=== PATIENT | female | born 1940 | race Caucasian/White ===

== ENCOUNTER → 2017-09-16 16:03 | Outpatient (CLI) | payer MEDICARE, SELFPAY ==
--- NOTE | 2017-09-16 16:07 | MM_ITS ---
MM Dig screening mamm BI w/CAD CAD Screening ORDERING PHYSICIAN : Martín Roberts MD PATIENT AGE: 77 years GENDER: Female COMPARISON: Previous mammograms: September mammogram and ultrasound., HISTORY.: Previous stereotactic biopsy right breast. Benign. No new complaints.. No hormones currently. Patient Stopped taking estrogen 5 months ago: Family history. Maternal great aunt with breast cancer TECHNIQUE: Standard CC and MLO images were obtained. R2 CAD reviewed. Additional axillary cc view both breast and left breast nipple profile MLO view included FINDINGS: Dense breast bilaterally with this decreases sensitivity of mammography but we see no unique or significant new findings between the multiple projections. RIGHT BREAST:Metallic marker clip lateral right breast from previous stereotactic biopsy. Scattered benign calcifications and vascular calcifications bilaterally again noted. No significant change. LEFT BREAST:Again the dense glandular tissue but similar architecture to previous studies with no significant new findings no dominant mass nor architectural irregularity of concern IMPRESSION: Dense breast decreases sensitivity mammography but we see no new areas of concern. Bilateral follow-up in one year recommended BI-RADS Category: 2 Benign Finding(s) RECOMMENDED FOLLOW-UP: 1YR - 1 YEAR FOLLOW-UP (A letter has been sent to the patient regarding results of the study.)
== END ==
PROVIDERS: Family Provider Family Medicine; PCP Family Medicine; Visit Provider Surgery
DX: Z12.31 Encounter for screening mammogram for malignant neoplasm of breast (principal)
CPT/HCPCS: 77067

== ENCOUNTER → 2018-06-30 14:34 | Outpatient (CLI) | payer MEDICARE, SELFPAY ==
--- NOTE | 2018-06-30 14:43 | XR_ITS ---
XR chest 2V HISTORY: ITS.REASON: BRONCHITIS ORDERING PHYSICIAN: Misbah Son MD PATIENT AGE: 78 years COMPARISON: 05/07/2016 FINDINGS: Unremarkable cardiovascular structures. Patchy infiltrate is present within the lingula. There is evidence of old granulomatous disease. There is kyphosis of the midthoracic spine. IMPRESSION: Lingular infiltrate
[2018-06-30 14:52] LABS: Basophils % 0.4 % (0.1-2.0); Eosinophils # 0.1 K/mm3 (0.0-0.4); Eosinophils % 0.5 % (0.1-12.0); Hemoglobin 14.2 g/dL (12.2-16.2); Lymphocytes % 8.4 % (10-50); Mean Corpuscular HGB Conc 32.2 g/dL (31.8-35.4); Mean Corpuscular Volume 96.3 fl (81-99); Monocytes # 0.1 K/mm3 (0.1-1.0); Monocytes % 1.2 % (1.7-9.3); Neutrophils # 10.2 K/mm3 (1.8-7.8); Neutrophils % 89.4 % (37.0-80.0); Platelet Count 319 K/mm3 (142-424); Red Blood Count 4.57 M/mm3 (4.20-5.40); White Blood Count 11.4 K/mm3 (4.8-10.8)
[2018-06-30 14:56] LABS: MANUAL DIFFERENTIAL MANUAL DIFFERENTIAL (MANUAL DIFF)
[2018-06-30 15:43] LABS: Lymphocytes % 7 % (10-50); Neutrophils % 93 % (42-76); Platelet Estimate Normal; RBC Morphology Normal; Total Cells Counted 100
[2018-06-30 15:58] LABS: Alanine Aminotransferase 35 U/L (12-78); Albumin Level 3.4 gm/dL (3.4-5.0); Albumin/Globulin Ratio 0.9 (1.1-1.8); Alkaline Phosphatase 115 U/L (46-116); Anion Gap 13.3 mEq/L (5-15); Aspartate Amino Transferase 24 U/L (15-37); Bilirubin,Total 0.5 mg/dL (0.2-1.0); Blood Urea Nitrogen 39 mg/dL (7-18); Calcium 9.1 mg/dL (8.5-10.1); Carbon Dioxide 29 mmol/L (21.0-32.0); Chloride 102 mmol/L (98-107); Creatinine,Serum 1.52 mg/dL (0.55-1.02); Estimated Glomerular Filt Rate 33 ml/min (>60); GFR (African American) 40 ML/MIN (>60); Globulin 3.6 gm/dl (1.3-3.2); Glucose 142 mg/dL (74-106); Potassium 4.3 mmoL/L (3.5-5.1); Sodium 140 mmol/L (136-145)
== END ==
PROVIDERS: Visit Provider Family Medicine
DX: J40 Bronchitis, not specified as acute or chronic (principal)
CPT/HCPCS: 36415; 71046; 80053; 85007; 85025

== ENCOUNTER → 2018-09-22 10:55 | Outpatient (CLI) | payer MEDICARE, SELFPAY ==
--- NOTE | 2018-09-22 11:01 | MM_ITS ---
MM Dig screening mamm BI w/CAD CAD Screening COMPARISON: Digital mammograms with CAD 05/26/2017 and 09/16/2017 INDICATION: There is a history of breast cancer patient maternal great aunt. There has been a previous biopsy right breast for benign disease. TECHNIQUE: Standard CC and MLO images were obtained. R2 CAD reviewed. FINDINGS: Again noted is a markedly dense and heterogenic parenchymal pattern definitely lessening the sensitivity of mammography. There are multiple scattered benign-appearing microcalcifications in each breast. There is faint arterial calcification in each breast. A biopsy clip is seen right breast. There is no suspicious lesion and there are no suspicious microcalcifications. There are several small nodes in both axilla. IMPRESSION: Stable markedly dense parenchymal pattern with no suspicious lesion seen BI-RADS Category: 2 Benign Finding(s) RECOMMENDED FOLLOW-UP: 1YR - 1 YEAR FOLLOW-UP (A letter has been sent to the patient regarding results of the study.)
== END ==
PROVIDERS: PCP Family Medicine; Visit Provider Surgery
DX: Z12.31 Encounter for screening mammogram for malignant neoplasm of breast (principal)
CPT/HCPCS: 77067

== ENCOUNTER → 2018-10-13 13:46 | Outpatient (CLI) | payer MEDICARE, SELFPAY ==
[2018-10-13 17:02] LABS: Alanine Aminotransferase 35 U/L (12-78); Albumin Level 3.4 gm/dL (3.4-5.0); Alkaline Phosphatase 108 U/L (46-116); Aspartate Amino Transferase 24 U/L (15-37); Bilirubin,Direct 0.1 mg/dL (0.0-0.2); Bilirubin,Indirect 0.4 mg/dL (0.0-0.9); Bilirubin,Total 0.5 mg/dL (0.2-1.0); Total Protein,Serum 6.6 gm/dL (6.4-8.2)
== END ==
PROVIDERS: Visit Provider Surgery
DX: R17 Unspecified jaundice (principal)
CPT/HCPCS: 36415; 80076

== ENCOUNTER → 2020-01-04 10:51 | Outpatient (CLI) | payer MEDICARE, SELFPAY ==
--- NOTE | 2020-01-04 10:51 | MM_ITS ---
PROCEDURE: MM DIG SCREENING MAMM BI W/CAD Digital Breast Tomosynthesis Included CLINICAL INDICATION: screening xmg There is a history of breast cancer patient's maternal great aunt. There has been a previous biopsy right breast for benign disease. COMPARISON: DMDB DIG MAMM-DX LILA W/CAD from 05/26/2017 [facility] MM Dig screening mamm BI w/CAD from 09/16/2017 [facility] MM Dig screening mamm BI w/CAD from 09/22/2018 TECHNIQUE: Standard CC and MLO images and 3D Tomosynthesis was obtained. R2 CAD reviewed. FINDINGS: Again noted is a markedly dense and heterogenic parenchymal pattern and the findings are fairly symmetrical bilaterally. Aayush images are most helpful in this type of breast parenchyma. There are scattered benign-appearing microcalcifications in each breast. There is faint arterial calcification in each breast. Again noted is a biopsy clip right breast. There is a possible new asymmetric density deep within the right breast only definitely seen on the CC projection and appearing to represent a true lesion on aayush images. The fact that this lesion is not definitely seen on the MLO view suggests that it could possibly be due to an intramammary node. The aayush images confirm that the lesion is in the lower part of the breast somewhat close to the chest wall. However recommend the patient return for an attempted spot compression view and ultrasound for additional evaluation. IMPRESSION: Markedly dense parenchymal pattern with possible new lesion right breast BI-RAD Category: 0 Need Additional Imaging Evaluation FOLLOW-UP: IMM Immediate Follow-up Recommended (A letter has been sent to the patient regarding results of the study.) Dictated by: Dr. Mahesh Nunn MD 01/06/2020 07:[address] Mahesh Nunn MD in [place] 01/06/2020 07:58
== END ==
PROVIDERS: PCP Family Medicine; Visit Provider Nurse Practitioner Obstetrics & Gynecology
DX: Z12.31 Encounter for screening mammogram for malignant neoplasm of breast (principal)
CPT/HCPCS: 77063; 77067

== ENCOUNTER → 2020-01-25 14:46 | Outpatient (CLI) | payer MEDICARE, SELFPAY ==
--- NOTE | 2020-01-25 14:46 | MM_ITS ---
PROCEDURE: MM DIG MAMM DX UNILAT RT CAD Digital Breast Tomosynthesis Included CLINICAL INDICATION: abnormal xmg Possible right breast nodule COMPARISON: BR US BREAST-RT COMPLETE W/AXILLA from 05/26/2017 [facility] MM Dig screening mamm BI w/CAD from 09/16/2017 [facility] MM Dig screening mamm BI w/CAD from 09/22/2018 MM DIG SCREENING MAMM BI W/CAD from 01/04/2020 US BREAST RT COMPLETE from 01/25/2020 TECHNIQUE: Spot views performed along with right breast ultrasound FINDINGS: Very dense fibroglandular tissue which decreases the sensitivity of mammography. No malignant appearing mass or malignant-appearing microcalcification. The nodular density noted on the screening mammogram is deep within the medial aspect of the right breast as very difficult to image. There is some asymmetry noted in this area on the spot views but no discrete mass. Right breast ultrasound: No cystic or solid nodules evident. Recommend six-month mammographic and sonographic follow-up IMPRESSION: BI-RAD Category: 3 Probably Benign Finding Short Term Follow-up FOLLOW-UP: 6M 6Month Follow-up (A letter has been sent to the patient regarding results of the study.) Dictated by: Atul Joel MD 01/27/2020 10:44 Electronically signed by Atul Joel MD in [place] 01/27/2020 10:44
== END ==
PROVIDERS: PCP Family Medicine; Visit Provider Nurse Practitioner Obstetrics & Gynecology
DX: R92.8 Other abnormal and inconclusive findings on diagnostic imaging of breast (principal)
CPT/HCPCS: 76641; 77061; 77065; G0279

== ENCOUNTER → 2020-07-26 14:02 | Outpatient (CLI) | payer MEDICARE, SELFPAY ==
--- NOTE | 2020-07-26 | US_ITS ---
PROCEDURE: US BREAST RT COMPLETE CLINICAL INDICATION: 6 mo follow up on Rt. breast COMPARISON: MG [facility] MM Dig screening mamm BI w/CAD from 09/22/2018 MG MM DIG SCREENING MAMM BI W/CAD from 01/04/2020 US US BREAST RT COMPLETE from 01/25/2020 MG MM DIG MAMM DX UNILAT RT CAD from 01/25/2020 US US BREAST RT COMPLETE from 07/26/2020 TECHNIQUE: Standard images performed along with 3D tomography spot compression views and right breast ultrasound. FINDINGS: Dense fibroglandular tissue. This decreases sensitivity of mammography. No malignant appearing mass or malignant-appearing microcalcification. Scattered areas of benign-appearing calcification are noted. Biopsy clip is present in the lower outer right breast. Previously noted area of asymmetric density in the deep medial aspect of the right breast once again noted lobular in nature not significantly changed. This is only well seen on the CC view. Right breast ultrasound: At the 5 o'clock region there is a septated cystic lesion at 6 x 5 mm and may correspond to the mammographic abnormality. This area is not previously identified but could be due to technical factors. There is a hypoechoic nodule at 3 o'clock nonspecific and may represent an area of fibrocystic change which appears to elongate. IMPRESSION: Nodular lesion and the medial deep and deep aspect of the right breast may correspond to a septated cyst. No convincing evidence of malignancy. Probably benign findings of the right breast. Recommend bilateral mammogram in december of 2020 along with right breast ultrasound. BI-RAD Category: 3 Probably Benign Finding Short Term Follow-up FOLLOW-UP: Six-month follow-up (A letter has been sent to the patient regarding results of the study.) The Dictated by: Atul Joel MD 08/13/2020 11:21 Atul Joel MD in [place] 08/13/2020 11:21
--- NOTE | 2020-07-26 14:06 | MM_ITS ---
PROCEDURE: MM DIG MAMM DX UNILAT RT CAD Digital Breast Tomosynthesis Included CLINICAL INDICATION: 6 mo follow up on Rt. breast COMPARISON: MG [facility] MM Dig screening mamm BI w/CAD from 09/22/2018 MG MM DIG SCREENING MAMM BI W/CAD from 01/04/2020 US US BREAST RT COMPLETE from 01/25/2020 MG MM DIG MAMM DX UNILAT RT CAD from 01/25/2020 US US BREAST RT COMPLETE from 07/26/2020 TECHNIQUE: Standard images performed along with 3D tomography spot compression views and right breast ultrasound. FINDINGS: Dense fibroglandular tissue. This decreases sensitivity of mammography. No malignant appearing mass or malignant-appearing microcalcification. Scattered areas of benign-appearing calcification are noted. Biopsy clip is present in the lower outer right breast. Previously noted area of asymmetric density in the deep medial aspect of the right breast once again noted lobular in nature not significantly changed. This is only well seen on the CC view. Right breast ultrasound: At the 5 o'clock region there is a septated cystic lesion at 6 x 5 mm and may correspond to the mammographic abnormality. This area is not previously identified but could be due to technical factors. There is a hypoechoic nodule at 3 o'clock nonspecific and may represent an area of fibrocystic change which appears to elongate. IMPRESSION: Nodular lesion and the medial deep and deep aspect of the right breast may correspond to a septated cyst. No convincing evidence of malignancy. Probably benign findings of the right breast. Recommend bilateral mammogram in december of 2020 along with right breast ultrasound. BI-RAD Category: 3 Probably Benign Finding Short Term Follow-up FOLLOW-UP: Six-month follow-up (A letter has been sent to the patient regarding results of the study.) The Dictated by: Atul Joel MD 08/13/2020 11:20 Atul Joel MD in [place] 08/13/2020 11:20
== END ==
PROVIDERS: PCP Family Medicine; Visit Provider Nurse Practitioner Obstetrics & Gynecology
DX: R92.8 Other abnormal and inconclusive findings on diagnostic imaging of breast (principal)
CPT/HCPCS: 76641; 77061; 77065; G0279

== ENCOUNTER 2020-11-06 12:18 | Inpatient (IN) | payer MEDICARE, SELFPAY ==
[2020-11-06] VITALS (9 sets, daily range): BP systolic 121–148; BP diastolic 49–69; PULSE 74–105; RESP 16–20; TEMP 36.7–36.9; O2SAT 93–100; BMI 25.7; BMI 19.1; BMI 19.5
--- NOTE | 2020-11-06 12:22 | XR_ITS ---
PROCEDURE: XR HIP LT 2-3V W/PELVIS CLINICAL INDICATION: fall hip pain COMPARISON: CR HIP2R HIP-2 VIEWS-RT from 09/18/2014 FINDINGS: There is a displaced intertrochanteric fracture of the left femur with extension of the fracture into the proximal femoral diaphysis. The left acetabulofemoral joint space is maintained. Minor subchondral sclerosis. Mild osteopenia is noted. Soft tissue swelling adjacent to the left hip joint. IMPRESSION: Displaced intertrochanteric fracture with the proximal femoral diaphyseal extension. Dictated by: Ksenia Mary 11/06/2020 13:14 Ksenia Mary in [place] 11/06/2020 13:14
--- NOTE | 2020-11-06 12:23 | XR_ITS ---
PROCEDURE: XR CHEST PORTABLE CLINICAL HISTORY: fall hip pain COMPARISON: CR CXR CHEST(2 VIEWS-NOT PORTABLE) from 05/07/2016 CR CXR2V XR chest 2V from 06/30/2018 FINDINGS: Extensive emphysematous changes of the lungs bilaterally. No lobar consolidation, pleural effusions or pneumothorax. Hyperexpanded lungs. Cardiac size and central pulmonary vasculature within normal limits. Vascular calcification is noted. Degenerative changes of the visualized thoracic spine. Focal calcification noted in the right hilum, unchanged compared to prior study, likely represents calcified lymph nodes. IMPRESSION: Hyperexpanded lungs with the emphysematous changes bilaterally. No lobar consolidation. Dictated by: Ksenia Mary 11/06/2020 13:06 Ksenia Mary in [place] 11/06/2020 13:06
--- NOTE | 2020-11-06 12:26 | HMH.EDLOEX ---
ED Disposition Clinical Impression: Fracture of hip Qualifiers: Encounter type: initial encounter Fracture type: closed Laterality: left Qualified Code(s): S72.002A - Fracture of unspecified part of neck of left femur, initial encounter for closed fracture Disposition: Admitted As Inpatient Condition on Discharge: [facility] - Critical Care Critical Care Time: No Attestation: On , the high probability of a clinically significant, sudden or life threatening deterioration of the following system(s) required my full and direct attention, intervention and personal management. The time I documented below is in addition to time spent performing reported procedures but includes the following listed in this critical care notation. Medical Decision Making - Leo Inquiry Pt receiving controlled substance: No Leo was queried for this patient: No Vital Signs: 11/06/20 12:19 11/06/20 12:26 11/06/20 12:30 Temperature 98.2 F Temperature Source Oral Pulse Rate 90 74 Pulse Rate [Right Brachial] 88 Respiratory Rate 16 18 20 Blood Pressure 129/53 L 129/63 Blood Pressure [Right Arm] 129/53 L Blood Pressure Mean [Right Arm] 78 Blood Pressure Source Automatic Cuff Automatic Cuff Blood Pressure Source [Right Arm] Automatic Cuff Blood Pressure Position Sitting Sitting Blood Pressure Position [Right Arm] Supine 02 Sat by Pulse Oximetry 97 95 99 Oxygen Delivery Method Room Air Room Air 11/06/20 13:00 11/06/20 14:00 Temperature Temperature Source Pulse Rate 84 85 Pulse Rate [Right Brachial] Respiratory Rate 18 16 Blood Pressure 137/57 L 135/49 L Blood Pressure [Right Arm] Blood Pressure Mean [Right Arm] Blood Pressure Source Automatic Cuff Automatic Cuff Blood Pressure Source [Right Arm] Blood Pressure Position Sitting Sitting Blood Pressure Position [Right Arm] 02 Sat by Pulse Oximetry 98 95 Oxygen Delivery Method Room Air - Lab Data Lab Results 11/06/20 12:20: PT 10.3, INR 0.86 L, APTT 23.2 11/06/20 12:20: Chlamy pneumoniae PCR Not detected, Adenovirus (PCR) Not detected, B. pertussis DNA (PCR) Not detected, Coronavirus OC43 (PCR) Not detected, Coronavirus HKU1 (PCR) Not detected, Coronavirus 229E (PCR) Not detected, SARS-CoV-2 (PCR) Not detected, Coronavirus NL63 (PCR) Not detected, Human Metapneumovir PCR Not detected, Influenza A (H1) PCR Not detected, Influ A (H1N1/09) PCR Not detected, Influenza A (H3) PCR Not detected, Influenza Type A (PCR) Not detected, Influenza Type B (PCR) Not detected, M. pneumoniae (PCR) Not detected, Parainfluenza 1 (PCR) Not detected, Parainfluenza 2 (PCR) Not detected, Parainfluenza 3 (PCR) Not detected, Parainfluenza 4 (PCR) Not detected, RSV (PCR) Not detected, Entero/Rhino (PCR) Not detected 11/06/20 12:20: WBC 12.8 H, RBC 4.45, Hgb 13.9, Hct 43.4, MCV 97.6, MCH 31.1, MCHC 31.9, RDW 13.1, Plt Count 284, MPV 8.7, Neut % (Auto) 61.5, Lymph % (Auto) 30.9, [place] % (Auto) 4.7, Eos % (Auto) 2.0, Baso % (Auto) 0.9, Neut # (Auto) 7.9 H, Lymph # (Auto) 4.0, [place] # (Auto) 0.6, Eos # (Auto) 0.3, Baso # (Auto) 0.1 11/06/20 12:20: Sodium 136, Potassium 4.2, Chloride 103, Carbon Dioxide 27, Anion Gap 10.2, BUN 32 H, Creatinine 1.00, Estimated Creat Clear 38, Estimated GFR 53 L, Est GFR ( Amer) 65, Glucose 136 H, Calcium 9.5, Total Bilirubin 0.6, AST 41 H, ALT 32, Alkaline Phosphatase 98, Total Protein 7.0, Albumin 4.2, Globulin 2.8, Albumin/Globulin Ratio 1.5 Result diagrams: 11/06/20 12:20 11/06/20 12:20 - ECG Data Tracing #[id number] on 06 November 2020 shows a normal sinus rhythm at 97 bpm there is an occasional premature ventricular contraction. 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 There is no acute ischemia evident. Normal Sinus Rhythm: Yes Arrhythmias present: PVC's (occasional) ECG compared to prior tracings: there are no significant changes - Physician Consults Physician Consulted: Usman Time: 13:15 Reason -: Orthopedic Eval/Car
--- NOTE | 2020-11-06 12:41 | PC.NURSE ---
pt has had coffe around 10 am, no food since last night.
[2020-11-06 12:51] LABS: Adenovirus,PCR Not Detected (NotDetected); Bordetella Pertussis Not Detected (NotDetected); Chlamydophila Pneumoniae, PCR Not Detected (NotDetected); Coronavirus 19, PCR Not Detected (NotDetected); Coronavirus 229E Not Detected (NotDetected); Coronavirus NL63 Not Detected (NotDetected); Coronavirus OC43 Not Detected (NotDetected); Coronovirus HKU1,PCR Not Detected (NotDetected); Human Metapneumovirus Not Detected (NotDetected); Influenza A, PCR Not Detected (NotDetected); Influenza AH1, 2009 Not Detected (NotDetected); Influenza AH1, PCR Not Detected (NotDetected); Influenza AH3,PCR Not Detected (NotDetected); Influenza B, PCR Not Detected (NotDetected); Mycoplasma Pneumoniae, PCR Not Detected (NotDetected); Parainfluenza 1, PCR Not Detected (NotDetected); Parainfluenza 2, PCR Not Detected (NotDetected); Parainfluenza 3, PCR Not Detected (NotDetected); Parainfluenza 4, PCR Not Detected (NotDetected); Respiratory Syncytial Virus Not Detected (NotDetected); Rhinovirus/Enterovirus Not Detected (NotDetected)
--- NOTE | 2020-11-06 13:06 | ECG_ITS ---
APPROVED REPORT Exam: Resting ECG HR:97 bpm ECG Measurements Heart Rate 97 AXES NJ 148 P 86 QRSd 80 QRS 51 QT 348 T 59 QTc 441 Conclusion Sinus rhythm with occasional premature ventricular complexes and premature atrial complexes Septal infarct, age undetermined Abnormal ECG Electronically signed by : Vik Bruce, 11/07/2020 13:22:15
[2020-11-06 13:08] LABS: Activated Partial Thrombo Time 23.2 seconds (22.8-30.6); Basophils # 0.1 K/mm3 (0-0.2); Basophils % 0.9 % (0.1-2.0); Eosinophils # 0.3 K/mm3 (0.0-0.4); Hematocrit 43.4 % (37.0-47.0); Hemoglobin 13.9 g/dL (12.2-16.2); INR 0.86 (0.9-1.1); Lymphocytes % 30.9 % (10-50); Mean Corpuscular HGB Conc 31.9 g/dL (31.8-35.4); Mean Corpuscular Hemoglobin 31.1 pg (27.0-31.2); Mean Corpuscular Volume 97.6 fl (81-99); Mean Platelet Volume 8.7 fl (7.4-10.4); Monocytes # 0.6 K/mm3 (0.1-1.0); Monocytes % 4.7 % (1.7-9.3); Neutrophils # 7.9 K/mm3 (1.8-7.8); Neutrophils % 61.5 % (37.0-80.0); Platelet Count 284 K/mm3 (142-424); Prothrombin Time 10.3 seconds (10.1-12.5); Red Blood Count 4.45 M/mm3 (4.20-5.40); Red Cell Distribution Width 13.1 % (11.5-17.5); White Blood Count 12.8 K/mm3 (4.8-10.8)
[2020-11-06 13:10] LABS: Chloride 103 mmol/L (98-107); Potassium 4.2 mmoL/L (3.5-5.1); Sodium 136 mmol/L (136-145)
[2020-11-06 13:13] LABS: Alanine Aminotransferase 32 U/L (12-78); Albumin Level 4.2 g/dl (3.5-5.0); Albumin/Globulin Ratio 1.5 (1.1-1.8); Alkaline Phosphatase 98 U/L (38-126); Anion Gap 10.2 mEq/L (5-15); Aspartate Amino Transferase 41 U/L (14-36); Bilirubin,Total 0.6 mg/dl (0.2-1.3); Blood Urea Nitrogen 32 mg/dl (7-17); Carbon Dioxide 27 mmol/L (22.0-30.0); Creatinine Clearance Estimated 38 mL/min (50-200); Estimated Glomerular Filt Rate 53 ml/min (>60); GFR (African American) 65 ML/MIN (>60); Globulin 2.8 g/dL (1.3-3.2)
[2020-11-06 13:14] LABS: Calcium 9.5 mg/dl (8.4-10.2); Glucose 136 mg/dl (74-100)
--- NOTE | 2020-11-06 13:15 | PC.NURSE ---
spoke with Dr Mary
--- NOTE | 2020-11-06 13:33 | PC.NURSE ---
Called for Dr Son, he is out of office till 2 pm. Will try back at 2.
--- NOTE | 2020-11-06 14:07 | PC.NURSE ---
Dr Fletcher speaking with Dr Son.
--- NOTE | 2020-11-06 15:14 | PC.NURSE ---
report called to lillian dietrich rn
--- NOTE | 2020-11-06 15:18 | HMH.HP ---
*Admission Date: 11/06/20 *Chief complaint: Fall with fracture of left hip *History of present illness: Ms. Berg is a 10-year-old female with a history of hypertension, hyperlipidemia, DO porosis, and COPD presented to the emergency department complaining of left-sided hip pain which started after a fall. The patient denies any loss of consciousness or other injuries. Apparently she lost her balance and tripped while attempting to ambulate. The patient's work-up in the emergency department reveals an anterior trochanteric left hip fracture. She is neurovascularly intact distally. The orthopedist on-call, Dr. Mary, was consulted. He has agreed to take the patient to the operating room tomorrow. He has requested that the patient be admitted to the primary care service with consult of Dr. Mary. He also requested that the patient be n.p.o. past midnight as well as under a 5 pound traction once admitted. Above is from ER documentation With evaluation in the emergency room chest x-ray completed today shows hyperexpansion of the lungs With emphysema changes bilaterally and no lobar consolidation. X-ray of the left hip reveals displaced intertrochanteric fracture with a proximal femoral diaphyseal extension. CBC showed a white blood cell count of 12,800 and hemoglobin of 13.9 and hematocrit of 43.4. Chemistries show sodium 136 potassium 4.2 BUN 32 and creatinine of 1. At the time of this exam pt is in quite alot of pain Morphine given ; [place] has been placed; she will have felix inserted. [facility] History Medical History: Reports:: Chronic Obstructive Pulmonary Disease (COPD), Hyperlipidemia, Hypertension, Osteoporosis Denies:: Cancer, Diabetes Mellitus Type 1, Diabetes Mellitus Type 2, MRSA *Have you ever received a pneumonia vaccine?: Yes *Have you received a flu vaccine this season?: Yes Other Medical History: Reports: Osteoporosis Laterality Cases: Bilateral: Breast Biopsy, Tonsillectomy Other Surgeries: Yes: Hysterectomy-Total Amputation: No Fractures: No - *Social History Last grade of school completed: Advanced degree Smoking Status: Current every day smoker Tobacco Type: cigarettes # Packs/Day (cigarettes): 1 Alcohol Intake: never Substance Use Type: denies use *Occupational Status:: retired Housing: house Household Members: spouse *Travel in the last 8 weeks: None Family Hx:: No significant family history Review of Systems - Constitutional Denies fatigue, Denies fever(s) - Eyes Denies change in vision - ENT Denies ear discharge, Denies ear pain, Denies sore throat - *Cardiovascular Denies chest pain, Denies shortness of breath - *Respiratory Denies cough, Denies shortness of breath - *Gastrointestinal Reports nausea, Denies abdominal pain, Denies constipation, Denies heartburn, Denies loose stools, Denies vomiting - *Genitourinary Denies difficulty urinating - *Musculoskeletal Comments: left hip pain; spasms around the hip - *Neurologic Denies frequent falls, Denies headache(s), Denies seizure-like activity Meds Home Medications Medication Instructions Recorded Confirmed Type aspirin 81 mg tablet,delayed 81 mg PO DAILY 09/30/17 11/06/20 History release losartan 50 mg tablet 50 mg PO DAILY 09/30/17 11/06/20 History triamterene 37.5 0.5 tab PO DAILY 09/30/17 11/06/20 History mg-hydrochlorothiazide 25 mg tablet Biotin 300 mcg PO DAILY 11/06/20 11/06/20 History Calcium Carb/Mag Ox/Zinc Sulf [Cvs 1 each PO DAILY 11/06/20 11/06/20 History Vfoildn-Srdxngvpl-Bul Cplt] Cyclobenzaprine HCl 10 mg PO TIDP PRN 11/06/20 11/06/20 History [Cyclobenzaprine 10mg Tab*] Multivitamin 1 each PO DAILY 11/06/20 11/06/20 History Rosuvastatin Calcium 20 mg PO HS 11/06/20 11/06/20 History Ubidecarenone/Vit E Acet [Co Q-10 1 each PO DAILY 11/06/20 11/06/20 History 100 mg Softgel] Allergies Allergy/AdvReac Type Severity Reaction Status Date / Time azithromycin [From Zithromax] Allergy Verified
--- NOTE | 2020-11-06 15:22 | PC.NURSE ---
Pt arrived to the floor at this time.
--- NOTE | 2020-11-06 15:41 | PC.NURSE ---
pt weighed with extra blankets on bed. pt refused to roll at this time to remove blankets. will obtain accurate weigh later this shift.
--- NOTE | 2020-11-06 15:50 | HMH.PHAINT ---
MEDICATION RECONCILIATION COMPLETED USING PHYSICIAN OFFICE AND HOME PHARMACY
--- NOTE | 2020-11-06 17:24 | HMH.ORTHOCON ---
*Admission Date: 11/06/20 *Reason for consult:: Intertrochanteric fracture, left femur *History of present illness: Patient is a 80-year-old female admitted from the ER this afternoon for management of intertrochanteric fracture of the left femur. Her is at the bedside at the time of examination. She presented to the ER complaining of left hip pain following a mechanical fall at home. Patient states that she got up from a chair, got her legs tangled, tripped and fell over at home. She states that she developed immediate pain around her left hip and she could not get up or walk after the fall. Following evaluation in the ER including x-rays, patient was admitted to hospital for further management. On the floor now, she is complaining of pain around the left hip worsened with any attempted movements. She also reports intermittent muscle spasms which exacerbate the hip pain. No history of any distal tingling or numbness. She reports no other injuries. Patient denies any dizziness, headache, chest or neck pain. She denies loss of consciousness, chest pain and shortness of breath. She lives with her and usually walks independently without any walking aids. She says she has been mobile and independent and did not have any problems prior to the fall. She says her pain is well controlled at rest but trying to move the LEFT leg causes hip pain. Her past medical history includes hypertension, hyperlipidemia, osteoporosis and COPD. She is a chronic smoker. [facility] History I have reviewed the patient's past medical history: Yes Medical History: Reports:: Chronic Obstructive Pulmonary Disease (COPD), Hyperlipidemia, Hypertension, Osteoporosis Denies:: Cancer, Diabetes Mellitus Type 1, Diabetes Mellitus Type 2, MRSA *Have you ever received a pneumonia vaccine?: Yes *Have you received a flu vaccine this season?: Yes Other Medical History: Reports: Osteoporosis Laterality Cases: Bilateral: Breast Biopsy, Tonsillectomy Other Surgeries: Yes: Hysterectomy-Total Amputation: No Fractures: No - *Social History Last grade of school completed: Advanced degree Smoking Status: Current every day smoker Tobacco Type: cigarettes # Packs/Day (cigarettes): 1 Alcohol Intake: never Substance Use Type: denies use *Occupational Status:: retired Housing: house Household Members: spouse *Travel in the last 8 weeks: None Family Hx:: No significant family history Review of Systems - Review of Systems Review of systems:: pertinent systems reviewed and negative unless documented below - Constitutional Denies chills, Denies fatigue, Denies fever(s) - Eyes Denies change in vision - ENT Denies abnormal hearing, Denies difficulty swallowing - *Cardiovascular Denies chest pain, Denies shortness of breath - *Respiratory Denies chest congestion, Denies shortness of breath - *Gastrointestinal Denies abdominal pain, Denies change in bowel habits - *Musculoskeletal Reports abnormal walking, Reports joint pain, Reports limited joint movement - *Neurologic Denies frequent falls, Denies headache(s), Denies seizure-like activity - Endocrine Denies cold intolerance, Denies heat intolerance - Hematologic/Lymphatic Denies easy bleeding, Denies easy bruising Meds Home Medications Medication Instructions Recorded Confirmed Type aspirin 81 mg tablet,delayed 81 mg PO DAILY 09/30/17 11/06/20 History release losartan 50 mg tablet 50 mg PO DAILY 09/30/17 11/06/20 History triamterene 37.5 0.5 tab PO DAILY 09/30/17 11/06/20 History mg-hydrochlorothiazide 25 mg tablet Biotin 300 mcg PO DAILY 11/06/20 11/06/20 History Calcium Carb/Mag Ox/Zinc Sulf [Cvs 1 each PO DAILY 11/06/20 11/06/20 History Apudnjs-Ydmsvxsxp-Crl Cplt] Cyclobenzaprine HCl 10 mg PO TIDP PRN 11/06/20 11/06/20 History [Cyclobenzaprine 10mg Tab*] Multivitamin 1 each PO DAILY 11/06/20 11/06/20 History Rosuvastatin Calcium 20 mg PO HS 11/06/20 11/06/20 History Ubidecarenone/V
[2020-11-06 17:50] LABS: Microscopic, Urine URINE MICROSCOPIC (MICROSCOPIC)
[2020-11-06 17:54] LABS: Appearance,Urine CLEAR (Clear); Bilirubin,Urine Negative (Negative); Blood, Urine Negative (Negative); Color,Urine YELLOW (Yellow); Glucose,Urine (UA) Negative (Negative); Ketones,Urine Negative (Negative); Leukocyte Esterase,Urine TRACE (Negative); Nitrate,Urine POSITIVE (Negative); Protein,Urine TRACE (Negative); Specific Gravity, Urine 1.025 (1.005-1.030); Urobilinogen,Urine 0.2 EU/dl (0.2)
[2020-11-06 18:31] LABS: Bacteria,Urine 3+ /lpf; Squamous Epithelial Cell,Urine Occasional #/hpf (0-5)
--- NOTE | 2020-11-06 19:18 | PC.NURSE ---
Pt brought to floor, noted to be in severe pain. Pain meds increased to 2 mg Q2HP per Don Dimas. Pt states some relief, but is still having frequent spasms in left thigh, Dr. Son aware. Pt remains on room air. Linens from ED stretcher are still under pt currently, pt refuses to allow staff to roll her. She is aware that she will need a bath before surgery tomorrow and states that staff may take them out from under her then. 16 Fr felix cath inserted by staff using sterile technique, UA sent to lab per protocol. 5lb bucks traction applied to LLE per MD orders. Scud in place to RLE. Pt's family remains @ bedside. No needs voiced @ this time. Call trisha w/in reach.
--- NOTE | 2020-11-06 23:51 | PC.NURSE ---
pt is alert and oriented X4, and has refused a bed bath
[2020-11-07] VITALS (24 sets, daily range): BP systolic 111–144; BP diastolic 47–76; PULSE 116–127; RESP 16–20; TEMP 36.6–37.5; O2SAT 78–95
--- NOTE | 2020-11-07 05:41 | PC.NURSE ---
shift summary pts lung sounds are clear with sats maintained 90% or above on room air with a rate ranging from 16-18. pt called out due to pain frequently through out the night requesting pain meds about every 2 hours. pt refuses to be turned or moved in any way due to pain. pt is alert and oriented X4. pt has a felix in place with clear yellow in color urine. pt denies any nausea, vomiting, or diarrhea.
--- NOTE | 2020-11-07 05:53 | PC.NURSE ---
UNABLE TO OBTAIN PATIENTS WEIGHT . PATIENT IN AN OLDER BED WITH BUCKS TRACTION AND SCUD ON THE RIGHT LEG . BUCKS TRACTION IS PLACED WHERE THE WEIGHT IS OBTAINED. PATIENT UNABLE TO TOLERATE MOVING THE BUCKS TRACTION SO THAT WEIGHT CAN BE OBTAINED. RN AWARE.
[2020-11-07 06:51] LABS: Alanine Aminotransferase 34 U/L (12-78); Albumin Level 4.1 g/dl (3.5-5.0); Albumin/Globulin Ratio 1.4 (1.1-1.8); Alkaline Phosphatase 74 U/L (38-126); Anion Gap 9.9 mEq/L (5-15); Aspartate Amino Transferase 51 U/L (14-36); Bilirubin,Total 0.8 mg/dl (0.2-1.3); Blood Urea Nitrogen 28 mg/dl (7-17); Calcium 9.1 mg/dl (8.4-10.2); Carbon Dioxide 26 mmol/L (22.0-30.0); Chloride 104 mmol/L (98-107); Creatinine Clearance Estimated 38 mL/min (50-200); Estimated Glomerular Filt Rate 60 ml/min (>60); GFR (African American) 73 ML/MIN (>60); Glucose 127 mg/dl (74-100); Potassium 4.9 mmoL/L (3.5-5.1); Sodium 135 mmol/L (136-145); Total Protein,Serum 7.1 g/dl (6.3-8.2)
[2020-11-07 07:18] LABS: Basophils # 0.1 K/mm3 (0-0.2); Basophils % 0.4 % (0.1-2.0); Eosinophils % 0.2 % (0.1-12.0); Hematocrit 43.7 % (37.0-47.0); Hemoglobin 14.4 g/dL (12.2-16.2); Lymphocytes # 1.2 K/mm3 (0.7-4.5); Lymphocytes % 9.5 % (10-50); Mean Corpuscular Hemoglobin 31.8 pg (27.0-31.2); Mean Corpuscular Volume 96.6 fl (81-99); Mean Platelet Volume 10.5 fl (7.4-10.4); Monocytes % 7.7 % (1.7-9.3); Neutrophils # 10.7 K/mm3 (1.8-7.8); Neutrophils % 82.2 % (37.0-80.0); Platelet Count 201 K/mm3 (142-424); Red Blood Count 4.52 M/mm3 (4.20-5.40); Red Cell Distribution Width 13.1 % (11.5-17.5); White Blood Count 13.1 K/mm3 (4.8-10.8)
--- NOTE | 2020-11-07 08:11 | HMH.ACPN2 ---
Internal Medicine - PN: Giuseppe *Date: 11/07/20 *Time: 08:11 Interval history: Pain has been the main issue. She has received morphine every 2-3 hours since admission. She has refused to move due to related pain. She has had some nausea. She is n.p.o. for surgery today. has stayed with her throughout the night and states she did better the latter part of the a.m. She does have a Ridley catheter to bedside drainage. She has had an adequate urinary output. Exam Vital signs and Labs for Last 24 Hours: Temp Pulse Resp BP Pulse Ox 98.5 F 126 H 16 133/55 L 87 L 11/07/20 07:58 11/07/20 07:58 11/07/20 07:58 11/07/20 07:58 11/07/20 07:58 Laboratory Results - last 24 hr 11/06/20 12:20: PT 10.3, INR 0.86 L, APTT 23.2 11/06/20 12:20: Chlamy pneumoniae PCR Not detected, Adenovirus (PCR) Not detected, B. pertussis DNA (PCR) Not detected, Coronavirus OC43 (PCR) Not detected, Coronavirus HKU1 (PCR) Not detected, Coronavirus 229E (PCR) Not detected, SARS-CoV-2 (PCR) Not detected, Coronavirus NL63 (PCR) Not detected, Human Metapneumovir PCR Not detected, Influenza A (H1) PCR Not detected, Influ A (H1N1/09) PCR Not detected, Influenza A (H3) PCR Not detected, Influenza Type A (PCR) Not detected, Influenza Type B (PCR) Not detected, M. pneumoniae (PCR) Not detected, Parainfluenza 1 (PCR) Not detected, Parainfluenza 2 (PCR) Not detected, Parainfluenza 3 (PCR) Not detected, Parainfluenza 4 (PCR) Not detected, RSV (PCR) Not detected, Entero/Rhino (PCR) Not detected 11/06/20 12:20: WBC 12.8 H, RBC 4.45, Hgb 13.9, Hct 43.4, MCV 97.6, MCH 31.1, MCHC 31.9, RDW 13.1, Plt Count 284, MPV 8.7, Neut % (Auto) 61.5, Lymph % (Auto) 30.9, [place] % (Auto) 4.7, Eos % (Auto) 2.0, Baso % (Auto) 0.9, Neut # (Auto) 7.9 H, Lymph # (Auto) 4.0, [place] # (Auto) 0.6, Eos # (Auto) 0.3, Baso # (Auto) 0.1 11/06/20 12:20: Sodium 136, Potassium 4.2, Chloride 103, Carbon Dioxide 27, Anion Gap 10.2, BUN 32 H, Creatinine 1.00, Estimated Creat Clear 38, Estimated GFR 53 L, Est GFR ( Amer) 65, Glucose 136 H, Calcium 9.5, Total Bilirubin 0.6, AST 41 H, ALT 32, Alkaline Phosphatase 98, Total Protein 7.0, Albumin 4.2, Globulin 2.8, Albumin/Globulin Ratio 1.5 11/06/20 15:58: Urine Color Yellow, Urine Appearance Clear, Urine pH 6.0, Ur Specific [place] 1.025, Urine Protein Trace, Urine Glucose (UA) Negative, Urine Ketones Negative, Urine Blood Negative, Urine Nitrate Positive, Urine Bilirubin Negative, Urine Urobilinogen 0.2, Ur Leukocyte Esterase Trace, Urine RBC None, Urine WBC 5-10, Ur Squamous Epith Cells Occasional, Urine Bacteria 3+ 11/07/20 06:08: Blood Type B Positive, Antibody Screen Negative 11/07/20 06:08: WBC 13.1 H, RBC 4.52, Hgb 14.4, Hct 43.7, MCV 96.6, MCH 31.8 H, MCHC 33.0, RDW 13.1, Plt Count 201 D, MPV 10.5 H, Neut % (Auto) 82.2 H, Lymph % (Auto) 9.5 L, [place] % (Auto) 7.7, Eos % (Auto) 0.2, Baso % (Auto) 0.4, Neut # (Auto) 10.7 H, Lymph # (Auto) 1.2, [place] # (Auto) 1.0, Eos # (Auto) 0.0, Baso # (Auto) 0.1 11/07/20 06:08: Sodium 135 L, Potassium 4.9, Chloride 104, Carbon Dioxide 26, Anion Gap 9.9, BUN 28 H, Creatinine 0.90, Estimated Creat Clear 38, Estimated GFR 60, Est GFR ( Amer) 73, Glucose 127 H, Calcium 9.1, Total Bilirubin 0.8, AST 51 H, ALT 34, Alkaline Phosphatase 74, Total Protein 7.1, Albumin 4.1, Globulin 3.0, Albumin/Globulin Ratio 1.4 I & O for Last 24 hours: Intake & Output 11/04/20 11/05/20 11/06/20 11/07/20 11:59 11:59 11:59 11:59 Intake Total 120 / 120 Output Total 600 / 600 Balance -480 / -480 Weight 117 lb 6 oz - Constitutional no acute distress Comments: Sleeps intermittently during assessment. - *Routine Respiratory Exam Present: rhonchi (Scattered anteriorly) - *Routine Cardiovascular Exam Present: RRR - *Routine Abdominal Exam Present: soft, normoactive bowel sounds, bruit (Aortic). Absent: tenderness, distended Comments: Has Ridley catheter to bedside drainage - *Routine Extremities Exam Absent
[2020-11-07 08:51] LABS: ABG Base Excess -0.2 mmol/L (-2.4-2.3); ABG HCO3 25.9 mmhg (22.0-26.0); ABG Oxygen Saturation 92 % (90-100); ABG PH 7.32 mmol/L (7.35-7.45); ABG PO2 61.4 mmhg (80-100); ABG TCO2 27.4 mmhg (23-27)
[2020-11-07 08:53] LABS: Allen's Test ACCEPTABLE; Oxygen 50% VENTURI %; Source R RADIAL
[2020-11-07 08:55] LABS: ABG PCO2 50.9 mmhg (35.0-45.0)
--- NOTE | 2020-11-07 08:59 | P.CONPHA_ITS ---
[facility] Pharmacy VTE Monitoring - Patient Demographics Admission date: 11/06/20 Report Date: 11/07/20 Time: 08:59 Allergies/Adverse Reactions: Patient Allergies azithromycin [From Zithromax] Allergy (Verified 11/06/20 13:24) nitrofurantoin [From Macrobid] Allergy (Verified 11/06/20 13:24) Sulfa (Sulfonamide Antibiotics) Allergy (Verified 11/06/20 13:24) Height: 1.65 m Weight: 53.24 kg Patient Problems: Current Active Problems Fracture of hip (Acute) HTN (hypertension) (Chronic) Hypothyroid (Chronic) Closed intertrochanteric fracture of left femur (Acute) Tobacco use disorder (Chronic) Emphysema of lung (Chronic) - VTE Risk Labs: VTE Related Lab Results Hgb 14.4 g/dL (12.2-16.2) 11/07/20 06:08 Hct 43.7 % (37.0-47.0) 11/07/20 06:08 Plt Count 201 K/mm3 (142-424) D 11/07/20 06:08 PT 10.3 seconds (10.1-12.5) 11/06/20 12:20 INR 0.86 (0.9-1.1) L 11/06/20 12:20 APTT 23.2 seconds (22.8-30.6) 11/06/20 12:20 BUN 28 mg/dl (7-17) H 11/07/20 06:08 Creatinine 0.90 mg/dl (0.52-1.04) 11/07/20 06:08 Estimated Creat Clear 38 mL/min (50-200) 11/07/20 06:08 VTE Score: 3 VTE Risk Level: Low Risk - Prophylaxis VTE Prophylaxis Ordered?: Yes Types of VTE Prophylaxis: TEDS Knee High Location of Applied Device: Bilateral Lower Extremeties
--- NOTE | 2020-11-07 09:38 | CT_ITS ---
PROCEDURE: CT ANGIO CHEST CLINCIAL INDICATION: surgery COMPARISON: No exams were available for comparison TECHNIQUE: IV Contrast: 70ML Isovue 370 Axial images obtained with sagittal and coronal reformats. All CT scans at the facility use one or more dose reduction, viz: automated exposure control, ma/kV adjustment per patient size (including targeted exams where dose is matched to indication, i.e. head), or iterative reconstruction technique. FINDINGS: HEART AND MEDIASTINAL STRUCTURES: The pulmonary arteries opacify normally without evidence of filling defects. No evidence of pulmonary embolism is noted. The heart size is normal. Atheromatous changes are with calcification of the visualized thoracic aorta. No pericardial effusions. Calcified lymph node noted in the subcarinal region. No other significant mediastinal or hilar adenopathy. LUNGS AND PLEURAL SPACES: Centrilobular and paraseptal emphysematous changes are noted bilaterally. Minor subpleural atelectasis. Bibasilar atelectasis noted. There is evidence of mucous debris with the near complete a obstruction of the subsegmental bronchials, predominantly in the right lower lobe. No postobstructive consolidation noted. Minor bibasal atelectasis is noted. Peribronchial thickening and loss of tapering of the bilateral lower lobe bronchials, worse on the right. BONY STRUCTURES: Degenerative changes of the visualized thoracic spine. UPPER ABDOMEN: Multiple splenic calcifications are noted, likely secondary to prior granulomatous disease. Otherwise the visualized upper abdominal solid organs are unremarkable within the limitations of phase of IV contrast. ADDITIONAL FINDINGS: No other significant abnormalities.. IMPRESSION: No evidence of pulmonary embolism. Peribronchial thickening with the debris noted in the right lower lobe bronchials, may represent mucous plugging. No postobstructive changes are noted. Minor bibasal atelectasis. Dictated by: Ksenia Mary 11/07/2020 13:40 Ksenia Mary in OV 11/07/2020 13:40
--- NOTE | 2020-11-07 09:42 | HMH.PULMCON ---
*Admission Date: 11/06/20 *History of present illness: Ms. Scott is a 80-year-old pleasant female significant smoking story more than [id number] is currently smoking 1 pack a day not using any inhalers or oxygen at home, carries a diagnosis of COPD previously used inhalers presented to hospital with left hip intertrochanteric fracture and found to be hypoxic needing Ventimask to maintain her saturation pulmonary was called for further management. [facility] History Medical History: Reports:: Chronic Obstructive Pulmonary Disease (COPD), Hyperlipidemia, Hypertension, Osteoporosis Denies:: Cancer, Diabetes Mellitus Type 1, Diabetes Mellitus Type 2, MRSA *Have you ever received a pneumonia vaccine?: Yes *Have you received a flu vaccine this season?: Yes Other Medical History: Reports: Osteoporosis Laterality Cases: Bilateral: Breast Biopsy, Tonsillectomy Other Surgeries: Yes: Hysterectomy-Total Amputation: No Fractures: No - *Social History Last grade of school completed: Advanced degree Smoking Status: Current every day smoker Tobacco Type: cigarettes # Packs/Day (cigarettes): 1 Alcohol Intake: never Substance Use Type: denies use *Occupational Status:: retired Housing: house Household Members: spouse *Travel in the last 8 weeks: None Family Hx:: No significant family history ROS - Review of Systems Review of systems:: unable to obtain - Cons Denies chills - ENT Denies bleeding gums - Card Reports shortness of breath, Reports shortness of breath with activity - Resp Respiratory: Denies chest congestion, Denies cough, Denies excessive phlegm production, Denies coughing up blood, Denies cough with sputum production - [place] Musculoskeletal: Reports joint pain Meds Home Medications Medication Instructions Recorded Confirmed Type aspirin 81 mg tablet,delayed 81 mg PO DAILY 09/30/17 11/06/20 History release losartan 50 mg tablet 50 mg PO DAILY 09/30/17 11/06/20 History triamterene 37.5 0.5 tab PO DAILY 09/30/17 11/06/20 History mg-hydrochlorothiazide 25 mg tablet Biotin 300 mcg PO DAILY 11/06/20 11/06/20 History Calcium Carb/Mag Ox/Zinc Sulf [Cvs 1 each PO DAILY 11/06/20 11/06/20 History Jasiitl-Xhvxrsest-Uwn Cplt] Cyclobenzaprine HCl 10 mg PO TIDP PRN 11/06/20 11/06/20 History [Cyclobenzaprine 10mg Tab*] Multivitamin 1 each PO DAILY 11/06/20 11/06/20 History Rosuvastatin Calcium 20 mg PO HS 11/06/20 11/06/20 History Ubidecarenone/Vit E Acet [Co Q-10 1 each PO DAILY 11/06/20 11/06/20 History 100 mg Softgel] Allergies Allergy/AdvReac Type Severity Reaction Status Date / Time azithromycin [From Zithromax] Allergy Verified 11/06/20 13:24 nitrofurantoin Allergy Verified 11/06/20 13:24 [From Macrobid] Sulfa (Sulfonamide Allergy Verified 11/06/20 13:24 Antibiotics) Exam - Eye Exam Eyes:: Present: eyelids normal, normal conjunctiva - Respiratory Exam Respiratory:: Present: able to speak in complete sentences, lungs clear. Absent: wheezing - Cardiovascular Exam Cardiac:: Present: S1, S2 - GI Exam GI:: Present: soft - Skin Exam Skin: Present: warm, no rash - Neurological Exam Neurological: Present: alert, awake, normal cognition - Extremities Exam Extremities: Present: no cyanosis, no clubbing, no edema Comments: Left lower extremity cast Internal Medicine - CN: Reslt - Labs CBC & Chem 7: 11/07/20 06:08 11/07/20 06:08 Labs: Short CBC 11/06/20 11/07/20 Range/Units 12:20 06:08 WBC 12.8 H 13.1 H (4.8-10.8) K/mm3 Hgb 13.9 14.4 (12.2-16.2) g/dL Hct 43.4 43.7 (37.0-47.0) % Plt Count 284 201 D (142-424) K/mm3 BMP 11/06/20 11/07/20 12:20 06:08 Sodium 136 135 L Potassium 4.2 4.9 Chloride 103 104 Carbon Dioxide 27 26 BUN 32 H 28 H Creatinine 1.00 0.90 Glucose 136 H 127 H Calcium 9.5 9.1 Liver Function 11/06/20 11/07/20 Range/Units 12:20 06:08 Total Bilirubin 0.6 0.8 (0.2-1.3) mg/dl AST 41
--- NOTE | 2020-11-07 10:00 | CA_ITS ---
APPROVED REPORT Right Lower Extremity Venous Study for DVT. Plate Hanger: DONG De La CruzT Indications Shortness of breath Hypoxia,LT HIP FX IN TRACTION Risk Factors Trauma Bed Rest Vein Imaging CFV (R): compressive, spontaneous, phasic, augmentation FEM (R): compressive, spontaneous, phasic, augmentation POP (R): compressive, spontaneous, phasic, augmentation PTV (R): Compressible GSV (R): Compressible Peroneals (R):Compressible GAS (R): Compressible Findings Study suggests no evidence of DVT of the right lower extremity. Study suggests no evidence of SVT of the right lower extremity. Conclusion Study suggests no evidence of DVT of the right lower extremity. Study suggests no evidence of SVT of the right lower extremity. Electronically signed by : Ksenia Mary, 11/07/2020 15:46:47
[2020-11-07 10:41] LABS: C-Reactive Protein 41.6 mg/L (0-4)
[2020-11-07 10:45] LABS: NT Pro Brain Natriuretic Pep. 611 pg/mL (0-450)
[2020-11-07 10:53] LABS: Procalcitonin 0.091 ng/mL (0.0-2.0)
[2020-11-07 11:01] LABS: D-Dimer 4.76 ug/mL (0.0-0.5)
[2020-11-07 11:12] LABS: ABG Base Excess -1.2 mmol/L (-2.4-2.3); ABG HCO3 24.3 mmhg (22.0-26.0); ABG Oxygen Saturation 94 % (90-100); ABG PCO2 44.4 mmhg (35.0-45.0); ABG PH 7.36 mmol/L (7.35-7.45); ABG PO2 65.9 mmhg (80-100); ABG TCO2 25.7 mmhg (23-27)
[2020-11-07 11:14] LABS: Allen's Test ACCEPTABLE; Oxygen 50% VENTI %; Source R RADIAL
--- NOTE | 2020-11-07 14:32 | HMH.ANESCL ---
[facility] Anesthesia Checklist - Patient Identification Patient Identification: Arm Band - Structural Data Admitted From: Home Planned Operative Procedure/s: Gamma nailing Consent for Planned Operative Procedure(s) Verified: Yes - Airway Assessment C-Spine Mobility Assessed: Yes TMJ Mobility Assessed: Yes Dentition: Good Dentition - Neurological Assessment Level of Consciousness: Awake, Alert Hx Seizures: No Numbness or tingling in extremities: No - Anesthesia Plan Anesthesia Risk discussed: Yes Anesthesia Plan: Verified ASA Class: III Anesthesia Type: MAC w/Spinal (General with spinal) [facility] History I have reviewed the patient's past medical history: Yes Medical History: Reports:: Chronic Obstructive Pulmonary Disease (COPD), Hyperlipidemia, Hypertension, Osteoporosis Denies:: Cancer, Diabetes Mellitus Type 1, Diabetes Mellitus Type 2, MRSA *Have you ever received a pneumonia vaccine?: Yes *Have you received a flu vaccine this season?: Yes Other Medical History: Reports: Osteoporosis, Other Comment:: Bibasilar atelectasis Anesthesia experience/problems:: None Laterality Cases: Bilateral: Breast Biopsy, Tonsillectomy Other Surgeries: Yes: Hysterectomy-Total Amputation: No Fractures: No - *Social History Last grade of school completed: Advanced degree Smoking Status: Current every day smoker Tobacco Type: cigarettes # Packs/Day (cigarettes): 1 Alcohol Intake: never Substance Use Type: denies use *Occupational Status:: retired Housing: house Household Members: spouse *Travel in the last 8 weeks: None Family Hx:: No significant family history
--- NOTE | 2020-11-07 17:35 | XR_ITS ---
CLINICAL INDICATION: GAMMA NAILING IN OR COMPARISON: No exams were available for comparison TECHNIQUE: Multiple fluoroscopic images of the left femur FINDINGS: Multiple fluoroscopic images of the left femur demonstrate intramedullary she and screw fixation. IMPRESSION: Intramedullary she and screw fixation of the left femur. Dictated by: Ksenia Mary 11/08/2020 11:30 Ksenia Mary in OV 11/08/2020 11:30
--- NOTE | 2020-11-07 18:14 | PC.NURSE ---
PT HAS BEEN IN OR T/O MOST OF SHIFT. INTERVENTIONS CLEARED FROM CHART.
--- NOTE | 2020-11-07 18:28 | HMH.ANESI ---
[facility] Anesthesia Record Part I Intake, IV Amount: 1,000 Estimated blood loss (mL): 200 Urine output (mL): 350 Blood Pressure: 133/58 SaO2: 90 Pulse Rate: 120 Respiratory Rate: 16 Temperature: 97.9 F Patient is:: Drowsy Stable to PACU at:: 18:21
--- NOTE | 2020-11-07 18:57 | SUR.PHASEI ---
182- pt to pacu via bed with O2 @ 6 lpm per mask. Pt is drowsy but easily aroused. HOB raised to 45 degrees. Respirations are easy and shallow. pt instructed to cough and deep breath. O2 raised to 15 lpm. Warm blankets placed on pt. Ice pack to left hip. 184- @ bs. Ordered for pt to go to step down bed for monitoring. 1844-respiratory called for albuterol treatment. Ordered per [place] MEI. 1849-Pt more awake and arouses easily. Pt states she feels much better. VSS.
--- NOTE | 2020-11-07 19:05 | HMH.ANESII ---
[facility] Anesthesia Record Part II Discharge Time: 19:05 Destination: Second Floor PACU nurse assessment reviewed?: Yes Patient Condition:: Good Anesthesia Complications:: None Swallowing reflex intact?: Yes Cyanosis?: No Blood Pressure: 126/67 Pulse Rate: 122 Temperature: 99.5 F Mental Status: Alert & Oriented Pain level:: 0 Nausea and/or vomitting:: None Intake, IV Amount: 1,000
--- NOTE | 2020-11-07 19:18 | PC.NURSE ---
PT BACK TO FLOOR AT 1917 VIA BED WITH OR STAFF.
--- NOTE | 2020-11-07 19:18 | HMH.OPNOTE ---
Date of procedure: 11/07/20 Pre-op Diagnosis:: Closed, comminuted, displaced and unstable intertrochanteric fracture, left proximal femur Post-op Diagnosis:: Same Procedure performed:: Closed reduction and cephalomedullary nailing, left femur Surgeon:: Rom Mary MD Rehab Consultant(s):: Yue Lizarraga ASSEM[employer] BUILDINGS:: Other ([facility]) Anesthesia: spinal Estimated blood loss (mL): 200 Clinical Note:: Patient is a 80-year-old female who tripped and fell sustaining an injury to her left hip on 11/06/2020. Following evaluation in the emergency room where x-ray showed a displaced and comminuted intertrochanteric fracture of the left proximal femur, patient was admitted for further management. After evaluating the patient, I have discussed the diagnosis and management options in detail including nonsurgical and surgical, with the patient and her . Prior to the injury patient was active and mobile independently. She lives with her . After a detailed discussion with the patient and her a decision was made to fix the fracture internally with a cephalo-medullary nail. I have discussed the procedure, risks and benefits, postoperative recovery and rehabilitation and the expected outcomes. The complications discussed include but are not limited to DVT, PE, infection, bleeding, injury to nerves and blood vessels, screw cut-out/implant failure, loss of fixation, nonunion, malunion/malrotation, osteonecrosis of the femoral head, femoral shaft fracture, painful hardware, heterotopic ossification, stiffness, weakness, incomplete relief of pain, incomplete return of function or motion and the likely need for further surgery in future, and anesthetic/medical complications including heart attack, stroke, transfusion reaction or . The patient wished to proceed with the surgical remediation. Consent form was reviewed and signed by me. The limb was appropriately marked and initialed by me. Following appropriate preoperative workup, medical and pulmonology clearance, patient is brought to the operating room for surgery. The surgery is indicated to reduce and stabilize the fracture, relieve pain and improve function. Patient understood the risks, agreed to proceed with surgery, signed the consent form and no guarantees or assurances were given or implied. Please refer to my consult note for full details. Operative findings:: Comminuted, displaced and unstable intertrochanteric fracture left proximal femur as noted on the preoperative x-rays. The fracture is well reduced with closed manipulation prior to fixation. Bone quality is osteoporotic. Operative note:: Following appropriate preoperative workup and medical and pulmonology clearance, patient is brought to the operating room and a spinal anesthesia was administered by the biological lab technician. Patient was then positioned supine on the fracture table and all the bony prominences were appropriately padded. The left foot was secured in the footplate and the footplate was attached to the fracture table. The right leg was placed out of the way in a leg beebe. Under fluoroscopic guidance the fracture was reduced by traction and satisfactory reduction was obtained. The reduction was confirmed on both AP and lateral views. The left hip and thigh were then prepped and draped in the usual sterile fashion. Administration of prophylactic antibiotics was confirmed with the biological lab technician (IV Ancef and vancomycin were administered). A preprocedure timeout was performed as per the hospital protocol. After marking the level of the greater trochanter on the skin under fluoroscopy, a skin incision was made proximal to the greater trochanter in line with the femoral shaft. The dissection was then carried through the subcutaneous tissue. The tensor fascia muscle was split in line with the fibers. This provided access to the tip of the greater trochanter. Under fluoroscopic guidance a guidewire was placed at the tip of the greater trochanter, the po
--- NOTE | 2020-11-07 19:36 | SUR.PHASEI ---
190-respiratory @ bs. Pt awake and alert talking. VSS 1914-Detailed report called to Shay SHAFER. Pt transported via bed with portable o2 @ 10 lpm to step down per Luis SHAFER & Mar[place]. Pt left in care of Shay SHAFER @ bs. VSS.
--- NOTE | 2020-11-07 19:46 | HMH.ACPN2 ---
Internal Medicine - PN: Subj *Date: 11/07/20 *Time: 19:46 Interval history: Returns to Med/Surg post-op. No distress. Jq=620/74, HR remaining elevated at 122. Lungs actually sound clearer than pre-op. X-rays reviewed. Spoke with and [id number]. Exam Vital signs and Labs for Last 24 Hours: Temp Pulse Resp BP Pulse Ox 98.9 F 118 H 16 122/67 90 L 11/07/20 19:15 11/07/20 19:15 11/07/20 19:15 11/07/20 19:15 11/07/20 19:15 Laboratory Results - last 24 hr 11/06/20 15:58: Urine Color Yellow, Urine Appearance Clear, Urine pH 6.0, Ur Specific [place] 1.025, Urine Protein Trace, Urine Glucose (UA) Negative, Urine Ketones Negative, Urine Blood Negative, Urine Nitrate Positive, Urine Bilirubin Negative, Urine Urobilinogen 0.2, Ur Leukocyte Esterase Trace, Urine RBC None, Urine WBC 5-10, Ur Squamous Epith Cells Occasional, Urine Bacteria 3+ 11/07/20 06:08: Blood Type B Positive, Antibody Screen Negative 11/07/20 06:08: WBC 13.1 H, RBC 4.52, Hgb 14.4, Hct 43.7, MCV 96.6, MCH 31.8 H, MCHC 33.0, RDW 13.1, Plt Count 201 D, MPV 10.5 H, Neut % (Auto) 82.2 H, Lymph % (Auto) 9.5 L, Nobles % (Auto) 7.7, Eos % (Auto) 0.2, Baso % (Auto) 0.4, Neut # (Auto) 10.7 H, Lymph # (Auto) 1.2, [place]les # (Auto) 1.0, Eos # (Auto) 0.0, Baso # (Auto) 0.1 11/07/20 06:08: Sodium 135 L, Potassium 4.9, Chloride 104, Carbon Dioxide 26, Anion Gap 9.9, BUN 28 H, Creatinine 0.90, Estimated Creat Clear 38, Estimated GFR 60, Est GFR ( Amer) 73, Glucose 127 H, Calcium 9.1, Total Bilirubin 0.8, AST 51 H, ALT 34, Alkaline Phosphatase 74, Total Protein 7.1, Albumin 4.1, Globulin 3.0, Albumin/Globulin Ratio 1.4 11/07/20 06:08: C-Reactive Protein 41.6 H, Procalcitonin 0.091 11/07/20 06:08: NT-Pro-B Natriuret Pep 611 H 11/07/20 08:48: Specimen Source R radial, O2 % 50% venturi, ABG pH 7.32 L, ABG pCO2 50.9 H, ABG pO2 61.4 L, ABG HCO3 25.9, ABG Total CO2 27.4 H, ABG O2 Saturation 92, ABG Base Excess -0.2, Atul Test Acceptable 11/07/20 10:43: D-Dimer 4.76 H 11/07/20 11:10: Specimen Source R radial, O2 % 50% venti, ABG pH 7.36, ABG pCO2 44.4, ABG pO2 65.9 L, ABG HCO3 24.3, ABG Total CO2 25.7, ABG O2 Saturation 94, ABG Base Excess -1.2, Atul Test Acceptable I & O for Last 24 hours: Intake & Output 11/05/20 11/06/20 11/07/20 11/08/20 11:59 11:59 11:59 11:59 Intake Total 120 / 120 1999 Output Total 600 / 600 Balance -480 / -480 1999 Weight 117 lb 6 oz Microbiology Reports for the Last 24 Hours: Microbiology 11/06/20 15:58 Urine,Catheterized Urine Culture - Preliminary Gram Negative Rods - Constitutional no acute distress (venti-mask) - *Routine HEENT Exam Eye: Present: PERRL - *Routine Respiratory Exam Absent: respiratory distress, rhonchi - *Routine Cardiovascular Exam Present: tachycardia - *Routine Neurological Exam Absent: alert (sedated, opens eyes.) Assessment and Plan (1) Closed intertrochanteric fracture of left femur Status: Acute Category: Medical Code(s): S72.142A - Displaced intertrochanteric fracture of left femur, initial encounter for closed fracture (2) Fracture of hip Status: Acute Qualifiers: Encounter type: initial encounter Fracture type: closed Laterality: left Qualified Code(s): S72.002A - Fracture of unspecified part of neck of left femur, initial encounter for closed fracture Category: Medical Code(s): S72.009A - Fracture of unspecified part of neck of unspecified femur, initial encounter for closed fracture (3) Emphysema of lung Status: Chronic Category: Medical Code(s): J43.9 - Emphysema, unspecified (4) HTN (hypertension) Status: Chronic Category: Medical Code(s): I10 - Essential (primary) hypertension (5) Tobacco use disorder Status: Chronic Category: Medical Code(s): F17.200 - Nicotine dependence, unspecified, uncomplicated (6) Hypothyroid Status: Chronic Category: Medical Code(s): E03.9 - Hy
[2020-11-08] VITALS (23 sets, daily range): BP systolic 99–145; BP diastolic 41–78; PULSE 103–125; RESP 10–21; TEMP 36.5–37.3; O2SAT 90–97; BMI 18.3
--- NOTE | 2020-11-08 05:11 | PC.NURSE ---
pt arrived back to floor from surgery at 1930. arrived on 10L simple mask. tachycardia on arrival and remains with rates 119-130. telemetry reads tachycardia with PVC's. pt in no distress. switched to venti mask at 50% and 15L. O2 sat have ranged from 90 to 96%. bp WNL and afebrile. pt had one episode of vomiting and prn medication given per oct with relief. toradol given per oct for pain. pain has remained under control. pt had audible wheezes and o2 sat decreased. breathing treatment changed r/t tachycardia. after breathing treatment o2 sat improved and pt was CTA on last assessment. felix in place and draining clear dark yellow urine. approximately 200ml output. iv site changed and infusing per order with no s/s of infiltration. SCUDs in place. dressing is C/D/I to left hip. ice pack in place. pt rings are in a bag locked in [place] at this time. call light in reach. will continue to monitor pt condition.
--- NOTE | 2020-11-08 06:22 | PC.NURSE ---
IS teaching given and return demonstration. pt pulls 500. instructed to use every hour that she is awake.
[2020-11-08 06:30] LABS: Eosinophils % 0.1 % (0.1-12.0); Red Cell Distribution Width 13.1 % (11.5-17.5)
[2020-11-08 06:32] LABS: Chloride 107 mmol/L (98-107); Potassium 4.2 mmoL/L (3.5-5.1); Sodium 137 mmol/L (136-145)
[2020-11-08 06:35] LABS: Alanine Aminotransferase 22 U/L (12-78); Albumin Level 3.2 g/dl (3.5-5.0); Albumin/Globulin Ratio 1.3 (1.1-1.8); Alkaline Phosphatase 64 U/L (38-126); Anion Gap 6.2 mEq/L (5-15); Aspartate Amino Transferase 40 U/L (14-36); Bilirubin,Total 0.4 mg/dl (0.2-1.3); Blood Urea Nitrogen 29 mg/dl (7-17); Calcium 8.8 mg/dl (8.4-10.2); Carbon Dioxide 28 mmol/L (22.0-30.0); Creatinine Clearance Estimated 38 mL/min (50-200); Estimated Glomerular Filt Rate 53 ml/min (>60); GFR (African American) 65 ML/MIN (>60); Globulin 2.5 g/dL (1.3-3.2); Glucose 132 mg/dl (74-100); Total Protein,Serum 5.7 g/dl (6.3-8.2)
[2020-11-08 06:47] LABS: Basophils % 0.2 % (0.1-2.0); Hematocrit 34.3 % (37.0-47.0); Lymphocytes # 1.4 K/mm3 (0.7-4.5); Lymphocytes % 8.4 % (10-50); Mean Corpuscular HGB Conc 32.3 g/dL (31.8-35.4); Mean Corpuscular Hemoglobin 31.6 pg (27.0-31.2); Mean Corpuscular Volume 97.8 fl (81-99); Mean Platelet Volume 8.7 fl (7.4-10.4); Monocytes # 0.9 K/mm3 (0.1-1.0); Monocytes % 5.3 % (1.7-9.3); Neutrophils # 14.2 K/mm3 (1.8-7.8); Neutrophils % 86.1 % (37.0-80.0); Platelet Count 170 K/mm3 (142-424); White Blood Count 16.4 K/mm3 (4.8-10.8)
[2020-11-08 07:00] LABS: MANUAL DIFFERENTIAL MANUAL DIFFERENTIAL (MANUAL DIFF)
[2020-11-08 07:02] LABS: Hemoglobin 11.1 g/dL (12.2-16.2)
--- NOTE | 2020-11-08 08:04 | ECG_ITS ---
APPROVED REPORT Exam: Resting ECG HR:119 bpm ECG Measurements Heart Rate 119 AXES NM 150 P 67 QRSd 84 QRS 29 QT 298 T 40 QTc 419 Conclusion Sinus tachycardia Left atrial abnormality Anterior infarct, age undetermined Abnormal ECG Electronically signed by : Vik Bruce, 11/08/2020 14:56:52
--- NOTE | 2020-11-08 08:34 | HMH.CNCARD ---
History of Present Illness Consult date: 11/08/20 Requesting physician: Misbah Son Consult reason: post-op evaluation Chief complaint: Tachycardia Additional Medical History:: 1. Tobacco use, 1 pack/day for greater than 50 years A. COPD 2. Hypertension 3. Hyperlipidemia 4. Fall with left hip fracture, status post surgical repair, 10/2020 A. Doppler ultrasound of the left lower extremity shows no evidence of DVT B. CTA of the chest negative for pulmonary embolus but with evidence of centrilobular and paraseptal emphysema and mucous plugging in the right lower lobe. 5. History of mildly abnormal stress test with slight anterior ischemia in 2014. Patient relates being referred to cardiology (Dr. Yang) with recommendation for no further evaluation at that time. History of present illness: 80-year-old white female admitted for fall with left hip fracture. She is now status post surgical repair with improved pain control. Patient's heart rate is noted to be in the 120-130 bpm range consistently over the last 24 hours. EKG shows what appears to be sinus tachycardia. Cardiology was consulted for evaluation. Patient does smoke 1 pack/day History of slightly abnormal stress test in 2014 with slight reversible anterior ischemia for which she did see cardiology (Dr. Yang) without further evaluation. Treatment for hypertension hyperlipidemia for many years. [facility] History Medical History: Reports:: Chronic Obstructive Pulmonary Disease (COPD), Hyperlipidemia, Hypertension, Osteoporosis Denies:: Cancer, Diabetes Mellitus Type 1, Diabetes Mellitus Type 2, MRSA, Seizures *Have you ever received a pneumonia vaccine?: Yes *Have you received a flu vaccine this season?: Yes Other Medical History: Reports: Osteoporosis, Other Anesthesia experience/problems:: None Laterality Cases: Bilateral: Breast Biopsy, Tonsillectomy Other Surgeries: Yes: Hysterectomy-Total Amputation: No Fractures: No - *Social History Last grade of school completed: Advanced degree Smoking Status: Current every day smoker Tobacco Type: cigarettes # Packs/Day (cigarettes): 1 Alcohol Intake: never Substance Use Type: denies use *Occupational Status:: retired Housing: house Household Members: spouse *Travel in the last 8 weeks: None Family Hx:: No significant family history Meds Home Medications Medication Instructions Recorded Confirmed Type aspirin 81 mg tablet,delayed 81 mg PO DAILY 09/30/17 11/06/20 History release losartan 50 mg tablet 50 mg PO DAILY 09/30/17 11/06/20 History triamterene 37.5 0.5 tab PO DAILY 09/30/17 11/06/20 History mg-hydrochlorothiazide 25 mg tablet Biotin 300 mcg PO DAILY 11/06/20 11/06/20 History Calcium Carb/Mag Ox/Zinc Sulf [Cvs 1 each PO DAILY 11/06/20 11/06/20 History Zdnovjz-Xzjbrbaso-Qao Cplt] Cyclobenzaprine HCl 10 mg PO TIDP PRN 11/06/20 11/06/20 History [Cyclobenzaprine 10mg Tab*] Multivitamin 1 each PO DAILY 11/06/20 11/06/20 History Rosuvastatin Calcium 20 mg PO HS 11/06/20 11/06/20 History Ubidecarenone/Vit E Acet [Co Q-10 1 each PO DAILY 11/06/20 11/06/20 History 100 mg Softgel] Allergies Allergy/AdvReac Type Severity Reaction Status Date / Time azithromycin [From Zithromax] Allergy Verified 11/06/20 13:24 nitrofurantoin Allergy Verified 11/06/20 13:24 [From Macrobid] Sulfa (Sulfonamide Allergy Verified 11/06/20 13:24 Antibiotics) Exam Vital signs and Labs for Last 24 Hours: Temp Pulse Resp BP Pulse Ox 99.1 F 115 H 17 105/41 L 90 L 11/08/20 07:28 11/08/20 08:00 11/08/20 08:00 11/08/20 08:00 11/08/20 08:00 Laboratory Results - last 24 hr 11/06/20 15:58: Urine Color Yellow, Urine Appearance Clear, Urine pH 6.0, Ur Specific [place] 1.025, Urine Protein Trace, Urine Glucose (UA) Negative, Urine Ketones Negative, Urine Blood Negative, Urine Nitrate Positive, Urine Bilirubin Negative, Urine Urobilinogen 0.2, Ur Leukocyte Esterase Trace, Urine RBC None,
--- NOTE | 2020-11-08 08:41 | CA_ITS ---
APPROVED REPORT EXAM: Comprehensive 2D, Doppler, and color-flow Echocardiogram Fusing Machine Operator: TJ Flores, RVS Ht: 5 ft 4 in Wt: 110lbs BSA: 1.52 BP: 105/41 mmHg Indications: COPD, Shortness of Breath, Hypertension/HDD Echo Enhancing Agent Comments: Technically limited exam: patient scanned seated upright, low parasternal windows 2D Dimensions Aortic Root 2.44 cm LA Volume 34.90 mL Left Atrium 3.07 cm LA Volume Index 23.000927 mL/m2 (M/F) 16-34 LVOT 1.63 cm (M/F) 1.5-2.5 M-Mode Dimensions RVDd 2.97 cm (0.9-2.6) LA Diam 3.24 cm (1.9-4.0) LVDd 3.79 cm (3.5-5.7) Ao Diam 3.29 cm (2.0-3.7) LVDs 2.39 cm (3.5-5.7) IVSd 0.73 cm (0.6-1.1) PWd 0.73 cm (0.6-1.1) EF (Teich) 67.50% FS 36.90% EDV (Teich) 61.60 mL TAPSE 1.51 (<1.7) ESV (Teich) 20.00 mL LV Diastology E Decel Time 117.00 (160-240 msec) E/A Ratio 0.23 MED E' 5.40 (< 7 cm/sec) MED A' 9.90 cm/s E'/MED E' Ratio 5.63 (>14) LAT E' 3.40 (<10 cm/sec) LAT A' 14.80 cm/s E/LAT E' Ratio 8.94 (>14) Aortic Valve LVOT Max 88.00 (70-110 cm/s) LVOT VTI 16.47 cm AoV Peak Jordin. 120.00 (50-130 cm/s) AO Peak GR. 5.80 mmHg AO Mean GR. 3.50 (<5 mmHg) AO VTI 21.13 (18-25 cm) BRYANNA (VTI) 1.63 (2.5-4.5 cm2) Mitral Valve MV E Max Jordin. 30.00 (40-130 cm/s) MV A Velocity 132.00 (40-130 cm/s) E/A Ratio 0.23 MV Decel. Time 117.00 (160-240 ms) MV Mean Gr. 3.90 (<2mmHg) MV PHT 34.00 ms Pulmonary Valve PV Peak Velocity 72.00 (50-150 cm/s) Tricuspid Valve TR P. Velocity 306.00 cm/s RAP Estimate 10.00 mmHg RVSP 47.50 mmHg Left Ventricle Left atrium is mildly enlarged, left ventricle is normal size, mild concentric left ventricular hypertrophy, visually estimated ejection fraction 55% with no regional wall motion abnormality, diastolic parameters are inconclusive. Right Ventricle Right atrium and right ventricle mildly enlarged with normal contractility. Aortic Valve Aortic valve is minimally thickened and calcified, there is no aortic stenosis or aortic insufficiency. Mitral Valve Mitral valve is minimally thickened, there is mild mitral regurgitation. Tricuspid Valve Tricuspid grossly normal, there is trace tricuspid regurgitation, calculated right ventricular systolic pressure is 47 mmHg. Pulmonic Valve Pulmonic valve is poorly visualized. Great Vessels Aortic root is normal size. Pericardium No significant pericardial effusion noted. Conclusion 1. Biatrial enlargement, normal left ventricular size, mild concentric left ventricular hypertrophy, visually estimated ejection fraction 55% with no regional wall motion abnormality, diastolic parameters are inconclusive. 2. Mildly enlarged right ventricle with normal contractility. 3. Mild mitral and trace tricuspid regurgitation, calculated right ventricular systolic pressure is 47 mmHg. 4. No significant pericardial effusion noted. Electronically signed by : Alberto Harrison, 11/08/2020 15:41:53
--- NOTE | 2020-11-08 08:41 | HMH.ACPN2 ---
Internal Medicine - PN: Subj *Date: 11/08/20 *Time: 08:41 Interval history: Patient states she is feeling a bit better this morning. Her pain is controlled she sitting still. She was able to rest last night and tolerated a little bit of breakfast this morning. Her heart rate remains in the 120s and her blood pressure has been low. Exam Vital signs and Labs for Last 24 Hours: Temp Pulse Resp BP Pulse Ox 99.1 F 115 H 17 105/41 L 90 L 11/08/20 07:28 11/08/20 08:00 11/08/20 08:00 11/08/20 08:00 11/08/20 08:00 Laboratory Results - last 24 hr 11/06/20 15:58: Urine Color Yellow, Urine Appearance Clear, Urine pH 6.0, Ur Specific [place] 1.025, Urine Protein Trace, Urine Glucose (UA) Negative, Urine Ketones Negative, Urine Blood Negative, Urine Nitrate Positive, Urine Bilirubin Negative, Urine Urobilinogen 0.2, Ur Leukocyte Esterase Trace, Urine RBC None, Urine WBC 5-10, Ur Squamous Epith Cells Occasional, Urine Bacteria 3+ 11/07/20 06:08: C-Reactive Protein 41.6 H, Procalcitonin 0.091 11/07/20 06:08: NT-Pro-B Natriuret Pep 611 H 11/07/20 08:48: Specimen Source R radial, O2 % 50% venturi, ABG pH 7.32 L, ABG pCO2 50.9 H, ABG pO2 61.4 L, ABG HCO3 25.9, ABG Total CO2 27.4 H, ABG O2 Saturation 92, ABG Base Excess -0.2, Atul Test Acceptable 11/07/20 10:43: D-Dimer 4.76 H 11/07/20 11:10: Specimen Source R radial, O2 % 50% venti, ABG pH 7.36, ABG pCO2 44.4, ABG pO2 65.9 L, ABG HCO3 24.3, ABG Total CO2 25.7, ABG O2 Saturation 94, ABG Base Excess -1.2, Atul Test Acceptable 11/08/20 05:42: WBC 16.4 H D, RBC 3.50 L, Hgb 11.1 L D, Hct 34.3 L, MCV 97.8, MCH 31.6 H, MCHC 32.3, RDW 13.1, Plt Count 170, MPV 8.7, Neut % (Auto) 86.1 H, Lymph % (Auto) 8.4 L, [place] % (Auto) 5.3, Eos % (Auto) 0.1, Baso % (Auto) 0.2, Neut # (Auto) 14.2 H, Lymph # (Auto) 1.4, [place] # (Auto) 0.9, Eos # (Auto) 0.0, Baso # (Auto) 0.0 11/08/20 05:42: Sodium 137, Potassium 4.2, Chloride 107, Carbon Dioxide 28, Anion Gap 6.2, BUN 29 H, Creatinine 1.00, Estimated Creat Clear 38, Estimated GFR 53 L, Est GFR ( Amer) 65, Glucose 132 H, Calcium 8.8, Total Bilirubin 0.4, AST 40 H, ALT 22 D, Alkaline Phosphatase 64, Total Protein 5.7 L, Albumin 3.2 L D, Globulin 2.5, Albumin/Globulin Ratio 1.3 I & O for Last 24 hours: Intake & Output 11/05/20 11/06/20 11/07/20 11/08/20 11:59 11:59 11:59 11:59 Intake Total 120 / 120 2780 / 2780 Output Total 600 / 600 200 / 200 Balance -480 / -480 2580 / 2580 Weight 117 lb 6 oz 110 lb 2 oz Microbiology Reports for the Last 24 Hours: Microbiology 11/06/20 15:58 Urine,Catheterized Urine Culture - Preliminary Enterobacter aerogenes - Constitutional no acute distress - *Routine Respiratory Exam Present: rhonchi (bilaterally). Absent: rales - *Routine Cardiovascular Exam Present: tachycardia - *Routine Abdominal Exam Present: soft, normoactive bowel sounds. Absent: tenderness - *Routine Extremities Exam Absent: cyanosis, clubbing, edema - *Routine Skin Exam Present: warm. Absent: rash Comments: dressing clean and dry on left hip - *Routine Neurological Exam Present: alert, oriented X3 Assessment and Plan (1) Closed intertrochanteric fracture of left femur Status: Acute Category: Medical Code(s): S72.142A - Displaced intertrochanteric fracture of left femur, initial encounter for closed fracture (2) Fracture of hip Status: Acute Qualifiers: Qualified Code(s): S72.002A - Fracture of unspecified part of neck of left femur, initial encounter for closed fracture Category: Medical Code(s): S72.009A - Fracture of unspecified part of neck of unspecified femur, initial encounter for closed fracture (3) Emphysema of lung Status: Chronic Category: Medical Code(s): J43.9 - Emphysema, unspecified (4) HTN (hypertension) Status: Chronic Category: Medical Code(s): I10 - Essential (primary) hypertension (5) Tobacco use disorder Status: Retanner
[2020-11-08 09:14] LABS: Lymphocytes % 6 % (10-50); Monocytes % 5 % (2-9); Neutrophils % 89 % (42-76); Platelet Estimate Normal; RBC Morphology Normal; Total Cells Counted 100
--- NOTE | 2020-11-08 09:42 | HMH.OTEV ---
OT Inpatient Evaluation Rehab OT IP Evaluation Start: 11/07/20 19:13 Freq: ONCE Status: Complete Protocol: [facility]20 09[facility] (Rec: 11/08/20 09:42 [facility] [id number]) Rehab OT IP Assessment Subjective History Pt was oriented x 4 on arrival ; pt agreeable to engage in therapy evaluation. Pt was admitted via ED on 11/06/20 after a fall with left hip pain. Pt was diagnosed with left hip fx and had a closed reduction and cephalomedullary nailing on 11/07/20. Pt reports prior to her fall she lived at home with her . Pt explains she was completely independent with all ADLs and IADL's. Pt still drove and did not require any AE during ambulation. Subjective I could do anything. Objective Patient Orientation Person,Place,Birthday,Year Upper Extremity Gross ROM WFL Bed Mobility bed mobility-scooting,bed mobility - supine/sit,bed mobility - rolling Assist Level Maximum x 1 (75% assist) Transfer Training Sit/Stand Transfer Assist Level Maximum x 1 (75% assist) Chair Transfer Ability Moderate x 2 (50% assist) Chair Transfer Technique Stand Step Pivot Chair Transfer Assistive Devices None Rehab OT IP prob,goals,plan Problems Date of Evaluation: 11/08/20 OT IP Problems Bed Mobility,Transfers,Gait, Balance,Self care,Safety Rehab Potential Rehab Potential Good Equipment Needs Assistive Devices Rolling / Wheeled Walker Plan OT intervention Plan Bed Mobility,Transfers,Gait, Balance,Self care,Safety, Therapeutic Exercise OT Plan Frequency BID Duration LOS Discharge Goals Bed Mobility Ability Assistance x1 Sit to Stand Chair Transfer Ability Moderate x 1 (50% assist) Chair Transfer Ability Moderate x 1 (50% assist) Chair Transfer Technique Sit to/from Ambulatory Chair Transfer Assistive Devices Rolling Walker Feeding Ability Independent Lower Body Dressing Ability Assistance X1 Upper Body Dressing Ability Standby Assistance Bathing Ability Assistance x1 Performing Toilet Hygiene Ability Assistance X1 Over
--- NOTE | 2020-11-08 09:54 | HMH.PULMPN ---
Internal Medicine - PN: Subj *Date: 11/08/20 *Time: 10:00 Interval history: No acute respiratory vents. Patient underwent fixation of her femur fracture. oxygen requirements improved. Exam - Constitutional Constitutional:: Present: comfortable - HENMT Exam HENMT: Present: normocephalic - Eye Exam Eyes:: Present: eyelids normal - Neck Exam Neck:: Present: thyroid normal, no lymphadenopathy - Respiratory Exam Respiratory:: Present: decreased breath sounds. Absent: wheezing - Cardiovascular Exam Cardiac:: Present: S1, S2 - GI Exam GI:: Present: soft - Skin Exam Skin: Present: warm - Neurological Exam Neurological: Present: alert, awake, normal cognition - Extremities Exam Extremities: Present: no cyanosis, no clubbing - Psychiatric Exam Psychiatric: Present: normal affect Assessment and Plan (1) Closed intertrochanteric fracture of left femur Status: Acute Category: Medical Code(s): S72.142A - Displaced intertrochanteric fracture of left femur, initial encounter for closed fracture (2) Fracture of hip Status: Acute Qualifiers: Encounter type: initial encounter Fracture type: closed Laterality: left Qualified Code(s): S72.002A - Fracture of unspecified part of neck of left femur, initial encounter for closed fracture Category: Medical Code(s): S72.009A - Fracture of unspecified part of neck of unspecified femur, initial encounter for closed fracture (3) Emphysema of lung Status: Chronic Category: Medical Code(s): J43.9 - Emphysema, unspecified (4) HTN (hypertension) Status: Chronic Category: Medical Code(s): I10 - Essential (primary) hypertension (5) Tobacco use disorder Status: Chronic Category: Medical Code(s): F17.200 - Nicotine dependence, unspecified, uncomplicated (6) Hypothyroid Status: Chronic Category: Medical Code(s): E03.9 - Hypothyroidism, unspecified (7) Tachycardia Status: Acute Category: Medical Code(s): R00.0 - Tachycardia, unspecified - Assessment and plan all Dx Assessment and Plan for all problems:: #Acute hypoxic respiratory failure: #COPD exacerbation: 80-year-old significant smoker get a prior diagnosis of COPD not using inhalers or oxygen at home presents with left hip intertrochanteric fracture and found to be hypoxic needing Ventimask at 50% to maintain saturations of 90 and above. Chest x-ray did not show any airspace disease. Showed diffuse emphysematous changes with hyperexpanded lungs. CT performed did not show evidence of pulmonary lesion, showed diffuse emphysematous changes. Patient denies any fevers or chills or worsening productive cough prior to this presentation. Afebrile. Hemodynamically stable. Tachycardic. Auscultation today revealed clear but distant breath sounds with no evidence of wheezing. Etiologies this patient respiratory failure is likely a combination of pain medications, COPD exacerbation and possible fat emboli syndrome. Patient not segment significantly improved from Ventimask 50% yesterday to 4 L nasal cannula today. Patient saturating 90 to 92%. Urine cultures positive for Enterobacter resistant to cefazolin, antibiotics managed by the primary team Plan: -Levalbuterol and ipratropium nebulizations every 6 hours scheduled. Patient noted to be in sinus tachycardia however given her significant COPD the benefit of inhalers outweigh the risks of tachycardia at this point of time we will closely monitor and coordinate care with cardiology. - Continue budesonide every 12 scheduled - Pain management as per ortho / primary team -Follow with ortho recommendations #Thank you for involving pulmonary in this patient. We will continue to follow.
--- NOTE | 2020-11-08 10:04 | HMH.PTEV ---
Physical Therapy Evaluation Rehab PT IP Evaluation Start: 11/07/20 19:13 Freq: ONCE Status: Active Protocol: Document 11/08/20 09:00 JOSE (Rec: 11/08/20 10:03 PANTERAMIGUEL [id number]) Subjective/History History History Ms. Berg is a 10-year-old female with a history of hypertension, hyperlipidemia, DO porosis, and COPD presented to the emergency department complaining of left-sided hip pain which started after a fall. The patient denies any loss of consciousness or other injuries. Apparently she lost her balance and tripped while attempting to ambulate. The patient's work-up in the emergency department reveals an anterior trochanteric left hip fracture. She is neurovascularly intact distally. The orthopedist on- call, Dr. Mary, was consulted . He has agreed to take the patient to the operating room tomorrow. Subjective Subjective Pt c/o pain in L hip and fear/ anxiety w/ movement Rehab PT IP Eval Objective Appearance Patient Behavior Anxious,Fearful Patient Orientation Person,Place,Time Difficulty following instructions none Speech Pattern Clear,Appropriate Ambulation Patient Able to Ambulate Yes Ambulation Observation IP General Gait Pattern Observation Antalgic Gait,Shuffling Step, Decrease Weight Bear (L), Decrease Stride Lngth (L) Ambulation Distance (feet) 2 Ambulation Assistive Device None Ambulation Ability Moderate x 1 (50% assist) Balance Ability to Arise Unable Sitting Balance Steady, safe Standing Balance Unsteady Dynamic Sitting Balance Ability Good Dynamic Standing Balance Ability Poor Transfers Bed Transfer Ability Maximum x 1 (75% assist) Chair Transfer Ability Maximum x 1 (75% assist) Sit to Stand Bed Transfer Ability Maximum x 1 (75% assist) Sit to Stand Chair Transfer Ability Maximum x 1 (75% assist) ROM LLE PT ROM Status ABN Abnormal ROM Comment limit by pain MMT LLE PT MMT ABN Abnormal MMT Grade 3-/5 Rehab PT IP pr
--- NOTE | 2020-11-08 11:42 | HMH.ORTHPN ---
Subjective Date: 11/08/20 Time: 11:30 Principal diagnosis: Intertrochanteric fracture, left femur Interval history: Patient is a 80-year-old female, status post cephalo-medullary nailing LEFT femur, post op day #1. She is sitting out in a chair and appears comfortable; says she is doing well and is eating and drinking well. She says her pain is well controlled with as needed pain medication. No history of any fevers, chills or rigors. No history of any chest pain or SOB. Her oxygen saturation's are improved and she is on 3 L of oxygen via nasal cannula. Patient is noted to have urinary tract infection and is started on Levaquin by Dr. Son's team. PN: Obj Ex Vital signs: Temp Pulse Resp BP Pulse Ox 99.1 F 110 H 17 121/41 L 95 11/08/20 07:28 11/08/20 10:50 11/08/20 10:00 11/08/20 10:00 11/08/20 10:50 Narrative: Laboratory Results - last 24 hr 11/08/20 05:42: WBC 16.4 H D, RBC 3.50 L, Hgb 11.1 L D, Hct 34.3 L, MCV 97.8, MCH 31.6 H, MCHC 32.3, RDW 13.1, Plt Count 170, MPV 8.7, Neut % (Auto) 86.1 H, Lymph % (Auto) 8.4 L, [place] % (Auto) 5.3, Eos % (Auto) 0.1, Baso % (Auto) 0.2, Neut # (Auto) 14.2 H, Lymph # (Auto) 1.4, [place] # (Auto) 0.9, Eos # (Auto) 0.0, Baso # (Auto) 0.0, Total Counted 100, Neutrophils % (Manual) 89 H, Lymphocytes % (Manual) 6 L, Monocytes % (Manual) 5, Platelet Estimate Normal, RBC Morphology Normal 11/08/20 05:42: Sodium 137, Potassium 4.2, Chloride 107, Carbon Dioxide 28, Anion Gap 6.2, BUN 29 H, Creatinine 1.00, Estimated Creat Clear 38, Estimated GFR 53 L, Est GFR ( Amer) 65, Glucose 132 H, Calcium 8.8, Total Bilirubin 0.4, AST 40 H, ALT 22 D, Alkaline Phosphatase 64, Total Protein 5.7 L, Albumin 3.2 L D, Globulin 2.5, Albumin/Globulin Ratio 1.3 Intake & Output 11/05/20 11/06/20 11/07/20 11/08/20 11:59 11:59 11:59 11:59 Intake Total 120 / 120 2780 / 2780 Output Total 600 / 600 400 / 400 Balance -480 / -480 2380 / 2380 Weight 117 lb 6 oz 110 lb 2 oz Objective: Vitals, I&O and Labs: I have reviewed the vital signs, lab results, medication, nursing notes, medical progress notes and also discussed with the nursing staff regarding patient?s progress. Exam: General appearance: Alert, awake, no acute distress Cardiovascular: Tachycardia; palpable peripheral pulses Respiratory: no respiratory distress; speaks in full sentences ABD: soft and nontender. Neuro: alert, awake oriented x 3 Psych: Appropriate mood and affect for her situation Genitourinary: Catheter in situ. On examination of the LEFT lower extremity, the limb lengths are equal. The alignment is neutral. The dressings over the hip/thigh are clean, dry and intact. Attempted movements of the hip are painful. Distal neurovascular status is intact. Distal pulses are 2+. Distal sensation is intact to light touch throughout. No motor deficits noted distally. Calf is soft and nontender. No clinical signs of DVT noted. - Urinary Catheter Management Ridley Cath placed during this visit: no Progress Note: A&P (1) Closed intertrochanteric fracture of left femur Status: Acute (2) Fracture of hip Status: Acute (3) Emphysema of lung Status: Chronic (4) HTN (hypertension) Status: Chronic (5) Tobacco use disorder Status: Chronic (6) Hypothyroid Status: Chronic (7) Tachycardia Status: Acute Assessment and Plan for All Diagnoses:: I have reviewed the clinical findings and progress with the patient and family. Patient is doing well and advised her to continue mobilization weight bearing as tolerated on the left lower extremity. Discontinue Ridley catheter today. Continue PT/OT, pain management with as needed narcotic analgesics. Care management looking into discharge planning. From an orthopedic standpoint, patient can be discharged tomorrow if medically appropriate. Recommend DVT prophylaxis for 6 weeks postop- the appropriate agents include Lovenox, Aspirin 325 mg, Xarelto (Rivaroxaban), Eliquis (ap
--- NOTE | 2020-11-08 11:44 | PC.NURSE ---
Dr. Mary @ [facility] and will change left hip dressing tomorrow. Ridley catheter discontinued. Pt will now utilize BSC for elimination.
--- NOTE | 2020-11-08 12:55 | SW/DCPLANNER ---
Addendum entered by Desirae Gomez 11/09/20 14:11: Anyi with [facility] has stated they can accept this patient PENDING precert from insurance. Anyi has stated it is unknown when they will hear back from insurance: later today, over the weekend or Thursday. Patient will not need another COVID swab till Thursday. I have informed patients nurse (Rosa Reyes). I will keep in contact with Anyi until she hears back from precert. I have also updated patient and her regarding situation. Addendum entered by Desirae Gomez 11/09/20 11:00: Anyi with [facility] is currently at [facility] to evaluate this patient. Addendum entered by Desirae Gomez 11/09/20 09:16: Patient and are agreeable to placement and prefer [facility] at time of discharge. I have spoke with Anyi from [facility] and they are in network with patients insurance and do have beds open. Patient information has been faxed. Dr Son and Dr Mary have stated that patient can discharge once approved to skilled facility. I will continue to follow up with Anyi from [facility]. Original Note: I have spoke with this patient regarding discharge plans. I spoke with patient and her sister in law: was not present at time of my visit. I explained that PT/OT recommendation is placement at this time. I also explained discharge plans of placement vs home with family assistance and home health. Patient requested that she be able to speak with her prior to making any plans. I did leave my name and number for patient to contact me for any questions once she calls her . I will follow up with this patient this afternoon regarding placement vs home health. Discharge date is unknown at this time.
[2020-11-09] VITALS (14 sets, daily range): BP systolic 102–140; BP diastolic 46–68; PULSE 90–122; RESP 18–26; TEMP 36.8–37.3; O2SAT 90–97; BMI 19.7; BMI 19.8
--- NOTE | 2020-11-09 06:01 | PC.NURSE ---
Pt admitted for LLE, Hip Fx. Weight bearing as tolerated. HR elevated at times throughout the night, patient received Metoprolol 25 mg QHS. Pt compliant with I/S while awake. Assisted to bedside commode X 2 without incident. PT in NAD, resting comfortably with eyes closed. Will continue to monitor for any acute changes.
[2020-11-09 07:52] LABS: Basophils % 0.2 % (0.1-2.0); Eosinophils # 0.1 K/mm3 (0.0-0.4); Eosinophils % 0.7 % (0.1-12.0); Hematocrit 29.3 % (37.0-47.0); Hemoglobin 9.7 g/dL (12.2-16.2); Lymphocytes % 8.4 % (10-50); Mean Corpuscular HGB Conc 33.3 g/dL (31.8-35.4); Mean Platelet Volume 9.3 fl (7.4-10.4); Monocytes # 0.6 K/mm3 (0.1-1.0); Monocytes % 5.1 % (1.7-9.3); Neutrophils # 10.1 K/mm3 (1.8-7.8); Neutrophils % 85.6 % (37.0-80.0); Platelet Count 148 K/mm3 (142-424); Red Blood Count 3.05 M/mm3 (4.20-5.40); Red Cell Distribution Width 12.9 % (11.5-17.5); White Blood Count 11.8 K/mm3 (4.8-10.8)
[2020-11-09 07:56] LABS: Chloride 106 mmol/L (98-107); Sodium 134 mmol/L (136-145)
[2020-11-09 07:58] LABS: MANUAL DIFFERENTIAL MANUAL DIFFERENTIAL (MANUAL DIFF)
[2020-11-09 07:59] LABS: Blood Urea Nitrogen 25 mg/dl (7-17); Creatinine Clearance Estimated 39 mL/min (50-200); Estimated Glomerular Filt Rate 69 ml/min (>60); GFR (African American) 84 ML/MIN (>60)
[2020-11-09 08:00] LABS: Calcium 8.4 mg/dl (8.4-10.2); Carbon Dioxide 25 mmol/L (22.0-30.0); Glucose 115 mg/dl (74-100)
--- NOTE | 2020-11-09 08:34 | HMH.ACPN2 ---
Internal Medicine - PN: Subj *Date: 11/09/20 *Time: 08:34 Interval history: Patient states she is feeling well this morning. She is sleepy and has had some pain medication. She states she worked well with therapy yesterday. She denies any pain as long as she is standing still. She has been resting and eating well. Exam Vital signs and Labs for Last 24 Hours: Temp Pulse Resp BP Pulse Ox 98.4 F 122 H 18 123/46 L 90 L 11/09/20 07:25 11/09/20 07:25 11/09/20 07:25 11/09/20 07:25 11/09/20 07:25 Laboratory Results - last 24 hr 11/08/20 05:42: Total Counted 100, Neutrophils % (Manual) 89 H, Lymphocytes % (Manual) 6 L, Monocytes % (Manual) 5, Platelet Estimate Normal, RBC Morphology Normal 11/09/20 07:47: WBC 11.8 H D, RBC 3.05 L, Hgb 9.7 L, Hct 29.3 L, MCV 96.0, MCH 32.0 H, MCHC 33.3, RDW 12.9, Plt Count 148, MPV 9.3, Neut % (Auto) 85.6 H, Lymph % (Auto) 8.4 L, [place] % (Auto) 5.1, Eos % (Auto) 0.7, Baso % (Auto) 0.2, Neut # (Auto) 10.1 H, Lymph # (Auto) 1.0, [place] # (Auto) 0.6, Eos # (Auto) 0.1, Baso # (Auto) 0.0 11/09/20 07:47: Sodium 134 L, Potassium 4.0, Chloride 106, Carbon Dioxide 25, Anion Gap 7.0, BUN 25 H, Creatinine 0.80, Estimated Creat Clear 39, Estimated GFR 69, Est GFR ( Amer) 84 D, Glucose 115 H, Calcium 8.4 I & O for Last 24 hours: Intake & Output 11/06/20 11/07/20 11/08/20 11/09/20 11:59 11:59 11:59 11:59 Intake Total 120 / 120 2780 / 2780 2445 / 2445 Output Total 600 / 600 400 / 400 1000 / 1000 Balance -480 / -480 2380 / 2380 1445 / 1445 Weight 117 lb 6 oz 110 lb 2 oz 118 lb 6.212 oz Microbiology Reports for the Last 24 Hours: Microbiology 11/06/20 15:58 Urine,Catheterized Urine Culture - Preliminary Enterobacter aerogenes - Constitutional no acute distress - *Routine Respiratory Exam Present: decreased breath sounds, CTA bilaterally - *Routine Cardiovascular Exam Present: RRR, tachycardia - *Routine Abdominal Exam Present: soft, normoactive bowel sounds. Absent: tenderness - *Routine Extremities Exam Absent: cyanosis, clubbing, edema - *Routine Skin Exam Present: warm. Absent: rash Comments: dressing in place on left hip - *Routine Neurological Exam Present: alert, oriented X3 Assessment and Plan (1) Closed intertrochanteric fracture of left femur Status: Acute Category: Medical Code(s): S72.142A - Displaced intertrochanteric fracture of left femur, initial encounter for closed fracture (2) Fracture of hip Status: Acute Qualifiers: Encounter type: initial encounter Fracture type: closed Laterality: left Qualified Code(s): S72.002A - Fracture of unspecified part of neck of left femur, initial encounter for closed fracture Category: Medical Code(s): S72.009A - Fracture of unspecified part of neck of unspecified femur, initial encounter for closed fracture (3) Emphysema of lung Status: Chronic Category: Medical Code(s): J43.9 - Emphysema, unspecified (4) HTN (hypertension) Status: Chronic Category: Medical Code(s): I10 - Essential (primary) hypertension (5) Tobacco use disorder Status: Chronic Category: Medical Code(s): F17.200 - Nicotine dependence, unspecified, uncomplicated (6) Hypothyroid Status: Chronic Category: Medical Code(s): E03.9 - Hypothyroidism, unspecified (7) Tachycardia Status: Acute Category: Medical Code(s): R00.0 - Tachycardia, unspecified (8) Urinary tract infection Status: Acute Category: Medical Code(s): N39.0 - Urinary tract infection, site not specified - Assessment and plan all Dx Assessment and Plan for all problems:: Patient has been switched to Levaquin for her UTI and her white count has improved. She is working well with therapy. She would like to discuss discharge planning with Dr. Son. Her heart rate is still elevated and cardiology started her on a beta-nabor yesterday.
--- NOTE | 2020-11-09 08:54 | P.PN_ITS ---
Subjective Date: 11/09/20 Time: 08:54 Principal diagnosis: Intertrochanteric fracture, left femur Interval history: 80-year-old white female in bed in no acute distress. At rest heart rate is in the 120s still despite adding beta-nabor therapy yesterday. Patient continues on Xopenex nebulizer therapy for her lung disease. She did work well with physical therapy yesterday but is still anxious about going home and how the logistics of moving around her house will play out. Exam Vital signs and Labs for Last 24 Hours: Temp Pulse Resp BP Pulse Ox 98.4 F 122 H 18 123/46 L 90 L 11/09/20 07:25 11/09/20 07:25 11/09/20 07:25 11/09/20 07:25 11/09/20 07:25 Laboratory Results - last 24 hr 11/08/20 05:42: Total Counted 100, Neutrophils % (Manual) 89 H, Lymphocytes % (Manual) 6 L, Monocytes % (Manual) 5, Platelet Estimate Normal, RBC Morphology Normal 11/09/20 07:47: WBC 11.8 H D, RBC 3.05 L, Hgb 9.7 L, Hct 29.3 L, MCV 96.0, MCH 32.0 H, MCHC 33.3, RDW 12.9, Plt Count 148, MPV 9.3, Neut % (Auto) 85.6 H, Lymph % (Auto) 8.4 L, [place] % (Auto) 5.1, Eos % (Auto) 0.7, Baso % (Auto) 0.2, Neut # (Auto) 10.1 H, Lymph # (Auto) 1.0, [place] # (Auto) 0.6, Eos # (Auto) 0.1, Baso # (Auto) 0.0 11/09/20 07:47: Sodium 134 L, Potassium 4.0, Chloride 106, Carbon Dioxide 25, Anion Gap 7.0, BUN 25 H, Creatinine 0.80, Estimated Creat Clear 39, Estimated GFR 69, Est GFR ( Amer) 84 D, Glucose 115 H, Calcium 8.4 I & O for Last 24 hours: Intake & Output 11/06/20 11/07/20 11/08/20 11/09/20 11:59 11:59 11:59 11:59 Intake Total 120 / 120 2780 / 2780 2445 / 2445 Output Total 600 / 600 400 / 400 1000 / 1000 Balance -480 / -480 2380 / 2380 1445 / 1445 Weight 117 lb 6 oz 110 lb 2 oz 118 lb 6.212 oz Microbiology Reports for the Last 24 Hours: Microbiology 11/06/20 15:58 Urine,Catheterized Urine Culture - Preliminary Enterobacter aerogenes - *Routine Respiratory Exam Present: rhonchi - *Routine Cardiovascular Exam Present: tachycardia - *Routine Neurological Exam Present: alert, oriented X3 Progress Note: A&P (1) Closed intertrochanteric fracture of left femur Status: Acute (2) Fracture of hip Status: Acute (3) Emphysema of lung Status: Chronic (4) HTN (hypertension) Status: Chronic (5) Tobacco use disorder Status: Chronic (6) Hypothyroid Status: Chronic (7) Tachycardia Status: Acute (8) Urinary tract infection Status: Acute Assessment and Plan for All Diagnoses:: Sinus tachycardia persists. Echocardiogram shows preserved ejection fraction with mild hypertensive changes and increased RVSP related to underlying emphysema/lung disease. Will increase metoprolol to 25 mg 3 times daily and monitor her response. Patient could be discharged home from cardiology standpoint with early outpatient follow-up next week. She is anxious to get home but is concerned that she may not have the help she needs during the day when her is not at home.
[2020-11-09 09:07] LABS: Eosinophils % 2 % (0-3); Lymphocytes % 6 % (10-50); Monocytes % 8 % (2-9); Neutrophils % 84 % (42-76); Platelet Estimate Slight Decrease; RBC Morphology Normal; Total Cells Counted 100
--- NOTE | 2020-11-09 12:31 | HMH.DCSUM ---
General - General Admission date:: 11/06/20 <Misbah Son - 11/10/20 10:45> 11/06/20 <Luz Elena Gomez - 11/09/20 12:44> Discharge date: 11/10/20 <Misbah Son - 11/10/20 10:45> 11/09/20 <Luz Elena Gomez - 11/09/20 12:44> HPI HPI: Ms. Berg is a 80-year-old female with a history of hypertension, hyperlipidemia, osteoporosis, and COPD who presented to the emergency department complaining of left-sided hip pain which started after a fall. The patient denies any loss of consciousness or other injuries. Apparently she lost her balance and tripped while attempting to ambulate. The patient's work-up in the emergency department reveals an anterior trochanteric left hip fracture. She is neurovascularly intact distally. The orthopedist on-call, Dr. Mary, was consulted. He has agreed to take the patient to the operating room tomorrow. He has requested that the patient be admitted to the primary care service with consult of Dr. Mary. He also requested that the patient be n.p.o. past midnight as well as under a 5 pound traction once admitted. Above is from ER documentation With evaluation in the emergency room chest x-ray completed today shows hyperexpansion of the lungs With emphysema changes bilaterally and no lobar consolidation. X-ray of the left hip reveals displaced intertrochanteric fracture with a proximal femoral diaphyseal extension. CBC showed a white blood cell count of 12,800 and hemoglobin of 13.9 and hematocrit of 43.4. Chemistries show sodium 136 potassium 4.2 BUN 32 and creatinine of 1. At the time of this exam pt is in quite alot of pain Morphine given ; [place] has been placed; she will have felix inserted. <Luz Elena Gomez - 11/09/20 12:44> Hospital Course Hospital Course: The patient's morphine dose was increased due to pain. She was seen by Dr. Mary who planned to take her to the OR. Her oxygen did drop into the 70s and she was placed on a Ventimask. An ABG was ordered and showed hypoxia even on the mask. Pulmonology was consulted prior to proceeding with surgery. She was started on duo nebs and was seen by pulmonology. He felt her ABG showed hypoxic and hypercarbic respiratory failure due to a combination of COPD exacerbation along with a possible PE. A CTA was ordered as was a venous Doppler. Her chest CTA showed no evidence of PE and her venous Doppler showed no evidence of DVT. She was stable to be taken to surgery and had a closed reduction and cephalomedullary nailing of the left femur. She tolerated the procedure well. Her heart rate, however, remained elevated in the 120s. Cardiology was consulted. They felt her tachycardia was likely related to pain from her hip fracture and exacerbated by underlying COPD with mucous plugging as well as Xopenex nebulizer treatments. She remained on 3 L of nasal cannula with adequate oxygenation. Cardiology added a beta-nabor for rate control and recommended an echo. They recommended holding her losartan and Maxide and discontinuing her Xopenex to see if this was the etiology of her sinus tachycardia. Her echo showed an EF of 55%. There was biatrial enlargement and mild concentric left ventricular hypertrophy. She had a right ventricular systolic pressure 47 mmHg. Cardiology increased her metoprolol to 25 mg 3 times daily due to her persistent tachycardia. They felt she could be discharged home with outpatient follow-up in a week. She began feeling better and her pain was controlled. She was able to rest and eat. She had a urine culture which came back positive for Enterobacter. She was started on Levaquin. She was followed by orthopedics and he felt she could mobilize and weight-bear as tolerated on the left lower extremity. He ordered PT and OT and she worked well with both. He felt she could be discharged and would need DVT prophylaxis for 6 weeks postop. He will follow-up with her in [address] Son felt it
--- NOTE | 2020-11-09 13:15 | HMH.PULMPN ---
Internal Medicine - PN: Subj *Date: 11/09/20 *Time: 13:15 Interval history: No acute respiratory events overnight. Patient continued to improve Exam - Constitutional Constitutional:: Present: no acute distress, comfortable - HENMT Exam HENMT: Present: normocephalic - Eye Exam Eyes:: Present: eyelids normal - Neck Exam Neck:: Present: thyroid normal - Respiratory Exam Respiratory:: Present: able to speak in complete sentences, lungs clear, no respiratory distress. Absent: wheezing - Cardiovascular Exam Cardiac:: Present: S1, S2 - GI Exam GI:: Present: soft - Skin Exam Skin: Present: warm, no rash - Neurological Exam Neurological: Present: alert, awake, normal cognition - Extremities Exam Extremities: Present: no cyanosis, no clubbing Assessment and Plan (1) Closed intertrochanteric fracture of left femur Status: Acute Category: Medical Code(s): S72.142A - Displaced intertrochanteric fracture of left femur, initial encounter for closed fracture (2) Fracture of hip Status: Acute Qualifiers: Encounter type: initial encounter Fracture type: closed Laterality: left Qualified Code(s): S72.002A - Fracture of unspecified part of neck of left femur, initial encounter for closed fracture Category: Medical Code(s): S72.009A - Fracture of unspecified part of neck of unspecified femur, initial encounter for closed fracture (3) Emphysema of lung Status: Chronic Category: Medical Code(s): J43.9 - Emphysema, unspecified (4) HTN (hypertension) Status: Chronic Category: Medical Code(s): I10 - Essential (primary) hypertension (5) Tobacco use disorder Status: Chronic Category: Medical Code(s): F17.200 - Nicotine dependence, unspecified, uncomplicated (6) Hypothyroid Status: Chronic Category: Medical Code(s): E03.9 - Hypothyroidism, unspecified (7) Tachycardia Status: Acute Category: Medical Code(s): R00.0 - Tachycardia, unspecified (8) Urinary tract infection Status: Acute Category: Medical Code(s): N39.0 - Urinary tract infection, site not specified - Assessment and plan all Dx Assessment and Plan for all problems:: #Acute hypoxic respiratory failure: #COPD exacerbation: 80-year-old significant smoker get a prior diagnosis of COPD not using inhalers or oxygen at home presents with left hip intertrochanteric fracture and found to be hypoxic needing Ventimask at 50% to maintain saturations of 90 and above. Chest x-ray did not show any splinting and CT is negative for PE however showed diffuse emphysematous changes on the etiology of this patient's hypoxic respiratory likely a combination of COPD exacerbation and possible fat emboli syndrome. Patient respiratory status significantly improved status post fixation initially decreasing oxygen requirements to 2 L Saturations maintaining 94 and above. Breath sound significantly improved after nebulization treatments. Patient also found to have Enterobacter UTI on this admission and was receiving levofloxacin Plan: -Levalbuterol and ipratropium nebulizations every 6 hours and BUdesonide Q12 scheduled, patient can be discharged on triple inhaler therapy. -Albuterol inhaler every 6 hours as needed #Thank you for involving pulmonary in this patient. Follow patient in pulmonary clinic for 6 weeks with a full PFTs and a 6-minute walk testing
--- NOTE | 2020-11-09 15:54 | HMH.ORTHPN ---
Subjective Date: 11/09/20 Time: 15:30 Principal diagnosis: Intertrochanteric fracture, left femur Interval history: Patient is a 80-year-old female, status post cephalo-medullary nailing LEFT femur, post op day #2. She is lying down on the bed and appears comfortable; says she is doing well. She says her pain is well controlled with as needed pain medication. No history of any fevers, chills or rigors. No history of any chest pain or SOB. She reports that she mobilized well with physical therapy using a walker. She being discharged to a shelter facility for short-term rehab. PN: Obj Ex Vital signs: Temp Pulse Resp BP Pulse Ox 99.2 F 90 18 102/63 L 95 11/09/20 15:53 11/09/20 15:53 11/09/20 15:53 11/09/20 15:53 11/09/20 15:53 Narrative: Laboratory Results - last 24 hr 11/09/20 07:47: WBC 11.8 H D, RBC 3.05 L, Hgb 9.7 L, Hct 29.3 L, MCV 96.0, MCH 32.0 H, MCHC 33.3, RDW 12.9, Plt Count 148, MPV 9.3, Neut % (Auto) 85.6 H, Lymph % (Auto) 8.4 L, [place] % (Auto) 5.1, Eos % (Auto) 0.7, Baso % (Auto) 0.2, Neut # (Auto) 10.1 H, Lymph # (Auto) 1.0, [place] # (Auto) 0.6, Eos # (Auto) 0.1, Baso # (Auto) 0.0, Total Counted 100, Neutrophils % (Manual) 84 H, Lymphocytes % (Manual) 6 L, Monocytes % (Manual) 8, Eosinophils % (Manual) 2, Platelet Estimate Slight decrease, RBC Morphology Normal 11/09/20 07:47: Sodium 134 L, Potassium 4.0, Chloride 106, Carbon Dioxide 25, Anion Gap 7.0, BUN 25 H, Creatinine 0.80, Estimated Creat Clear 39, Estimated GFR 69, Est GFR ( Amer) 84 D, Glucose 115 H, Calcium 8.4 Objective: Vitals, I&O and Labs: I have reviewed the vital signs, lab results, medication, nursing notes, medical progress notes and also discussed with the nursing staff regarding patient?s progress. Exam: General appearance: Alert, awake, no acute distress Cardiovascular: Regular rate and rhythm; palpable peripheral pulses Respiratory: no respiratory distress; speaks in full sentences ABD: soft and nontender. Neuro: alert, awake oriented x 3 Psych: Appropriate mood and affect for her situation On examination of the LEFT lower extremity, the limb lengths are equal. The alignment is neutral. The dressings over the hip/thigh are clean, dry and intact. I have changed the surgical dressings and all the incisions are clean dry and healthy. No signs of infection or other complications noted. Attempted movements of the hip are painful. Distal neurovascular status is intact. Distal pulses are 2+. Distal sensation is intact to light touch throughout. No motor deficits noted distally. Calf is soft and nontender. No clinical signs of DVT noted. - Urinary Catheter Management Ridley Cath placed during this visit: no Progress Note: A&P (1) Closed intertrochanteric fracture of left femur Status: Acute (2) Fracture of hip Status: Acute (3) Emphysema of lung Status: Chronic (4) HTN (hypertension) Status: Chronic (5) Tobacco use disorder Status: Chronic (6) Hypothyroid Status: Chronic (7) Tachycardia Status: Acute (8) Urinary tract infection Status: Acute Assessment and Plan for All Diagnoses:: I have reviewed the clinical findings and progress with the patient and family. Patient is doing well and advised her to continue mobilization weight bearing as tolerated on the left lower extremity using a walker. Continue PT/OT, pain management with as needed narcotic analgesics. Patient is being discharged to a shelter facility for rehab. Recommend DVT prophylaxis for 6 weeks postop- the appropriate agents include Lovenox, Aspirin 325 mg, Xarelto (Rivaroxaban), Eliquis (apixaban) and Coumadin. Follow-up in my office in 2 weeks? time with check x-ray. Please feel free to call our office at [phone] for any orthopaedic questions. Continue medical management as per Dr. Son.
--- NOTE | 2020-11-09 18:01 | PC.NURSE ---
MANNY POTTER CALLED AND STATED PT WAS APPROVED FOR BED AT [facility] AND WILL BE DISCHARGED IN THE AM
--- NOTE | 2020-11-09 19:41 | PC.NURSE ---
PT HAS DONE WELL TODAY. AMBULATED WITH STAFF, WITH ONE ASSIST AND WALKER. PT HAS NOT EXPRESSED ANY PAIN TODAY. RA SAT OBTAINED 89%, 2LNC PLACED BACK ON PT. CALL LIGHT WITHIN REACH. VSS. WILL CONT. TO MONITOR.
[2020-11-10] VITALS (7 sets, daily range): BP systolic 104–120; BP diastolic 47–64; PULSE 90–113; RESP 16; TEMP 36.3–36.8; O2SAT 89–98; BMI 20.5
--- NOTE | 2020-11-10 04:27 | PC.NURSE ---
pt is AxOx4, has rested well t/o shift, has had no complaints of pain this shift, no complaints of chest pain or SOA, remains on 2L NC with sats 92-97%, lungs CTA, HR 92-100, cardiac specialist shows NSR and sinus tach
--- NOTE | 2020-11-10 10:41 | HMH.ACPN2 ---
Internal Medicine - PN: Subj *Date: 11/10/20 *Time: 10:41 Interval history: She is feeling well and is ready for discharge. [facility] accepted her. She will receive rehab there. Orders have been placed for nebulizer treatments. I was unable to electronically transmit her hydrocodone prescription I have given her a written prescription for that. Exam Vital signs and Labs for Last 24 Hours: Temp Pulse Resp BP Pulse Ox 97.4 F L 110 H 16 120/64 98 11/10/20 08:00 11/10/20 06:33 11/10/20 04:00 11/10/20 04:00 11/10/20 10:40 I & O for Last 24 hours: Intake & Output 11/07/20 11/08/20 11/09/20 11/10/20 11:59 11:59 11:59 11:59 Intake Total 120 / 120 2780 / 2780 2445 / 2445 1080 / 1080 Output Total 600 / 600 400 / 400 1000 / 1000 Balance -480 / -480 2380 / 2380 1445 / 1445 1080 / 1080 Weight 117 lb 6 oz 110 lb 2 oz 119 lb 0.794 oz 123 lb 5 oz - Constitutional no acute distress - *Routine HEENT Exam Head: Present: normocephalic Eye: Present: PERRL ENT: Present: mucous membranes moist - *Routine Respiratory Exam Present: decreased breath sounds - *Routine Cardiovascular Exam Present: RRR (100) - *Routine Abdominal Exam Present: soft. Absent: tenderness - *Routine Extremities Exam Present: pulses intact, normal capillary refill. Absent: cyanosis, edema - *Routine Neurological Exam Present: alert, oriented X3. Absent: motor deficit Assessment and Plan (1) Closed intertrochanteric fracture of left femur Status: Acute Category: Medical Code(s): S72.142A - Displaced intertrochanteric fracture of left femur, initial encounter for closed fracture (2) Fracture of hip Status: Acute Qualifiers: Encounter type: initial encounter Fracture type: closed Laterality: left Qualified Code(s): S72.002A - Fracture of unspecified part of neck of left femur, initial encounter for closed fracture Category: Medical Code(s): S72.009A - Fracture of unspecified part of neck of unspecified femur, initial encounter for closed fracture (3) Emphysema of lung Status: Chronic Category: Medical Code(s): J43.9 - Emphysema, unspecified (4) HTN (hypertension) Status: Chronic Category: Medical Code(s): I10 - Essential (primary) hypertension (5) Tobacco use disorder Status: Chronic Category: Medical Code(s): F17.200 - Nicotine dependence, unspecified, uncomplicated (6) Hypothyroid Status: Chronic Category: Medical Code(s): E03.9 - Hypothyroidism, unspecified (7) Tachycardia Status: Acute Category: Medical Code(s): R00.0 - Tachycardia, unspecified (8) Urinary tract infection Status: Acute Category: Medical Code(s): N39.0 - Urinary tract infection, site not specified - Assessment and plan all Dx Assessment and Plan for all problems:: Discharge has been completed. Prescription is given for hydrocodone and APAP. She will be seen in follow-up in the nursing facility.
[2020-11-10 10:44] LABS: Basophils % 0.3 % (0.1-2.0); Eosinophils # 0.3 K/mm3 (0.0-0.4); Eosinophils % 2.9 % (0.1-12.0); Hematocrit 27.5 % (37.0-47.0); Hemoglobin 8.7 g/dL (12.2-16.2); Lymphocytes # 1.1 K/mm3 (0.7-4.5); Lymphocytes % 11.3 % (10-50); Mean Corpuscular HGB Conc 31.6 g/dL (31.8-35.4); Mean Corpuscular Hemoglobin 30.7 pg (27.0-31.2); Mean Corpuscular Volume 97.1 fl (81-99); Mean Platelet Volume 8.3 fl (7.4-10.4); Monocytes # 0.6 K/mm3 (0.1-1.0); Monocytes % 5.9 % (1.7-9.3); Neutrophils # 7.6 K/mm3 (1.8-7.8); Neutrophils % 79.6 % (37.0-80.0); Platelet Count 182 K/mm3 (142-424); Red Blood Count 2.83 M/mm3 (4.20-5.40); White Blood Count 9.5 K/mm3 (4.8-10.8)
--- NOTE | 2020-11-10 13:13 | PC.NURSE ---
REPORT CALLED TO [facility]. PT AND FAMILY STATE THEY ARE VERY COMFORTABLE WITH TAKING PT BY PRIVATE VEHICLE. PT HAD A BATH BEFORE DISCHARGE. DRESSING TO THE LEFT HIP C/D/I. PT AMBULATED IN THE ROOM WITH ROLLING WALKER WITH 1 ASSIST. NO COMPLAINTS OF PAIN OR DISCOMFORT.
== END 2020-11-10 13:55 | DRG 480 ==
LOC: ER 12:48 → 2ND 15:07
PROVIDERS: Internal Medicine Pulmonary Disease; Nurse Practitioner Family; Orthopaedic Surgery; Admitting Provider Family Medicine; Emergency Provider Emergency Medicine; PCP Family Medicine; Visit Provider Family Medicine
PROC: 0QS706Z Reposition Left Upper Femur with Intramedullary Internal Fixation Device, Open Approach (ICD-10-PCS; principal; 2020-11-07 13:00)
DX: S72.142A Displaced intertrochanteric fracture of left femur, initial encounter for closed fracture (principal); J96.02 Acute respiratory failure with hypercapnia; J96.01 Acute respiratory failure with hypoxia; N39.0 Urinary tract infection, site not specified; W01.0XXA Fall on same level from slipping, tripping and stumbling without subsequent striking against object, initial encounter; J43.9 Emphysema, unspecified; I10 Essential (primary) hypertension; E03.9 Hypothyroidism, unspecified; E78.5 Hyperlipidemia, unspecified; M81.0 Age-related osteoporosis without current pathological fracture; F17.210 Nicotine dependence, cigarettes, uncomplicated; B95.2 Enterococcus as the cause of diseases classified elsewhere; R00.0 Tachycardia, unspecified; Z88.1 Allergy status to other antibiotic agents; Z88.2 Allergy status to sulfonamides
CPT/HCPCS: 27245; 36415; 71045; 71275; 73502; 73552; 76000; 80048; 80053; 81001; 82803; 83880; 84145; 85007; 85025; 85378; 85610; 85730; 86140; 86850; 87086; 87088; 87186; 87581; 87633; 87798; 93005; 93306; 93971; 94640; 94760; 94761; 96374; 97116; 97161; 97166; 97530; 99283; C1713; C1769; C1776; J1956; J2405; J3370; Q9967

== ENCOUNTER → 2020-11-20 09:12 | Outpatient (CLI) | payer MEDICARE, SELFPAY ==
--- NOTE | 2020-11-20 09:16 | XR_ITS ---
PROCEDURE: XR FEMUR LT 2V CLINICAL INDICATION: s/p gamma nail Follow-up gamma nail placement COMPARISON: XA XR FEMUR LT 2V from 11/07/2020 FINDINGS: Status post gamma nail placement with long intramedullary she stabilizing the intertrochanteric fracture of the left femur. There is good alignment with mild medial displacement of the proximal fracture fragment by 8 mm. No evidence of orthopedic complication. Other findings:None. IMPRESSION: Good alignment status post ORIF of the left femoral neck Dictated by: Atul Joel MD 11/20/2020 15:48 Atul Joel MD in [place] 11/20/2020 15:48
== END ==
PROVIDERS: PCP Family Medicine; Visit Provider Orthopaedic Surgery
DX: S72.142A Displaced intertrochanteric fracture of left femur, initial encounter for closed fracture (principal)
CPT/HCPCS: 73552

== ENCOUNTER → 2020-12-18 10:02 | Outpatient (CLI) | payer MEDICARE, SELFPAY ==
--- NOTE | 2020-12-18 10:09 | XR_ITS ---
PROCEDURE: XR HIP LT 2-3V W/PELVIS CLINICAL INDICATION: LT gamma nail sx 11/07/20 COMPARISON: CR XR HIP LT 2-3V W/PELVIS from 11/06/2020 FINDINGS: Intramedullary she and screw fixation of the left femur is noted. Healing intertrochanteric fracture of the left femur with adjacent callus formation. Bone density is normal. No other acute fractures or dislocations. No significant soft tissue abnormality. Degenerative changes of the visualized lumbar spine. Vascular calcification IMPRESSION: Intramedullary she and screw fixation of the left femur. Healing intertrochanteric fracture. Dictated by: Ksenia Mary 12/18/2020 12:11 Ksenia Mary in [place] 12/18/2020 12:11
--- NOTE | 2020-12-18 10:09 | XR_ITS ---
PROCEDURE: XR FEMUR LT 2V CLINICAL INDICATION: sp LT gamma nail COMPARISON: CR XR FEMUR LT 2V from 11/20/2020 FINDINGS: Intramedullary she and screw fixation of the distal femur is noted, partially visualized. The proximal extent of the intramedullary she is not visualized on the current study. No acute fractures. Bone density is normal. No significant soft tissue abnormality is noted. IMPRESSION: Partially visualized intramedullary she and screw fixation of the femur. Dictated by: Ksenia Mary 12/18/2020 12:09 Ksenia Mary in [place] 12/18/2020 12:09
== END ==
PROVIDERS: PCP Family Medicine; Visit Provider Orthopaedic Surgery
DX: Z09 Encounter for follow-up examination after completed treatment for conditions other than malignant neoplasm (principal); S72.142D Displaced intertrochanteric fracture of left femur, subsequent encounter for closed fracture with routine healing
CPT/HCPCS: 73502; 73552

== ENCOUNTER → 2020-12-24 09:31 | Outpatient (CLI) | payer MEDICARE, SELFPAY ==
--- NOTE | 2020-12-24 09:31 | XR_ITS ---
PROCEDURE: XR DEXA AXIAL SKELETON CLINICAL HISTORY: evaluate for osteoporosis COMPARISON: No exams were available for comparison FINDINGS: The right hip BMD is 0.606 with a T-score of -2.2. The left forearm BMD is 0.522 with a T-score of -2.9. The lumbar spine BMD is 0.902 with a T-score of -1.3. IMPRESSION: This patient is considered osteoporotic according to the World Health Organization criteria. Fracture risk is high. Treatment is advised. Based on these results a follow-up exam is recommended in 1 year. Dictated by: Atul Joel MD 12/25/2020 05:29 Atul Joel MD in [place] 12/25/2020 05:29
== END ==
PROVIDERS: PCP Family Medicine; Visit Provider Orthopaedic Surgery
DX: M81.0 Age-related osteoporosis without current pathological fracture (principal)
CPT/HCPCS: 77080

== ENCOUNTER → 2021-01-04 10:00 | Outpatient (CLI) | payer MEDICARE, SELFPAY | PROVIDERS: PCP Family Medicine; Visit Provider Internal Medicine Pulmonary Disease | DX: J43.9 Emphysema, unspecified (principal) | CPT/HCPCS: 94060; 94727; 94729 ==

== ENCOUNTER 2021-01-10 11:05 | Outpatient (CLI) | payer MEDICARE, SELFPAY ==
[2021-01-10 11:55] VITALS: BP 157/62; PULSE 77; RESP 18; O2SAT 99
== END 2021-01-10 11:55 | disposition home or self-care (01) ==
LOC: INF 11:08
PROVIDERS: Visit Provider Family Medicine
DX: M81.0 Age-related osteoporosis without current pathological fracture (principal)
CPT/HCPCS: 96372; J3111

== ENCOUNTER → 2021-01-30 10:06 | Outpatient (CLI) | payer MEDICARE, SELFPAY ==
--- NOTE | 2021-01-30 10:12 | XR_ITS ---
PROCEDURE: XR HIP LT 2-3V W/PELVIS CLINICAL INDICATION: LT gamma nail sx 11/07/20 COMPARISON: CR XR HIP LT 2-3V W/PELVIS from 12/18/2020 FINDINGS: The gamma nail and intramedullary she are again noted fixating the intertrochanteric fracture. There is slightly more callus formation at the fracture site than seen on the most recent study. The soft tissues about the left hip appear normal. There is mild levo scoliotic curvature of the visualized portion of the lower lumbar spine. IMPRESSION: Satisfactory ORIF intertrochanteric fracture left hip Dictated by: Dr. Mahesh Nunn MD 01/30/2021 11:34 Dr. Mahesh Nunn MD in [place] 01/30/2021 11:34
--- NOTE | 2021-01-30 10:12 | XR_ITS ---
PROCEDURE: XR FEMUR LT 2V CLINICAL INDICATION: LT gamma nail sx 11/07/20 COMPARISON: No exams were available for comparison FINDINGS: No acute fracture or dislocation. No lytic or blastic change. There is normal mineralization. The long intramedullary she extends the length of the femur to the diametaphyseal zone fixated by a horizontally threaded screw. The soft tissues appear normal. Other findings:None. IMPRESSION: No acute findings. Dictated by: Dr. Mahesh Nunn MD 01/30/2021 11:36 Dr. Mahesh Nunn MD in [place] 01/30/2021 11:36
== END ==
PROVIDERS: PCP Family Medicine; Visit Provider Orthopaedic Surgery
DX: Z09 Encounter for follow-up examination after completed treatment for conditions other than malignant neoplasm (principal)
CPT/HCPCS: 73502; 73552

== ENCOUNTER 2021-02-06 13:00 | Outpatient (CLI) | payer MEDICARE, SELFPAY ==
[2021-02-06 13:14] VITALS: BP 133/54; PULSE 74; RESP 17; TEMP 36.3; O2SAT 99
== END 2021-02-06 13:17 | disposition home or self-care (01) ==
LOC: INF 13:01
PROVIDERS: Visit Provider Family Medicine
DX: M81.0 Age-related osteoporosis without current pathological fracture (principal)
CPT/HCPCS: 96372; J3111

== ENCOUNTER → 2021-02-26 14:26 | Outpatient (CLI) | payer MEDICARE, SELFPAY ==
--- NOTE | 2021-02-26 14:26 | US_ITS ---
PROCEDURE: US BREAST RT COMPLETE CLINICAL INDICATION: 6 month follow up Rt. breast u/s COMPARISON: US US BREAST RT COMPLETE from 07/26/2020 FINDINGS: Focal anechoic lesion measuring 0.6 centimeters is noted in the right breast at 3 o'clock position, neuro to the nipple. Second lesion measuring 0.5 x 0.4 centimeters with internal septation noted at 5 o'clock position. No other suspicious lesions are noted. Right axillary lymph nodes measuring up to 1.4 centimeters, demonstrates central fatty hilum and normal morphology. IMPRESSION: No interval change. Benign findings. Please see corresponding diagnostic mammogram for further recommendations. Dictated by: Ksenia Mary 02/26/2021 15:47 Ksenia Mary in [facility] 02/26/2021 15:47
--- NOTE | 2021-02-26 14:26 | MM_ITS ---
PROCEDURE: MM DIG SCREENING MAMM BI W/CAD Digital Breast Tomosynthesis Included CLINICAL INDICATION: screening xmg COMPARISON: MG SCBI MM Dig screening mamm BI w/CAD from 09/16/2017 MG SCBI MM Dig screening mamm BI w/CAD from 09/22/2018 MG MM DIG SCREENING MAMM BI W/CAD from 01/04/2020 MG MM DIG MAMM DX UNILAT RT CAD from 01/25/2020 MG MM DIG MAMM DX UNILAT RT CAD from 07/26/2020 US US BREAST RT COMPLETE from 07/26/2020 TECHNIQUE: Standard CC and MLO images and 3D Tomosynthesis was obtained. R2 CAD reviewed. FINDINGS: The breast parenchyma is extremely dense, lower sensitivity of mammographic. No dominant mass lesions, suspicious calcification or architectural distortion. There is a focal asymmetric density noted in the upper outer quadrant, noted on the prior study. Multiple focal areas of calcification are noted in the breasts bilaterally. There is a biopsy marker noted in the right breast. Previously noted asymmetric density in the posterior 1/3 of the right breast is not visualized on the current study. Corresponding ultrasound demonstrates focal anechoic lesions in the right breast at 3 o'clock position near the nipple and 5 o'clock position demonstrate no significant interval change compared to the prior study. IMPRESSION: Previously noted focal lesion in the posterior 1/3 of the right breast is not visualized on the current study. Other benign findings as described above. BI-RAD Category: 2 Benign Finding FOLLOW-UP: 1 YR 1 Year Follow-up (A letter has been sent to the patient regarding results of the study.) Dictated by: Ksenia Mary 02/26/2021 15:46 Ksenia Mary in [place] 02/26/2021 15:46
== END ==
PROVIDERS: PCP Family Medicine; Visit Provider Nurse Practitioner Obstetrics & Gynecology
DX: Z12.31 Encounter for screening mammogram for malignant neoplasm of breast (principal); R92.8 Other abnormal and inconclusive findings on diagnostic imaging of breast
CPT/HCPCS: 76641; 77063; 77067

== ENCOUNTER 2021-03-06 13:07 | Outpatient (CLI) | payer MEDICARE, SELFPAY ==
[2021-03-06 13:09] VITALS: BP 104/46; PULSE 68; RESP 18; TEMP 36.7; O2SAT 97
== END 2021-03-06 13:30 | disposition home or self-care (01) ==
LOC: INF 13:07
PROVIDERS: Visit Provider Family Medicine
DX: M81.0 Age-related osteoporosis without current pathological fracture (principal)
CPT/HCPCS: 96372; J3111

== ENCOUNTER 2021-04-03 11:55 | Outpatient (CLI) | payer MEDICARE, SELFPAY ==
[2021-04-03 12:09] VITALS: BP 120/56; PULSE 92; RESP 17; TEMP 36.6; O2SAT 97
== END 2021-04-03 12:14 | disposition home or self-care (01) ==
LOC: INF 11:56
PROVIDERS: PCP Family Medicine; Visit Provider Family Medicine
DX: M81.0 Age-related osteoporosis without current pathological fracture (principal)
CPT/HCPCS: 96372; J3111

== ENCOUNTER → 2021-05-01 10:22 | Outpatient (CLI) | payer MEDICARE, SELFPAY ==
--- NOTE | 2021-05-01 10:26 | XR_ITS ---
PROCEDURE: XR FEMUR LT 2V CLINICAL INDICATION: sp LT gamma nail, sx 11/07/20 COMPARISON: CR XR FEMUR LT 2V from 11/20/2020 CR XR FEMUR LT 2V from 01/30/2021 FINDINGS: Status post gamma nail and long intramedullary she placement into the left femoral neck and femur. Callus formation is present along the medial aspect the intertrochanteric fracture consistent with healing. There is good alignment. IMPRESSION: Good alignment of the healing left femoral neck fracture with no hardware malfunction Dictated by: Atul Joel MD 05/01/2021 12:13 Atul Joel MD in [place] 05/01/2021 12:13
--- NOTE | 2021-05-01 10:26 | XR_ITS ---
PROCEDURE: XR HIP LT 2-3V W/PELVIS CLINICAL INDICATION: sp LT gamma nail, sx 11/07/20 COMPARISON: CR XR HIP LT 2-3V W/PELVIS from 01/30/2021 CR XR FEMUR LT 2V from 05/01/2021 FINDINGS: Status post ORIF left intertrochanteric fracture with gamma nail and long intramedullary she with callus formation along the medial aspect of the fracture. There is good alignment with no obvious orthopedic complication. There is some minimal heterotopic ossification superior to the intramedullary she. IMPRESSION: Good alignment status post ORIF left intertrochanteric fracture Dictated by: Atul Joel MD 05/01/2021 12:19 Atul Joel MD in [facility] 05/01/2021 12:19
== END ==
PROVIDERS: PCP Family Medicine; Visit Provider Orthopaedic Surgery
DX: Z09 Encounter for follow-up examination after completed treatment for conditions other than malignant neoplasm (principal)
CPT/HCPCS: 73502; 73552

== ENCOUNTER 2021-05-13 13:02 | Outpatient (CLI) | payer MEDICARE, SELFPAY ==
[2021-05-13 13:14] VITALS: BP 113/52; PULSE 70; RESP 18; TEMP 36.4; O2SAT 100
== END 2021-05-13 13:40 | disposition home or self-care (01) ==
LOC: INF 13:03
PROVIDERS: PCP Family Medicine; Visit Provider Family Medicine
DX: M81.0 Age-related osteoporosis without current pathological fracture (principal)
CPT/HCPCS: 96372; J3111

== ENCOUNTER 2021-06-10 12:56 | Outpatient (CLI) | payer MEDICARE, SELFPAY ==
[2021-06-10 13:14] VITALS: BP 95/47; PULSE 80; RESP 18; TEMP 36.5; O2SAT 100
== END 2021-06-10 13:36 | disposition home or self-care (01) ==
LOC: INF 12:58
PROVIDERS: PCP Family Medicine; Visit Provider Family Medicine
DX: M81.0 Age-related osteoporosis without current pathological fracture (principal)
CPT/HCPCS: 96372; J3111

== ENCOUNTER 2021-06-10 14:00 | Outpatient (RCR) | payer MEDICARE, SELFPAY ==
--- NOTE | 2021-04-22 11:25 | HMH.PTOPEV ---
PT Outpatient Evaluation Rehab PT Outpatient Evaluation Start: 04/22/21 10:27 Freq: Status: Active Protocol: Document 04/22/21 10:27 CLARIBEL (Rec: 04/22/21 11:23 CLARIBEL [id number]) Electronically Signed By Lowell Girard, PT 04/22/21 10:27 Outpatient Therapy Subjective History Subjective History Pt reports sustaining a fall in October 2020 w/fx to left prox.femur, ORIF sx. to follow . Pt reports LLE has exhibited progressions w/strength, pain , and overall function since injury/sx., with inpt, LTC, and HHPT. Pt reports some lingering left hip weakness, pain, and LBP this am. Chief Complaint Pain,Stiff,Weakness Symptom Type Ache,Sharp,Dull Symptoms Relieved By Rest/Positioning Symptoms Aggravated By Standing,Physical Activity, Walking Prior Functional Limitations Housework,Standing,Walking Current Functional Limitations Housework,Standing,Walking Symptom Description Constant but Variable Level of pain today (0-10) 3 Pain scale - at its best (0-10) 2 Pain scale - at its worst (0-10) 5 Hip/Knee Eval Gait Observation General Gait Pattern Observation Antalgic Gait,Wide Based Gait Assistive Device Assistive Devices Straight Cane Palpation Tenderness left Knee Palpation Overall Comment 3/4 glut med, lumbar para Hip Palpation Findings Tenderness MMT right Hip Flexion Strength Grade 4 Good Hip Abduction Strength Grade 4 Good Hip Adduction Strength Grade 4 Good Hip Extension Strength Grade 4 Good Hip External Rotation Strength Grade 4 Good Hip Internal Rotation Strength Grade 4 Good Knee Extension Strength Grade 5 Normal Knee Flexion Strength Grade 5 Normal left Hip Flexion Strength Grade 4 Good Hip Abduction Strength Grade 4- Good- Hip Adduction Strength Grade 4- Good- Hip Extension Strength Grade 4 Good Hip External Rotation Strength Grade 4- Good- Hip Internal Rotation Strength Grade 4- Good- Knee Extension Strength Grade 5 Normal Knee Flexion Strength Grade 5 Normal ROM Hip Flexion w/Knee Flexed Passive Range 0-90 of Motion (degrees) Hip Flexion w/Knee Extended Passive 0-50 Range of Motion (degrees) Hip External Rotation Passive Range of 0-15 Motion (degrees) Hip Internal Rotation Passive Range of 0-12 Motion (degrees) Outpatient Therapy Assessment Impairments Problems/Impairmments Palpation Tenderness,Impaired Ra
--- NOTE | 2021-05-27 14:16 | HMH.RHREAS ---
Rehab Reassessment Rehab OP Re-assessment Start: 05/27/21 13:46 Freq: Status: Active Protocol: Document 05/27/21 13:46 CLARIBEL (Rec: 05/27/21 14:15 [id number]) Electronically Signed By Lowell Girard, PT 05/27/21 13:46 Rehab Re-assessment Subjective Subjective Pt reports 0-2/10 left hip on VAS activity dependent, and feels 'at least 50%' better overall since I eval Objective Objective Notes PROM: LEFT HIP FLX W/KNEE FLXED 0-90, LEFT HIP FLX W/ KNEE EXTENDED 0-50, LEFT HIP IR 0-20, L HIP ER 0-30 MMT: LEFT HIP FLX 4-4+/5, L HIP ABD 3+-4/5, L HIP IR,ER 4/ 5 TTP: LEFT HIP GRT. TRO 2/4, L PIRI MM 2/4 Assessment Progress Assessment Progressing as Expected Assessment Notes SLIGHT IMPROVEMENT IN ROM, STRENGTH, AND TTP Patient goals met STG'S 12/16 LTG'S 08/19 Goals Not Met STG'S 11/16, LTG'S 04/19 Plan Plan Pt to cont. w/skilled P.T. to make further improvements in left hip ROM, strength, gait, and TTP to allow for optimal function Frequency of Therapy 2-3x/wk Duration of therapy 2-4 wks Time and Billing Re-Eval Time 15 Re-Eval Billing Units 0 PHYSICIAN CERTIFICATION: I certify the specified therapy services for Sonam Berg are required, authorized, and reviewed every 30 days.
== END 2021-06-10 14:05 | disposition home or self-care (01) ==
LOC: PT 14:00
PROVIDERS: PCP Family Medicine; Visit Provider Family Medicine
DX: S72.142D Displaced intertrochanteric fracture of left femur, subsequent encounter for closed fracture with routine healing (principal); M62.81 Muscle weakness (generalized); Z87.81 Personal history of (healed) traumatic fracture
CPT/HCPCS: 97014; 97110; 97163; 97164; G0283

== ENCOUNTER → 2021-06-25 10:30 | Outpatient (CLI) | payer MEDICARE, SELFPAY ==
--- NOTE | 2021-06-25 10:36 | XR_ITS ---
PROCEDURE: XR HIP LT 2-3V W/PELVIS CLINICAL INDICATION: sp LT gamma nail, sx 11/07/20 COMPARISON: CR XR HIP LT 2-3V W/PELVIS from 11/06/2020 CR XR HIP LT 2-3V W/PELVIS from 12/18/2020 CR XR HIP LT 2-3V W/PELVIS from 01/30/2021 CR XR HIP LT 2-3V W/PELVIS from 05/01/2021 CR XR FEMUR LT 2V from 06/25/2021 FINDINGS: Left hip: There has been prior gamma nail placement of the left intertrochanteric hip fracture with long intramedullary she into the left femur there is collapse the gamma nail now protruding 1.8 cm lateral to the femoral shaft previously approximately 1.2 cm. There is increasing foreshortening of the femoral neck. The proximal tip of the gamma nail is very near the cortical surface of the femoral head with some cortical irregularity of the femoral head. Left femur: Mid distal aspect of the intramedullary she are and satisfactory position with the distal cortical screw intact. IMPRESSION: Increasing collapse of the left femoral neck and protrusion of the gamma nail lateral to the cortical surface of the femur with impaction of the fracture fragments and cortical irregularity of the femoral head at the proximal tip of the gamma nail at the cortical surface of the femoral head. Possible AVN at this region. Dictated by: Atul Joel MD 06/25/2021 12:48 Atul Joel MD in [facility] 06/25/2021 12:48
== END ==
PROVIDERS: PCP Family Medicine; Visit Provider Orthopaedic Surgery
DX: Z09 Encounter for follow-up examination after completed treatment for conditions other than malignant neoplasm (principal)
CPT/HCPCS: 73502; 73552

== ENCOUNTER → 2021-06-27 13:41 | Outpatient (CLI) | payer MEDICARE, SELFPAY ==
--- NOTE | 2021-06-27 13:45 | CT_ITS ---
PROCEDURE INFORMATION: Exam: CT Left Lower Extremity Without Contrast, Hip Exam date and time: 06/27/2021 1:45 PM Age: 81 years old Clinical indication: Prior surgery; Patient HX: Left hip pain with HX of left femur FX with repair in the past TECHNIQUE: Imaging protocol: CT of the Left lower extremity without contrast was performed. Exam focused on the hip. 3D rendering (Not supervised by radiologist): MIP and/or 3D reconstructed images were created by the technologist. Radiation optimization: All CT scans at this facility use at least one of these dose optimization techniques: automated exposure control; mA and/or kV adjustment per patient size (includes targeted exams where dose is matched to clinical indication); or iterative reconstruction. COMPARISON: CR XR HIP LT 2-3V W/PELVIS 06/25/2021 10:40 AM FINDINGS: Bones/joints: There is a subacute/old comminuted fracture of the intertrochanteric region of the proximal left femur. There are persistent lucent lines which represent areas of non-ankylosis present. This does not exclude the presence of fibrous ankylosis across the persistent lucent lines. There is osteopenia of visualized bones. A nail and intramedullary she transfix the subacute/old healing fracture. Analysis of the nail demonstrates that the nail penetrates the cortex of the femoral head and may protrude slightly into the hip joint space. There is no evidence of acute fracture. Soft tissues: Postsurgical changes within subcutaneous fat along the lateral aspect of the proximal left thigh. No evidence of residual muscular or subcutaneous edema. Atheromatous calcification of the proximal left superficial femoral arteries identified. IMPRESSION: 1. Suspected proximal migration of the nail used to transfix a comminuted intertrochanteric fracture into the left hip joint space. 2. Additional changes within the left hip and surrounding soft tissues are as described in the body of the report.
== END ==
PROVIDERS: PCP Family Medicine; Visit Provider Orthopaedic Surgery
DX: S72.142A Displaced intertrochanteric fracture of left femur, initial encounter for closed fracture (principal); Z09 Encounter for follow-up examination after completed treatment for conditions other than malignant neoplasm
CPT/HCPCS: 73700

== ENCOUNTER 2021-07-08 13:05 | Outpatient (CLI) | payer MEDICARE, SELFPAY ==
[2021-07-08 13:31] VITALS: BP 108/48; PULSE 91; RESP 18; TEMP 36.2; O2SAT 100
[2021-07-08 13:45] VITALS: BP 112/52; PULSE 84; RESP 16; TEMP 36.3; O2SAT 100
== END 2021-07-08 13:45 | disposition home or self-care (01) ==
LOC: INF 13:06
PROVIDERS: PCP Family Medicine; Visit Provider Family Medicine
DX: M81.0 Age-related osteoporosis without current pathological fracture (principal)
CPT/HCPCS: 96372; J3111

== ENCOUNTER → 2021-07-10 14:47 | Outpatient (CLI) | payer MEDICARE, SELFPAY ==
[2021-07-10 14:50] LABS: Microscopic, Urine URINE MICROSCOPIC (MICROSCOPIC)
[2021-07-10 15:21] LABS: Appearance,Urine CLEAR (Clear); Basophils # 0.1 K/mm3 (0-0.2); Bilirubin,Urine Negative (Negative); Blood, Urine Negative (Negative); Color,Urine YELLOW (Yellow); Eosinophils # 0.3 K/mm3 (0.0-0.4); Eosinophils % 3.4 % (0.1-12.0); Glucose,Urine (UA) Negative (Negative); Hematocrit 41.5 % (37.0-47.0); Hemoglobin 13.8 g/dL (12.2-16.2); Ketones,Urine Negative (Negative); Leukocyte Esterase,Urine TRACE (Negative); Lymphocytes # 2.6 K/mm3 (0.7-4.5); Lymphocytes % 28.6 % (10-50); Mean Corpuscular HGB Conc 33.2 g/dL (31.8-35.4); Mean Corpuscular Volume 93.5 fl (81-99); Mean Platelet Volume 8.3 fl (7.4-10.4); Monocytes # 0.6 K/mm3 (0.1-1.0); Monocytes % 6.5 % (1.7-9.3); Neutrophils # 5.5 K/mm3 (1.8-7.8); Neutrophils % 60.5 % (37.0-80.0); Nitrate,Urine Negative (Negative); Platelet Count 278 K/mm3 (142-424); Protein,Urine TRACE (Negative); Red Blood Count 4.44 M/mm3 (4.20-5.40); Red Cell Distribution Width 13.6 % (11.5-17.5); Urobilinogen,Urine 0.2 EU/dl (0.2); White Blood Count 9.1 K/mm3 (4.8-10.8)
[2021-07-10 15:28] LABS: Bacteria,Urine 3+ /lpf; Squamous Epithelial Cell,Urine Occasional #/hpf (0-5)
[2021-07-10 16:02] LABS: Chloride 100 mmol/L (98-107)
[2021-07-10 16:03] LABS: Potassium 3.7 mmoL/L (3.5-5.1); Sodium 138 mmol/L (136-145)
[2021-07-10 16:05] LABS: Alanine Aminotransferase 25 U/L (12-78); Alkaline Phosphatase 118 U/L (38-126); Aspartate Amino Transferase 44 U/L (14-36); Bilirubin,Total 0.5 mg/dl (0.2-1.3); Blood Urea Nitrogen 32 mg/dl (7-17); Estimated Glomerular Filt Rate 53 ml/min (>60); GFR (African American) 65 ML/MIN (>60)
[2021-07-10 16:06] LABS: Albumin Level 4.2 g/dl (3.5-5.0); Albumin/Globulin Ratio 1.6 (1.1-1.8); Anion Gap 9.7 mEq/L (5-15); Calcium 9.6 mg/dl (8.4-10.2); Carbon Dioxide 32 mmol/L (22.0-30.0); Globulin 2.7 g/dL (1.3-3.2); Glucose 81 mg/dl (74-100); Total Protein,Serum 6.9 g/dl (6.3-8.2)
== END ==
PROVIDERS: Visit Provider Orthopaedic Surgery
DX: Z01.818 Encounter for other preprocedural examination (principal); B96.20 Unspecified Escherichia coli [E. coli] as the cause of diseases classified elsewhere; S72.002K Fracture of unspecified part of neck of left femur, subsequent encounter for closed fracture with nonunion; N39.0 Urinary tract infection, site not specified
CPT/HCPCS: 36415; 80053; 81001; 85025; 87086; 87088; 87186

== ENCOUNTER → 2021-07-13 10:55 | Outpatient (CLI) | payer MEDICARE, SELFPAY | PROVIDERS: Visit Provider Orthopaedic Surgery | DX: Z01.818 Encounter for other preprocedural examination (principal); Z20.822 Contact with and (suspected) exposure to COVID-19; U07.1 COVID-19 | CPT/HCPCS: 36415; 86850; C9803; U0003; U0005 ==

== ENCOUNTER 2021-08-07 13:09 | Outpatient (CLI) | payer MEDICARE, SELFPAY ==
[2021-08-07 13:32] VITALS: BP 94/53; PULSE 84; RESP 18; TEMP 36.6; O2SAT 98
== END 2021-08-07 13:45 | disposition home or self-care (01) ==
LOC: INF 13:10
PROVIDERS: PCP Family Medicine; Visit Provider Family Medicine
DX: M81.0 Age-related osteoporosis without current pathological fracture (principal)
CPT/HCPCS: 96372; J3111

== ENCOUNTER 2021-09-04 11:03 | Outpatient (CLI) | payer MEDICARE, SELFPAY ==
[2021-09-04 11:30] VITALS: BP 125/71; PULSE 92; RESP 18; TEMP 36.2; O2SAT 99
== END 2021-09-04 11:45 | disposition home or self-care (01) ==
LOC: INF 11:04
PROVIDERS: PCP Family Medicine; Visit Provider Family Medicine
DX: M81.0 Age-related osteoporosis without current pathological fracture (principal)
CPT/HCPCS: 96372; J3111

== ENCOUNTER → 2021-10-02 12:38 | Outpatient (CLI) | payer MEDICARE, SELFPAY ==
--- NOTE | 2021-10-02 12:43 | XR_ITS ---
FINAL REPORT CLINICAL HISTORY: sp LT gamma nail, preop LT MEDINA (included all nail for in hip xray) COMPARISON: June 25, 2021 FINDINGS: LEFT HIP Two views of the left hip including AP pelvis demonstrate no acute fracture or dislocation. There is increasing collapse of the left femoral neck and protrusion of the gamma nail lateral to the cortical surface of the femur. The proximal portion of the intramedullary she extends through the dorsal cortex of the greater trochanter. No soft tissue abnormality is seen. IMPRESSION: Findings are all similar to previous. Reviewed, Interpreted and Dictated by Gm Coronado MD Transcribed by Chyna Patrick Authenticated by Gm Coronado MD on 10/02/2021 02:41:32 PM [facility]
--- NOTE | 2021-10-02 12:43 | XR_ITS ---
FINAL REPORT CLINICAL HISTORY: RIGHT KNEE PAIN FINDINGS: RIGHT KNEE 4 views of the right knee were obtained. There is no acute fracture or dislocation. The joint spaces are intact. There is a small calcification or ossification anterior to the patellar tendon. IMPRESSION: No acute bony abnormality. Reviewed, Interpreted and Dictated by Gm Coronado MD Transcribed by Chyna Patrick Authenticated by Gm Coronado MD on 10/02/2021 02:41:[address] [facility]
== END ==
PROVIDERS: PCP Family Medicine; Visit Provider Orthopaedic Surgery
DX: Z01.818 Encounter for other preprocedural examination (principal); M25.561 Pain in right knee; M25.552 Pain in left hip
CPT/HCPCS: 73502; 73564

== ENCOUNTER 2021-10-03 12:41 | Outpatient (CLI) | payer MEDICARE, SELFPAY ==
[2021-10-03 12:56] VITALS: BP 128/57; PULSE 83; RESP 18; TEMP 36.6; O2SAT 97
== END 2021-10-03 13:15 | disposition home or self-care (01) ==
LOC: INF 12:42
PROVIDERS: PCP Family Medicine; Visit Provider Family Medicine
DX: M81.0 Age-related osteoporosis without current pathological fracture (principal)
CPT/HCPCS: 96372; J3111

== ENCOUNTER → 2021-10-04 14:00 | Outpatient (CLI) | payer MEDICARE, SELFPAY ==
[2021-10-04 14:06] LABS: Microscopic, Urine URINE MICROSCOPIC (MICROSCOPIC)
[2021-10-04 14:47] LABS: Basophils # 0.1 K/mm3 (0-0.2); Basophils % 0.7 % (0.1-2.0); Eosinophils # 0.2 K/mm3 (0.0-0.4); Eosinophils % 2.1 % (0.1-12.0); Hematocrit 41.7 % (37.0-47.0); Hemoglobin 13.5 g/dL (12.2-16.2); Lymphocytes # 2.2 K/mm3 (0.7-4.5); Lymphocytes % 23.9 % (10-50); Mean Corpuscular HGB Conc 32.5 g/dL (31.8-35.4); Mean Corpuscular Hemoglobin 30.5 pg (27.0-31.2); Mean Corpuscular Volume 93.8 fl (81-99); Mean Platelet Volume 8.1 fl (7.4-10.4); Monocytes # 0.5 K/mm3 (0.1-1.0); Monocytes % 5.7 % (1.7-9.3); Neutrophils # 6.1 K/mm3 (1.8-7.8); Neutrophils % 67.6 % (37.0-80.0); Platelet Count 260 K/mm3 (142-424); Red Blood Count 4.45 M/mm3 (4.20-5.40); Red Cell Distribution Width 13.3 % (11.5-17.5)
[2021-10-04 15:21] LABS: Erythrocyte Sedimentation Rate 24 mm/hr (0-30)
[2021-10-04 16:03] LABS: Alanine Aminotransferase 24 U/L (12-78); Albumin Level 4.4 g/dl (3.5-5.0); Albumin/Globulin Ratio 1.7 (1.1-1.8); Alkaline Phosphatase 100 U/L (38-126); Anion Gap 13.3 mEq/L (5-15); Aspartate Amino Transferase 38 U/L (14-36); Bilirubin,Total 0.8 mg/dl (0.2-1.3); Blood Urea Nitrogen 38 mg/dl (7-17); Calcium 9.6 mg/dl (8.4-10.2); Carbon Dioxide 29 mmol/L (22.0-30.0); Chloride 101 mmol/L (98-107); Estimated Glomerular Filt Rate 43 ml/min (>60); GFR (African American) 52 ML/MIN (>60); Globulin 2.6 g/dL (1.3-3.2); Glucose 72 mg/dl (74-100); Potassium 4.3 mmoL/L (3.5-5.1); Sodium 139 mmol/L (136-145)
[2021-10-04 16:05] LABS: Appearance,Urine CLEAR (Clear); Bilirubin,Urine Negative (Negative); Blood, Urine Negative (Negative); Color,Urine YELLOW (Yellow); Glucose,Urine (UA) Negative (Negative); Ketones,Urine Negative (Negative); Leukocyte Esterase,Urine 1+ (Negative); Nitrate,Urine Negative (Negative); Protein,Urine Negative (Negative); Specific Gravity, Urine 1.015 (1.005-1.030); Urobilinogen,Urine 0.2 EU/dl (0.2)
[2021-10-04 16:09] LABS: C-Reactive Protein 3.8 mg/L (0-4)
[2021-10-04 17:58] LABS: Bacteria,Urine 2+ /lpf; WBC,Urine 20-50 #/hpf (0-3)
== END ==
PROVIDERS: Visit Provider Orthopaedic Surgery
DX: Z01.818 Encounter for other preprocedural examination (principal); Z11.52 Encounter for screening for COVID-19
CPT/HCPCS: 36415; 80053; 81001; 85025; 85651; 86140; 86850; 87086; 87088; 87186; C9803; U0003; U0005

== ENCOUNTER 2021-10-07 07:00 | Inpatient (IN) | payer MEDICARE, SELFPAY ==
[2021-10-03 09:44] VITALS: BMI 21.4
[2021-10-07] VITALS (25 sets, daily range): BP systolic 113–158; BP diastolic 48–90; PULSE 70–102; RESP 16–21; TEMP 36.3–38; O2SAT 93–100
[2021-10-07 06:51] LABS: Coronavirus 19, PCR Not Detected (NotDetected); Influenza A, PCR Not Detected (NotDetected); Influenza B, PCR Not Detected (NotDetected)
--- NOTE | 2021-10-07 07:16 | P.PN_ITS ---
[facility] [place] Anesthesia Checklist - Structural Data Admitted From: Home Planned Operative Procedure/s: orif hip Consent for Planned Operative Procedure(s) Verified: Yes - Additional verifications Anesthesia Reactions: No Hx Blood Transfusions: No Blood Transfusion Reaction: No - Airway Assessment C-Spine Mobility Assessed: Yes TMJ Mobility Assessed: Yes Dentition: Dentures-good fit - Neurological Assessment Level of Consciousness: Awake, Alert, Appropriate - Anesthesia Plan Anesthesia Risk discussed: Yes Anesthesia Plan: Verified ASA Class: III Anesthesia Type: MAC w/Spinal [facility] [place] History I have reviewed the patient's past medical history: Yes Medical History: Reports:: Arrhythmia, Chronic Obstructive Pulmonary Disease (COPD), Hyperlipidemia, Hypertension, Osteoporosis Denies:: Cancer, Diabetes Mellitus Type 1, Diabetes Mellitus Type 2, Internal Pacemaker, MRSA, Seizures *Have you ever received a pneumonia vaccine?: Yes *Have you received a flu vaccine this season?: Yes Other Medical History: Reports: Arthritis, Hypothyroidism, Osteoporosis, Other. Denies: Blood Transfusion Reaction Anesthesia experience/problems:: none Laterality Cases: Bilateral: Breast Biopsy, Tonsillectomy Other Surgeries: Yes: Hysterectomy-Total, Other. No: Pacemaker Amputation: No Fractures: Yes (left femur) - *Social History Last grade of school completed: Advanced degree Smoking Status: Former smoker Tobacco Type: cigarettes # Packs/Day (cigarettes): 1 Alcohol Intake: current Alcohol Intake Frequency:: holidays/special occasions only Substance Use Type: denies use *Occupational Status:: retired Housing: house Household Members: spouse *Travel in the last 8 weeks: None Family Hx:: Non-contributory
--- NOTE | 2021-10-07 09:51 | HMH.PHAINT ---
MEDICATION RECONCILIATION COMPLETED ON PATIENT USING EXTERNAL FILL HISTORY FROM PHARMACY AND LIST FROM [facility] OFFICE. -TERESITA YANCEYD
--- NOTE | 2021-10-07 11:03 | SUR.OPER ---
1103 family provided an update
--- NOTE | 2021-10-07 12:34 | XR_ITS ---
FINAL REPORT CLINICAL HISTORY: post left hip total arthroplasty COMPARISON: October 02, 2021 FINDINGS: LEFT HIP Two views of the left hip with an AP pelvis were obtained. There are interval postoperative changes from left total hip arthroplasty. There is no acute fracture or dislocation. The visualized bony structures are well aligned. There is soft tissue air. Multiple radiodensities in the left hip region likely represent antibiotic beads. IMPRESSION: Interval left hip total hip arthroplasty. Reviewed, Interpreted and Dictated by Lauri Garay III, MD Transcribed by Chyna Patrick Authenticated by Lauri Garay III, MD on 10/07/2021 02:42:23 PM [facility]
--- NOTE | 2021-10-07 12:36 | SUR.OPER ---
1236 family provided with an update
--- NOTE | 2021-10-07 13:22 | HMH.ANESI ---
[facility] Anesthesia Record Part I Intake, IV Amount: 1,600 Estimated blood loss (mL): 300 Urine output (mL): 250 Blood Pressure: 146/80 SaO2: 100 Pulse Rate: 96 Respiratory Rate: 16 Temperature: 98.8 F Patient is:: Drowsy, Stable Stable to PACU at:: 13:15
--- NOTE | 2021-10-07 14:26 | HMH.PHAVTE ---
[facility] Pharmacy VTE Monitoring - Patient Demographics Admission date: 10/07/21 Report Date: 10/07/21 Time: 14:26 Allergies/Adverse Reactions: Patient Allergies azithromycin [From Zithromax] Allergy (Verified 10/07/21 06:39) nitrofurantoin [From Macrobid] Allergy (Verified 10/07/21 06:39) Sulfa (Sulfonamide Antibiotics) Allergy (Verified 10/07/21 06:39) Height: 1.63 m Weight: 56.699 kg - Prophylaxis VTE Prophylaxis Ordered?: Yes Types of VTE Prophylaxis: IPCS Thigh High, Pharmacological Location of Applied Device: Bilateral Lower Extremeties (XARELTO) Pharmacologic Type: Other
--- NOTE | 2021-10-07 14:36 | SUR.PHASEI ---
1424- detailed report called to claudine jolley on OB floor at this time. 1436- pt left in stable condition with claudine jolley on OB floor by claudine pringle.
--- NOTE | 2021-10-07 15:37 | HMH.ORTHHP ---
*Admission Date: 10/07/21 <Rosa Morales 10/07/21 15:37> *Reason for consult:: S/p cephalomedullary nail removal, total hip arthroplasty left hip <Rosa Morales 10/07/21 18:52> *History of present illness: Patient is an 81-year-old female admitted to the acute inpatient service today following an uneventful left hip cephalomedullary nail removal and conversion to left total hip arthroplasty. She previously underwent cephalomedullary nailing of her left femur on 11/07/2020 and did well until approximately 4 months ago when she began developing increasing pain in her left hip without any known injuries. Further evaluation with x-rays and CT scan demonstrated that her left hip fracture has incompletely healed with collapse at the fracture site and migration of the lag screw into the hip joint. She rates her pain a 4 out of 10 at rest and 6 out of 10 when she is weightbearing and ambulating. She localizes the pain to the anterior aspect of the hip joint with radiation into the thigh and complains of frequent sleep disturbances. At baseline she is currently mobilizing with the use of a cane and states that it is difficult to walk any distance without support. She lives at home with her . She denies any history of fevers, chills, rigors, chest pain, shortness of breath, palpitations, or distal tingling/numbness. She is a former smoker. Her past medical history is significant for hyperlipidemia, hypertension, osteoporosis, and COPD. Cephalomedullary nail removal and conversion total hip arthroplasty is indicated to reduce the risk of falls into improve her pain, mobility, and quality of life. The surgical and nonsurgical alternatives were discussed in detail with the patient as well as the risks and benefits of surgery. <MoralesRosa castro 10/07/21 18:53> [facility] History Medical History: Reports:: Arrhythmia, Chronic Obstructive Pulmonary Disease (COPD), Hyperlipidemia, Hypertension, Osteoporosis Denies:: Cancer, Diabetes Mellitus Type 1, Diabetes Mellitus Type 2, Internal Pacemaker, MRSA, Seizures <Rosa Morales 10/07/21 15:37> *Have you ever received a pneumonia vaccine?: Yes <Rosa Morales 10/07/21 15:37> *Have you received a flu vaccine this season?: Yes <Rosa Morales 10/07/21 15:37> Other Medical History: Reports: Arthritis, Hypothyroidism, Osteoporosis, Other. Denies: Blood Transfusion Reaction <Rosa Morales 10/07/21 15:37> Anesthesia experience/problems:: none <Rosa Morales 10/07/21 15:37> Laterality Cases: Left: Arthroscopy Hip, Bilateral: Breast Biopsy, Tonsillectomy <Rosa Morales 10/07/21 15:37> Other Surgeries: Yes: Hysterectomy-Total, Other. No: Pacemaker <Rosa Morales 10/07/21 15:37> Amputation: No <Rosa Morales 10/07/21 15:37> Fractures: Yes (left femur) <Rosa Morales 10/07/21 15:37> - *Social History Last grade of school completed: Advanced degree <Rosa Morales 10/07/21 15:37> Smoking Status: Former smoker <Rosa Morales 10/07/21 15:37> Tobacco Type: cigarettes <Rosa Morales 10/07/21 15:37> # Packs/Day (cigarettes): 1 <Rosa Morales 10/07/21 15:37> Alcohol Intake: never <Rosa Morales 10/07/21 15:37> Alcohol Intake Frequency:: holidays/special occasions only <Rosa Morales 10/07/21 15:37> Substance Use Type: denies use <Rosa Morales 10/07/21 15:37> *Occupational Status:: retired <Rosa Morales 10/07/21 15:37> Housing: house <Rosa Morales 10/07/21 15:37> Household Members: spouse <Rosa Morales 10/07/21 15:37> *Travel in the last 8 weeks: None <Rosa Morales 10/07/21 15:37> Family Hx:: Diabetes, Heart Attack, Other <Rosa Morales 10/07/21 15:37> Review of Systems - Review of Systems Review of systems:: pertinent systems reviewed and negative unless documented below <Rosa Morales 10/07/21 15:56> - Constitutional Denies anorexia, Denies body ache(s), Denies chills, Denies fatigue, Denies fev
[2021-10-07 16:27] LABS: Microscopic,Cath URINE MICROSCOPIC (MICROSCOPIC)
--- NOTE | 2021-10-07 16:32 | P.PN_ITS ---
[facility] Anesthesia Record Part II Discharge Time: 14:25 Destination: Medical Surgical Department PACU nurse assessment reviewed?: Yes Patient Condition:: Good Anesthesia Complications:: None Swallowing reflex intact?: Yes Cyanosis?: No Blood Pressure: 135/87 Pulse Rate: 92 Temperature: 97.4 F Mental Status: Alert & Oriented Pain level:: 4 Nausea and/or vomitting:: None Intake, IV Amount: 0
[2021-10-07 16:44] LABS: Appearance,Urine/Cath CLEAR (Clear); Bilirubin,Cath Negative (Negative); Blood, Urine/Cath Negative (Negative); Color,Urine/Cath YELLOW (Yellow); Glucose,Urine/Cath (UA) Negative (Negative); Ketones,Urine/Cath Negative (Negative); Leukocyte Esterase,Cath Negative (Negative); Nitrate,Cath POSITIVE (Negative); Protein,Urine/Cath Negative (Negative); Specific Gravity, Urine/Cath 1.015 (1.005-1.030); Urobilinogen,Cath 0.2 EU/dl (0.2)
--- NOTE | 2021-10-07 17:39 | PC.NURSE ---
1445 - Late Entry: Pt. arrived to unit in bed, accompanied by PACU staff x2, and S.O.
[2021-10-07 17:46] LABS: WBC,Urine/Cath Occasional #/hpf (0-3)
--- NOTE | 2021-10-07 20:00 | HMH.OPNOTE ---
Date of procedure: 10/07/21 Pre-op Diagnosis:: 1. Nonunion femoral neck fracture, left 2. Status post cephalomedullary nailing, left femur 3. Failed orthopedic implant, left hip Post-op Diagnosis:: Same Procedure performed:: 1. Removal of cephalomedullary nail, left femur 2. Uncemented total hip arthroplasty, left hip Surgeon:: Rom Mary MD Medical Supply Technician(s):: Rosa Morales PA-C COIL CUTTER:: Macario Mejia Anesthesia: spinal Estimated blood loss (mL): 300 Clinical Note:: Patient is an 81-year-old female admitted to the acute inpatient service today following an uneventful left hip cephalomedullary nail removal and conversion to left total hip arthroplasty. She previously underwent cephalomedullary nailing of her left femur on 11/07/2020 and did well until approximately 4 months ago when she began developing increasing pain in her left hip without any known injuries. Further evaluation with x-rays and CT scan demonstrated that her left hip fracture has incompletely healed with collapse at the fracture site and migration of the lag screw into the hip joint. She rates her pain a 4 out of 10 at rest and 6 out of 10 when she is weightbearing and ambulating. She localizes the pain to the anterior aspect of the hip joint with radiation into the thigh and complains of frequent sleep disturbances. At baseline she is currently mobilizing with the use of a cane and states that it is difficult to walk any distance without support. She lives at home with her . She denies any history of fevers, chills, rigors, chest pain, shortness of breath, palpitations, or distal tingling/numbness. She is a former smoker. Her past medical history is significant for hyperlipidemia, hypertension, osteoporosis, and COPD. 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 This resulted in migration of the lag screw proximally through the head and causing severe pain and difficulty walking. There is also significant shortening of the left lower extremity. Cephalomedullary nail removal and conversion total hip arthroplasty is indicated to reduce the risk of falls into improve her pain, mobility, and quality of life. The surgical and nonsurgical alternatives were discussed in detail with the patient as well as the risks and benefits of surgery. Please refer to my office note for full details. Operative findings:: Intraoperatively, the lag screw is noted to be protruding out of the lateral femoral cortex. A large bursa was noted over the tip of the lag screw. Inside the hip joint, the lag screw was protruding through the femoral head. The tip of the screw has caused damage to the cartilage of superolateral acetabulum. The distal locking screw, lag screw and Gamma nail were removed without any problems. Some degenerative changes also noted in the rest of the acetabulum. There is a nonunion of the subcapital component hip fracture with resorption of bone resulting in shortening of the lower extremity. The intertrochanteric complaint at the fracture has healed well; the calcar and lesser trochanter were intact. Effusion and some debris was noted in the hip joint. No obvious findings concerning for infection are noted. Bone and tissue samples were taken for microbiology and histopathology. The capsule and soft tissue around the hip joint was thickened and range of motion was markedly decreased. The bone quality is good. Operative note:: On the day of the procedure the patient and family were met in the preoperative area and the patient was positively identified. A physical examination was performed and documented. The operative site was appropriately marked and initialed by me. I again reviewed the diagnosis, natural history and management options in detail including both nonsurgical and surgical. We discussed the proposed surgery, risks and benefits and alternatives in detail. The complications discussed include but are not li
--- NOTE | 2021-10-07 22:05 | PC.NURSE ---
PT HAD TOLD TECH SHE WAS READY FOR HER PAIN PILL SO SHE COULD GO TO SLEEP,WE HAD DISCUSSED ABOUT NOT LETTING HER PAIN GET TO BAD,WITH GOING IN TO MEDICATE HER SHE SAID HER PAIN WAS A 3 ON SCALE OF 0-10.SHARP PAIN WITH MOVEMENT DULL PAIN WITH NO MOVEMENT.PT READJUSTED HER SELF IN BED AND HAD A LITTLE MORE PAIN IN LEFT HIP.PT HAS A WEDGE BETWEEN HER LEGS,REAPPLIED ICE TO HIP AND ADJUSTED THE FEET TO TAKE PRESSURE OFF HIP,SHE SAID THAT HELPED SOME,SHE THINKS IT IS BECAUSEE SHE IS LAYING ON HER BACK,SHE REPORTS SHE SLEEPS ON HER LEFT SIDE.WILL CONTINUE TO MONITOR
[2021-10-08 04:00] VITALS: BP 149/84; PULSE 90; RESP 20; TEMP 36.7; O2SAT 94
[2021-10-08 04:19] VITALS: BMI 24.4
--- NOTE | 2021-10-08 04:30 | PC.NURSE ---
PT HAS SLEPT WELL TONIGHT,LUNGS CLEAR ALL FRONT,POSITIVE BOWEL SOUNDS,NO DRAINAGE TO THE LEFT HIP DRESSING,ICE PACK IN PLACE,WEDGE REMAINS BETWEEN LEGS PT HAVING A LITTLE DULL PAIN THIS MORNING AND WAS MEDICATED WITH NORCO 5/325MG PO THIS IS HER SECOND DOSE TONIGHT.F/C PATENT AND DRAINING CLEAR YELLOW URINE 650ML HAS BEEN EMPTIED
[2021-10-08 07:19] LABS: Basophils % 0.1 % (0.1-2.0); Eosinophils % 0.2 % (0.1-12.0); Hematocrit 34.2 % (37.0-47.0); Hemoglobin 11.1 g/dL (12.2-16.2); Lymphocytes # 0.9 K/mm3 (0.7-4.5); Lymphocytes % 7.9 % (10-50); Mean Corpuscular HGB Conc 32.4 g/dL (31.8-35.4); Mean Corpuscular Hemoglobin 30.8 pg (27.0-31.2); Mean Corpuscular Volume 95.3 fl (81-99); Mean Platelet Volume 8.9 fl (7.4-10.4); Monocytes # 0.6 K/mm3 (0.1-1.0); Monocytes % 5.3 % (1.7-9.3); Neutrophils % 86.5 % (37.0-80.0); Platelet Count 218 K/mm3 (142-424); Red Blood Count 3.59 M/mm3 (4.20-5.40); Red Cell Distribution Width 13.4 % (11.5-17.5); White Blood Count 11.6 K/mm3 (4.8-10.8)
[2021-10-08 07:29] LABS: MANUAL DIFFERENTIAL MANUAL DIFFERENTIAL (MANUAL DIFF)
[2021-10-08 07:36] LABS: Anion Gap 10.2 mEq/L (5-15); Blood Urea Nitrogen 19 mg/dl (7-17); Calcium 8.7 mg/dl (8.4-10.2); Carbon Dioxide 24 mmol/L (22.0-30.0); Chloride 104 mmol/L (98-107); Creatinine Clearance Estimated 46 mL/min (50-200); Estimated Glomerular Filt Rate 96 ml/min (>60); GFR (African American) 116 ML/MIN (>60); Glucose 148 mg/dl (74-100); Potassium 4.2 mmoL/L (3.5-5.1); Sodium 134 mmol/L (136-145)
[2021-10-08 08:00] VITALS: BP 116/55; PULSE 86; RESP 17; TEMP 36.9; O2SAT 92
[2021-10-08 08:38] LABS: Lymphocytes % 9 % (10-50); Monocytes % 1 % (2-9); Neutrophils % 89 % (42-76); Total Cells Counted 100
[2021-10-08 08:39] LABS: Platelet Estimate Normal
--- NOTE | 2021-10-08 09:24 | HMH.CONS ---
*Admission Date: 10/07/21 *History of present illness: Patient is an 81-year-old female admitted to the acute inpatient service following an uneventful left hip cephalomedullary nail removal and conversion to left total hip arthroplasty. She is being seen in consultation by [facility] at the request of her surgeon Dr. Mary. The following is from orthopedic surgery note: She previously underwent cephalomedullary nailing of her left femur on 11/07/2020 and did well until approximately 4 months ago when she began developing increasing pain in her left hip without any known injuries. Further evaluation with x-rays and CT scan demonstrated that her left hip fracture has incompletely healed with collapse at the fracture site and migration of the lag screw into the hip joint. She rates her pain a 4 out of 10 at rest and 6 out of 10 when she is weightbearing and ambulating. She localizes the pain to the anterior aspect of the hip joint with radiation into the thigh and complains of frequent sleep disturbances. At baseline she is currently mobilizing with the use of a cane and states that it is difficult to walk any distance without support. She lives at home with her . She denies any history of fevers, chills, rigors, chest pain, shortness of breath, palpitations, or distal tingling/numbness. She is a former smoker. Her past medical history is significant for hyperlipidemia, hypertension, osteoporosis, and COPD. The patient is a former smoker. She has not smoked in several years now and her pulmonary status has improved significantly. She does take medications for hypertension and hyperlipidemia. [facility] History Medical History: Reports:: Arrhythmia, Chronic Obstructive Pulmonary Disease (COPD), Hyperlipidemia, Hypertension, Osteoporosis Denies:: Cancer, Diabetes Mellitus Type 1, Diabetes Mellitus Type 2, Internal Pacemaker, MRSA, Seizures *Have you ever received a pneumonia vaccine?: Yes *Have you received a flu vaccine this season?: Yes Other Medical History: Reports: Arthritis, Hypothyroidism, Osteoporosis, Other. Denies: Blood Transfusion Reaction Anesthesia experience/problems:: none Laterality Cases: Left: Arthroscopy Hip, Bilateral: Breast Biopsy, Tonsillectomy Other Surgeries: Yes: Hysterectomy-Total, Other. No: Pacemaker Amputation: No Fractures: Yes (left femur) - *Social History Last grade of school completed: Advanced degree Smoking Status: Former smoker Tobacco Type: cigarettes # Packs/Day (cigarettes): 1 Alcohol Intake: never Alcohol Intake Frequency:: holidays/special occasions only Substance Use Type: denies use *Occupational Status:: retired Housing: house Household Members: spouse *Travel in the last 8 weeks: None Family Hx:: Diabetes, Heart Attack, Other Review of Systems - *Neurologic Reports abnormal walking, Denies abnormal hearing, Denies abnormal movements, Denies abnormal speech, Denies confusion, Denies dizziness, Denies localized weakness, Denies frequent falls, Denies headache(s), Denies loss of vision, Denies numbness, Denies sensory deficit, Denies tingling, Denies weakness Meds Home Medications Medication Instructions Recorded Confirmed Type aspirin 81 mg tablet,delayed 81 mg PO DAILY 09/30/17 10/07/21 History release Calcium Carb/Mag Ox/Zinc Sulf [Cvs 1 each PO DAILY 11/06/20 10/07/21 History Eqtxjyu-Suygmkibc-Sae Cplt] Multivitamin 1 each PO DAILY 11/06/20 10/07/21 History Rosuvastatin Calcium 20 mg PO HS 11/06/20 10/07/21 History Ubidecarenone/Vit E Acet [Co Q-10 1 each PO DAILY 11/06/20 10/07/21 History 100 mg Softgel] Nicotine [Nicoderm 21mg/24hr 1 patch TP DAILY 01/10/21 10/07/21 History patch] Triamterene/Hydrochlorothiazid 0.5 each PO DAILY 01/10/21 10/07/21 History [Triamterene-Hctz 37.5-25 mg Tb] Metoprolol Succinate [Metoprolol 25 mg PO BID 10/07/21 10/07/21 History Succinate 25mg Tablet*] Allergies Allergy/AdvReac Type Severity Reaction Status Date
--- NOTE | 2021-10-08 09:48 | HMH.OTEV ---
OT Inpatient Evaluation Rehab OT IP Evaluation Start: 10/07/21 13:19 Freq: ONCE Status: Complete Protocol: [facility] (Rec: 10/08/21 09:48 [facility] [id number]) Rehab OT IP Assessment Subjective History Pt oriented x 3 on arrival. Pt agreeable to engage in therapy evaluation. Pt was admitted on 10/07/21 following a Total Hip arthroplasty; left hip. The following information was copied from history and physical report: Patient is an 81-year-old female admitted to the acute inpatient service today following an uneventful left hip cephalomedullary nail removal and conversion to left total hip arthroplasty. She previously underwent cephalomedullary nailing of her left femur on 11/07/2020 and did well until approximately 4 months ago when she began developing increasing pain in her left hip without any known injuries . Further evaluation with x- rays and CT scan demonstrated that her left hip fracture has incompletely healed with collapse at the fracture site and migration of the lag screw into the hip joint. She rates her pain a 4 out of 10 at rest and 6 out of 10 when she is weightbearing and ambulating. She localizes the pain to the anterior aspect of the hip joint with radiation into the thigh and complains of frequent sleep disturbances. At baseline she is currently mobilizing with the use of a cane and states that it is difficult to walk any distance without support. She lives at home with her . She denies any history of fevers, chills,
--- NOTE | 2021-10-08 09:53 | HMH.ORTHPN ---
Subjective Date: 10/08/21 <Rosa Morales - 10/08/21 09:55> Time: 08:55 <Rosa Morales - 10/08/21 09:55> Principal diagnosis: s/p cephalomedullary nail removal, left total hip arthroplasty <Rosa Morales - 10/08/21 11:13> Interval history: Patient is an 81 year old female status post removal of cephalomedullary nail and conversion to total hip arthroplasty, left hip, post op day #1. This morning the patient is lying comfortably in bed and her is at the bedside. She reports some pain in her left hip as to be expected at this stage but states that it is well controlled with pain medication. She states that she has been eating and drinking well and denies any episodes of nausea or vomiting. She states that she has not ambulated yet. She denies chest pain, shortness of breath, palpitations, fevers, chills, rigors, or distal tingling/numbness. Her past medical history is significant for hyperlipidemia, hypertension, osteoporosis, and COPD. <Rosa Morales - 10/08/21 11:13> PN: Obj Ex Vital signs: Temp Pulse Resp BP Pulse Ox 98.4 F 86 17 116/55 L 92 L 10/08/21 08:00 10/08/21 08:00 10/08/21 08:00 10/08/21 08:00 10/08/21 08:00 <Rom Mary - 10/08/21 13:36> Temp Pulse Resp BP Pulse Ox 98.4 F 86 17 116/55 L 92 L 10/08/21 08:00 10/08/21 08:00 10/08/21 08:00 10/08/21 08:00 10/08/21 08:00 <Rosa Morales - 10/08/21 09:55> - Constitutional no acute distress, average body habitus, cooperative <Rosa Morales 10/08/21 09:57> - Routine HEENT Exam Head: Present: normocephalic, atraumatic <Rosa Morales 10/08/21 09:57> Eye: Present: EOMI, PERRL <Rosa Morales 10/08/21 09:57> ENT: Present: mucous membranes moist <Rosa Morales 10/08/21 09:57> - Routine Neck Exam Present: supple, full ROM, trachea midline. Absent: JVD, lymphadenopathy <Rosa Morales 10/08/21 09:57> - Routine Respiratory Exam Absent: accessory muscle use, respiratory distress <Rosa Morales 10/08/21 09:57> Comments: Symmetric chest movement, able to speak in complete sentences <Rosa Morales 10/08/21 09:57> - Routine Cardiovascular Exam Present: RRR. Absent: JVD <Rosa Morales 10/08/21 09:57> Comments: Normal peripheral pulses <Rosa Morales 10/08/21 09:57> - Routine Abdominal Exam Present: soft. Absent: tenderness <Rosa Morales 10/08/21 09:57> - Routine Extremities Exam Present: pulses intact, normal capillary refill. Absent: calf tenderness <Rosa Morales 10/08/21 09:57> Comments: Upon examination of the lower extremities: The limb lengths are equal. Upon examination of the left hip and knee, dressings present are clean, dry, and intact. No evidence of drainage or bleeding noted. The left hip and proximal femur are mildly tender to palpation as to be expected at this stage. Attempted movements of the left hip are somewhat painful as to be expected at this stage. Thigh and calf are soft nontender; Homans' sign is negative. No clinical evidence of DVT noted. Posterior tibial pulse 2+; capillary refill is brisk. Sensation to light touch is grossly intact throughout. Patient is actively mobilizing the knee, ankle, foot, and toes. <Rosa Morales 10/08/21 09:57> - Routine Skin Exam Present: intact, warm, normal turgor. Absent: cyanosis, erythema, jaundice <Rosa Morales 10/08/21 09:57> - Routine Neurological Exam Present: alert, oriented X3, CN II-XII intact, moving all extremities, normal tone, normal speech. Absent: sensory deficit, motor deficit, altered mental status <Rosa Morales 10/08/21 09:57> - Routine Psychiatric Exam Present: normal affect, cooperative <Rosa Morales - 10/08/21 09:57> - Urinary Catheter Management Ridley Cath placed during this visit: no <Rom Mary - 10/08/21 13:36> no <Rosa Morales - 10/08/21 11:13> Urethral indwelling: Yes <Fa
--- NOTE | 2021-10-08 11:17 | SW/DCPLANNER ---
Addendum entered by Desirae [place] 10/09/21 07:35: This patient will not require a COVID swab prior to discharge. Addendum entered by [facility] 10/09/21 07:32: Per Anyi: this patient has been approved for [facility] for today. I will follow up with patients family/ MD. Addendum entered by Desirae [place] 10/08/21 12:50: Anyi marlow/ [facility] has stated that authorization will be started. Anyi will continue to follow up with me until she hears back from patients insurance. I will update patient and MD. Original Note: I spoke with this patient and her regarding discharge plans. Patient stated that she is doing well but during last procedure she went to [facility] level of care. Patient stated that she felt she would benefit from short term rehab and prefers [facility]. I did speak with Anyi at [facility] and they do have beds available. Patient information will be faxed to Anyi this AM.
--- NOTE | 2021-10-08 11:28 | HMH.PTEV ---
Physical Therapy Evaluation Rehab PT IP Evaluation Start: 10/07/21 13:19 Freq: ONCE Status: Active Protocol: Document 10/08/21 10:25 PHORNE (Rec: 10/08/21 11:28 PHORNE [id number]) Subjective/History History History 81 yowf adm to [facility] S/P removal of L femur IMN with new MEDINA. SHe reports she lives with spouse, no steps to enter the home and uses a cane for ambulation prior to adm. Subjective Subjective Currently she c/o pain in the L hip, worse with mobility. Rehab PT IP Eval Objective Appearance Patient Behavior Appropriate Patient Orientation Person,Place,Time Difficulty following instructions none Speech Pattern Clear Ambulation Patient Able to Ambulate Yes Ambulation Observation IP General Gait Pattern Observation Shuffling Step Ambulation Distance (feet) 5 Ambulation Assistive Device Rolling Walker Ambulation Ability Contact Guard/Hand Hold Balance Ability to Arise Able, uses arms to help Standing Balance Steady, wide stance Dynamic Sitting Balance Ability Good Dynamic Standing Balance Ability Fair Transfers Bed Transfer Ability Minimal x 1 (25% assist) Chair Transfer Ability Minimal x 1 (25% assist) Sit to Stand Bed Transfer Ability Minimal x 1 (25% assist) Sit to Stand Chair Transfer Ability Minimal x 1 (25% assist) Rehab PT IP prob,goals,plan Problems Date of Evaluation: 10/08/21 PT IP Problems Bed Mobility,Transfers,Gait Rehab Potential Rehab Potential Good Plan PT Intervention Plan Bed Mobility,Transfers,Gait, Therapeutic Exercise PT Plan Frequency BID Duration LOS Discharge Goals Bed Transfer Ability Contact Guard/Hand Hold Sit to Stand Chair Transfer Ability Contact Guard/Hand Hold Ambulation Assistive Device Rolling Walker Ambulation Distance (feet) 20 Discharge Plan PT Discharge Plan Pt is most appropriate for rehab placement at this time to aid in return to prior level of function. G -code Required No Eval Complexity Eval Charge Codes 63819 - Moderate Complexity PHYSICIAN CERTIFICATION: I certify the specified therapy services for Sonam Berg are required, authorized, and reviewed every 30 days.
[2021-10-08 16:00] VITALS: BP 141/57; PULSE 86; RESP 18; TEMP 36.9; O2SAT 95
--- NOTE | 2021-10-08 17:04 | PC.NURSE ---
A&OX4. TOLERATING RA WELL. PT HAS HAD INTERMITTENT L HIP PAIN. TX PER OCT, RELIEF NOTED. PT HAS BEEN SEEN BY PT/OT, HAS DONE VERY WELL. F/C REMOVED THIS SHIFT AT 1645. TOLERATED WELL. PT HAS HAD GREAT APPETITE. GOOD USE OF I/S. NO OTHER NEEDS THIS SHIFT. HAS BEEN AT BEDSIDE MOST OF SHIFT. VSS, WILL CONTINUE TO MONITOR.
[2021-10-08 19:44] VITALS: BP 149/62; PULSE 89; RESP 19; TEMP 36.4; O2SAT 96
[2021-10-08 20:10] VITALS: O2SAT 96
[2021-10-09 04:00] VITALS: BP 137/66; PULSE 103; RESP 16; TEMP 36.8; O2SAT 94
--- NOTE | 2021-10-09 04:11 | PC.NURSE ---
PT HAS SLEPT WELL TONIGHT,WITH GETTING UP TO [facility] THIS MORNING SHE VOIDED 350ML AND DID THIS STANDBY ASSISTED.WITH BEING OUT OF BED,SMALL AMT OF BLOOD WAS NOTED ON DRAW SHEET,EXAMINED PT WHEN SHE GOT UP FROM [facility] AND THE BACK OF HER RIGHT LEG WAS BLEEDING,LOOKED LIKE THE SKIN HAD COME OFF A BRIUSED AREA,BANDAID APPLIED.PT MEDICATED WITH NORCO 5/325MG PO FOR PAIN OF A 7 ON SCALE OF 0-10,MORE SO WITH GETTING UP.LUNGS CLEAR THROUGTOUT,RESP EVEN AND UNLABORED,POSITIVE BOWEL SOUNDS X 4 QUADS.NO DRAINAGE NOTED TO DRESSINGS.TRACE EDEMA NOTED TO BLE.PT AFIBRILE.WATER PITCHER WAS REFILLED.
--- NOTE | 2021-10-09 06:59 | PC.NURSE ---
BREAKFAST TRAY SET UP.
[2021-10-09 08:00] VITALS: BP 128/64; PULSE 94; RESP 16; TEMP 36.8; O2SAT 95
--- NOTE | 2021-10-09 09:15 | HMH.CONS ---
*Admission Date: 10/07/21 *History of present illness: Patient is an 81-year-old female admitted to the acute inpatient service following an uneventful left hip cephalomedullary nail removal and conversion to left total hip arthroplasty. She is being seen in consultation by [facility] at the request of her surgeon Dr. Mary. The following is from orthopedic surgery note: She previously underwent cephalomedullary nailing of her left femur on 11/07/2020 and did well until approximately 4 months ago when she began developing increasing pain in her left hip without any known injuries. Further evaluation with x-rays and CT scan demonstrated that her left hip fracture has incompletely healed with collapse at the fracture site and migration of the lag screw into the hip joint. She rates her pain a 4 out of 10 at rest and 6 out of 10 when she is weightbearing and ambulating. She localizes the pain to the anterior aspect of the hip joint with radiation into the thigh and complains of frequent sleep disturbances. At baseline she is currently mobilizing with the use of a cane and states that it is difficult to walk any distance without support. She lives at home with her . She denies any history of fevers, chills, rigors, chest pain, shortness of breath, palpitations, or distal tingling/numbness. She is a former smoker. Her past medical history is significant for hyperlipidemia, hypertension, osteoporosis, and COPD. The patient is a former smoker. She has not smoked in several years now and her pulmonary status has improved significantly. She does take medications for hypertension and hyperlipidemia. [facility] CONSULT: The patient continues to do well postoperatively. She has done well with therapy. The plan is to discharge her to [facility] for continued therapy. [facility] History Medical History: Reports:: Arrhythmia, Chronic Obstructive Pulmonary Disease (COPD), Hyperlipidemia, Hypertension, Osteoporosis Denies:: Cancer, Diabetes Mellitus Type 1, Diabetes Mellitus Type 2, Internal Pacemaker, MRSA, Seizures *Have you ever received a pneumonia vaccine?: Yes *Have you received a flu vaccine this season?: Yes Other Medical History: Reports: Arthritis, Hypothyroidism, Osteoporosis, Other. Denies: Blood Transfusion Reaction Anesthesia experience/problems:: none Laterality Cases: Left: Arthroscopy Hip, Bilateral: Breast Biopsy, Tonsillectomy Other Surgeries: Yes: Hysterectomy-Total, Other. No: Pacemaker Amputation: No Fractures: Yes (left femur) - *Social History Last grade of school completed: Advanced degree Smoking Status: Former smoker Tobacco Type: cigarettes # Packs/Day (cigarettes): 1 Alcohol Intake: never Alcohol Intake Frequency:: holidays/special occasions only Substance Use Type: denies use *Occupational Status:: retired Housing: house Household Members: spouse *Travel in the last 8 weeks: None Family Hx:: Diabetes, Heart Attack, Other Review of Systems - *Neurologic Reports abnormal walking, Denies abnormal hearing, Denies abnormal movements, Denies abnormal speech, Denies confusion, Denies dizziness, Denies localized weakness, Denies frequent falls, Denies headache(s), Denies loss of vision, Denies numbness, Denies sensory deficit, Denies tingling, Denies weakness Meds Home Medications Medication Instructions Recorded Confirmed Type aspirin 81 mg tablet,delayed 81 mg PO DAILY 09/30/17 10/07/21 History release Calcium Carb/Mag Ox/Zinc Sulf [Cvs 1 each PO DAILY 11/06/20 10/07/21 History Pnceoos-Nwuwkkpsv-Kwq Cplt] Multivitamin 1 each PO DAILY 11/06/20 10/07/21 History Rosuvastatin Calcium 20 mg PO HS 11/06/20 10/07/21 History Ubidecarenone/Vit E Acet [Co Q-10 1 each PO DAILY 11/06/20 10/07/21 History 100 mg Softgel] Nicotine [Nicoderm 21mg/24hr 1 patch TP DAILY 01/10/21 10/07/21 History patch] Triamterene/Hydrochlorothiazid 0.5 each PO DAILY 01/10/21 10/07/21 History [Triamterene-Hctz 37.5-25 m
[2021-10-09 09:29] LABS: Basophils # 0.1 K/mm3 (0-0.2); Basophils % 0.4 % (0.1-2.0); Eosinophils % 0.1 % (0.1-12.0); Hematocrit 34.5 % (37.0-47.0); Hemoglobin 11.1 g/dL (12.2-16.2); Lymphocytes # 1.3 K/mm3 (0.7-4.5); Lymphocytes % 9.7 % (10-50); Mean Corpuscular HGB Conc 32.2 g/dL (31.8-35.4); Mean Corpuscular Hemoglobin 31.1 pg (27.0-31.2); Mean Corpuscular Volume 96.6 fl (81-99); Mean Platelet Volume 9.5 fl (7.4-10.4); Monocytes # 0.9 K/mm3 (0.1-1.0); Monocytes % 6.8 % (1.7-9.3); Neutrophils # 11.3 K/mm3 (1.8-7.8); Neutrophils % 83.1 % (37.0-80.0); Platelet Count 228 K/mm3 (142-424); Red Blood Count 3.57 M/mm3 (4.20-5.40); Red Cell Distribution Width 13.8 % (11.5-17.5); White Blood Count 13.6 K/mm3 (4.8-10.8)
[2021-10-09 09:31] LABS: Chloride 99 mmol/L (98-107)
[2021-10-09 09:32] LABS: Potassium 3.9 mmoL/L (3.5-5.1); Sodium 132 mmol/L (136-145)
[2021-10-09 09:34] LABS: Blood Urea Nitrogen 28 mg/dl (7-17); Creatinine Clearance Estimated 46 mL/min (50-200); Estimated Glomerular Filt Rate 69 ml/min (>60); GFR (African American) 84 ML/MIN (>60)
[2021-10-09 09:35] LABS: Anion Gap 7.9 mEq/L (5-15); Calcium 8.8 mg/dl (8.4-10.2); Carbon Dioxide 29 mmol/L (22.0-30.0); Glucose 109 mg/dl (74-100)
--- NOTE | 2021-10-09 09:45 | HMH.ORTHPN ---
Subjective Date: 10/09/21 <Rosa Morales - 10/09/21 09:45> Time: 08:45 <Rosa Morales - 10/09/21 09:45> Principal diagnosis: s/p cephalomedullary nail removal, left total hip arthroplasty <Rosa Morales - 10/09/21 09:45> Interval history: Patient is an 81 year old female status post removal of cephalomedullary nail and conversion to total hip arthroplasty, left hip, post op day #2. This morning the patient is lying comfortably in bed. She reports some pain in her left hip as to be expected at this stage but states that it is well controlled with pain medication. She reports that she was able to rest well last night and states that she has been eating and drinking well. She denies any episodes of nausea or vomiting. She states that she ambulated yesterday with the assistance of physical therapy and that this went well. She denies chest pain, shortness of breath, palpitations, fevers, chills, rigors, or distal tingling/numbness. Her past medical history is significant for hyperlipidemia, hypertension, osteoporosis, and COPD. <Rosa Morales - 10/09/21 09:51> PN: Obj Ex Vital signs: Temp Pulse Resp BP Pulse Ox 98.2 F 94 H 16 128/64 95 10/09/21 08:00 10/09/21 08:00 10/09/21 08:00 10/09/21 08:00 10/09/21 08:00 <Rom Mary - 10/09/21 15:00> Temp Pulse Resp BP Pulse Ox 98.2 F 94 H 16 128/64 95 10/09/21 08:00 10/09/21 08:00 10/09/21 08:00 10/09/21 08:00 10/09/21 08:00 <Rosa Morales - 10/09/21 09:45> - Constitutional no acute distress, average body habitus, cooperative <Rosa Morales - 10/09/21 09:51> - Routine HEENT Exam Head: Present: normocephalic, atraumatic <Rosa Morales 10/09/21 09:51> Eye: Present: EOMI, PERRL <Rosa Morales 10/09/21 09:51> ENT: Present: mucous membranes moist <Rosa Morales 10/09/21 09:51> - Routine Neck Exam Present: supple, full ROM, trachea midline. Absent: JVD, lymphadenopathy <Rosa Morales 10/09/21 09:51> - Routine Respiratory Exam Absent: accessory muscle use, respiratory distress <Rosa Morales 10/09/21 09:51> Comments: Symmetric chest movement, able to speak in complete sentences <Rosa Morales 10/09/21 09:51> - Routine Cardiovascular Exam Present: RRR. Absent: JVD <Rosa Morales 10/09/21 09:51> Comments: Normal peripheral pulses <Rosa Morales 10/09/21 09:51> - Routine Abdominal Exam Present: soft. Absent: tenderness <Rosa Morales 10/09/21 09:51> - Routine Extremities Exam Present: pulses intact, normal capillary refill. Absent: calf tenderness <Rosa Morales 10/09/21 09:51> Comments: Upon examination of the lower extremities: The limb lengths are equal. Dressings present over the left hip and knee are clean, dry, intact. No evidence of drainage or bleeding noted. The surgical incisions are healing well. No erythema, induration, bleeding, drainage, or other signs of infection noted. The left hip and proximal femur are mildly tender to palpation. Attempted movements of the left hip are somewhat painful as to be expected at this stage. Thigh and calf are soft nontender; Homans' sign is negative. No clinical evidence of DVT noted. Posterior tibial pulse 2+; capillary refill is brisk. Sensation to light touch is grossly intact throughout. Patient is actively mobilizing the knee, ankle, foot, and toes. <Morales,Rosa 10/09/21 11:59> - Routine Skin Exam Present: intact, warm, normal turgor. Absent: cyanosis, erythema, lesions, jaundice <Rosa Morales 10/09/21 09:51> - Routine Neurological Exam Present: alert, oriented X3, CN II-XII intact, moving all extremities, normal tone, normal speech. Absent: sensory deficit, motor deficit, altered mental status <Rosa Morales - 10/09/21 09:51> - Routine Psychiatric Exam Present: normal affect, cooperative, good judgment <Rosa Morales - 10/09/21 09:51> - Urinary Catheter Management Ridley Cath
--- NOTE | 2021-10-09 13:48 | HMH.DCSUM ---
General - General Admission date:: 10/07/21 Discharge date: 10/09/21 HPI HPI: Patient is an 81-year-old female admitted to the acute inpatient service on 10/07/2021 following an uneventful left hip cephalomedullary nail removal and conversion to a left total hip arthroplasty. She previously underwent cephalomedullary nailing of her left femur on 11/07/2020 and did well until approximately 4 months ago when she began developing increasing pain in her left hip without any known injuries. Further evaluation with x-rays and CT scan demonstrated that her left hip fracture has incompletely healed with collapse at the fracture site and migration of the lag screw into the hip joint. She rates her pain a 4 out of 10 at rest and 6 out of 10 when she is weightbearing and ambulating. She localizes the pain to the anterior aspect of the hip joint with radiation into the thigh and complains of frequent sleep disturbances. At baseline she is mobilizing with the use of a cane and states that it is difficult to walk any distance without support. She lives at home with her . She denies any history of fevers, chills, rigors, chest pain, shortness of breath, palpitations, or distal tingling/numbness. She is a former smoker. Her past medical history is significant for hyperlipidemia, hypertension, osteoporosis, and COPD. Cephalomedullary nail removal and conversion total hip arthroplasty is indicated to reduce the risk of falls into improve her pain, mobility, and quality of life. The surgical and nonsurgical alternatives were discussed in detail with the patient as well as the risks and benefits of surgery. Please refer to my office note for full details. Hospital Course Hospital Course: Following an uncomplicated surgery including removal of cephalomedullary nailing and conversion to a left total hip arthroplasty patient was admitted to the hospital and has progressed well. The postoperative check x-ray was satisfactory with good alignment and fixation of the components. Patient was advised to ambulate weight-bearing as tolerated on the left side. Patient managed this very well using the walker. Her pain is well controlled with oral analgesics. The surgical incision is clean and dry without any active discharge or signs of infection. Distal neurovascular status is intact. No clinical signs of DVT. Patient is eating and drinking well without any problems. Patient is medically stable at the time of discharge and was cleared for discharge by Dr. Son and also by the physical therapist. The dressings were changed on the second postoperative day and the surgical incision is healthy and healing well. No signs of any erythema, induration or discharge noted. Patient was started on Xarelto 10 mg daily for DVT prophylaxis after surgery. The neurovascular status in both lower extremities is intact. Pedal pulses 2+ bilaterally and fully sensate distally. On the day of discharge, the incision is clean and dry. The patient's vital signs have been stable throughout and he is afebrile at the time of discharge. [facility] for [facility]. Condition at discharge: improved and stable. Treatments and Procedures: 1. Removal of cephalomedullary nail, left femur 2. Total hip arthroplasty, left hip; date of surgery 10/07/2021. Objective Vital signs: Temp Pulse Resp BP Pulse Ox 98.2 F 94 H 16 128/64 95 10/09/21 08:00 10/09/21 08:00 10/09/21 08:00 10/09/21 08:00 10/09/21 08:00 no acute distress - *Routine HEENT Exam Head: Present: normocephalic Eye: Present: EOMI, PERRL ENT: Present: mucous membranes moist - *Routine Neck Exam Present: supple, trachea midline - *Routine Respiratory Exam Present: CTA bilaterally - *Routine Cardiovascular Exam Present: RRR - *Routine Abdominal Exam Present: soft, normoactive bowel sounds. Absent: tenderness - *Routine Extremities Exam Comments:
--- NOTE | 2021-10-09 14:05 | PC.NURSE ---
Discharge education provided. Questions encouraged and answered. Pt. and S.O. V/U.
--- NOTE | 2021-10-09 16:29 | PC.NURSE ---
16:18 - Report called to Ange at [facility]. Ange melendrez/carlos.
--- NOTE | 2021-10-09 16:45 | PC.NURSE ---
Pt. left unit at this time, via wheelchair, accompanied by staff x1, and S.O.
--- NOTE | 2021-10-10 14:19 | CARE MANAGER ---
CM called to discuss post discharge needs with patient. Patient discharged to [facility], and reports having OT this morning that went well. She is planned for PT this afternoon. She reports that she is taking pain medication occasionally, and pain is well controlled. Patient states that she has no known needs and everything is going well.
== END 2021-10-09 16:45 | DRG 470 ==
LOC: OB 10-08 07:48 → 2ND 10-08 14:06
PROVIDERS: Physician Assistant Surgical; Admitting Provider Orthopaedic Surgery; PCP Family Medicine; Visit Provider Orthopaedic Surgery
PROC: 0SRB03A Replacement of Left Hip Joint with Ceramic Synthetic Substitute, Uncemented, Open Approach (ICD-10-PCS; CPT 27130; principal; 2021-10-07 07:30)
DX: T84.498A Other mechanical complication of other internal orthopedic devices, implants and grafts, initial encounter (principal); S72.002K Fracture of unspecified part of neck of left femur, subsequent encounter for closed fracture with nonunion; Y83.1 Surgical operation with implant of artificial internal device as the cause of abnormal reaction of the patient, or of later complication, without mention of misadventure at the time of the procedure; E78.5 Hyperlipidemia, unspecified; I10 Essential (primary) hypertension; M81.0 Age-related osteoporosis without current pathological fracture; Z87.891 Personal history of nicotine dependence; M17.11 Unilateral primary osteoarthritis, right knee; M25.561 Pain in right knee; G89.29 Other chronic pain; E03.9 Hypothyroidism, unspecified; J43.9 Emphysema, unspecified
CPT/HCPCS: 27130; 20680; 36415; 73502; 80048; 80053; 81001; 85007; 85025; 85651; 86140; 86850; 87070; 87075; 87086; 87088; 87186; 87205; 88305; 88311; 96374; 97116; 97162; 97166; 97530; A4649; C1713; C1776; C9803; J0131; J1335; J2704; J3370; U0003; U0005

== ENCOUNTER → 2021-10-15 09:41 | Outpatient (CLI) | payer MEDICARE, SELFPAY ==
--- NOTE | 2021-10-15 09:49 | XR_ITS ---
FINAL REPORT CLINICAL HISTORY: post op femur fx COMPARISON: 10/07/2021 FINDINGS: LEFT HIP Three views demonstrate no acute fracture or dislocation. There are postoperative changes from left hip arthroplasty. There has been interval removal of many presumed antibiotic beads. Soft tissue calcification and soft tissue air persists. There is no new bony abnormality. IMPRESSION: Postsurgical changes as above. Reviewed, Interpreted and Dictated by Lauri Garay III, MD Transcribed by Ashley Jensen Authenticated by Lauri Garay III, MD on 10/15/2021 11:09:[address] [facility]
== END ==
PROVIDERS: PCP Family Medicine; Visit Provider Orthopaedic Surgery
DX: S72.142A Displaced intertrochanteric fracture of left femur, initial encounter for closed fracture (principal)
CPT/HCPCS: 73502

== ENCOUNTER 2021-10-31 11:05 | Outpatient (CLI) | payer MEDICARE, SELFPAY ==
[2021-10-31 11:33] VITALS: BP 121/86; PULSE 86; RESP 18; O2SAT 97
== END 2021-10-31 11:37 | disposition home or self-care (01) ==
LOC: INF 11:07
PROVIDERS: PCP Family Medicine; Visit Provider Family Medicine
DX: M81.0 Age-related osteoporosis without current pathological fracture (principal)
CPT/HCPCS: 96372; J3111

== ENCOUNTER → 2021-11-19 10:06 | Outpatient (CLI) | payer MEDICARE, SELFPAY ==
--- NOTE | 2021-11-19 10:21 | XR_ITS ---
FINAL REPORT CLINICAL HISTORY: Sp Lt MEDINA sx date 10/07/2021 COMPARISON: October 15, 2021 FINDINGS: 2 views of the left hip including an AP pelvis were obtained. There is no acute fracture or dislocation. There has been total left hip arthroplasty in good anatomic alignment. There are no soft tissue abnormalities. IMPRESSION: Total left hip arthroplasty in good anatomic alignment. Reviewed, Interpreted and Dictated by Gm Coronado MD Transcribed by Dallas Momin Authenticated by Gm Coronado MD on 11/19/2021 11:38:[address] [facility]
== END ==
PROVIDERS: PCP Family Medicine; Visit Provider Orthopaedic Surgery
DX: S72.142A Displaced intertrochanteric fracture of left femur, initial encounter for closed fracture (principal)
CPT/HCPCS: 73502

== ENCOUNTER 2021-11-25 11:38 | Outpatient (CLI) | payer MEDICARE, SELFPAY ==
[2021-11-25 12:01] VITALS: BP 138/59; PULSE 74; RESP 18; TEMP 36.7; O2SAT 98
== END 2021-11-25 12:14 | disposition home or self-care (01) ==
LOC: INF 11:39
PROVIDERS: PCP Family Medicine; Visit Provider Orthopaedic Surgery
DX: M81.0 Age-related osteoporosis without current pathological fracture (principal)
CPT/HCPCS: 96372; J3111

== ENCOUNTER → 2021-12-31 09:49 | Outpatient (CLI) | payer MEDICARE, SELFPAY ==
--- NOTE | 2021-12-31 09:54 | XR_ITS ---
FINAL REPORT CLINICAL HISTORY: lt MEDINA COMPARISON: November 19, 2021 FINDINGS: Two views of the left hip including an AP pelvis were obtained. There are postoperative changes from hip arthroplasty. Hardware is intact. There is no acute fracture or dislocation. There is stable appearance to an old fracture of the proximal femur. Soft tissues are within normal limits. IMPRESSION: Postoperative changes from hip arthroplasty. Hardware is intact. Reviewed, Interpreted and Dictated by Catrina Lino MD Transcribed by Chyna Patrick Authenticated by Catrina Lino MD on 12/31/2021 11:51:34 AM [facility]
== END ==
PROVIDERS: PCP Family Medicine; Visit Provider Physician Assistant Surgical
DX: S72.142A Displaced intertrochanteric fracture of left femur, initial encounter for closed fracture (principal)
CPT/HCPCS: 73502

== ENCOUNTER → 2022-03-11 08:46 | Outpatient (CLI) | payer MEDICARE, SELFPAY ==
--- NOTE | 2022-03-11 08:49 | XR_ITS ---
FINAL REPORT CLINICAL HISTORY: S/P lt MEDINA FINDINGS: LEFT HIP Two views of the left including an AP pelvis hip demonstrate no acute fracture or dislocation. There are postoperative changes from left hip arthroplasty which appears stable. The visualized bony structures are well aligned. There are mild vascular calcifications. There are multiple soft tissue calcifications along the lateral aspect of the left hip. IMPRESSION: Left hip arthroplasty appears stable. No acute findings. Reviewed, Interpreted and Dictated by Lauri Garay III, MD Transcribed by Chyna Patrick Authenticated and [facility]
== END ==
PROVIDERS: PCP Family Medicine; Visit Provider Physician Assistant Surgical
DX: Z96.642 Presence of left artificial hip joint (principal); M25.552 Pain in left hip
CPT/HCPCS: 73502

== ENCOUNTER 2022-03-19 16:00 | Outpatient (RCR) | payer MEDICARE, SELFPAY ==
--- NOTE | 2022-01-07 14:52 | HMH.PTOPEV ---
PT Outpatient Evaluation Rehab PT Outpatient Evaluation Start: 01/07/22 14:43 Freq: Status: Active Protocol: Document 01/07/22 14:44 CLARIBEL (Rec: 01/07/22 14:52 CLARIBEL [id number]) Electronically Signed By Lowell Girard, PT 01/07/22 14:44 Outpatient Therapy Subjective History Subjective History Pt presents s/p left MEDINA, sx. on 10/07/21. Pt reports HHPT the last ~8 weeks, reports improved strength in that time . Pt reports Left femur fx caused fall in October, ORIF sx. on 10/25/20, 'everything was feeling good until May , then I was hurting really bad. It wasn't healing.' Pt report now reports marked improvement in left hip pain and function since MEDINA. Chief Complaint Stiff,Weakness Symptoms Relieved By Rest/Positioning Symptoms Aggravated By Standing,Physical Activity, Walking Prior Functional Limitations Housework,Standing,Walking, Stairs Current Functional Limitations Housework,Standing,Walking, Stairs Level of pain today (0-10) 0 Pain scale - at its best (0-10) 0 Pain scale - at its worst (0-10) 0 Hip/Knee Eval Gait Observation General Gait Pattern Observation Narrow Based Gait Assistive Device Assistive Devices Straight Cane Palpation Tenderness left Knee Palpation Overall Comment 1/4 left hip sx. incision Hip Palpation Findings Tenderness MMT Hip Flexion Strength Grade 4- Good- Hip Abduction Strength Grade 3+ Fair+ Hip Adduction Strength Grade 3+ Fair+ Hip Extension Strength Grade 3+ Fair+ Hip External Rotation Strength Grade 4- Good- Hip Internal Rotation Strength Grade 4- Good- Knee Extension Strength Grade 4 Good Knee Flexion Strength Grade 4 Good ROM Hip Flexion w/Knee Extended Passive 0-48 Range of Motion (degrees) Hip Abduction Passive Range of Motion ( 0-21 degrees) Outpatient Therapy Assessment Impairments Problems/Impairmments Palpation Tenderness,Impaired Range of Motion,Impaired Strength,Impaired Gait Pattern ,Impaired Walking,Impaired Standing,Impaired Household Care,Impaired Stair Climbing, Impaired Self Care/Self Management Prognosis Rehab Potential
--- NOTE | 2022-02-07 14:02 | HMH.RHREAS ---
Rehab Reassessment Rehab OP Re-assessment Start: 02/07/22 13:48 Freq: Status: Active Protocol: Document 02/07/22 13:53 CLARIBEL (Rec: 02/07/22 14:01 CLARIBEL [id number]) Electronically Signed By Lowell Girard, PT 02/07/22 13:53 Rehab Re-assessment Subjective Subjective Pt reports no left hip pain on VAS this pm, only 'soreness to the touch on that incision still', and feels 65% better overall since I eval Objective Objective Notes PROM:LEFT HIP FLX W/KNEE EXTENDED 0-60, LEFT HIP ABD 0- 35 MMT: LEFT HIP FLX 4/5, ABD 4-- 4/5, ADD 4/5, EXT 4/5, L HIP IR 4/5, L HIP ER 4/5 TTP: LEFT HIP SX. INCISION 0-1 /4 GAIT:MILD [place] LEFT HIP AT STANCE PHASE ON LEVEL TERRAIN W/SC Assessment Progress Assessment Progressing as Expected Assessment Notes SIGNIFICANT IMPROVEMENT IN LEFT HIP ROM AND STRENGTH SINCE I EVAL Patient goals met STG'S 01/18 Goals Not Met STG'S 12/18 Plan Plan Pt to continue w/skilled P.T. to make further improvements in left hip strength, ROM, TTP , and gait to allow for optimal function (EXTEND ORIGINAL POC FROM 3-4 WKS TO 8 -12 WKS FOR OPTIMAL STRENGTHENING BASED ON FIRST 30 DAY PROGRESS) Frequency of Therapy 2-3x/wk Duration of therapy 4-6wk Time and Billing Re-Eval Time 12 Re-Eval Billing Units 1 PHYSICIAN CERTIFICATION: I certify the specified therapy services for Sonam Berg are required, authorized, and reviewed every 30 days.
--- NOTE | 2022-03-07 14:05 | HMH.RHREAS ---
Rehab Reassessment Rehab OP Re-assessment Start: 02/07/22 13:48 Freq: Status: Active Protocol: Document 03/07/22 14:00 CLARIBEL (Rec: 03/07/22 14:04 CLARIBEL [id number]) Electronically Signed By Lowell Girard, PT 03/07/22 14:00 Rehab Re-assessment Subjective Subjective Pt reports improved left hip strength since I eval, and ' when I'm out and about, unless it's bad weather I don't use my cane.' Objective Objective Notes PROM:LEFT HIP FLX W/KNEE EXTENDED 0-65, LEFT HIP ABD 0- 40 MMT: LEFT HIP FLX 4+/5, ABD 4/ 5, ADD 4+-5/5, EXT 4+/5, L HIP IR 4/5, L HIP ER 4+/5 TTP: LEFT HIP SX. INCISION 0-1 /4 GAIT:MILD [place] LEFT HIP AT STANCE PHASE ON LEVEL TERRAIN no A.D. Assessment Progress Assessment Progressing as Expected Assessment Notes SIGNIFICANTLY IMPROVED STRENGTH AND GAIT SINCE LAST REASSESSMENT Patient goals met STG'S 03/20 Goals Not Met STG'S 10/18 Plan Plan Pt to continue w/skilled P.T. to make further improvements in left hip strength, ROM, TTP , and gait to allow for optimal function Frequency of Therapy 1X/WK Duration of therapy 2-4WKS Time and Billing Re-Eval Time 12 Re-Eval Billing Units 1 PHYSICIAN CERTIFICATION: I certify the specified therapy services for Sonam Berg are required, authorized, and reviewed every 30 days.
== END 2022-03-19 16:05 | disposition home or self-care (01) ==
LOC: PT 16:00
PROVIDERS: PCP Psychiatry & Neurology Sleep Medicine; Visit Provider Orthopaedic Surgery
DX: M25.552 Pain in left hip (principal); Z96.642 Presence of left artificial hip joint
CPT/HCPCS: 97110; 97163; 97164

== ENCOUNTER → 2022-03-25 10:44 | Outpatient (CLI) | payer MEDICARE, SELFPAY ==
--- NOTE | 2022-03-25 10:48 | MM_ITS ---
PROCEDURE INFORMATION: Exam: MG Bilateral Screening 3D Mammography Exam date and time: 03/25/2022 10:58 AM Age: 81 years old Clinical indication: Screening mammogram TECHNIQUE: Imaging protocol: Bilateral Screening tomosynthesis and 2D mammography including computer-aided detection (CAD) when performed. COMPARISON: 1. MG MM DIG SCREENING MAMM BI W/CAD 02/26/2021 2:30 PM 2. MG MM DIG MAMM DX UNILAT RT CAD 07/26/2020 2:12 PM 3. MG MM DIG MAMM DX UNILAT RT CAD 01/25/2020 2:50 PM 4. MG MM DIG SCREENING MAMM BI W/CAD 01/04/2020 11:08 AM FINDINGS: MAMMOGRAPHY: Breast composition: The breast tissue is extremely dense, which lowers the sensitivity of mammography. Mass: Stable benign-appearing subcentimeter nodules are present in the right breast. No new or morphologically suspicious nodule has developed to suggest malignancy. Architectural distortion: No new or suspicious architectural distortion. Calcifications: Stable benign-appearing calcifications are present. No new or suspicious cluster of microcalcifications have developed. Asymmetric density: No new or suspicious asymmetric density is present Skin thickening: None. Axillary adenopathy: None. IMPRESSION: No mammographic evidence of malignancy. Recommend annual screening mammography unless otherwise clinically indicated. ASSESSMENT: BI-RADS category 2: Benign
== END ==
PROVIDERS: PCP Family Medicine; Visit Provider Family Medicine
DX: Z12.31 Encounter for screening mammogram for malignant neoplasm of breast (principal)
CPT/HCPCS: 77063; 77067

== ENCOUNTER → 2022-06-13 09:05 | Outpatient (CLI) | payer MEDICARE, SELFPAY ==
--- NOTE | 2022-06-13 09:09 | XR_ITS ---
FINAL REPORT TECHNIQUE: Bone densitometry calculations of the lumbar spine and left hip were obtained. CLINICAL HISTORY: . osteoporosis, left hip replacement, patient just did a year of evenity infusions for bones FINDINGS: Using L1-4, the bone mineral density of the spine is 1.050 g/cm2, was 0.902 corresponding to T-score of 0.0 was -1.3 Using the right hip, the bone mineral density of the femoral neck is 0.630 g/cm2, was 0.606 corresponding to a T-score of -2.0 was -2.2 Using the 1/3 radius, the bone mineral density of the femoral neck is 0.534 g/cm2, was 0.552 corresponding to a T-score of -2.7, was -2.9 NOTE: T-score: Standard deviation compared with peak bone mass of young adult mean. *Following the recommendations of the International Society of Bone Densitometry, classification of hip BMD is based on the lower of two T-scores; total hip or femoral neck. IMPRESSION: Osteoporosis: Lowest T-score is at or below -2.5. This patient's T-score meets the World Health Organization criteria for osteoporosis. FRAX score was not reported because patient is being treated for osteoporosis. Reviewed, Interpreted and Dictated by Lauri Garay III, MD Transcribed by Ashley Jensen Authenticated and [facility]
== END ==
PROVIDERS: PCP Family Medicine; Visit Provider Family Medicine
DX: M81.0 Age-related osteoporosis without current pathological fracture (principal)
CPT/HCPCS: 77080

== ENCOUNTER → 2022-09-24 08:39 | Outpatient (CLI) | payer MEDICARE, SELFPAY ==
--- NOTE | 2022-09-24 08:49 | XR_ITS ---
FINAL REPORT CLINICAL HISTORY: hip pain..1 year s/p hip surgery COMPARISON: 03/11/2022 FINDINGS: AP and frog leg views of the left hip with an AP pelvis were obtained. There are postoperative changes from right hip arthroplasty. The hardware appears intact. There is no acute fracture or dislocation. There is mild degenerative disease of the right hip, stable. A heterotopic ossification superior to the left greater trochanter is stable. Soft tissues are within normal limits. IMPRESSION: Postoperative changes with no acute bony abnormality. Stable heterotopic calcification superior to the left greater trochanter. Reviewed, Interpreted and Dictated by Catrina Lino MD Transcribed by Chyna Patrick Authenticated and [facility]
== END ==
PROVIDERS: PCP Family Medicine; Visit Provider Physician Assistant Surgical
DX: S72.002A Fracture of unspecified part of neck of left femur, initial encounter for closed fracture (principal)
CPT/HCPCS: 73502

== ENCOUNTER → 2022-10-29 08:01 | Outpatient (CLI) | payer MEDICARE, SELFPAY ==
--- NOTE | 2022-10-29 08:24 | US_ITS ---
FINAL REPORT CLINICAL HISTORY: EPIGASTRIC PAIN,ELEVATED LIPASE COMPARISON: none FINDINGS: Sonographic images of the right upper quadrant were obtained. The pancreas is partially obscured.The liver has an unremarkable appearance. There is a presumed polyp in the neck of the gallbladder. There is no evidence of biliary ductal dilatation.The common duct measures 2 mm. There is trace right hydronephrosis. There is a 1.4 cm right renal cyst. IMPRESSION: Trace right hydronephrosis. Right renal cystic lesion. Presumed polyp neck of the gallbladder. Reviewed, Interpreted and Dictated by Gm Coronado MD Transcribed by Prema Gross Authenticated and [facility]
== END ==
PROVIDERS: PCP Psychiatry & Neurology Sleep Medicine; Visit Provider Physician Assistant
DX: R10.13 Epigastric pain (principal); R74.8 Abnormal levels of other serum enzymes
CPT/HCPCS: 76705

== ENCOUNTER → 2022-11-11 10:02 | Outpatient (CLI) | payer MEDICARE, SELFPAY ==
--- NOTE | 2022-11-11 10:07 | CT_ITS ---
FINAL REPORT TECHNIQUE: Axial images through the abdomen and pelvis were performed without contrast. Oral contrast was administered. This study was performed with techniques to keep radiation doses as low as reasonably achievable, (ALARA). Individualized dose reduction techniques using automated exposure control or adjustment of mA and/or kV according to the patient's size were employed. CLINICAL HISTORY: epigastric pain, elevated lipase, renal insufficiency, rt hydronephrosis FINDINGS: ABDOMEN: There is chronic scarring in the lung bases. The heart size is normal. The liver is unremarkable. The gallbladder is present. There are calcified granulomas in the spleen. No adrenal mass is identified. There is diffuse vascular calcification in the abdominal aorta and iliac vessels. The aorta is normal in caliber. There is no significant free fluid or adenopathy. There are multiple small nonobstructing left renal stones. There is a prominent extrarenal pelvis on the right. There is no hydronephrosis. There is mucosal thickening of multiple proximal small bowel loops. The distal small bowel is unremarkable. PELVIS: There is streak artifact from left hip arthroplasty. The appendix is not identified. The urinary bladder is unremarkable. There is no significant free fluid or adenopathy. IMPRESSION: Mucosal thickening of proximal small bowel loops may be due to an infectious or inflammatory enteritis. Reviewed, Interpreted and Dictated by Gm Coronado MD Transcribed by Dallas Momin Authenticated and [facility]
== END ==
PROVIDERS: PCP Psychiatry & Neurology Sleep Medicine; Visit Provider Physician Assistant
DX: R10.13 Epigastric pain (principal); R74.8 Abnormal levels of other serum enzymes; N28.9 Disorder of kidney and ureter, unspecified; N13.30 Unspecified hydronephrosis
CPT/HCPCS: 74176

== ENCOUNTER 2022-11-27 11:49 | Day surgery (SDC) | payer MEDICARE, SELFPAY ==
[2022-11-12 14:24] VITALS: BMI 23.2
[2022-11-27] VITALS (7 sets, daily range): BP systolic 91–134; BP diastolic 33–70; PULSE 66–83; RESP 14–18; TEMP 36.2; O2SAT 94–99
--- NOTE | 2022-11-27 12:34 | EXP.ANES.CKL ---
[facility] Disclaimer: The information contained in this section may have been updated after the patient was seen, as this information can be updated by other users. Medical History History of gastroesophageal reflux (GERD) Surgical History History of hysterectomy History of tonsillectomy History of total hip arthroplasty Family History Other Family history of diabetes mellitus type II Social History Smoking Status: Former smoker alcohol intake: never substance use type: denies use current occupational status: retired Travel in the last 8 weeks: None household members: spouse housing: house marital status: education level: master's degree current occupational exposures/hazards: No caffeine: Yes special jayden needs: No agree to transfusion: No do you feel safe at home: Yes victim of physical abuse: No victim of emotional abuse: No victim of sexual abuse: No would you like helpful sources: No [facility] Anesthesia Checklist Patient Identification Patient Identification: Arm Band Structural Data Admitted From: Home Planned Operative Procedure/s: EGD Consent for Planned Operative Procedure(s) Verified: Yes Verified Documents: Surgical Consent and History and Physical NPO Status Verified Time NPO: 00:00 Additional verifications Anesthesia Reactions: No Hx Blood Transfusions: No Blood Transfusion Reaction: No Airway Assessment C-Spine Mobility Assessed: Yes TMJ Mobility Assessed: Yes Dentition: Good Dentition Neurological Assessment Level of Consciousness: Awake and Alert Anesthesia Plan Anesthesia Risk discussed: Yes Anesthesia Plan: Verified ASA Class: II Anesthesia Type: MAC
--- NOTE | 2022-11-27 13:05 | EXP.ANES.CKL ---
[facility] Disclaimer: The information contained in this section may have been updated after the patient was seen, as this information can be updated by other users. Medical History History of gastroesophageal reflux (GERD) Surgical History History of hysterectomy History of tonsillectomy History of total hip arthroplasty Family History Other Family history of diabetes mellitus type II Social History Smoking Status: Former smoker alcohol intake: never substance use type: denies use current occupational status: retired Travel in the last 8 weeks: None household members: spouse housing: house marital status: education level: master's degree current occupational exposures/hazards: No caffeine: Yes special jayden needs: No agree to transfusion: No do you feel safe at home: Yes victim of physical abuse: No victim of emotional abuse: No victim of sexual abuse: No would you like helpful sources: No [facility] Anesthesia Checklist Patient Identification Patient Identification: Arm Band and Verbal (Name & ) Structural Data Admitted From: Home Planned Operative Procedure/s: EGD Consent for Planned Operative Procedure(s) Verified: Yes NPO Status Verified Time NPO: 00:00 Additional verifications Anesthesia Reactions: No Hx Blood Transfusions: No Blood Transfusion Reaction: No Airway Assessment C-Spine Mobility Assessed: Yes TMJ Mobility Assessed: Yes Dentition: Good Dentition Neurological Assessment Level of Consciousness: Awake Hx Seizures: No Numbness or tingling in extremities: No Anesthesia Plan Anesthesia Risk discussed: Yes Anesthesia Plan: Verified ASA Class: II Anesthesia Type: MAC
--- NOTE | 2022-11-27 13:34 | HMH.SCOPE ---
Procedure: Date: 11/27/22 Patient Date of :: 1940 Procedure Performed:: EGD & biopsies Indications:: Epigastric pain, nausea/vomiting Performing Provider:: Rosa Johnson MD Referring Provider:: Luz Elena Gomez APRN Sedation:: Propofol Procedure:: The gastroscope was gently passed through the incisoral orifice into the oral cavity and under direct visualization the esophagus was intubated. The endoscope was passed down the esophagus, through the stomach, and into the duodenum. Color, texture, mucosa, and anatomy of the esophagus, stomach, and duodenum were carefully examined with the scope. Findings:: Oropharynx: normal Esophagus: normal EG Junction: intact at 40 cm Cardia: normal Fundus: normal Body: normal, multiple biopsies obtained for evaluation of h.pylori Antrum: normal Duodenal bulb: Active 0.5 cm ulcer with clean bed in mid duodenal bulb Duodenum (second and third portion): normal Impression: Active duodenal ulcer disease Specimens:: Gastric Recommendations:: Avoid NSAID's and ASA products. Continue PPI therapy as indicated. Complications:: None Estimated blood obtained (mL): 0
== END 2022-11-27 14:20 | disposition home or self-care (01) ==
PROVIDERS: PCP Physician Assistant; Visit Provider Internal Medicine Gastroenterology
PROC: 0DJ08ZZ Inspection of Upper Intestinal Tract, Via Natural or Artificial Opening Endoscopic (ICD-10-PCS; CPT 43235; principal; 2022-11-27 13:00)
DX: R11.2 Nausea with vomiting, unspecified (principal); R10.13 Epigastric pain; K26.9 Duodenal ulcer, unspecified as acute or chronic, without hemorrhage or perforation; Z79.899 Other long term (current) drug therapy
CPT/HCPCS: 43239; 88305

== ENCOUNTER 2023-02-23 10:18 | Observation (INO) | payer MEDICARE, SELFPAY ==
[2023-02-23] VITALS (14 sets, daily range): BP systolic 87–115; BP diastolic 35–63; PULSE 62–90; RESP 18–24; TEMP 36.4–36.8; O2SAT 93–98; BMI 23.3; BMI 23.6
--- NOTE | 2023-02-23 10:17 | ECG_ITS ---
APPROVED REPORT Exam: Resting ECG HR:79 bpm ECG Measurements Heart Rate 79 AXES KS 169 P 82 QRSd 89 QRS 72 QT 338 T 72 QTc 372 Conclusion SINUS RHYTHM Left atrial abnormality Late r wave progression ABNORMAL ECG UNCONFIRMED REPORT Electronically signed by : Vik Bruce MD 02/25/2023 21:28:07
--- NOTE | 2023-02-23 10:25 | XR_ITS ---
FINAL REPORT CLINICAL HISTORY: soa FINDINGS: A portable view of the chest is obtained. Cardiac and mediastinal silhouettes are normal. There are bibasilar opacities which may represent atelectasis or pneumonia with likely underlying emphysema. There is no pleural effusion or pneumothorax. IMPRESSION: Atelectasis or pneumonia with likely underlying emphysema. Reviewed, Interpreted and Dictated by Catrina Lino MD Transcribed by Nicole Mahmood Authenticated and [facility]
--- NOTE | 2023-02-23 10:26 | HMH.EDGENADL ---
Discharge Plan Disposition Patient Disposition: Admitted Condition: Fair Chief Complaint: Chest Pain Prescriptions Prescriptions: No Action aspirin [Adult Low Dose Aspirin] 81 mg tablet,delayed release (DR/EC) 81 mg PO DAILY Hold Instructions: Resume on 12/11/22. Hold for 2 weeks rosuvastatin 20 MG tablet 20 mg PO HS multivitamin 1 EACH tablet 1 each PO DAILY calcium carb-mag ox-zinc sulf 1 EACH tablet 1 each PO DAILY coenzyme [id number] 1 EACH capsule 1 each PO DAILY nicotine 21 MG/PATCH patch 24 hour 1 patch TP DAILY triamterene-hydrochlorothiazid 1 EACH tablet 0.5 each PO DAILY metoprolol succinate 25 MG tablet extended release 24 hr 25 mg PO BID docusate sodium 100 MG capsule 100 mg PO BIDP PRN (Reason: Constipation) Qty: 20 0RF ferrous sulfate 325 MG tablet 325 mg PO DAILY omeprazole 40 mg Capsule,Delayed Release(Dr/Ec) 40 mg PO DAILY Clinical Impressions Clinical Impression: TONEY (acute kidney injury), Chest pain Discharge ED Provider: Garth Edward General Adult HPI General Chief complaint: Chest Pain Stated complaint: chest pain Time Seen by Provider: 02/23/23 10:18 History of Present Illness HPI narrative: Patient is an 82-year-old female past medical history of hypertension, previous smoking history who presents emergency department for evaluation of chest pressure. Onset was acute, occurring Thursday, waking her from sleep. It has waxed and waned in intensity without particular provocative factors. Approximately 1 hour prior to arrival patient experienced moderate to severe pressure in her mid chest that did not radiate that would not resolve causing her to present here for continued evaluation. Denies sick contacts, cough, abdominal pain, other acute complaints at this time. Related Data Home Medications Medication Instructions Recorded Confirmed aspirin 81 mg tablet,delayed 81 mg PO DAILY HEART HEALTH 09/30/17 11/27/22 release (Adult Low Dose Aspirin) calcium carbonate 333 mg-magnesium 1 each PO DAILY Supplement 11/06/20 11/27/22 oxide 133 mg-zinc sulf 5 mg tablet coenzyme [id number] E 100 mg-5 1 each PO DAILY Supplement 11/06/20 11/27/22 unit capsule multivitamin 1 each PO DAILY Supplement 11/06/20 11/27/22 rosuvastatin 20 mg tablet 20 mg PO HS Cholesterol 11/06/20 11/27/22 nicotine 21 mg/24 hr daily 1 patch topical DAILY SMOKING 01/10/21 11/27/22 transdermal patch CESSATION triamterene 37.5 0.5 each PO DAILY Fluid 01/10/21 11/27/22 mg-hydrochlorothiazide 25 mg tablet metoprolol succinate 25 mg 25 mg PO BID Hypertension 10/07/21 11/27/22 tablet,extended release 24 hr ferrous sulfate 325 mg (65 mg 325 mg PO DAILY iron supplement 11/25/21 11/27/22 iron) tablet omeprazole 40 mg capsule,delayed 40 mg PO DAILY Reflux/Acid reflux 11/24/22 11/27/22 release Previous Rx's Medication Instructions Recorded docusate sodium 100 mg capsule 100 mg PO BIDP PRN Constipation 10/09/21 #20 caps Allergies Allergy/AdvReac Type Severity Reaction Status Date / Time azithromycin [From Zithromax] Allergy Verified 09/24/22 09:43 nitrofurantoin Allergy Verified 09/24/22 09:43 [From Macrobid] Sulfa (Sulfonamide Allergy Verified 09/24/22 09:43 Antibiotics) [facility] Disclaimer: The information contained in this section may have been updated after the patient was seen, as this information can be updated by other users. Medical History History of gastroesophageal reflux (GERD) Surgical History History of hysterectomy History of tonsillectomy History of total hip arthroplasty Family History Other Family history of diabetes mellitus type II Social History Smok
[2023-02-23 10:41] LABS: Basophils % 0.3 % (0.1-2.0); Eosinophils # 0.2 K/mm3 (0.0-0.4); Eosinophils % 1.8 % (0.1-12.0); Hematocrit 42.5 % (37.0-47.0); Lymphocytes # 1.6 K/mm3 (0.7-4.5); Lymphocytes % 12.4 % (10-50); Mean Corpuscular HGB Conc 30.6 g/dL (31.8-35.4); Mean Corpuscular Hemoglobin 27.8 pg (27.0-31.2); Mean Corpuscular Volume 90.9 fl (81-99); Mean Platelet Volume 8.8 fl (7.4-10.4); Monocytes # 0.8 K/mm3 (0.1-1.0); Neutrophils # 10.5 K/mm3 (1.8-7.8); Neutrophils % 79.5 % (37.0-80.0); Platelet Count 276 K/mm3 (142-424); Red Blood Count 4.68 M/mm3 (4.20-5.40); Red Cell Distribution Width 13.7 % (11.5-17.5); White Blood Count 13.2 K/mm3 (4.8-10.8)
[2023-02-23 10:50] LABS: Alanine Aminotransferase 22 U/L (12-78); Albumin Level 4.2 g/dl (3.5-5.0); Albumin/Globulin Ratio 1.3 (1.1-1.8); Alkaline Phosphatase 100 U/L (38-126); Aspartate Amino Transferase 28 U/L (14-36); Bilirubin,Total 0.8 mg/dl (0.2-1.3); Blood Urea Nitrogen 56 mg/dl (7-17); Calcium 9.5 mg/dl (8.4-10.2); Carbon Dioxide 24 mmol/L (22.0-30.0); Chloride 107 mmol/L (98-107); Creatinine Clearance Estimated 25 mL/min (50-200); Estimated Glomerular Filt Rate 29 ml/min (>60); GFR (African American) 35 ML/MIN (>60); Globulin 3.3 g/dL (1.3-3.2); Glucose 128 mg/dl (74-100); Sodium 138 mmol/L (136-145); Total Protein,Serum 7.5 g/dl (6.3-8.2)
[2023-02-23 11:04] LABS: Troponin I < 0.01 ng/ml (0.00-0.034)
--- NOTE | 2023-02-23 11:25 | PC.NURSE ---
rounded on pt nothing needed pt received a blanket, call light at bs
--- NOTE | 2023-02-23 11:47 | PC.NURSE ---
called care management for admission
--- NOTE | 2023-02-23 11:51 | PC.NURSE ---
covid swab sent to lab
[2023-02-23 11:56] LABS: Coronavirus 19, PCR Not Detected (NotDetected); Influenza A, PCR Not Detected (NotDetected); Influenza B, PCR Not Detected (NotDetected)
--- NOTE | 2023-02-23 12:53 | PC.NURSE ---
report called to med/surg
--- NOTE | 2023-02-23 12:57 | EXP.HP ---
History of Present Illness *History of present illness: HPI narrative: Patient is an 82-year-old female past medical history of hypertension, previous smoking history who presents emergency department for evaluation of chest pressure. Onset was acute, occurring Thursday, waking her from sleep. It has waxed and waned in intensity without particular provocative factors. Approximately 1 hour prior to arrival patient experienced moderate to severe pressure in her mid chest that did not radiate that would not resolve causing her to present here for continued evaluation. Denies sick contacts, cough, abdominal pain, other acute complaints at this time. the above as per ER note At the time of this exam patient appears quite comfortable. She is pleasantly conversant and is actually hungry for lunch. She denies chest pain and shortness of breath. She continues to Experience chest discomfort with deep inspiration. With evaluation in the emergency room she did receive a liter of IV fluids. White blood cell count was elevated at 13,200. BUN was 56 with a creatinine of 1.7. She was given 2 mg of morphine along with 4 mg of IV Zofran. Initial troponin I was negative.. CXR: FINDINGS: A portable view of the chest is obtained. Cardiac and mediastinal silhouettes are normal. There are bibasilar opacities which may represent atelectasis or pneumonia with likely underlying emphysema. There is no pleural effusion or pneumothorax. IMPRESSION: Atelectasis or pneumonia with likely underlying emphysema. [facility] Disclaimer: The information contained in this section may have been updated after the patient was seen, as this information can be updated by other users. Medical History Duodenal ulcer Emphysema of lung History of gastroesophageal reflux (GERD) HTN (hypertension) Osteoporosis Renal insufficiency Tobacco use disorder Surgical History History of hysterectomy History of tonsillectomy History of total hip arthroplasty Family History Other Family history of diabetes mellitus type II Social History (Updated 02/23/23 @ 14:54 by Ashley Dimas APRN) Smoking Status: Former smoker smoking status stop date: quit 2 years ago alcohol intake: never substance use type: denies use current occupational status: retired Travel in the last 8 weeks: None household members: spouse housing: house marital status: education level: master's degree current occupational exposures/hazards: No caffeine: Yes special jayden needs: No agree to transfusion: No do you feel safe at home: Yes victim of physical abuse: No victim of emotional abuse: No victim of sexual abuse: No would you like helpful sources: No Review of Systems Constitutional Constitutional: Denies body ache(s) and Denies headache(s) Eyes Eyes: Denies blurry vision and Denies change in vision ENT Ears, Nose, Mouth, and Throat: Denies disequilibrium, Denies dizziness, Denies otalgia, Denies headache(s), Reports nasal discharge (allergies), Denies post nasal drip, Denies sinus pain, Denies sore throat and Denies vertigo *Cardiovascular Cardiovascular: Reports chest pain, Reports chest pain at rest, Denies dyspnea, Denies edema, Denies irregular heart rhythm and Denies leg edema *Respiratory Respiratory: Denies chest congestion, Denies dyspnea and Reports pain on inspiration *Gastrointestinal Gastrointestinal: Denies abdominal pain, Denies bloating, Denies dyspepsia, Denies loose stools, Denies melena, Denies nausea and Denies vomiting *Genitourinary Genitourinary: Denies difficulty voiding and Denies dysuria *Musculoskeletal Musculoskeletal: Denies abnormal gait and Denies arthralgias *Neurologic Neurologic: Denies abnormal gait, Denies abnormal speech, Denies confusion, Denies convulsions, Denies disequilibrium, Denies dizziness, Denies
--- NOTE | 2023-02-23 12:58 | ECG_ITS ---
APPROVED REPORT Exam: Resting ECG HR:74 bpm ECG Measurements Heart Rate 74 AXES ID 177 P 76 QRSd 93 QRS 47 QT 369 T 58 QTc 396 Conclusion SINUS RHYTHM Left atrial abnormality Poor r wave progression with low voltages ABNORMAL ECG UNCONFIRMED REPORT Electronically signed by : Vik Bruce MD 02/25/2023 21:26:57
--- NOTE | 2023-02-23 12:59 | PC.NURSE ---
sunita strauss at [facility]
--- NOTE | 2023-02-23 13:14 | EXP.CARD.CON ---
History of Present Illness History of Present Illness Consult date: 02/23/23 Requesting physician: Misbah Son Consult reason: chest pain Chief complaint: chest pain Additional Medical History:: 1. Hypertension 2. Hyperlipidemia 3. Tobacco use, discontinued 2 years ago A. Emphysema 4. Remote history of abnormal stress test with prior evaluation approximately 10 years ago but no cardiac catheterization. 5. History of hip surgery 6. Acute kidney injury, 02/2023 with creatinine 1.7 History of present illness: Patient is an 82-year-old female past medical history of hypertension, previous smoking history who presents emergency department for evaluation of chest pressure. Onset was acute, occurring Thursday, waking her from sleep. It has waxed and waned in intensity without particular provocative factors. Approximately 1 hour prior to arrival patient experienced moderate to severe pressure in her mid chest that did not radiate that would not resolve causing her to present here for continued evaluation. Denies sick contacts, cough, abdominal pain, other acute complaints at this time. The above per Dr. Garth Edward, MD. Patient confirms symptoms as noted above which seem to get worse with deep breathing. No recent fever, chills, nausea, vomiting, diarrhea or significant coughing episodes. Regarding her remote history of abnormal stress test she is did see Dr. Yang who did not recommend any further work-up. EKG today shows sinus rhythm with incomplete right bundle branch block and nonspecific ST-T abnormalities. No acute ST segment changes noted. Initial troponin is normal. Chest x-ray shows questionable atelectasis versus pneumonia with underlying emphysema. [facility] Disclaimer: The information contained in this section may have been updated after the patient was seen, as this information can be updated by other users. Medical History Duodenal ulcer Emphysema of lung History of gastroesophageal reflux (GERD) HTN (hypertension) Osteoporosis Renal insufficiency Tobacco use disorder Surgical History History of hysterectomy History of tonsillectomy History of total hip arthroplasty Family History Other Family history of diabetes mellitus type II Social History (Updated 02/23/23 @ 14:54 by Ashley Dimas APRN) Smoking Status: Former smoker smoking status stop date: quit 2 years ago alcohol intake: never substance use type: denies use current occupational status: retired Travel in the last 8 weeks: None household members: spouse housing: house marital status: education level: master's degree current occupational exposures/hazards: No caffeine: Yes special jayden needs: No agree to transfusion: No do you feel safe at home: Yes victim of physical abuse: No victim of emotional abuse: No victim of sexual abuse: No would you like helpful sources: No Review of Systems Review of Systems Review of systems:: pertinent systems reviewed and negative unless documented below *Cardiovascular Cardiovascular: Reports chest pain and Denies dyspnea on exertion *Respiratory Respiratory: Denies dyspnea on exertion Exam Data for Last 24 hours Vital signs and Labs for Last 24 Hours: Temp Pulse Resp BP Pulse Ox O2 Del Method 98.2 F 71 18 108/49 L 97 Room Air 02/23/23 10:41 02/23/23 12:30 02/23/23 12:30 02/23/23 12:30 02/23/23 12:30 02/23/23 12:00 Laboratory Results - last 24 hr 02/23/23 10:20: WBC 13.2 H, RBC 4.68, Hgb 13.0, Hct 42.5, MCV 90.9, MCH 27.8, MCHC 30.6 L, RDW 13.7, Plt Count 276, MPV 8.8, Neut % (Auto) 79.5, Lymph % (Auto) 12.4, [place] % (Auto) 6.0, Eos % (Auto) 1.8, Baso % (Auto) 0.3, Neut # (Auto) 10.5 H, Lymph # (Auto) 1.6, [place] # (Auto) 0.8, Eos # (Auto) 0.2, Baso # (Auto) 0.0, Sodium 138, Potassium 5.0, Chloride 107, Carbon Dioxide 24,
--- NOTE | 2023-02-23 13:50 | PC.NURSE ---
arrived to floor by w/c from ED at 13:25
--- NOTE | 2023-02-23 13:56 | HMH.PHAINT1 ---
Pharmacy Intervention Comments: Home medications reviewed and verified with patient and [facility]. -Emeka Ewing, PharmD [facility]
[2023-02-23 14:09] LABS: Troponin I < 0.01 ng/ml (0.00-0.034)
[2023-02-23 17:36] LABS: Troponin I < 0.01 ng/ml (0.00-0.034)
--- NOTE | 2023-02-23 18:50 | ECG_ITS ---
APPROVED REPORT Exam: Resting ECG HR:87 bpm ECG Measurements Heart Rate 87 AXES SC 193 P 77 QRSd 90 QRS 65 QT 329 T 64 QTc 374 Conclusion SINUS RHYTHM LEft atrial abnormality Late R wave progression ABNORMAL ECG UNCONFIRMED REPORT Electronically signed by : Vik Bruce MD 02/25/2023 21:24:37
[2023-02-23 19:52] LABS: Troponin I < 0.01 ng/ml (0.00-0.034)
[2023-02-23 20:38] LABS: Microscopic, Urine URINE MICROSCOPIC (MICROSCOPIC)
[2023-02-23 21:36] LABS: Appearance,Urine CLEAR (Clear); Bilirubin,Urine Negative (Negative); Blood, Urine 1+ (Negative); Color,Urine YELLOW (Yellow); Glucose,Urine (UA) Negative (Negative); Ketones,Urine Negative (Negative); Leukocyte Esterase,Urine Negative (Negative); Nitrate,Urine POSITIVE (Negative); PH,Urine 5.5 (5.0-8.5); Protein,Urine 1+ (Negative); Specific Gravity, Urine 1.025 (1.005-1.030); Urobilinogen,Urine 0.2 EU/dl (0.2)
[2023-02-23 22:01] LABS: Bacteria,Urine Trace /lpf; RBC,Urine Occasional #/hpf (0-3); WBC,Urine Occasional #/hpf (0-3)
[2023-02-24] VITALS (19 sets, daily range): BP systolic 94–155; BP diastolic 44–103; PULSE 64–120; RESP 16–20; TEMP 36.4–37.3; O2SAT 90–98; BMI 24.0
--- NOTE | 2023-02-24 04:10 | PC.NURSE ---
NO ACUTE CHANGES THIS SHIFT. PT HAS SLEPT VERY LITTLE THIS SHIFT. NO C/O CHEST PAIN OR SHORTNESS OF BREATH. VSS. REMAINS ON ROOM AIR.
[2023-02-24 08:30] LABS: MANUAL DIFFERENTIAL MANUAL DIFFERENTIAL (MANUAL DIFF)
[2023-02-24 08:34] LABS: Basophils % 0.3 % (0.1-2.0); Eosinophils # 0.2 K/mm3 (0.0-0.4); Eosinophils % 2.9 % (0.1-12.0); Hematocrit 37.7 % (37.0-47.0); Hemoglobin 11.7 g/dL (12.2-16.2); Lymphocytes # 1.2 K/mm3 (0.7-4.5); Lymphocytes % 14.5 % (10-50); Mean Corpuscular HGB Conc 30.9 g/dL (31.8-35.4); Mean Corpuscular Hemoglobin 28.1 pg (27.0-31.2); Mean Corpuscular Volume 90.8 fl (81-99); Mean Platelet Volume 8.6 fl (7.4-10.4); Monocytes # 0.4 K/mm3 (0.1-1.0); Monocytes % 5.2 % (1.7-9.3); Neutrophils # 6.2 K/mm3 (1.8-7.8); Platelet Count 197 K/mm3 (142-424); Red Blood Count 4.15 M/mm3 (4.20-5.40); Red Cell Distribution Width 13.8 % (11.5-17.5)
[2023-02-24 08:43] LABS: Anion Gap 9.6 mEq/L (5-15); Blood Urea Nitrogen 38 mg/dl (7-17); Calcium 8.7 mg/dl (8.4-10.2); Carbon Dioxide 24 mmol/L (22.0-30.0); Chloride 109 mmol/L (98-107); Creatinine Clearance Estimated 32 mL/min (50-200); Estimated Glomerular Filt Rate 36 ml/min (>60); GFR (African American) 44 ML/MIN (>60); Glucose 156 mg/dl (74-100); Potassium 4.6 mmoL/L (3.5-5.1); Sodium 138 mmol/L (136-145)
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
[2023-02-24 09:00] LABS: Eosinophils % 3 % (0-3); Lymphocytes % 11 % (10-50); Monocytes % 6 % (2-9); Neutrophils % 80 % (42-76); Platelet Estimate Normal; RBC Morphology Normal; Total Cells Counted 100
--- NOTE | 2023-02-24 09:44 | EXP.CARD.PN ---
Subjective Subjective Date: 02/24/23 Time: 09:44 Principal diagnosis: chest pain Interval history: 82-year-old white female in bed in no acute distress. Patient did not sleep well. She did have an episode of chest discomfort last evening but did not tell anyone. Renal function has improved with IV fluids overnight. Creatinine is now 1.4 with BUN 38 Troponins were normal overnight Exam Data for Last 24 hours Vital signs and Labs for Last 24 Hours: Temp Pulse Resp BP Pulse Ox O2 Del Method 97.9 F 101 H 18 94/44 L 93 L Room Air 02/24/23 08:00 02/24/23 08:00 02/24/23 08:00 02/24/23 08:00 02/24/23 08:00 02/24/23 09:00 Laboratory Results - last 24 hr 02/23/23 10:20: WBC 13.2 H, RBC 4.68, Hgb 13.0, Hct 42.5, MCV 90.9, MCH 27.8, MCHC 30.6 L, RDW 13.7, Plt Count 276, MPV 8.8, Neut % (Auto) 79.5, Lymph % (Auto) 12.4, [place] % (Auto) 6.0, Eos % (Auto) 1.8, Baso % (Auto) 0.3, Neut # (Auto) 10.5 H, Lymph # (Auto) 1.6, [place] # (Auto) 0.8, Eos # (Auto) 0.2, Baso # (Auto) 0.0, Sodium 138, Potassium 5.0, Chloride 107, Carbon Dioxide 24, Anion Gap 12.0, BUN 56 H, Creatinine 1.70 H, Estimated Creat Clear 25, Estimated GFR 29 L, Est GFR ( Amer) 35 L, Glucose 128 H, Calcium 9.5, Total Bilirubin 0.8, AST 28, ALT 22, Alkaline Phosphatase 100, Troponin I < 0.01, Total Protein 7.5, Albumin 4.2, Globulin 3.3 H, Albumin/Globulin Ratio 1.3 02/23/23 11:45: SARS-CoV-2 (PCR) Not detected, Influenza A Untype (PCR) Not detected, Influenza Type B (PCR) Not detected 02/23/23 13:24: Troponin I < 0.01 02/23/23 17:00: Troponin I < 0.01 02/23/23 18:30: Urine Color Yellow, Urine Appearance Clear, Urine pH 5.5, Ur Specific [place] 1.025, Urine Protein 1+, Urine Glucose (UA) Negative, Urine Ketones Negative, Urine Blood 1+, Urine Nitrate Positive, Urine Bilirubin Negative, Urine Urobilinogen 0.2, Ur Leukocyte Esterase Negative, Urine RBC Occasional, Urine WBC Occasional, Ur Squamous Epith Cells 3-5, Urine Bacteria Trace 02/23/23 19:18: Troponin I < 0.01 02/24/23 08:24: WBC 8.0 D, RBC 4.15 L, Hgb 11.7 L, Hct 37.7, MCV 90.8, MCH 28.1, MCHC 30.9 L, RDW 13.8, Plt Count 197 D, MPV 8.6, Neut % (Auto) 77.0, Lymph % (Auto) 14.5, [place] % (Auto) 5.2, Eos % (Auto) 2.9, Baso % (Auto) 0.3, Neut # (Auto) 6.2, Lymph # (Auto) 1.2, [place] # (Auto) 0.4, Eos # (Auto) 0.2, Baso # (Auto) 0.0, Total Counted 100, Neutrophils % (Manual) 80 H, Lymphocytes % (Manual) 11, Monocytes % (Manual) 6, Eosinophils % (Manual) 3, Platelet Estimate Normal, RBC Morphology Normal, Sodium 138, Potassium 4.6, Chloride 109 H, Carbon Dioxide 24, Anion Gap 9.6, BUN 38 H D, Creatinine 1.40 H, Estimated Creat Clear 32, Estimated GFR 36 L, Est GFR ( Amer) 44 L D, Glucose 156 H D, Calcium 8.7 I & O for Last 24 hours: Intake & Output 02/21/23 02/22/23 02/23/23 02/24/23 11:59 11:59 11:59 11:59 Intake Total 1979 / 1979 Output Total 250 / 250 Balance 1730 / 1730 Weight 136 lb 140 lb 9.6 oz Constitutional Constitutional: no acute distress *Routine Respiratory Exam Comments: Basilar crackles noted *Routine Cardiovascular Exam Cardiovascular: Present RRR Progress Note: A&P Assessment and plan (1) Chest pain: Status: Acute (2) TONEY (acute kidney injury): Status: Acute (3) HTN (hypertension): Status: Chronic (4) Emphysema of lung: Status: Chronic (5) Pneumonia: Status: Acute Assessment and Plan Assessment and Plan for All Diagnoses:: 1.? Chest pain with atypical features in a patient with prior history of abnormal stress test and no prior cardiac catheterization. Serial troponins normal Recurrent chest pain last evening with recommendation for left heart catheterization Echocardiogram results pending but preliminary results shows ejection fraction 55% 2.? History of hypertension Holding BP meds at this time due to low blood pressure 3.? History of ulcer within the last 6 months Continue PPI therapy 4.? Hyperlipidemia Continue statin therapy 5.? Pr
--- NOTE | 2023-02-24 10:09 | IR_ITS ---
APPROVED REPORT Patient Location: Inpatient PROCEDURES Selective coronary angiogram Drug-eluting stent deployment to the proximal dominant right coronary INDICATION Unstable angina, Coronary artery disease, Informed consent was obtained prior to the procedure. COMPLICATIONS None Estimated Blood Loss: Less than 10 ML TECHNIQUE One percent lidocaine used to anesthetize the right anterior aspect of the wrist. The right radial artery was accessed via the Seldinger technique. A 6 Welsh sheath was placed in the right radial artery. 150 mg magnesium sulfate, 800 mcg of nitroglycerin, 1mg Lidocaine and 5000 U Heparin were given through the arterial sheath. The papa catheter was also used to perform selective coronary angiography. At the end the diagnostic angiogram therapeutic heparin was administered giving a therapeutic ACT and the guide catheter was placed in the right coronary followed by Choice PT extra-support wire. A 3 mm x 22 mm [place] frontier stent was deployed at 22 ana reducing the severe stenosis to 0%. ALESHIA-3 flow was present before and after the procedure. At the end the procedure the apparatus was removed the sheath was removed and hemostasis was achieved using TR banding patient was transferred to the postop putting in stable condition ANGIOGRAPHIC RESULTS The left main artery Normal The left anterior descending artery Is proximally normal and then has a mid vessel 50% mildly calcified stenosis The circumflex artery Is nondominant and has proximal 30 to 40% stenosis with a mid vessel 40 to 50% stenosis and a 3.5 mm vessel The right coronary artery Is dominant and has proximal 60 and 70% long tubular stenosis The DAVIS ventriculogram reveals Not performed The left ventricular end-diastolic pressure Not measured IMPRESSION Severe proximal dominant right coronary disease as described above with successful stenting reducing lesion to 0% with 1 drug-eluting stent Persistent moderate stenosis in the mid LAD and proximal and mid nondominant yet still large circumflex artery PLAN 1. Dual antiplatelet therapy 2. Medical management for the LAD and circumflex artery stenosis 3. Cardiac rehabilitation 4. Avoidance of tobacco products 5. Risk factor modification 6. LDL less than 55 to be achieved with high intensity statin Electronically signed by : Chao Roman MD 02/24/2023 14:38:12
[2023-02-24 14:40] LABS: CATHL Activated Clotting Time 268 SEC (74-125)
--- NOTE | 2023-02-24 15:06 | PC.NURSE ---
Pt. backt to the floor right radial band c/d/i.
--- NOTE | 2023-02-24 18:23 | PC.NURSE ---
Right wrist non adhesive 2x2 placed with tegaderm.
[2023-02-25] VITALS: BP 136/62; PULSE 80; PULSE 84; RESP 20; TEMP 36.7; O2SAT 93
[2023-02-25 04:00] VITALS: BP 132/71; PULSE 79; PULSE 80; RESP 16; TEMP 36.7; O2SAT 95; BMI 24.3
--- NOTE | 2023-02-25 05:25 | PC.NURSE ---
Patient has rested better tonight. No issues were stated by patient
[2023-02-25 07:57] LABS: Anion Gap 10.5 mEq/L (5-15); Blood Urea Nitrogen 30 mg/dl (7-17); Calcium 8.8 mg/dl (8.4-10.2); Carbon Dioxide 22 mmol/L (22.0-30.0); Chloride 108 mmol/L (98-107); Creatinine Clearance Estimated 38 mL/min (50-200); Estimated Glomerular Filt Rate 43 ml/min (>60); GFR (African American) 52 ML/MIN (>60); Glucose 89 mg/dl (74-100); Potassium 4.5 mmoL/L (3.5-5.1); Sodium 136 mmol/L (136-145)
[2023-02-25 08:00] VITALS: PULSE 80
[2023-02-25 08:07] VITALS: BP 136/68; PULSE 78; RESP 17; TEMP 36.6; O2SAT 96
--- NOTE | 2023-02-25 08:50 | EXP.ACUTE.PN ---
Subjective *Date: 02/25/23 *Time: 10:29 Interval history: Patient states she is feeling well this morning. She had a heart cath with stents placed yesterday. She slept well last night and denies any pain today. Medical Exam Vital signs and Labs for Last 24 Hours: Vital Signs Temp Pulse Pulse Resp BP Pulse Ox O2 Del Method 02/25/23 08:07 97.9 F 78 17 136/68 96 Room Air 02/25/23 04:00 80 02/25/23 04:00 98.1 F 79 16 132/71 95 Room Air 02/25/23 01:00 Room Air 02/25/23 00:00 80 02/25/23 00:00 98.0 F 84 20 136/62 93 L Room Air 02/24/23 20:00 70 02/24/23 21:00 Room Air 02/25/23 06:52 Room Air 02/25/23 05:00 Room Air 02/25/23 03:00 Room Air 02/24/23 23:00 Room Air 02/24/23 20:00 Room Air 02/24/23 20:00 97.5 F L 75 16 134/72 94 L Room Air 02/24/23 18:45 98.9 F 81 17 138/60 96 Room Air 02/24/23 17:58 Room Air 02/24/23 17:45 99.0 F 86 16 136/103 H 97 Room Air 02/24/23 17:15 99.0 F 75 16 133/72 97 Room Air 02/24/23 16:45 99.1 F 76 16 121/56 L 96 Room Air 02/24/23 16:15 98.2 F 73 17 117/51 L 98 Room Air 02/24/23 15:45 98.2 F 78 17 116/56 L 98 Room Air 02/24/23 15:30 98.2 F 64 17 138/73 98 Room Air 02/24/23 15:15 98.2 F 73 17 106/57 L 98 Room Air 02/24/23 16:00 70 02/24/23 16:08 Room Air 02/24/23 15:00 Room Air 02/24/23 15:00 98.2 F 105 H 17 133/70 91 L Room Air 02/24/23 14:45 101 H 18 147/74 H 90 L 02/24/23 14:40 110 H 19 146/70 H 90 L 02/24/23 14:35 114 H 19 155/72 H 97 02/24/23 14:41 120 H 110 H 19 146/70 H 90 L 02/24/23 11:24 98 Room Air 02/24/23 11:00 Room Air 02/24/23 09:00 Room Air Intake and Output 02/24/23 02/25/23 02/25/23 19:59 03:59 11:59 Intake Total 1010 / 1010 Output Total 0 / 0 0 / 0 Balance 1010 / 1010 0 / 1010 Intake: Intake, Oral Amount 960 / 960 Intake, Total IV Amount 50 / 50 Ceftriaxone 1 gm 1 gm In 0.9 % 50 / 50 Sodium Chloride 50 ml @ 100 mls /hr IV Q24H [facility] Rx#:[id number] Output: Output, Urine Amount 0 / 0 0 / 0 Other: Number of Voids 1 Number of Unmeasured Voids 0 1 Weight 142 lb 8 oz Patient Weight 02/25/23 11:59 Weight 142 lb 8 oz Laboratory Results - last 24 hr 02/24/23 08:24: Total Counted 100, Neutrophils % (Manual) 80 H, Lymphocytes % (Manual) 11, Monocytes % (Manual) 6, Eosinophils % (Manual) 3, Platelet Estimate Normal, RBC Morphology Normal 02/24/23 14:00: Activated Clotting Time 268 H* 02/25/23 07:35: Sodium 136, Potassium 4.5, Chloride 108 H, Carbon Dioxide 22, Anion Gap 10.5, BUN 30 H, Creatinine 1.20 H, Estimated Creat Clear 38, Estimated GFR 43 L, Est GFR ( Amer) 52 L, Glucose 89 D, Calcium 8.8 I & O for Labs for Last 24 Hours: Intake & Output 02/22/23 02/23/23 02/24/23 02/25/23 11:59 11:59 11:59 11:59 Intake Total 1979 / 1979 1010 / 1010 Output Total 250 / 250 0 / 0 Balance 1730 / 1730 1010 / 1010 Weight 136 lb 140 lb 9.6 oz 142 lb 8 oz Constitutional: Present no acute distress Comment:: Sitting up in the bed and appears comfortable. Respiratory: Present CTA bilaterally Cardiac: Present Regular Rate GI: Present soft and normal bowel sounds; Absent distention or tenderness Extremities: Absent tenderness or calf tenderness Neuro: Present alert and oriented x 3 Assessment and Plan *Assessment and plan (1) Chest pain: Status: Acute Qualifiers: Chest pain type: unspecified Qualified Code(s): R07.9 - Chest pain, unspecified Category: Medical Code(s): R07.9 - Chest pain, unspecified (2) TONEY (acute kidney injury): Status: Acute Category: Medical Code(s): N17.9 - Acute kidney failure, unspecified (3) HTN (hypertension): Status: Chronic Qualifiers: Hypertension type: primary hypertension
--- NOTE | 2023-02-25 08:56 | EXP.CARD.PN ---
Subjective Subjective Date: 02/25/23 Time: 08:56 Principal diagnosis: chest pain Interval history: 82-year-old white female in bed in no acute distress. No complaints overnight. She is ready to go home. Exam Data for Last 24 hours Vital signs and Labs for Last 24 Hours: Temp Pulse Resp BP Pulse Ox O2 Del Method 97.9 F 78 17 136/68 96 Room Air 02/25/23 08:07 02/25/23 08:07 02/25/23 08:07 02/25/23 08:07 02/25/23 08:07 02/25/23 08:07 Laboratory Results - last 24 hr 02/24/23 08:24: Total Counted 100, Neutrophils % (Manual) 80 H, Lymphocytes % (Manual) 11, Monocytes % (Manual) 6, Eosinophils % (Manual) 3, Platelet Estimate Normal, RBC Morphology Normal 02/24/23 14:00: Activated Clotting Time 268 H* 02/25/23 07:35: Sodium 136, Potassium 4.5, Chloride 108 H, Carbon Dioxide 22, Anion Gap 10.5, BUN 30 H, Creatinine 1.20 H, Estimated Creat Clear 38, Estimated GFR 43 L, Est GFR ( Amer) 52 L, Glucose 89 D, Calcium 8.8 I & O for Last 24 hours: Intake & Output 02/22/23 02/23/23 02/24/23 02/25/23 11:59 11:59 11:59 11:59 Intake Total 1979 / 1979 1010 / 1010 Output Total 250 / 250 0 / 0 Balance 1730 / 1730 1010 / 1010 Weight 136 lb 140 lb 9.6 oz 142 lb 8 oz Constitutional Constitutional: no acute distress *Routine Respiratory Exam Respiratory: Present CTA bilaterally *Routine Cardiovascular Exam Cardiovascular: Present RRR Progress Note: A&P Assessment and plan (1) Chest pain: Status: Acute (2) TONEY (acute kidney injury): Status: Acute (3) HTN (hypertension): Status: Chronic (4) Emphysema of lung: Status: Chronic (5) Pneumonia: Status: Acute (6) Coronary artery disease: Status: Acute (7) Status post coronary artery stent placement: Status: Acute Assessment and Plan Assessment and Plan for All Diagnoses:: 1.? Chest pain with atypical features in a patient with prior history of abnormal stress test and no prior cardiac catheterization. Serial troponins normal 1 MIREYA to RCA with remaining moderate disease of LAD and circumflex relegated to medical therapy Echocardiogram results pending but preliminary results shows ejection fraction 55% 2.? History of hypertension Beta-nabor restarted, will resume home dose of metoprolol Holding lisinopril at this time but may need to restart at follow-up next week 3.? History of ulcer within the last 6 months Continue PPI therapy 4.? Hyperlipidemia Continue statin therapy 5.? Prior tobacco use, discontinued 2 years ago Noted emphysema on chest x-ray 6. Acute kidney injury Improving with IV fluids 7. Possible pneumonia with elevated white count Patient is on antibiotic treatment [facility] results: ANGIOGRAPHIC RESULTS The left main artery Normal The left anterior descending artery Is proximally normal and then has a mid vessel 50% mildly calcified stenosis The circumflex artery Is nondominant and has proximal 30 to 40% stenosis with a mid vessel 40 to 50% stenosis and a 3.5 mm vessel The right coronary artery Is dominant and has proximal 60 and 70% long tubular stenosis The DAVIS ventriculogram reveals Not performed The left ventricular end-diastolic pressure Not measured IMPRESSION Severe proximal dominant right coronary disease as described above with successful stenting reducing lesion to 0% with 1 drug-eluting stent Persistent moderate stenosis in the mid LAD and proximal and mid nondominant yet still large circumflex artery PLAN 1. Dual antiplatelet therapy 2. Medical management for the LAD and circumflex artery stenosis 3. Cardiac rehabilitation 4. Avoidance of tobacco products 5. Risk factor modification 6. LDL less than 55 to be achieved with high intensity statin Electronically signed by : Chao Roman MD 02/24/2023 14:38:12 Pt could be discharged home later today if she wishes. Home med recommendations: Aspirin 81 mg daily Brilinta 90 mg twice daily Rosuvastatin 20 mg daily Omepra
--- NOTE | 2023-02-25 11:13 | PC.NURSE ---
courtesy tech rosalva: pt has family at BS. no requested voiced at this time.
[2023-02-25 11:14] VITALS: BP 114/44; PULSE 73; RESP 18; TEMP 36.5; O2SAT 98
[2023-02-25 12:00] VITALS: PULSE 70
--- NOTE | 2023-02-25 12:06 | HMH.PHAINT1 ---
Pharmacy Intervention Comments: Patients home discharge medications reviewed and discussed with patient and patient's : - Start Aspirin 81mg (heart health/blood thinner, may notice new bruising and bleeding) - Start Brillinta (blood thinner, may notice new bruising and bleeding) - Start Cefdinir (antibiotic, may cause upset stomach, take until completion) - Stop HCTZ - Stop Lisinopril Patient had no further questions at this time: -Chivo Morales, Pharm Student
--- NOTE | 2023-02-25 12:12 | DIET.NUTRFU ---
Spoke with patient and her today. Pt reports that she is feeling well, no dietary concerns, and is awaiting discharge. Pt is educated on cardiac diet and has been following it well at home. Pt typically cooks their meals at home and will have family assisting her for a few days after discharge. Pt denies any abdominal pain, N/V, and reports last BM on 02/23.
--- NOTE | 2023-02-26 14:29 | CARE MANAGER ---
Called and spoke with patient regarding recent discharge. Patient stated that she is doing well, just tired. She had no complaints or concerns at time of call.
--- NOTE | 2023-03-03 22:59 | EXP.DC.SUM ---
General Admission date:: 02/23/23 Discharge date: 02/25/23 HPI HPI HPI: HPI narrative: Patient is an 82-year-old female past medical history of hypertension, previous smoking history who presents emergency department for evaluation of chest pressure. Onset was acute, occurring Thursday, waking her from sleep. It has waxed and waned in intensity without particular provocative factors. Approximately 1 hour prior to arrival patient experienced moderate to severe pressure in her mid chest that did not radiate that would not resolve causing her to present here for continued evaluation. Denies sick contacts, cough, abdominal pain, other acute complaints at this time. the above as per ER note At the time of this exam patient appears quite comfortable. She is pleasantly conversant and is actually hungry for lunch. She denies chest pain and shortness of breath. She continues to Experience chest discomfort with deep inspiration. With evaluation in the emergency room she did receive a liter of IV fluids. White blood cell count was elevated at 13,200. BUN was 56 with a creatinine of 1.7. She was given 2 mg of morphine along with 4 mg of IV Zofran. Initial troponin I was negative.. CXR: FINDINGS: A portable view of the chest is obtained. Cardiac and mediastinal silhouettes are normal. There are bibasilar opacities which may represent atelectasis or pneumonia with likely underlying emphysema. There is no pleural effusion or pneumothorax. IMPRESSION: Atelectasis or pneumonia with likely underlying emphysema. Hospital Course Hospital Course Hospital Course: The patient was admitted and cardiology was consulted. Due to her history of abnormal stress test, they wanted to get an echo and a left heart cath. They held her hypertensive medications as her blood pressure was low in the emergency room. Her white blood cell count was elevated and Rocephin was added. Her white blood cell count did improve with antibiotics. She was started back on low-dose metoprolol once her blood pressure improved and her blood pressure was monitored. Her renal function improved. Her serial troponins were normal but she had recurrent chest pain while in the hospital and cardiology felt she would need a left heart cath. Her preliminary ejection fraction was 55%. The patient's heart cath revealed severe proximal dominant right coronary disease and she received a stent. Cardiology recommended dual antiplatelet therapy and medical management for the LAD and circumflex artery stenosis that did not require stenting. By 02/25/2023, the patient was feeling well and wanted to be discharged home. She had no further chest pain and it was felt she was stable to discharge and will follow-up both with Dr. Son and with cardiology. Exam Data for Last 24 hours Vital signs and Labs for Last 24 Hours: Temp Pulse Resp BP Pulse Ox O2 Del Method 97.7 F 70 18 114/44 L 98 Room Air 02/25/23 11:14 02/25/23 12:00 02/25/23 11:14 02/25/23 11:14 02/25/23 11:14 02/25/23 11:14 Narrative: Constitutional Constitutional: no acute distress Comments: Appears quite comfortable lying in bed. She is hungry and awaiting lunch. Conversant. *Routine HEENT Exam Head: Present normocephalic and atraumatic Eye: Absent conjunctival icterus, scleral injection or conjunctivae pink ENT: Present mucous membranes moist and oropharynx clear *Routine Neck Exam Neck: Present supple; Absent carotid bruit, lymphadenopathy or thyromegaly Routine Chest/Breast/Axilla Exam Chest wall: Absent tenderness *Routine Respiratory Exam Respiratory: Present CTA bilaterally (Anteriorly and posteriorly), normal respiratory effort and symmetric chest movement *Routine Cardiovascular Exam Cardiovascular: Present RRR; Absent rubs *Routine Abdominal Exam Abdominal: Present soft and normoactive bowel sounds; Absent tenderness, distended or guarding *Routine Rectal Exam Rectal:: deferred *Routine Genitalia
== END 2023-02-25 12:42 | disposition home or self-care (01) ==
LOC: ER 10:47 → 2ND 11:54
PROVIDERS: Internal Medicine; Internal Medicine Adolescent Medicine; Nurse Practitioner Family; Physician Assistant; Admitting Provider Family Medicine; Emergency Provider Emergency Medicine; PCP Family Medicine; Visit Provider Family Medicine
DX: R07.9 Chest pain, unspecified (principal); J43.9 Emphysema, unspecified; I10 Essential (primary) hypertension; N17.9 Acute kidney failure, unspecified; J18.9 Pneumonia, unspecified organism; I25.110 Atherosclerotic heart disease of native coronary artery with unstable angina pectoris; Z95.5 Presence of coronary angioplasty implant and graft; Z79.899 Other long term (current) drug therapy
CPT/HCPCS: 36415; 71045; 80048; 80053; 81001; 84484; 85007; 85014; 85018; 85025; 85048; 85049; 85347; 87636; 92928; 93005; 93306; 93454; 99152; 99285; C1725; C1769; C1876; C9600; G0378; J0696; J1644; J2405; Q9967

== ENCOUNTER → 2023-03-04 09:13 | Outpatient (CLI) | payer MEDICARE, SELFPAY ==
[2023-03-04 10:54] LABS: Anion Gap 14.4 mEq/L (5-15); Blood Urea Nitrogen 36 mg/dl (7-17); Carbon Dioxide 21 mmol/L (22.0-30.0); Chloride 109 mmol/L (98-107); Estimated Glomerular Filt Rate 36 ml/min (>60); GFR (African American) 44 ML/MIN (>60); Potassium 4.4 mmoL/L (3.5-5.1); Sodium 140 mmol/L (136-145)
[2023-03-04 11:33] LABS: Calcium 10.2 mg/dl (8.4-10.2); Glucose 93 mg/dl (74-100)
== END ==
PROVIDERS: PCP Family Medicine; Visit Provider Internal Medicine
DX: I25.10 Atherosclerotic heart disease of native coronary artery without angina pectoris (principal)
CPT/HCPCS: 36415; 80048

== ENCOUNTER 2023-03-19 13:56 | Outpatient (RCR) | payer MEDICARE, SELFPAY | END 2023-06-04 11:45 | disposition home or self-care (01) | LOC: PT 13:56 | PROVIDERS: Visit Provider Internal Medicine | DX: I25.10 Atherosclerotic heart disease of native coronary artery without angina pectoris (principal); Z95.5 Presence of coronary angioplasty implant and graft | CPT/HCPCS: 93798 ==

== ENCOUNTER → 2023-04-22 12:59 | Outpatient (CLI) | payer MEDICARE, SELFPAY ==
--- NOTE | 2023-04-22 13:04 | MM_ITS ---
PROCEDURE INFORMATION: Exam: MG Bilateral Screening 3D Mammography Exam date and time: 04/22/2023 1:00 PM Age: 83 years old Clinical indication: Screening mammogram TECHNIQUE: Imaging protocol: Bilateral Screening tomosynthesis and 2D mammography including computer-aided detection (CAD) when performed. COMPARISON: 1. MG MM DIG SCREENING MAMM BI W/CAD 03/25/2022 10:58 AM 2. MG MM DIG SCREENING MAMM BI W/CAD 02/26/2021 2:30 PM 3. MG MM DIG MAMM DX UNILAT RT CAD 07/26/2020 2:12 PM 4. MG MM DIG MAMM DX UNILAT RT CAD 01/25/2020 2:50 PM FINDINGS: MAMMOGRAPHY: Breast composition: The breast tissue is extremely dense, which lowers the sensitivity of mammography. Mass: None. Architectural distortion: No new or suspicious architectural distortion. Calcifications: Stable benign-appearing calcifications are present. No new or suspicious cluster of microcalcifications have developed. Asymmetric density: No new or suspicious asymmetric density is present Skin thickening: None. Axillary adenopathy: None. IMPRESSION: No mammographic evidence of malignancy. Recommend annual screening mammography unless otherwise clinically indicated. ASSESSMENT: BI-RADS category 2: Benign
== END ==
PROVIDERS: PCP Family Medicine; Visit Provider Family Medicine
DX: Z12.31 Encounter for screening mammogram for malignant neoplasm of breast (principal)
CPT/HCPCS: 77063; 77067

== ENCOUNTER → 2023-06-03 10:44 | Outpatient (CLI) | payer MEDICARE, SELFPAY ==
[2023-06-03 11:14] LABS: Basophils # 0.1 K/mm3 (0-0.2); Basophils % 0.6 % (0.1-2.0); Eosinophils # 0.3 K/mm3 (0.0-0.4); Eosinophils % 3.6 % (0.1-12.0); Hematocrit 38.3 % (37.0-47.0); Hemoglobin 12.9 g/dL (12.2-16.2); Lymphocytes # 1.4 K/mm3 (0.7-4.5); Lymphocytes % 20.1 % (10-50); Mean Corpuscular HGB Conc 33.6 g/dL (31.8-35.4); Mean Corpuscular Hemoglobin 31.3 pg (27.0-31.2); Mean Corpuscular Volume 93.1 fl (81-99); Mean Platelet Volume 8.8 fl (7.4-10.4); Monocytes # 0.5 K/mm3 (0.1-1.0); Monocytes % 6.5 % (1.7-9.3); Neutrophils # 4.9 K/mm3 (1.8-7.8); Neutrophils % 69.2 % (37.0-80.0); Platelet Count 222 K/mm3 (142-424); Red Blood Count 4.12 M/mm3 (4.20-5.40); Red Cell Distribution Width 14.4 % (11.5-17.5); White Blood Count 7.1 K/mm3 (4.8-10.8)
[2023-06-03 12:21] LABS: Alanine Aminotransferase 22 U/L (12-78); Alkaline Phosphatase 113 U/L (38-126); Aspartate Amino Transferase 36 U/L (14-36); Bilirubin,Direct 0.2 mg/dl (0.0-0.4); Bilirubin,Indirect 0.5 mg/dL (0.0-0.9); Bilirubin,Total 0.7 mg/dl (0.2-1.3); Bilirubin,Unconjugated 0.5 mg/dL (0.0-1.1); Blood Urea Nitrogen 25 mg/dl (7-17); Calcium 9.1 mg/dl (8.4-10.2); Carbon Dioxide 23 mmol/L (22.0-30.0); Chloride 109 mmol/L (98-107); Chol/HDL Ratio 1.8 (1-3.5); Cholesterol 181 mg/dl (140-200); Estimated Glomerular Filt Rate 43 ml/min (>60); GFR (African American) 52 ML/MIN (>60); Glucose 94 mg/dl (74-100); HDL Cholesterol 99 mg/dl (40-60); Magnesium 2.1 mg/dl (1.6-2.3); Sodium 140 mmol/L (136-145); Total Protein,Serum 6.8 g/dl (6.3-8.2); Triglycerides 104 mg/dl (30-150); VLDL Cholesterol 21 mg/dL (0-40)
[2023-06-03 12:32] LABS: Direct LDL Cholesterol 63.18 mg/dL (100-129)
[2023-06-03 12:39] LABS: Free T4 (Free Thyroxine) 1.63 ng/dl (0.78-2.19)
[2023-06-03 12:52] LABS: Thyroid Stimulating Hormone 2.37 uIU/mL (0.465-4.68)
== END ==
PROVIDERS: PCP Family Medicine; Visit Provider Physician Assistant
DX: I10 Essential (primary) hypertension (principal); I25.10 Atherosclerotic heart disease of native coronary artery without angina pectoris; Z95.5 Presence of coronary angioplasty implant and graft; Z87.891 Personal history of nicotine dependence
CPT/HCPCS: 36415; 80048; 80061; 80076; 83735; 84439; 84443; 85025

== ENCOUNTER → 2023-07-23 16:04 | Outpatient (CLI) | payer MEDICARE, SELFPAY ==
--- NOTE | 2023-07-23 16:10 | XR_ITS ---
FINAL REPORT TECHNIQUE: Chest PA & Lateral CLINICAL HISTORY: COUGH AFTER COVID COMPARISON: 02/23/2023 FINDINGS: 2 views of the chest were performed. The heart size is normal. The mediastinum is within normal limits. There is no acute cardiopulmonary process. The lungs are hyperinflated. There are no pleural effusions. There is no pneumothorax. There is accentuated thoracic kyphosis. IMPRESSION: Hyperinflated lungs without acute cardiopulmonary process. Reviewed, Interpreted and Dictated by Gm Coronado MD Transcribed by Prema Gross Authenticated and [facility]
== END ==
PROVIDERS: PCP Family Medicine; Visit Provider Family Medicine
DX: R05.9 Cough, unspecified (principal); U09.9 Post COVID-19 condition, unspecified
CPT/HCPCS: 71046

== ENCOUNTER 2023-11-27 16:47 | Emergency (ER) | payer MEDICARE, SELFPAY ==
[2023-11-27 17:05] VITALS: BP 114/67; PULSE 87; RESP 20; TEMP 36.4; O2SAT 97; BMI 24.6
--- NOTE | 2023-11-27 17:14 | EXP.UTC ---
Discharge Plan Disposition Patient Disposition: Home, Self-Care Condition: Good Prescriptions Prescriptions: New cefdinir 300 mg capsule 300 mg PO BID Qty: 14 0RF phenazopyridine [Pyridium] 200 mg tablet 200 mg PO Q8H Qty: 6 0RF No Action clopidogrel [Plavix] 75 mg tablet 75 mg PO DAILY Qty: 30 6RF rosuvastatin 20 MG tablet 20 mg PO HS multivitamin 1 EACH tablet 1 each PO DAILY coenzyme [id number] E 1 EACH capsule 1 each PO DAILY metoprolol succinate 25 MG tablet extended release 24 hr 25 mg PO BID omeprazole 40 mg Capsule,Delayed Release(Dr/Ec) 40 mg PO DAILY alendronate 70 mg Tablet 70 mg PO WEEKLY sertraline 25 mg Tablet 25 mg PO DAILY diclofenac sodium 1 % Gel 2 g TOPICAL QID PRN (Reason: Pain) aspirin 81 mg Tablet,Chewable 81 mg PO DAILY Qty: 100 0RF Referrals Follow up/Referrals: Misbah Son MD [Primary Care Provider] - See instructions Clinical Impressions Clinical Impression: Acute UTI Instructions Patient Instructions: DI for Urinary Tract Infection (UTI) Discharge ED Provider: Kita Vann [facility] [place] HPI General Stated complaint: blood in urine Time Seen by Provider: 11/27/23 17:14 History of Present Illness Provider Complaint: Dysuria and frequency X 1 day. No fever. Onset (ago): day(s) Relieving factors: none Exacerbating factors: none Associated symptoms: denies other symptoms Treatments prior to arrival: none Related Data Home Medications Medication Instructions Recorded Confirmed coenzyme [id number] E 100 mg-5 1 each PO DAILY Supplement 11/06/20 06/03/23 unit capsule multivitamin 1 each PO DAILY Supplement 11/06/20 06/03/23 rosuvastatin 20 mg tablet 20 mg PO HS Cholesterol 11/06/20 06/03/23 metoprolol succinate 25 mg 25 mg PO BID Blood pressure 10/07/21 06/03/23 tablet,extended release 24 hr omeprazole 40 mg capsule,delayed 40 mg PO DAILY Reflux/Acid reflux 11/24/22 06/03/23 release alendronate 70 mg tablet 70 mg PO WEEKLY osteoporosis 02/23/23 06/03/23 diclofenac sodium 1 % topical gel 2 g topical QID PRN Pain 02/23/23 06/03/23 sertraline 25 mg tablet 25 mg PO DAILY antidepressant 02/23/23 06/03/23 Previous Rx's Medication Instructions Recorded aspirin 81 mg chewable tablet 81 mg PO DAILY #100 tabs 02/25/23 clopidogrel 75 mg tablet (Plavix) 75 mg PO DAILY #30 tabs 06/03/23 cefdinir 300 mg capsule 300 mg PO BID #14 caps 11/27/23 phenazopyridine 200 mg tablet 200 mg PO Q8H 6 doses #6 tabs 11/27/23 (Pyridium) Allergies Allergy/AdvReac Type Severity Reaction Status Date / Time azithromycin [From Zithromax] Allergy Verified 06/03/23 10:10 cefaclor [From Ceclor] Allergy Verified 06/03/23 10:10 ciprofloxacin [From Cipro] Allergy Verified 06/03/23 10:10 nitrofurantoin Allergy Verified 06/03/23 10:10 [From Macrobid] Sulfa (Sulfonamide Allergy Verified 06/03/23 10:10 Antibiotics) [facility] Disclaimer: The information contained in this section may have been updated after the patient was seen, as this information can be updated by other users. 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 Closed intertrochanteric fracture of left femur Duodenal ulcer Emphysema of lung Failed orthopedic implant Fracture of hip History of gastroesophageal reflux (GERD) HTN (hypertension) Hypothyroid Osteoporosis Postoperative follow-up Renal insufficiency Tachycardia Tobacco use disorder Urinary tract infection Surgical History History of hysterectomy History of tonsillectomy History of total hip arthroplasty Family History Other Family history of diabetes mellitus type II Social History Smoking Status: Former smoker tobacco type: cigarettes packs per day: 1 smoking status stop date: quit 2 years ago alcohol intake: never substance use type: denies use current occupational status: retired Travel in the last 8 weeks: None household members: spouse housing: house marital status: education level: master's degree current occupational exposures/hazards: No caffeine: Yes special jayden needs: No agree to transfusion: No do you feel safe at home: Yes victim of physical abuse: No victim of emotional abuse: No victim of sexual abuse: No would you like helpful sources: No ROS Obtained: Yes All systems reviewed & no additional complaints except as documented Genitourinary Female Genitourinary: Reports dysuria Physical Exam General General appearance: alert and in no apparent distress Chest Chest inspection: Present normal inspection and symmetric chest wall rise; Absent tenderness Respiratory Respiratory exam: Present normal lung sounds bilaterally; Absent respiratory distress Cardiovascular Cardiovascular exam: Present regular rate and normal rhythm; Absent JVD Abdominal Exam Abdominal exam: Present soft and normal bowel sounds; Absent distention, tenderness or guarding Extremities Exam Extremities exam: Present normal inspection, full ROM and normal capillary refill; Absent calf tenderness Back Exam Back exam: Present normal inspection; Absent tenderness Neurological Exam Neurological exam: Present alert and oriented X3 Psychiatric Psychiatric exam: Present normal affect and normal mood Skin Skin exam: Present warm, dry, intact and normal color Lymphatic Lymphatic Findings: no adenopathy Medical Decision Making Leo Inquiry Pt receiving controlled substance: No Lab Data Lab results reviewed: Yes I reviewed the patient's lab results.
[2023-11-27 17:15] LABS: Apearance,Urine Cloudy (Clear); Color,Urine Yellow (Yellow); PH,Urine 7.5 (5.0-8.5); Protein,Urine 3+ (Negative); Specific Gravity, Urine 1.025 (1.005-1.030)
[2023-11-27 17:16] VITALS: BP 114/67; PULSE 87; RESP 20; TEMP 36.4; O2SAT 97
[2023-11-27 17:16] LABS: Bilirubin,Urine Negative (Negative); Blood, Urine 3+ (Negative); Glucose,Urine (UA) Negative (Negative); Ketones,Urine Negative (Negative); UTC Leukocyte Esterase,Urine 3+ (Negative); UTC Nitrate,Urine Negative (Negative); Urobilinogen,Urine 0.2 EU/dl (0.2)
== END 2023-11-27 17:20 | disposition home or self-care (01) ==
PROVIDERS: Emergency Provider Physician Assistant; PCP Family Medicine
DX: N39.0 Urinary tract infection, site not specified (principal); B96.4 Proteus (mirabilis) (morganii) as the cause of diseases classified elsewhere; I10 Essential (primary) hypertension; E03.9 Hypothyroidism, unspecified; K21.9 Gastro-esophageal reflux disease without esophagitis; E78.5 Hyperlipidemia, unspecified; J43.9 Emphysema, unspecified; Z87.891 Personal history of nicotine dependence
CPT/HCPCS: 81003; 87086; 99204; 99212; G0463

== ENCOUNTER 2023-12-19 13:42 | Emergency (ER) | payer MEDICARE, SELFPAY ==
[2023-12-19 14:40] VITALS: BP 127/59; PULSE 73; RESP 20; TEMP 36.9; O2SAT 98; BMI 25.5
--- NOTE | 2023-12-19 15:14 | ED_ITS ---
Discharge Plan Disposition Patient Disposition: Home, Self-Care Condition: Good Prescriptions Prescriptions: New cefdinir 300 mg capsule 300 mg PO BID 10 Days Qty: 20 0RF phenazopyridine [Pyridium] 200 mg tablet 200 mg PO Q8H 2 Days Qty: 6 0RF No Action alendronate 70 mg tablet 70 mg PO DAILY clopidogrel 75 mg tablet 75 mg PO DAILY omeprazole 40 mg capsule,delayed release(DR/EC) 40 mg PO DAILY sertraline 25 mg tablet 25 mg PO DAILY metoprolol succinate 25 mg tablet extended release 24 hr 25 mg PO DAILY rosuvastatin 20 mg tablet 20 mg PO DAILY hydrochlorothiazide 12.5 mg tablet 12.5 mg PO DAILY Referrals Follow up/Referrals: Misbah Son MD [Primary Care Provider] - See instructions Activity Restrictions/Add. Instructions Additional Instructions/Restrictions: *Increase fluids. Water not Soda or Tea *Start antibiotic immediately and be sure to take as ordered for the FULL length of time although you should start to see improvement over the next 48 hours *Pyridium as needed Remember this medication will turn your urine . This is normal but it will stain what ever it gets on *You should not use Pyridium for more than 48 hours. If so , follow up with your primary physician to review urine culture and ensure that antibiotic is adequate for infection *Be SURE to follow up anytime for new or worsening symptoms with your family doctor. AND in 48 hours for urine culture results with your family doctor, if you do not have a doctor then you may call back to the [facility] for urine culture results and further treatment. We do recommend that you choose and establish care with a Primary Care Physician. ?AND follow up with them ?in 10-14 days to repeat UA to ensure infection is resolved and blood no longer present *Be sure to let your PCP know that we sent urine cultures from the [facility] so they can follow up to ensure that you area the on the correct antibiotic Call your doctor office and make appointment for 48 hours (2 days from today) ?to follow up and get the results of your urine culture and further treatment Clinical Impressions Clinical Impression: Acute UTI Instructions Patient Instructions: Urinary Tract Infection, DI for Urinary Tract Infection (UTI) Discharge ED Provider: Destiny Sam [facility] [place] General Stated complaint: Pain while urinating Mode of Arrival: Ambulatory Source of Information: Patient Limitations: No Limitations Time Seen by Provider: 12/19/23 15:14 Description of Symptoms (Recalled from Triage Doc. by RN): PATIENT C/O POSSIBLE UTI SINCE YESTERDAY HEENT Symptoms (Recalled from RN notes): No Resp Symptoms (Recalled from RN notes): No Skin Symptoms (Recalled from RN notes): No MS Symptoms (Recalled from RN notes): No Functional Status (Recalled from RN notes): WNL History of Present Illness Provider Complaint: Patient states that she had a UTI last month and yesterday she started again with burning with urination and feeling of urgency and frequency like she had then so she came in to get it checked Related Data Home Medications Medication Instructions Recorded Confirmed alendronate 70 mg tablet 70 mg PO DAILY 12/19/23 12/19/23 clopidogrel 75 mg tablet 75 mg PO DAILY 12/19/23 12/19/23 hydrochlorothiazide 12.5 mg tablet 12.5 mg PO DAILY 12/19/23 12/19/23 metoprolol succinate 25 mg 25 mg PO DAILY 12/19/23 12/19/23 tablet,extended release 24 hr omeprazole 40 mg capsule,delayed 40 mg PO DAILY 12/19/23 12/19/23 release rosuvastatin 20 mg tablet 20 mg PO DAILY 12/19/23 12/19/23 sertraline 25 mg tablet 25 mg PO DAILY 12/19/23 12/19/23 Previous Rx's Medication Instructions Recorded cefdinir 300 mg capsule 300 mg PO BID 10 days #20 caps 12/19/23 phenazopyridine 200 mg tablet 200 mg PO Q8H pain 2 days #6 tabs 12/19/23 (Pyridium) Allergies Allergy/AdvReac Type Severity Reaction Status Date / Time azithromycin [From Zithromax] Allergy Verified 12/17/23 10:37 cefaclor [From Ceclor] Allergy Verified 12/17/23 10:37 ciprofloxacin [From Cipro] Allergy Verified 12/17/23 10:37 nitrofurantoin Allergy Verified 12/17/23 10:37 [From Macrobid] Sulfa (Sulfonamide Allergy Verified 12/17/23 10:37 Antibiotics) Worker's Comp Is this a Worker's Comp case?: No [facility] Disclaimer: The information contained in this section may have been updated after the patient was seen, as this information can be updated by other users. 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 Urinary tract infection Tachycardia Emphysema of lung Tobacco use disorder Closed intertrochanteric fracture of left femur HTN (hypertension) Fracture of hip Surgical History History of tonsillectomy History of hysterectomy History of total hip arthroplasty Family History Other Family history of diabetes mellitus type II Social History Smoking Status: Former smoker tobacco type: cigarettes packs per day: 1 smoking status stop date: quit 2 years ago alcohol intake: never substance use type: denies use current occupational status: retired Travel in the last 8 weeks: None household members: spouse housing: house marital status: education level: master's degree current occupational exposures/hazards: No caffeine: Yes special jayden needs: No agree to transfusion: No do you feel safe at home: Yes victim of physical abuse: No victim of emotional abuse: No victim of sexual abuse: No would you like helpful sources: No ROS Obtained: Yes All systems reviewed & no additional complaints except as documented and Yes Systems reviewed as appropriate & no additional complaints except as documented Constitutional Constitutional: Reports system reviewed and no additional complaints, except as documented, Reports as per HPI, Denies body ache, Denies chills, Denies fever(s) and Denies headache(s) ENT Ears, Nose, Mouth, and Throat: Reports system reviewed and no additional complaints, except as documented, Reports as per HPI and Denies headache(s) Cardiovascular Cardiovascular: Reports system reviewed and no additional complaints, except as documented and Reports as per HPI Respiratory Respiratory: Reports system reviewed and no additional complaints, except as documented and Reports as per HPI Gastrointestinal Gastrointestingal: Reports system reviewed and no additional complaints, except as documented and as per HPI; Denies nausea or vomiting Genitourinary Female Genitourinary: Reports system reviewed and no additional complaints, except as documented, Reports as per HPI, Reports dysuria, Reports urinary frequency and Reports urinary urgency Musculoskeletal Musculoskeletal: Reports system reviewed and no additional complaints, except as documented and Reports as per HPI Neurologic Neurologic: Denies headache(s) Physical Exam General General appearance: alert and in no apparent distress ENT ENT exam: Present mucous membranes moist Respiratory Respiratory exam: Present normal lung sounds bilaterally; Absent respiratory distress or wheezes Cardiovascular Cardiovascular exam: Present regular rate, normal rhythm and normal heart sounds Neurological Exam Neurological exam: Present alert, oriented X3 and normal gait Medical Decision Making Leo Inquiry Pt receiving controlled substance: No Leo was queried for this patient: No Vital Signs: 12/19/23 14:40 Temperature 98.5 F Temperature Source Oral Pulse Rate [Left Brachial] 73 Respiratory Rate 20 Blood Pressure [Left Arm] 127/59 L Blood Pressure Mean [Left Arm] 81 Blood Pressure Source [Left Arm] Automatic Cuff Blood Pressure Position [Left Arm] Sitting 02 Sat by Pulse Oximetry 98 Oxygen Delivery Method Room Air Lab Data Lab results reviewed: Yes I reviewed the patient's lab results. Medical Decision Narrative: Patient was given Cefdinir for her last UTI and she tolerated well no reactions or problems
[2023-12-19 15:20] LABS: Apearance,Urine Cloudy (Clear); Color,Urine Yellow (Yellow)
[2023-12-19 15:21] LABS: Bilirubin,Urine Negative (Negative); Blood, Urine 2+ (Negative); Glucose,Urine (UA) Negative (Negative); Ketones,Urine Negative (Negative); Protein,Urine 2+ (Negative); Specific Gravity, Urine 1.025 (1.005-1.030); UTC Leukocyte Esterase,Urine 3+ (Negative); UTC Nitrate,Urine Negative (Negative); Urobilinogen,Urine 0.2 EU/dl (0.2)
[2023-12-19 15:31] VITALS: BP 127/59; PULSE 73; RESP 20; TEMP 36.9; O2SAT 98
== END 2023-12-19 15:36 | disposition home or self-care (01) ==
PROVIDERS: Emergency Provider Nurse Practitioner; PCP Family Medicine
DX: N39.0 Urinary tract infection, site not specified (principal); B96.4 Proteus (mirabilis) (morganii) as the cause of diseases classified elsewhere; R30.0 Dysuria
CPT/HCPCS: 81003; 87086; 87088; 87186; 99212; 99214; G0463

== ENCOUNTER 2024-04-04 16:00 | Outpatient (CLI) | payer MEDICARE, SELFPAY ==
[2024-04-04 15:37] LABS: Microscopic, Urine URINE MICROSCOPIC (MICROSCOPIC)
[2024-04-04 16:57] LABS: Appearance,Urine CLEAR (Clear); Bilirubin,Urine Negative (Negative); Blood, Urine 1+ (Negative); Color,Urine YELLOW (Yellow); Glucose,Urine (UA) Negative (Negative); Ketones,Urine Negative (Negative); Leukocyte Esterase,Urine 2+ (Negative); Nitrate,Urine POSITIVE (Negative); Protein,Urine 2+ (Negative); Urobilinogen,Urine 0.2 EU/dl (0.2)
[2024-04-04 20:23] LABS: Amorphous Sediment,Urine 4+ /lpf; WBC,Urine 20-50 #/hpf (0-3)
[2024-04-04 20:24] LABS: Bacteria,Urine 3+ /lpf
== END 2024-04-04 23:59 | disposition home or self-care (01) ==
LOC: LAB.DROPOF 04-05 09:52
PROVIDERS: PCP Urology; Visit Provider Urology
DX: N39.0 Urinary tract infection, site not specified (principal); R39.15 Urgency of urination
CPT/HCPCS: 81001; 87086; 87088; 87186

== ENCOUNTER 2024-04-06 09:29 | Outpatient (CLI) | payer MEDICARE, SELFPAY ==
--- NOTE | 2024-04-06 09:38 | US_ITS ---
FINAL REPORT TECHNIQUE: Ultrasound images of the kidneys and bladder were obtained. CLINICAL HISTORY: .utis COMPARISON: None FINDINGS: The right kidney measures 8.2 cm in length. There is a prominent right collecting system present, with enlargement of the proximal ureter as well. There is also a 1.6 cm hypoechoic focus in the lower pole of the right kidney, that has an appearance most consistent with a renal cyst. The left kidney measures 9.7 cm in length. It is normal in echogenicity. There is no hydronephrosis. IMPRESSION: Prominent right renal collecting system, with enlargement of the proximal ureter as well. This may be secondary to hydronephrosis or reflux. Reviewed, Interpreted and Dictated by Gm Coronado MD Transcribed by Tracy Ledesma Authenticated and [facility]
[2024-04-06 11:39] LABS: Blood Urea Nitrogen 38 mg/dl (7-17); Estimated Glomerular Filt Rate 29 ml/min (>60); GFR (African American) 35 ML/MIN (>60)
== END 2024-04-06 23:59 | disposition home or self-care (01) ==
LOC: RAD 09:31
PROVIDERS: PCP Family Medicine; Visit Provider Urology
DX: R39.15 Urgency of urination (principal); N39.0 Urinary tract infection, site not specified
CPT/HCPCS: 36415; 76770; 82565; 84520

== ENCOUNTER 2024-05-16 15:35 | Outpatient (CLI) | payer MEDICARE, SELFPAY ==
[2024-05-16 15:00] LABS: Microscopic, Urine URINE MICROSCOPIC (MICROSCOPIC)
[2024-05-16 15:19] LABS: Appearance,Urine CLOUDY (Clear); Bilirubin,Urine Negative (Negative); Blood, Urine 1+ (Negative); Color,Urine YELLOW (Yellow); Glucose,Urine (UA) Negative (Negative); Ketones,Urine Negative (Negative); Leukocyte Esterase,Urine 2+ (Negative); Nitrate,Urine POSITIVE (Negative); PH,Urine 7.5 (5.0-8.5); Protein,Urine 1+ (Negative); Urobilinogen,Urine 0.2 EU/dl (0.2)
[2024-05-16 15:50] LABS: Bacteria,Urine 3+ /lpf; WBC,Urine TNTC #/hpf (0-3)
== END 2024-05-16 23:59 | disposition home or self-care (01) ==
LOC: LAB.DROPOF 15:36
PROVIDERS: PCP Urology; Visit Provider Urology
DX: N39.0 Urinary tract infection, site not specified (principal); R39.15 Urgency of urination
CPT/HCPCS: 81001; 87086

== ENCOUNTER 2024-05-19 14:19 | Outpatient (CLI) | payer MEDICARE, SELFPAY ==
--- NOTE | 2024-05-19 14:20 | CT_ITS ---
FINAL REPORT CLINICAL HISTORY: UTI COMPARISON: 11/11/2022 FINDINGS: Axial CT images of the abdomen and pelvis were obtained without intravenous contrast. Coronal reformatted images were also obtained.This study was performed with techniques to keep radiation doses as low as reasonably achievable (ALARA). Individualized dose reduction techniques using automated exposure control or adjustment of mA and/or kV according to the patient's size were employed. Abdomen:The lung bases are clear. There are moderate vascular calcifications. The gallbladder is presumably completely collapsed. There is a small probable cyst in the lower pole of the right kidney which is stable. There is a less than 3 mm nonobstructing left renal stone. There is no hydronephrosis. The liver, spleen and pancreas have an unremarkable, unenhanced appearance. No adenopathy is seen. No inflammatory process is identified. A left hip arthroplasty causes streak artifact. Pelvis: Images of the pelvis reveal no definite ureteral stone. Sigmoid diverticulosis is noted. The patient is post hysterectomy. No mass or abnormal fluid collection is identified. IMPRESSION: Less than 3 mm nonobstructing left renal stone without hydronephrosis. No definite ureteral stone. Reviewed, Interpreted and Dictated by Lauri Garay III, MD Transcribed by Prema Gross Authenticated and [facility]
== END 2024-05-19 23:59 | disposition home or self-care (01) ==
LOC: RAD 14:20
PROVIDERS: PCP Family Medicine; Visit Provider Urology
DX: N20.0 Calculus of kidney (principal); N13.30 Unspecified hydronephrosis; R39.15 Urgency of urination; N39.0 Urinary tract infection, site not specified
CPT/HCPCS: 74176

== ENCOUNTER 2024-06-13 12:40 | Outpatient (CLI) | payer MEDICARE, SELFPAY ==
[2024-06-13 14:47] LABS: Microscopic, Urine URINE MICROSCOPIC (MICROSCOPIC)
[2024-06-13 15:22] LABS: Appearance,Urine CLEAR (Clear); Bilirubin,Urine Negative (Negative); Blood, Urine TRACE-I (Negative); Color,Urine YELLOW (Yellow); Glucose,Urine (UA) Negative (Negative); Ketones,Urine Negative (Negative); Leukocyte Esterase,Urine 3+ (Negative); Nitrate,Urine Negative (Negative); Protein,Urine TRACE (Negative); Urobilinogen,Urine 0.2 EU/dl (0.2)
[2024-06-13 15:56] LABS: Bacteria,Urine 1+ /lpf; WBC,Urine 50-100 #/hpf (0-3)
== END 2024-06-13 23:59 | disposition home or self-care (01) ==
LOC: LAB.DROPOF 06-14 12:41
PROVIDERS: PCP Urology; Visit Provider Urology
DX: N39.0 Urinary tract infection, site not specified (principal)
CPT/HCPCS: 81001; 87086; 87088; 87186

== ENCOUNTER 2024-06-23 14:10 | Outpatient (CLI) | payer MEDICARE, SELFPAY ==
--- OUTSIDE RECORDS SUMMARY | 2024-06-23 14:13 | XMS_ITS ---
Author Organization [facility] Address [address] [place] [id number] Care Team Providers Care Bus Or Truck Garage Mechanic Name Role Phone Silvia Son Primary Care Provider Luz Elena Gomez [phone] ALLERGIES Allergen (clinical drug ingredient) Drug/Non Drug Allergy documented on EMR Reaction Allergy Type Onset Date Status cefaclor Cefaclor rash Drug Allergy Active ciprofloxacin Cipro rash Drug Allergy Act ricarda nitrofurantoin, macrocrystals / nitrofurantoin, monohydrate Macrobid hives Drug Allergy Active azithromycin Zithromax migrain Drug Allergy Acti ve Substance with sulfonamide structure and antibacterial mechanism of action (substance) Sulfa Antibiotics throat closes Drug Allergy Active REASON FOR VISIT possible UTI MEDICATIONS Medication SIG (Take, Route, Frequency, Duration) Notes Start Date End Date Status Clopidogrel Bisulfate 75 MG 1 tablet Ora lly Once a day for 30 day(s) Active Aspirin 81 MG 1 tablet Orally Once a day for 30 day(s) Active Trimethoprim 100 MG 1 tablet Orally Once a day for 10 day(s) Active Co Q 10 100 MG as directed Orally Active Myrbetriq 50 MG 1 tablet Orally Once a day for 30 day(s) Active oxyBUTYnin Chloride ER 10 MG 1 tablet Or ally Once a day for 30 day(s) Active Cefdinir 300 MG 1 cap(s) Orally Two times a day for 7 days 06/22/2024 Active Estrace 0.1 MG/GM as directed Vaginal twice a week Active Metoprolol Succinate ER 25 MG 1 tablet O rally Two times a day for 90 days Active hydroCHLOROthiazide 12.5 MG 1 tablet in the morning Orally Once a day for 90 days Active Rosuvastatin Calcium 20 MG TAKE 1 TABLET BY MOUTH ONCE DAILY for 30 days Active Alendronate Sodium 70 MG 1 tab(s) orally once a week for 28 day(s) Active Diclofenac Sodium 1 % as directed applie d topically 4 times a day Active Sertraline HCl 25 MG 1 tab(s) orally onc e a day for 30 days Active VITAL SIGNS Weight 148.6 lbs 06/22/2024 Blood pressure systolic 122 mm Hg 06/22/20 24 Blood pressure diastolic 72 mm Hg 024 Heart Rate 58 /min 06/22/2024 Height 65 in 06/22/2024 BMI 24.73 kg/m2 06/22/2024 Encounters Encounter Location Date Provider Diagnosis [facility] [address] [facility] [address] [facility] [address] [place], [place] [id number] 06/22/2024 Luz Elena Patricia Proteus infection A4 9.8 and Acute UTI N39.0 ASSESSMENTS Encounter Date Diagnosis Assessment Notes Treatment Notes Treatment Clinical Notes 06/22/2024 Proteus infection (ICD-10 - A49.8) Reviewed culture and it is positive for proteus. He started her on trimethoprim and it is resistant. Will switch to cefdinir and have her keep appt with urology on Thursday. 06/22/2024 Acute UTI (ICD-10 - N39.0) PLAN OF TREATMENT Medication Medication Name Sig Start Date Stop Date Notes Cefdinir 300 MG 1 cap(s) Orally Two times a day for 7 days 06/22/2024 Treatment Notes Assessment Notes Proteus infection Reviewed culture and it is positive for proteus. He started her on trimethoprim and it is resistant. Will switch to cefdinir and have her keep appt with urology on Thursday. Next Appt Details Follow Up: with urology, Julia son: Provider Name:Silvia castro, 08/05/2024 10:00:00 AM, [address] [facility] [address] [facility], [address], [place], [place], [id number], Progress Notes * Examination Category Sub-Category Detail Notes General Examination Heart: RSR Lungs: clear to auscultatio n Abdomen: bowel sounds present , soft and nontender General Appearance: NAD Chest: normal shape and exp ansion History and Physical Notes * HPI (History of Present Illness) Category Sub-Category Detail Notes Urology frequent urination burning sensation hematuria fever
--- OUTSIDE RECORDS SUMMARY | 2024-06-23 14:14 | XMS_ITS ---
Author Organization [facility] Address [address] [facility] [address] [facility] [address] [place] [id number] Care Team Providers Care Certified Professional Controller Name Role Phone Silvia Son Primary Care Provider Anabel Barrientos [phone] REASON FOR VISIT flu shot IMMUNIZATIONS Vaccine Route Administration Date Status Comme nts Fluzone High Dose (65yr and older) IM Intramuscular 04/26/2024 Administered Encounters Encounter Location Date Provider Diagnosis [facility] [address] [facility] [address] [facility] [address] [place] [id number] 04/26/2024 Anabel Barrientos Encounter for immunization Z23 ASSESSMENTS Encounter Date Diagnosis Assessment Notes Treatment Notes Treatment Clinical Notes 04/26/2024 Encounter for immunization (ICD-10 - Z23) PLAN OF TREATMENT Next Appt Details Provider Name:Silvia Lassiter er, 08/05/2024 10:00:00 AM, [facility] [address] [facility], [address], [place], [phone],
--- OUTSIDE RECORDS SUMMARY | 2024-06-23 14:14 | XMS_ITS ---
Author Organization [facility] Address [address] [facility] [address] [facility] [address] [place] [id number] Care Team Providers Care Mailing Machine Operator Name Role Phone Silvia Son Primary Care Provider Luz Elena Gomez [phone] REASON FOR VISIT Message MEDICATIONS Medication SIG (Take, Route, Frequency, Duration) Notes Start Date End Date Status Paxlovid (150/100) 10 x 150 MG & 10 x 100MG 3 tab Orally Two times a day for 5 day(s) 05/04/2024 Active Encounters Encounter Location Date Provider Diagnosis [facility] [address] [facility] [address] [facility] [address] [place] [id number] 05/04/2024 Luz Elena Gomez PLAN OF TREATMENT Medication Medication Name Sig Start Date Stop Date Notes Paxlovid (150/100) 10 x 150 MG & 10 x 100MG 3 tab Orally Two times a day for 5 day(s) 05/04/2024 Next Appt Details Provider Name:Silvia Lassiter er, 08/05/2024 10:00:00 AM, [address], [address], [place], [phone],
--- OUTSIDE RECORDS SUMMARY | 2024-06-23 14:15 | XMS_ITS | Clinical Summary ---
Author Organization Healthcare Address [address] [place] [address] Care Team Providers Care Dance Historian Name Role Phone Unavailable Primary Care Provider Unavailabl e Encounters Date Type Department Care Team Description 05/25/2024 Orders Only [place] [address] [place] [address] Rachel Oreilly Stage 3 chronic kidney disease, unspecified whether stage 3a or 3b CKD (CMS/HCC) (Primary Dx); Vitamin D insufficiency from Last 3 Months Social History Tobacco Use Types Packs/Day Years Used Date Smoking Tobacco: Never Assessed Comments Unknown Sex and Gender Information Value Date Recorded Sex Assigned at Not on file Legal Sex Female 8:55 PM EDT Gender Identity Not on file Sexual Orientation Not on file Last Filed Vital Signs Vital Sign Reading Time Taken Comments Blood Pressure 108/49 02/24/2023 9:58 AM EDT Pulse 71 02/24/2023 9:58 AM EDT Temperature - - Respiratory Rate - - Oxygen Saturation - - Inhaled Oxygen Concentration - - Weight 62.1 kg (137 lb) 02/24/2023 9:58 AM EDT Height 162.6 cm (5' 4 ) 02/24/2023 9:58 AM EDT Body Mass Index 23.52 02/24/2023 9:58 AM EDT Plan of Treatment Upcoming Encounters Date Type Department Care Team ([facility] st Contact Info) Description 09/02/2024 10:00 AM EST Consult [facility] [address] [address] Ambar Posadas, ANIMAL HOSPITAL CLERK [address] [address] Health Maintenance Due Date Last Done Comments [facility]-Bone Density Scan 1941 [facility]-Depression Screening 1941 [facility]-Medicare Annual Wellness (AWV) 1941 [facility]-/Child/Adol SDOH Screenings 1941 [facility]- SDOH Screenings 1959 [facility]-Adult SDOH Screenings 1959 [facility]-Zoster Vaccines (1 of 2) 1991 [facility]-DTaP,Tdap,and Td Vaccines (1 - Tdap) 10/13/1996 10/12/1996 [facility]-RSV Vaccine: 60+ Years or (1 - 1-dose 60+ series) 2001 [facility]-Pneumococcal Vaccine: 65+ Years (1 of 1 - PCV) 2006 [id number] Vaccine ( season) 2024 06/09/2022, 05/22/2021, 09/17/2020, Additional history exists [facility]-Influenza Vaccine (#1) 04/10/202405/07, 05/03/2021, 04/11/2020, Additional history exists [facility]-HIB Vaccines Aged Out No longer e ligible based on patient's age to complete this topic [facility]-HPV Vaccines Aged Out No longer e ligible based on patient's age to complete this topic [facility]-Hepatitis A Vaccines Aged Out No longer eligible based on patient's age to complete this topic [facility]-IPV Vaccines Aged Out No longer e ligible based on patient's age to complete this topic [facility]-Rotavirus Vaccines Aged Out No lo nger eligible based on patient's age to complete this topic Insurance [facility]
--- OUTSIDE RECORDS SUMMARY | 2024-06-23 14:15 | XMS_ITS | Encounter Summary ---
Author Organization [facility] Address [address] [id number] Care Team Providers Care Top Collar Maker Name Role Phone Unavailable Primary Care Provider Unavailabl e Encounter Details Date Type Department Care Team (Late st Contact Info) Description 05/25/2024 Orders Only [facility] [address] [place] [address] Rachel Oreilly Stage 3 chronic kidney disease, unspecified whether stage 3a or 3b CKD (CMS/HCC) (Primary Dx); Vitamin D insufficiency Social History Tobacco Use Types Packs/Day Years Used Date Smoking Tobacco: Never Assessed Comments Unknown Sex and Gender Information Value Date Recorded Sex Assigned at Not on file Legal Sex Female 8:55 PM EDT Gender Identity Not on file Sexual Orientation Not on file documented as of this encounter Plan of Treatment Upcoming Encounters Date Type Department Care Team (Late Contact Info) Description 09/02/2024 10:00 AM EST Consult [facility] [address] [place] [address] Ambar Posadas, ANALYTICAL RESEARCH PROGRAM MANAGER [address] [address] Scheduled Orders Name Type Priority Associated Diagnoses Orde r Schedule Renal Function Panel, Plasma Lab Routine Stage 3 chronic kidney disease, unspecified whether stage 3a or 3b CKD (CMS/HCC) Expected: 05/25/2024 (Approximate), Expires: 11/23/2025 CBC W/O Differential Lab Routine Stage 3 chronic kidney disease, unspecified whether stage 3a or 3b CKD (CMS/HCC) Expected: 05/25/2024 (Approximate), Expires: 11/23/2025 Vitamin D 25 Hydroxy Lab Routine Stage 3 chronic kidney disease, unspecified whether stage 3a or 3b CKD ([facility]) Vitamin D insufficiency Expected: 05/25/2024 (Approximate), Expires: 11/23/2025 PTH Intact Total Lab Routine Stage 3 chronic kidney disease, unspecified whether stage 3a or 3b CKD ([facility]) Vitamin D insufficiency Expected: 05/25/2024 (Approximate), Expires: 11/23/2025 Urinalysis with reflex microscopic (Culture NOT Included) Lab Routine Stage 3 chronic kidney disease, unspecified whether stage 3a or 3b CKD ([facility]/HCC) Expected: 05/25/2024 (Approximate), Expires: 11/23/2025 Protein, Random, Urine with Creatinine Lab Routine Stage 3 chronic kidney disease, unspecified whether stage 3a or 3b CKD ([facility]/HCC) Expected: 05/25/2024 (Approximate), Expires: 11/23/2025 Creatinine, Random, Urine Lab Routine Stage 3 chronic kidney disease, unspecified whether stage 3a or 3b CKD ([facility]/HCC) Expected: 05/25/2024 (Approximate), Expires: 11/23/2025 documented as of this encounter Visit Diagnoses Diagnosis Stage 3 chronic kidney disease, unspecified whether stage 3a or 3b CKD ([facility])- Primary Vitamin D insufficiency documented in this encounter
--- OUTSIDE RECORDS SUMMARY | 2024-06-23 14:15 | XMS_ITS | Encounter Summary ---
Author Organization Healthcare Address [address] [place] [address] Care Team Providers Care Case Assembler Name Role Phone Unavailable Primary Care Provider Unavailabl e Encounter Details Date Type Department Care Team (Late st Contact Info) Description 02/24/2023 8:50 AM EDT Ancillary Procedure [place] [id number] [id number] Chest pain Social History Tobacco Use Types Packs/Day Years Used Date Smoking Tobacco: Never Assessed Comments Unknown Sex and Gender Information Value Date Recorded Sex Assigned at Not on file Legal Sex Female 8:55 PM EDT Gender Identity Not on file Sexual Orientation Not on file documented as of this encounter Last Filed Vital Signs Vital Sign Reading [...] Mass Index 23.52 02/24/2023 9:58 AM EDT documented in this encounter Plan of Treatment Upcoming Encounters Date Type Department Care Team (Late st Contact Info) Description 09/02/2024 10:00 AM EST Consult [facility] [place] [phone] Ambar Posadas, MANAGER TESTING [address] [address] documented as of this encounter Procedures Procedure Name Priority Date/Time Associated Diagnosis Comments ADULT ECHO OUTSIDE READ Routine 02/24/2023 9:58 AM EDT Chest pain documented in this encounter Results * ADULT ECHO OUTSIDE READ (02/24/2023 9:58 AM EDT) BSA 1.67 m2 OSCAR ISCV Height 162.6 OSCAR ISCV Weight 62.1 OSCAR ISCV LVOT diam 18 mm OSCAR ISCV LVOT AREA 2.5 cm2 OSCAR ISCV MV E Vmax 105.0 cm/s OSCAR ISCV MV A Vmax 147.0 cm/s OSCAR ISCV MV E/A 0.7 cm/s OSCAR ISCV TR Vmax 295.0 cm/s OSCAR ISCV TR Max PG 35 mmHG OSCAR ISCV RVSP 43 mmHg OSCAR ISCV RAP systole 8 mmHg OSCAR ISCV Anatomical Region Laterality Modality Echocardiography Narrative 02/24/2023 5:52 PM EDT ?The left ventricle is normal size. The proximal septum is thickened, but with no evidence of left ventricular outflow tract (LVOT) obstruction. The left ventricular systolic function is normal. The LVEF is visually estimated at 60 - 70%. ?Bi-atrial enlargement. ?There is no recent study available for direct rhpm-cb-bpcc comparison. ?? Left Ventricle The left ventricle is normal size. The proximal septum is thickened, but with no evidence of left ventricular outflow tract (LVOT) obstruction. The left ventricular systolic function is normal. The LVEF is visually estimated at 60 - 70%. Unable to assess diastolic function due to poor image quality. No regional wall motion abnormalities are seen. Right Ventricle The right ventricle is grossly normal in size. The right ventricular systolic function is grossly normal. The estimated global right ventricular systolic function based upon the tricuspid annular plane of systolic excursion (TAPSE) is normal (>=17 mm). The estimated global right ventricular systolic function based upon the TDI maximal systolic velocity is normal (>=9.5 cm/s). Right ventricular systolic pressure is mildly elevated (35-50mmHg). Left Atrium The left atrium is dilated by visual assessment. The interatrial septum is intact with no evidence for an atrial septal defect. Right Atrium The right atrium is dilated by visual assessment. IVC/SVC The IVC was not well visualized, and an assumed pressure of 8mmHg was used for calculations. Mitral Valve The mitral valve is grossly normal. There is mild posterior mitral annular calcification. There is mild mitral regurgitation. There is no mitral stenosis. Tricuspid Valve The tricuspid valve is grossly normal in appearance. There is mild tricuspid regurgitation. There is no tricuspid stenosis. Aortic Valve The non-coronary cusp is thickened. There is no valvular regurgitation. There is no hemodynamically significant valvular aortic stenosis. Pulmonic Valve The pulmonic valve was not well visualized. There is trace pulmonic regurgitation. There is no pulmonic stenosis. Pericardium No pericardial effusion. Great Vessels The aortic root is normal in size. The main pulmonary artery is not well visualized. Study Details A complete transthoracic echocardiogram using two-dimensional (2D), m-mode, color and spectral flow Doppler imaging was performed. Height: 162.6 cm. Weight: 62.1 kg. BSA: 1.67 m2. Study Recommendation There is no recent study available for direct txpe-vo-mloj comparison. Hosea MOREJON CV ECHO PROCEDURES Final Result documented in this encounter Visit Diagnoses Diagnosis Chest pain Unspecified chest pain documented in this encounter
--- OUTSIDE RECORDS SUMMARY | 2024-06-23 14:15 | XMS_ITS | Patient Health Record ---
Author Organization [facility] Address [address] [place] [id number] Care Team Providers Care Datapower Developer Name Role Phone Silvia Son Primary Care Provider Anabel Barrientos Unavailable [phone] Luz Elena Gomez Unavailable [phone] ALLERGIES Allergen (clinical drug ingredient) Drug/Non Drug [...] Sulfa Antibiotics throat closes Drug Allergy Active RESULTS Component Value Reference Range Notes P-Culture, Urine Reviewed date:01/22/2024 09:44:17 AM Interpretation:No growth Performing Lab: Notes/Report: Test performed by [facility] [address] [place] [address] , [address], [place] [address] Juan Carlos Bansal MD, Needle Punch Operator CLIA: [id number] Specimen Source Urine - Void Culture, Urine See Below Final Report : No growth Urinalysis - Inhouse Reviewed date:01/21/2024 04:46:00 PM Interpretation: Performing Lab: Notes/Report: Color/Clarity clear Leuk neg Nitrite neg Urobili 3.2 Protein 3+ pH 6.5 Blood 2+ Sp. Gr. 1.020 Ketone neg Bili neg Gluc neg bacteria WBC RBC P-Culture, Urine Reviewed date:01/18/2024 04:28:01 PM Interpretation:sensitivity not recommended Performing Lab: Notes/Report: Test performed by [facility] [address] [place] [address] , [address], [place] [address] Juan Carlos Bansal MD, Needle Punch Operator CLIA: [id number] Specimen Source Urine - Void Culture, Urine See Below Final Report : <10,000 CFU/ml Gram Negative Organisms One or two organism(s) present <10,000 CFU/ml. Organism identification and sensitivity assessment are not recommended unless clinically indicated. Urinalysis - Inhouse Reviewed date:01/06/2024 12:27:29 PM Interpretation: Performing Lab: Notes/Report: Color/Clarity dark Leuk neg Nitrite neg Urobili 16 Protein 1+ pH 7.0 Blood 2+ Sp. Gr. 1.025 Ketone tr Bili 1+ Gluc neg bacteria WBC RBC P-Lipid Panel Reviewed date:03/01/2024 09:09:50 AM Interpretation:Normal Performing Lab: Notes/Report: Test performed by [facility] [address] [place] [address] , [address], [place] [address] Juan Carlos Bansal MD, Needle Punch Operator CLIA: [id number] Cholesterol 185 <200 mg/dL Triglycerides 124 <150 mg/dL HDL Cholesterol 83 >39 mg/dL Cholesterol / HDL Ratio 2.23 0.00-4.44 Ratio Non-HDL Cholesterol 102 <130 mg/dL LDL Cholesterol (Calculation) 77 <130 mg/dL LDL Cholesterol Levels* Less than 100 mg/dL Optimal 100 to 129 mg/dL Near Optimal/ Above Optimal 130 to 159 mg/dL Borderline High 160 to 189 mg/dL High 190 mg/dL and above Very High * Categories as recommended by the 2004 ATPIII guidelines LDL/HDL Ratio 0.9 <3.3 Ratio ____ LDL Cholesterol Patient History ____ Test Date: 02/29/2024 LDL Results: 77 Units: mg/dL % Change: - ____ P-Comprehensive Metabolic Pa yamila (CMP) Reviewed date:03/01/2024 09:09:50 AM Interpretation:bun 34, Cr 1.6, gfr 32 Performing Lab: Notes/Report: Test performed by [facility] [address] [place] [address] [address], [place] [address] Juan Carlos Bansal MD, Needle Punch Operator CLIA: [id number] Sodium 138 135-145 mmol/L Potassium 3.7 3.5-5.3 mmol/L Chloride 100 97-108 mmol/L CO2 28 22-32 mmol/L Glucose 87 65-99 mg/dL BUN 34 8-23 mg/dL Creatinine 1.60 0.50-1.00 mg/dL Calcium 9.8 8.6-10.4 mg/dL eGFR by Creatinine 32 >59 mL/min/1.73m2 Protein 6.6 6.0-8.3 g/dL Albumin 4.4 3.5-5.3 g/dL Alkaline Phosphatase 79 35-121 IU/L ALT (SGPT) 16 <5-47 IU/L AST (SGOT) 22 <5-40 IU/L Bilirubin, Total 0.6 <0.2-1.2 mg/dL A/G Ratio 2.0 1.1-2.5 mg/dL P-Culture, Urine Reviewed date:03/31/2024 04:57:42 PM Interpretation: Performing Lab: Notes/Report: Test performed by [facility] [address] [place] [address] [address], [place] [address] Juan Carlos Bansal MD, Needle Punch Operator CLIA: [id number] Specimen Source Urine - Void Culture, Urine See Below See Microbiol ogy Report Escherichia coli 50,000-100,000 CFU/ml Escherichia coli Sensitivity Panel See Below ____ Organism E. coli Antibiotic INTERP ____ Amikacin S Ampicillin R Aztreonam I Cefepime S Cefoxitin R Ceftazidime R Ceftriaxone R Cefuroxime R Ciprofloxacin S Ertapenem S Gentamicin S Imipenem S Levofloxacin S Meropenem S Nitrofurantoin S Piperacillin/Tazo S Tetracycline S Tobramycin S Trimeth/Sulfa S ___ S=SUSCEPTIBLE I=INTERMEDIATE R=RESISTANT Urinalysis - Inhouse Reviewed date:03/25/2024 03:58:33 PM Interpretation: Performing Lab: Notes/Report: Color/Clarity yellow/cloudy Leuk 3+ Nitrite pos Urobili 16 Protein 3+ pH 7.0 Blood 2+ Sp. Gr. 1.025 Ketone neg Bili neg Gluc neg bacteria WBC RBC P-Microalbumin/Creatinine, R andom Urine Sample Reviewed date:10/26/2023 09:03:05 AM Interpretation:A/C 196 Performing Lab: Notes/Report: Test performed by [facility] , [address], [place] [address] Juan Carlos Bansal MD, Needle Punch Operator CLIA: [id number] Albumin/Creatinine Ratio, Urine 196 0-30 ug/mg Microalbumin, Urine, Random 7.7 Creatinine, Urine 39.2 P-Comprehensive Metabolic Pa yamila (CMP) Reviewed date:10/26/2023 09:03:05 AM Interpretation:Bun 28, Creat 1.31, Egfr 41 Performing Lab: Notes/Report: Test performed by [facility] [address] [place] [address] , [address], [place] [address] Juan Carlos Bansal MD, Needle Punch Operator CLIA: [id number] Sodium 141 135-145 mEq/L Potassium 4.6 3.5-5.3 mEq/L Chloride 102 97-108 mEq/L CO2 29 22-32 mEq/L Glucose 97 65-99 mg/dL BUN 28 8-23 mg/dL Creatinine 1.31 0.50-1.00 mg/dL Calcium 9.6 8.6-10.4 mg/dL eGFR by Creatinine 41 >59 mL/min/1.73m2 Protein 6.4 6.0-8.3 g/dL Albumin 4.2 3.5-5.3 g/dL Alkaline Phosphatase 88 35-121 IU/L ALT (SGPT) 18 <5-47 IU/L AST (SGOT) 24 <5-40 IU/L Bilirubin, Total 0.7 <0.2-1.2 mg/dL A/G Ratio 1.9 1.1-2.5 mg/dL Glycohemoglobin A1c (in hous e) Reviewed date:10/23/2023 12:40:09 PM Interpretation: Performing Lab: Notes/Report: glycohemoglobin 5.6% 5 - 6.5 % CXR Reviewed date:07/27/2023 08:51:43 AM Interpretation:Hyperinflated lungs w/o acute cardiopulmonary process Performing Lab: Notes/Report: Hyperinflated lungs w/o acute cardiopulmonary process CBC Fingerstick (in house) Reviewed date:07/24/2023 08:39:35 AM Interpretation: Performing Lab: Notes/Report: wbc 11.2 3.5 - 10 lym 17.7 15 - 50 mid 4.6 2 - 15 gran 77.7 35 - 80 rbc 4.15 3.5 - 5.5 hgb 12.1 11.5 - 16.5 hct 37.5 35 - 55 mcv 90.3 75 - 100 mch 29.2 25 - 35 mchc 32.3 31 - 38 plat 273 100 - 400 Covid test (in house) Reviewed date:07/16/2023 08:46:48 AM Interpretation:Positive Performing Lab: Notes/Report: Positive Result: CBC Fingerstick (in house) Reviewed date:07/15/2023 04:07:18 PM Interpretation: Performing Lab: Notes/Report: wbc 8.5 3.5 - 10 lym 19.2% 15 - 50 mid 5.5% 2 - 15 gran 75.3% 35 - 80 rbc 4.07 3.5 - 5.5 hgb 12.0 11.5 - 16.5 hct 37.2 35 - 55 mcv 91.2 75 - 100 mch 29.6 25 - 35 mchc 32.4 31 - 38 plat 207 100 - 400 Rapid Strep- Inhouse Reviewed date:07/15/2023 04:07:08 PM Interpretation: Performing Lab: Notes/Report: strep test Neg Influenza Screen (in house) Reviewed date:07/15/2023 04:07:27 PM Interpretation: Performing Lab: Notes/Report: results Neg MEDICATIONS Medication SIG (Take, Route, Frequency, Duration) Notes Start Date End Date Status oxyBUTYnin Chloride ER 10 MG 1 tablet Or ally Once a day for 30 day(s) Active Metoprolol Succinate ER 25 MG 1 tablet O rally Two times a day for 90 days Active hydroCHLOROthiazide 12.5 MG 1 tablet in the morning Orally Once a day for 90 days Active Diclofenac Sodium 1 % as directed applie d topically 4 times a day Active Sertraline HCl 25 MG 1 tab(s) orally onc e a day for 30 days Active Clopidogrel Bisulfate 75 MG 1 tablet Ora lly Once a day for 30 day(s) Active Cefdinir 300 MG 1 cap(s) Orally Two times a day for 7 days 06/22/2024 Active Aspirin 81 MG 1 tablet Orally Once a day for 30 day(s) Active Trimethoprim 100 MG 1 tablet Orally Once a day for 10 day(s) Active Co Q 10 100 MG as directed Orally Active Estrace 0.1 MG/GM as directed Vaginal twice a week Active Rosuvastatin Calcium 20 MG TAKE 1 TABLET BY MOUTH ONCE DAILY for 30 days Active Myrbetriq 50 MG 1 tablet Orally Once a day for 30 day(s) Active Alendronate Sodium 70 MG 1 tab(s) orally once a week for 28 day(s) Active IMMUNIZATIONS Vaccine Route Administration Date Status Comme nts xFluzone High Dose-private (65yr&older) IM Intramuscular 05/17/2014 Administered Prevnar (PCV13) IM Intramuscular 11/01/2016 Administered PNEUMOVAX 23 VACCINE IM Intramuscular 05/17/2014 Administe red Fluzone High Dose (65yr and older) IM Intramuscular 05/10/2013 Administered Fluzone High Dose (65yr and older) IM Intramuscular 05/21/2015 Administered Fluzone High Dose (65yr and older) IM Intramuscular 05/26/2016 Administered Fluzone High Dose (65yr and older) IM Intramuscular 05/12/2017 Administered Fluzone High Dose (65yr and older) IM Intramuscular 05/12/2018 Administered Fluzone High Dose (65yr and older) IM Intramuscular 05/11/2019 Administered Fluzone High Dose (65yr and older) IM Intramuscular 04/11/2020 Administered Fluzone High Dose (65yr and older) IM Intramuscular 05/03/2021 Administered Fluzone High Dose (65yr and older) IM Intramuscular 05/07/2022 Administered Fluzone High Dose (65yr and older) Unknown 05/07/2022 Administered Fluzone High Dose (65yr and older) IM Intramuscular 04/20/2023 Administered Fluzone High Dose (65yr and older) IM Intramuscular 04/26/2024 Administered DT, 7 YEARS OR OLDER Unknown 10/12/1996 Administered COVID 19 Moderna Unknown 08/17/2020 Administered COVID 19 Moderna Unknown 09/17/2020 Administered COVID 19 Moderna Unknown 05/22/2021 Administered SOCIAL HISTORY Sex Assigned At : Social History Observation Description Sex Assigned At Unknown PROBLEMS Problem Type ICD Code Onset Dates Problem Status W/U Status Risk SNOMED Code Notes Problem ASCVD (429.2) Active confirmed Disorder of cardiovascular system (39662061) Problem Essential (primary) hypertension (I10) Active confirmed 33867040 Problem Essential hypertension (I10) Active confirmed 44778440 Problem Elevated lipase (R74.8) Active confirmed 184907244 Problem Duodenal ulcer (K26.9) Active confirmed 00988029 Problem Depression with anxiety (F41.8) Active confirmed 335619320 Problem Bandemia (D72.825) Active confirmed 442 700016 Problem Pure hypercholesterolemia (E78.0) Active confirmed 547202764 Problem Primary insomnia (F51.01) Active confirmed 3730660 Problem Old myocardial infarction (I25.2) Active confirmed 5616679 Problem Chronic ischemic heart disease, unspecified (I25.9) Active confirmed 627810952 Problem Centrilobular emphysema (J43.2) Active confirmed 92738468 Problem Chronic obstructive pulmonary disease with (acute) exacerbation (J44.1) Active confirmed 5336948813997 Problem Pain in right knee (M25.561) Active confirmed 6952347868 Problem Pain in unspecified knee (M25.569) Active confirmed 6006206990 Problem Other intervertebral disc degeneration, lumbar region (M51.36) Active confirmed 84335396 Problem Epigastric pain (R10.13) Active confirmed 66559148 Problem Personal history of (healed) traumatic fracture (Z87.81) Active confirmed 140202613 Problem Arteriosclerotic cardiovascular disease (I25.10) Active confirmed 43762703 Problem Other chronic pain (G89.29) Active confirmed 93218636 Problem Acquired hypothyroidism (E03.9) Active confirmed 958238394 Problem Pulmonary emphysema, unspecified emphysema type (J43.9) Active confirmed 53451687 Problem Situational depression (F43.21) Active confirmed 62848226 Problem Periumbilical abdominal pain (R10.33) Active confirmed 634326839 Problem Osteoporosis (M81.0) Active confirmed O steoporosis (49829465) Problem Atrial fibrillation, unspecified type (I48.91) Active confirmed 82884728 Problem Reactive depression (F32.9) Active confirmed 56199727 Problem Urinary incontinence , unspecified type (R32) Active confirmed 183594945 Problem Atherosclerosis of ramona coronary artery without angina pectoris, unspecified whether ramona or transplanted heart (I25.10) Active confirmed 472221985 Problem Gastritis and duodenitis (K29.90) Active confirmed 654411831 Problem Pure hypercholesterolemia (E78.00) Active confirmed Pure hypercholesterolemia (466755273) Problem Acute arthritis (M19.90) Active confirmed 97746479 Problem Osteoporosis without current pathological fracture, unspecified osteoporosis type (M81.0) Active confirmed 40109313 Problem S/P coronary artery stent placement (Z95.5) Active confirmed 002144061 Problem History of left hip replacement (Z96.642) Active confirmed 015173276 Problem Type 2 diabetes mellitus with diabetic peripheral angiopathy without gangrene, unspecified whether intermodal owner operator truck driver insulin use (E11.51) Active confirmed 720157611 Problem Closed fracture of trochanter of femur with malunion, unspecified laterality, subsequent encounter (S72.109P) Active confirmed 897413915 VITAL SIGNS Heart Rate 58 /min 06/22/2024 Blood pressure diastolic 72 mm Hg 06/22/2024 Height 65 in 06/22/2024 Blood pressure systolic 122 mm Hg 06/22/2024 Weight 148.6 lbs 06/22/2024 BMI 24.73 kg/m2 06/22/2024 Encounters Encounter Location Date Provider Diagnosis [facility] [address] [place], [place] [id number] 06/25/2023 Silvia Son [facility] [address] [place], [place] [id number] 07/15/2023 Luz Elena Patricia Acute URI J06.9 and COVID-19 U07.1 [facility] [address] [place], [place] [id number] 07/20/2023 Silvia Son [facility] [address] [place], [place] [id number] 07/23/2023 Silvia Son COVID-19 U07.1 and Essential (primary) hypertension I10 [facility] [address] [place] [id number] 07/27/2023 Silvia Son [facility] [address] [place] [id number] 07/30/2023 Luz Elena Crowdy COVID-19 U07.1 [facility] [address] [place], [place] [id number] 10/07/2023 Luz Elena Patricia Acute pain of left k nee M25.562 [facility] [address] [place] [id number] 10/20/2023 Silvia Son [facility] [address] [place], [place] [id number] 10/23/2023 Silvia Son Essential hypertensi on I10 ; Centrilobular emphysema J43.2 ; Osteoporosis M81.0 ; 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 ; History of left hip replacement Z96.642 and Hyperglycemia R73.9 [facility] [address] [place], [place] [id number] 10/26/2023 Silvia Son [facility] [address] [place] [id number] 01/06/2024 Luz Elena Crowdy Dysuria R30.0 [facility] [address] [place] [id number] 01/18/2024 Silvia Son [facility] [address] [place] [id number] 01/18/2024 Luz Elena Crowdy Dysuria R30.0 [facility] [address] [place] [id number] 01/21/2024 Luz Elena Crowdy Dysuria R30.0 [facility] [address] [place] [id number] 02/29/2024 Silvia Son 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 ; Centrilobular emphysema J43.2 ; History of left hip replacement Z96.642 ; Pure hypercholesterolemia E78.0 ; Depression with anxiety F41.8 and Pure hypercholesterolemia E78.00 [facility] [address] [place], [place] [id number] 03/01/2024 Silvia Son [facility] [address] [place] [id number] 03/25/2024 Luz Elena Crowdy Dysuria R30.0 [facility] [address] [place] [id number] 03/25/2024 Luz Elena Crowdy [facility] [address] [place] [id number] 03/31/2024 Luz Elena Crowdy [facility] [address] [place] [id number] 04/26/2024 Anabel Franck Iliana Encounter for immuni zation Z23 [facility] [address] [place] [id number] 05/04/2024 LuzE lena Gomez [facility] [address] [place] [id number] 06/22/2024 Luz Elena Gomez Proteus infection A4 9.8 and Acute UTI N39.0 ASSESSMENTS Encounter Date Diagnosis Assessment Notes Treatment Notes Treatment Clinical Notes 07/15/2023 Acute URI (ICD-10 - J06.9) 07/15/2023 COVID-19 (ICD-10 - U07.1) 01/21/2024 Dysuria (ICD-10 - R30.0) 02/29/2024 Centrilobular emphys gray (ICD-10 - J43.2) 02/29/2024 Arteriosclerotic cardiovascular disease (ICD-10 - I25.10) 04/26/2024 Encounter for immunization (ICD-10 - Z23) 06/22/2024 Acute UTI (ICD-10 - N39.0) 06/22/2024 Proteus infection (I CD-10 - A49.8) Reviewed culture and it is positive for proteus. He started her on trimethoprim and it is resistant. Will switch to cefdinir and have her keep appt with urology on Thursday. 03/25/2024 Dysuria (ICD-10 - R30.0) Sara jacques has an allergy listed to cefaclor but she was given cefdinir in the [facility] in December for a UTI and tolerated it fine. Will try this again and get a urine culture. 01/06/2024 Dysuria (ICD-10 - R30.0) Pre vious culture showed proteus. This is her 3rd antibiotic in the past few months. Will repeat a culture and will also get a U/A and culture as soon as she is finished with abx. She may need urology referral. 10/23/2023 Essential hypertensi on (ICD-10 - I10) 10/23/2023 Centrilobular emphys gray (ICD-10 - J43.2) 10/07/2023 Acute pain of left k nee (ICD-10 - M25.562) Pain is much better today after using voltaren. Will continue the voltaren and call if it gets any worse, will call back and will get an x-ray. 07/30/2023 COVID-19 (ICD-10 - U07.1) Fe eling much better. Continue current care. 07/23/2023 Essential (primary) hypertension (ICD-10 - I10) 07/23/2023 COVID-19 (ICD-10 - U07.1) 10/23/2023 Osteoporosis (ICD-10 - M81.0) 02/29/2024 History of left hip replacement (ICD-10 - Z96.642) 01/18/2024 Dysuria (ICD-10 - R30.0) 02/29/2024 Pure hypercholestero lemia (ICD-10 - E78.0) 10/23/2023 Arteriosclerotic cardiovascular disease (ICD-10 - I25.10) 10/23/2023 History of left hip replacement (ICD-10 - Z96.642) 02/29/2024 Depression with anxi ety (ICD-10 - F41.8) 10/23/2023 Hyperglycemia (ICD-1 0 - R73.9) 02/29/2024 Pure hypercholestero lemia (ICD-10 - E78.00) PLAN OF TREATMENT Pending Test Test Name Order Date Mammogram 06/13/2024 Next Appt Details Provider Name:Silvia Cabrera Sravani er, 08/05/2024 10:00:00 AM, [address] [facility], [address], [place], [place], [id number], Insurance Providers Payer Name Payer Address Payer Phone Subscriber Number Group Number Insured Name Patient Relationship to Insured Coverage Start Date Coverage End Date [facility] [address] [address] [place] [address] [id number] JONY LEWIS Self - patient is the insured MEDICATIONS ADMINISTERED Medication Instructions Date of Administration Dosage Notes Dexamethasone 06/09/2014 1 mL Dexamethasone 06/21/2018 1 mL MEDICAL (GENERAL) HISTORY Medical History History ICD Code HTN Pulmonary emphysema Hyperliidemia Osteoporesis Covid 19 Vaccine, Moderna, 08/17/20, 1, -[facility] COVID 19 Booster 05/22/2021, Beth Angioplasty and stent, 02/24/23, Dr. Vasquez vines Surgical History Surgery Date(Month/Year) tonsils removed Hysterectomy 1982 Natural 1964 Natural 1968 Breast biopsy, Dr. Roberts 2016 closed Intertrochanteric fra cture of the left hip withclosed reduction & cephalomedullary nailing of left femur 11/07/2020 Hospitalization History Reason Date(Month/Year) tonsils above Hysterectomy 1982 [facility] for repair of eft hiop ; HTN; tachcardia; UTI with enterobacter; respiratory faiure with hypoxia; emphysema; tobacco use disorder 11/06-11/10/2020 [place] recovery Lft hip November 2020
[2024-06-23 14:56] LABS: Blood Urea Nitrogen 40 mg/dl (7-17); Estimated Glomerular Filt Rate 36 ml/min (>60); GFR (African American) 43 ML/MIN (>60)
== END 2024-06-23 23:59 | disposition home or self-care (01) ==
LOC: LAB 14:12
PROVIDERS: Urology; PCP Family Medicine; Visit Provider Neurological Surgery
DX: N39.0 Urinary tract infection, site not specified (principal)
CPT/HCPCS: 36415; 82565; 84520

== ENCOUNTER 2024-06-24 10:06 | Day surgery (SDC) | payer MEDICARE, SELFPAY ==
[2024-06-24 10:22] VITALS: BMI 25.7
[2024-06-24 10:32] VITALS: BP 135/55; PULSE 59; RESP 18; TEMP 36.6; O2SAT 95
--- NOTE | 2024-06-24 10:39 | P.PCN_ITS ---
[facility] Procedure Note Date: 06/24/24 Time: 10:39 Procedure Note:: Chart review: The patient is troubled with recurrent urinary tract infection. She had a Proteus UTI on 07/03. Her serum creatinine on 04/02 is elevated at 1.7. Her CT scan with and without infusion shows a left 3 mm renal stone and a stable cyst done 06/02. She is on Estrace, Ditropan, and Myrbetric. Preop diagnosis: Recurrent UTI Postop diagnosis: Recurrent UTI Operative note: The patient was brought to the cystoscopy suite she was prepped and draped in the standard fashion. She underwent flexible cystoscopy. Her urethra is unremarkable. The bladder itself is [place] pink in color throughout without evidence of bladder stone tumor hemorrhage or infection. She has some very mild cystitis cystica near the bladder neck. The ureteral orifices are normal bilaterally with clear E flux of urine. She tolerated the procedure well.
[2024-06-24] MEDS: 0.9 % SODIUM CHLORIDE 500 ML 25 ML IV (10:46)
[2024-06-24 10:53] VITALS: BP 143/61; PULSE 62; RESP 16; TEMP 36.4; O2SAT 99
[2024-06-24 15:05] LABS: Microscopic,Cath URINE MICROSCOPIC (MICROSCOPIC)
[2024-06-24 15:07] LABS: Appearance,Urine/Cath CLEAR (Clear); Bilirubin,Cath Negative (Negative); Blood, Urine/Cath TRACE-I (Negative); Color,Urine/Cath YELLOW (Yellow); Glucose,Urine/Cath (UA) Negative (Negative); Ketones,Urine/Cath Negative (Negative); Leukocyte Esterase,Cath 1+ (Negative); Nitrate,Cath Negative (Negative); Protein,Urine/Cath TRACE (Negative); Specific Gravity, Urine/Cath 1.025 (1.005-1.030); Urobilinogen,Cath 0.2 EU/dl (0.2)
[2024-06-24 15:41] LABS: Bacteria,Urine/Cath 1+ /lpf; Mucus,Urine/Cath 1+ /lpf; WBC,Urine/Cath TNTC #/hpf (0-3)
== END 2024-06-24 11:02 | disposition home or self-care (01) ==
PROVIDERS: PCP Family Medicine; Visit Provider Urology
PROC: 0TJB8ZZ Inspection of Bladder, Via Natural or Artificial Opening Endoscopic (ICD-10-PCS; CPT 52000; principal; 2024-06-24 09:45)
DX: N30.90 Cystitis, unspecified without hematuria (principal)
CPT/HCPCS: 52000; 81001; 87086

== ENCOUNTER 2024-06-29 14:30 | Outpatient (CLI) | payer MEDICARE, SELFPAY ==
--- NOTE | 2024-06-29 14:35 | MM_ITS ---
PROCEDURE INFORMATION: Exam: MG Bilateral Screening 3D Mammography Exam date and time: 06/29/2024 2:40 PM Age: 84 years old Clinical indication: Screening examination. Her maternal grandmother had breast cancer. TECHNIQUE: Imaging protocol: Bilateral Screening tomosynthesis and 2D mammography including computer-aided detection (CAD) when performed. COMPARISON: 1. MG MM DIG SCREENING MAMM BI W/CAD 04/22/2023 1:00 PM 2. MG MM DIG SCREENING MAMM BI W/CAD 03/25/2022 10:58 AM 3. MG MM DIG SCREENING MAMM BI W/CAD 02/26/2021 2:30 PM 4. MG MM DIG MAMM DX UNILAT RT CAD 07/26/2020 2:12 PM FINDINGS: MAMMOGRAPHY: Breast composition: The breasts are extremely dense, which lowers the sensitivity of mammography. Mass: No suspicious mass. Architectural distortion: None. Calcifications: No suspicious calcifications. Asymmetric density: None. Skin thickening: None. Axillary adenopathy: None. IMPRESSION: No mammographic evidence of malignancy. Annual screening is recommended unless otherwise clinically indicated. ASSESSMENT: BI-RADS Category 1: Negative.
== END 2024-06-29 23:59 | disposition home or self-care (01) ==
LOC: RAD 14:32
PROVIDERS: PCP Family Medicine; Visit Provider Family Medicine
DX: Z12.31 Encounter for screening mammogram for malignant neoplasm of breast (principal)
CPT/HCPCS: 77063; 77067

== ENCOUNTER 2024-08-30 14:01 | Outpatient (CLI) | payer MEDICARE, SELFPAY ==
[2024-08-30 14:10] LABS: Microscopic, Urine URINE MICROSCOPIC (MICROSCOPIC)
[2024-08-30 14:34] LABS: Red Cell Distribution Width 12.9 % (11.5-17.5); White Blood Count 8.7 K/mm3 (4.8-10.8)
[2024-08-30 14:36] LABS: Appearance,Urine CLEAR (Clear); Bilirubin,Urine Negative (Negative); Blood, Urine TRACE-I (Negative); Color,Urine YELLOW (Yellow); Glucose,Urine (UA) Negative (Negative); Ketones,Urine Negative (Negative); Leukocyte Esterase,Urine TRACE (Negative); Nitrate,Urine Negative (Negative); PH,Urine 7.5 (5.0-8.5); Protein,Urine 1+ (Negative); Urobilinogen,Urine 0.2 EU/dl (0.2)
[2024-08-30 14:46] LABS: Creatinine,Urine Random 67 mg/dL (Not Estab.)
[2024-08-30 14:52] LABS: Albumin Level 4.2 g/dl (3.5-5.0); Anion Gap 11.8 mEq/L (5-15); Blood Urea Nitrogen 36 mg/dl (7-17); Calcium 9.5 mg/dl (8.4-10.2); Carbon Dioxide 30 mmol/L (22.0-30.0); Chloride 101 mmol/L (98-107); Estimated Glomerular Filt Rate 43 ml/min (>60); GFR (African American) 52 ML/MIN (>60); Glucose 91 mg/dl (74-100); Phosphorous 3.5 mg/dl (2.5-4.5); Potassium 3.8 mmoL/L (3.5-5.1); Sodium 139 mmol/L (136-145)
[2024-08-30 15:04] LABS: Intact Parathyroid Hormone 178.9 pg/mL (7.5-53.5)
[2024-08-30 15:09] LABS: Bacteria,Urine 1+ /lpf; WBC,Urine TNTC #/hpf (0-3)
[2024-08-30 15:10] LABS: 25-OH Vitamin D, Total 28.1 ng/mL (30-100)
[2024-08-30 15:56] LABS: Hematocrit 41.3 % (37.0-47.0); Hemoglobin 13.2 g/dL (12.2-16.2); Mean Corpuscular Hemoglobin 30.1 pg (27.0-31.2); Mean Corpuscular Volume 94.1 fl (81-99); Platelet Count 265 K/mm3 (142-424); Red Blood Count 4.39 M/mm3 (4.20-5.40)
== END 2024-08-30 23:59 | disposition home or self-care (01) ==
LOC: LAB 14:03
PROVIDERS: PCP Family Medicine; Visit Provider Nurse Practitioner
DX: N18.30 Chronic kidney disease, stage 3 unspecified (principal); E55.9 Vitamin D deficiency, unspecified; N39.0 Urinary tract infection, site not specified
CPT/HCPCS: 36415; 80069; 81001; 82306; 82570; 83970; 84156; 85027; 87086; 87088; 87186

== ENCOUNTER 2025-02-03 14:04 | Outpatient (CLI) | payer MEDICARE, SELFPAY ==
--- OUTSIDE RECORDS SUMMARY | 2024-08-05 06:00 | XMS_ITS ---
Author Organization [facility] Address [address] [place] [phone] Care Team Providers Care Refrigeration System Installer Name Role Phone Silvia Son Primary Care [...] Normal Performing Lab: Notes/Report: Test performed by [facility], [address] , [place] [address] Juan Carlos Bansal MD, Crowning Hammer Operator CLIA: [id number] WBC 7.1 3.8-11.5 K/uL Red Blood Cell [...] 30 Performing Lab: Notes/Report: Test performed by [facility] [address] [place], [place] [address] [place] , [address], [place] [address] Juan Carlos Bansal MD, Crowning Hammer Operator CLIA: [id number] Sodium 140 135-145 mmol/L Potassium 3.9 3.5-5.3 [...] Normal Performing Lab: Notes/Report: Test performed by [facility] [address] [place] [address] , [address], [place] [address] Juan Carlos Bansal MD, Crowning Hammer Operator CLIA: [id number] TSH 3.36 0.43-5.25 mU/L REASON FOR VISIT [...] day; Duration: 30 day(s) Active Vital Signs Blood pressure systolic 120 mm Hg 08/05/20 24 Blood pressure diastolic 72 mm Hg 024 Heart Rate 61 /min 08/05/2024 Height 65 in 08/05/2024 Weight 144.6 lbs 08/05/2024 BMI 24.06 kg/m2 08/05/2024 Encounters Encounter Location Date [facility] [address] [place] [phone] 08/05/2024 Silvia Son ASCVD (arteriosclero tic cardiovascular [...] [address], [address], [place], [place], [id number], Progress Notes * JONY LEWIS KDOB:1940 ( 84 yo F)Acc No.[id number]:08/05/2024 Progress Notes Patient: JONY ALVAREZ Provider: Silvia Son M.D. :1940 A ge:84 Y S ex:Female Date:08/05/2024 Address:[address] [place] [address], [place], [id number] Subjective: * Chief Complaints: * 1 . [...] Procedure: t onsils above , Hysterectomy 1982, [facility] for repair of eft hiop ; HTN; tachcardia; UTI with enterobacter; respiratory faiure with hypoxia; emphysema; tobacco use disorder 11/06-11/10/2020, [place] recovery Lft hip November 2020. * Family [...] * Images: Billing Information: * Visit Code: 93313 Office Visit, Est Pt., Level 4. * Procedure Codes: G2211 Complex e/m visit add on. * Electronic signature of Silvia Son MD on 02/03/2025 at 02:08 PM EDT Sign off status: Pending * Provider: Silvia Son M.D. Date: 1 10/06/2023 Generated for Adani xin/Mabel/eTransmitting on: 0 02/03/2025 02:08 PM EDT History and Physical Notes * [...]
--- OUTSIDE RECORDS SUMMARY | 2025-01-06 06:45 | XMS_ITS ---
Author Organization [facility] Address [address] [place] [phone] Care Team Providers Care Clinical Research Administrator Name Role Phone Silvia Son Primary Care [...] 34 Performing Lab: Notes/Report: Test performed by [employer], [employer] [address] [place] [address] , [place] [address] Juan Carlos Bansal MD, Hand Cigar Maker CLIA: [id number] Sodium 138 135-145 mmol/L Potassium 4.1 3.5-5.3 [...] 0.7 <0.2-1.2 mg/dL A/G Ratio 1.8 1.1-2.5 REASON FOR VISIT 5 month check, Needs [...] Signs Blood pressure systolic 120 mm Hg 01/07/20 25 Blood pressure diastolic 70 mm Hg 025 Heart Rate 64 /min 01/06/2025 Height 65 in 01/06/2025 Weight 148.4 lbs 01/06/2025 BMI 24.69 kg/m2 01/06/2025 Encounters Encounter Location Date Provider Diagnosis [facility] [address], [place] [phone] 01/06/2025 Silvia Son Essential hypertensi on I10 [...] [address], [address], [place], [phone], Progress Notes * LEWISJONY JENSEN KDOB:1940 ( 84 yo F)Acc No.[id number]:01/06/2025 Progress Notes Patient: JONY ALVAREZ Provider: Silvia Son M.D. :1940 A ge:84 Y S ex:Female Date:01/06/2025 Address:[address] [place] [address], [place], [id number] Subjective: * Chief Complaints: * 1 . [...] t onsils removed , Hysterectomy 1982, Natural 1965, Natural 1968, Breast biopsy, Dr. Roberts 2016, closed Intertrochanteric fracture of the left hip withclosed reduction & cephalomedullary nailing of left femur 11/07/2020. * Hospitalization/Major Diagno stic Procedure: t onsils above , Hysterectomy 1982, [facility] for repair of eft hiop ; HTN; tachcardia; UTI with enterobacter; respiratory faiure with hypoxia; emphysema; tobacco use disorder 11/06-11/10/2020, [place] recovery Lft hip November 2020. * Family [...] popliteal space - M71.22 5 . B OR 24.0-24.9, adult - Z68.24 ? Plan: * [...] popliteal space?Imaging: MRI : Knee, left, without contrast* Neisha Lee 01/09/2025 10:13 :02 AM EDT > no auth required; CPT code 40347; faxed to [facility] Scheduling * Procedure Codes: G 2211 Complex e/m visit add on, G8950 PREHTN/HTN BP DOC INDCD F/U DOC, G8752 MOST RECENT SYSTOLIC BP < 140MM HG, G8754 MOST RECENT DIASTOLIC BP < 90MM HG, G8420 BMI<30 AND >=22 CALC & DOCU * Follow Up: 2 Months * Images: Billing Information: * Visit Code: 94231 Office Visit, Est Pt., Level 4. * [...] Silvia Son M.D. Date: 01/06/2025 Generated for Adani ng/Fanadyag/eTransmitting on: 0 02/03/2025 02:08 PM EDT History [...]
--- OUTSIDE RECORDS SUMMARY | 2025-01-18 12:45 | XMS_ITS ---
Author Organization [facility] Address [address] [place] [address] 36 [facility] [address] [place] [phone] Care Team Providers Care Product Management Consultant Name Role Phone Silvia Son Primary Care Provider REASON FOR VISIT due for screening Encounters Encounter Location Date Provider Diagnosis [facility] [address] [place] [address] 36 [facility] [address] [place] [id number] 01/18/2025 Silvia Son Screening for osteoporosis Z13.820 and Osteoporosis M81.0 Assessments Encounter Date Diagnosis (ICD Code) Assessment Notes Treatment Notes Treatment Clinical Notes Section Notes 01/18/2025 Screening for osteoporosis (ICD-10 - Z13.820) 01/18/2025 Osteoporosis (ICD-10 - M81.0) Plan Of Treatment Pending Test Test Name Order Date DEXA Hip and Spine 01/18/2025 Next Appt Details Provider Name:Silvia Lassiter er, 03/09/2025 01:30:00 PM, 12[address] [facility] 36 [facility], [address], [place], [id number], Progress Notes * JONY LEWIS KDOB:1940 ( 84 yo F)Acc No.[id number]:01/18/2025 Patient: JONY ALVAREZ :1940 A ge:84 Y S ex:Female Address:[address] [place], [address] Subjective: * Chief Complaints: * D ue for screening * Medical History: * Surgical History: * Hospitalization/Major Diagno stic Procedure: * Medications: Objective: * Vitals: * Physical Examination: Assessment: * Assessment: 1. S creening for osteoporosis - Z13.820 2 . O steoporosis - M81.0 ? Plan: * Treatment: 2.?Osteoporosis?Imaging: DEXA Hip and Spine* [facility] * Procedure Codes: * true * Date: Generated for Clair lauren/Mabel/Eugeneitting on: 0 02/03/2025 02:08 PM EDT
--- NOTE | 2025-02-03 14:07 | MR_ITS ---
FINAL REPORT TECHNIQUE: Multiplanar MR without contrast CLINICAL HISTORY: *LT HIP REPLACEMENT* SYNOVIAL CYST POPLITEAL SPACE. POSTERIOR KNEE PAIN. COMPARISON: None FINDINGS: Articular cartilage: There is moderate diffuse thinning of the articular cartilage. Marrow signal: Nonspecific bone marrow edema is present in the tibial spines without evidence of a fracture seen. Joint fluid: A moderate joint effusion is noted, as well as a moderate Shah's cyst. There are loose bodies in the Shah's cyst, 1 of which measures 6 mm in size. Menisci: There is truncation of the body of the lateral meniscus, consistent with a tear. The medial meniscus is intact. Ligaments: The anterior cruciate ligament contains increased signal suggestive of a partial tear. The posterior collateral ligament and collateral ligaments are intact. Tendons: Quadriceps and patellar tendon unremarkable IMPRESSION: 1. Truncation of the lateral meniscus body consistent with a tear. The medial meniscus is intact. 2. Increased signal in the anterior cruciate ligament suggestive of a partial tear. 3. A moderate-sized joint effusion and a moderate Shah's cyst containing loose bodies are present. Reviewed, Interpreted and Dictated by Misbah Gambino MD Transcribed by Tracy Ledesma Authenticated and [facility]
--- OUTSIDE RECORDS SUMMARY | 2025-02-03 14:08 | XMS_ITS | Patient Health Record ---
[facility] Organization [facility] Address [address] [place] [id number] Care Team Providers Care Fire Boss Name Role Phone Silvia Son Primary Care Provider Anabel Barrientos Unavailable [phone] Luz Elena Gomez Unavailable [phone] Allergies Allergen (clinical drug ingredient) Drug/Non Drug [...] 34 Performing Lab: Notes/Report: Test performed by [facility] , [address], [place] [address] Juan Carlos Bansal MD, Linotype Operator CLIA: [id number] Sodium 138 135-145 mmol/L Potassium 4.1 3.5-5.3 [...] 0.7 <0.2-1.2 mg/dL A/G Ratio 1.8 1.1-2.5 P-Culture, Urine Reviewed date:03/31/2024 04:57:42 PM Interpretation: Performing Lab: Notes/Report: Test performed by [facility], [address] , [address], [place] [address] Juan Carlos Bansal MD, Linotype Operator CLIA: [id number] Specimen Source Urine - Void Culture, Urine See Below See Microbiol ogy Report Escherichia coli 50,000-100,000 CFU/m l Escherichia coli Sensitivity Panel See Below Organism E. coli Antibiotic INTERP Amikacin S Ampicillin R Aztreonam I Cefepime S Cefoxitin R Ceftazidime R Ceftriaxone R Cefuroxime R Ciprofloxacin S Ertapenem S Gentamicin S Imipenem S Levofloxacin S Meropenem S Nitrofurantoin S Piperacillin/Tazo S Tetracycline S Tobramycin S Trimeth/Sulfa S S=SUSCEPTIBLE I=INTERMEDIATE R=RESISTANT Urinalysis - Inhouse Reviewed date:03/25/2024 03:58:33 PM Interpretation: Performing Lab: Notes/Report: Color/Clarity yellow/cloudy Leuk 3+ Nitrite pos Urobili 16 Protein 3+ pH 7.0 Blood 2+ Sp. Gr. 1.025 Ketone neg Bili neg Gluc neg P-Comprehensive Metabolic Pa yamila (CMP) Reviewed date:03/01/2024 09:09:50 AM Interpretation:bun 34, Cr 1.6, gfr 32 Performing Lab: Notes/Report: Test performed by [facility] [address] [place] [address] , [address], [place] [address] Juan Carlos Bansal MD, Linotype Operator CLIA: [id number] Sodium 138 135-145 mmol/L Potassium 3.7 3.5-5.3 [...] <0.2-1.2 mg/dL A/G Ratio 2.0 1.1-2.5 mg/dL P-Lipid Panel Reviewed date:03/01/2024 09:09:50 AM Interpretation:Normal Performing Lab: Notes/Report: Test performed by [facility] [address] [place] [address] , [address], [place] [id number] Juan Carlos Bansal MD, Linotype Operator CLIA: [id number] Cholesterol 185 <200 mg/dL Triglycerides 124 <150 [...] ATPIII guidelines LDL/HDL Ratio 0.9 <3.3 Ratio LDL Cholesterol Patient History Test Date: 02/29/2024 LDL Results: 77 Units: mg/dL % Change: - Mammogram Reviewed date:07/06/2024 09:36:21 AM Interpretation:Negative, annual f/u Performing Lab: Notes/Report: Negative, annual f/u result Negative, annual f/u P-CBC With Platelet And Diff erential Reviewed date:08/08/2024 10:08:07 AM Interpretation: Normal Performing Lab: Notes/Report: Test performed by [facility], [address] , [address], [place] [address] Juan Carlos Bansal MD, Linotype Operator CLIA: [id number] WBC 7.1 3.8-11.5 K/uL Red Blood Cell Count (RBC) 4.32 3.60-5.30 M/mm3 Hemoglobin (Hgb) 12.9 11.5-15.5 gm/dL Hematocrit (HCT) [...] 30 Performing Lab: Notes/Report: Test performed by [facility] [address] [place] [address] , [address], [place] [address] Juan Carlos Bansal MD, Linotype Operator CLIA: [id number] Sodium 140 135-145 mmol/L Potassium 3.9 3.5-5.3 [...] Normal Performing Lab: Notes/Report: Test performed by [facility] [address] [place] [address] , [place] [address] Juan Carlos Bansal MD, Linotype Operator CLIA: [id number] TSH 3.36 0.43-5.25 mU/L Medications Medication SIG (Take, Route, Frequency, Duration) Notes Start Date End Date Status Estrace 0.1 MG/GM as directed Vaginal twice a week Active Co Q 10 100 MG as directed Orally Active Sertraline HCl 25 MG TAKE 1 TABLET BY MO UTH ONCE DAILY; Duration: 30 Active oxyBUTYnin Chloride ER 10 MG 1 tablet Or ally Once a day; Duration: 30 day(s) Active Metoprolol Succinate ER 25 MG 1 tablet O rally Two times a day; Duration: 90 days Active Aspirin 81 MG 1 tablet Orally Once a day; Duration: 30 day(s) Active Rosuvastatin Calcium 20 MG TAKE 1 TABLET BY MOUTH ONCE DAILY; Duration: 30 Active Clopidogrel Bisulfate 75 MG 1 tablet Ora lly Once a day; Duration: 30 day(s) Active Alendronate Sodium 70 MG 1 tab(s) orally once a week; Duration: 28 day(s) Active hydroCHLOROthiazide 12.5 MG TAKE 1 TABLE T BY MOUTH EVERY MORNING; Duration: 90 Active Diclofenac Sodium 1 % as directed applie d topically 4 times a day Active Immunizations Vaccine Route Administration Date Status Comme nts COVID 19 Moderna Unknown 08/17/2020 Administered COVID 19 Moderna Unknown 09/17/2020 Administered COVID 19 Moderna Unknown 05/22/2021 Administered DT, 7 YEARS OR OLDER Unknown 10/12/1996 Administered Fluzone High Dose (65yr and older) [...] (65yr and older) IM Intramuscular 04/26/2024 Administered PNEUMOVAX 23 VACCINE IM Intramuscular 05/17/2014 Administe red Prevnar (PCV13) IM Intramuscular 11/01/2016 Administered xFluzone High Dose-private (65yr&older) IM Intramuscular 05/17/2014 Administered Problems Problem Type SNOMED Code ICD Code Onset Dates Problem Status W/U Status Risk Notes Problem Disorder of cardiovascular system (46839998) ASCVD (429.2) Active confirmed Problem Essential hypertension (14927221) Essential (primary) hypertension (I10) Active confirmed Problem Essential hypertension (04689995) Essential hypertension (I10) Active confirmed Problem Laboratory test result abnormal (759052227) Elevated lipase (R74.8) Active confirmed Problem Duodenal ulcer (75595910) Duodenal ulcer (K26.9) Active confirmed Problem Mixed anxiety and depressive disorder (825985444) Depression with anxiety (F41.8) Active confirmed Problem Bandemia (490275752) Bandemia (D72.825) Active confirmed Problem Pure hypercholesterolemia (907477977) Pure hypercholesterolemia (E78.0) Active confirmed Problem Primary insomnia (1546938) Primary insomnia (F51.01) Active confirmed Problem Old myocardial infarction (5261956) Old myocardial infarction (I25.2) Active confirmed Problem Chronic ischemic heart disease (573223518) Chronic ischemic heart disease, unspecified (I25.9) Active confirmed Problem Centrilobular emphysema (66492259) Centrilobular emphysema (J43.2) Active confirmed Problem Acute exacerbation o f chronic obstructive airways disease (497503744) Chronic obstructive pulmonary disease with (acute) exacerbation (J44.1) Active confirmed Problem Pain of right knee region (finding) (928185417153908) Pain in right knee (M25.561) Active confirmed Problem Pain of knee region (finding) (1155996469) Pain in unspecified knee (M25.569) Active confirmed Problem Degeneration of lumbar intervertebral disc (53087029) Other intervertebral disc degeneration, lumbar region (M51.36) Active confirmed Problem Epigastric pain (73116556) Epigastric pain (R10.13) Active confirmed Problem Old healed fracture of bone (743284042) Personal history of (healed) traumatic fracture (Z87.81) Active confirmed Problem Arteriosclerotic vascular disease (44688297) Arteriosclerotic cardiovascular disease (I25.10) Active confirmed Problem Chronic pain (86545253) Other chronic pain (G89.29) Active confirmed Problem Acquired hypothyroidism (172038572) Acquired hypothyroidism (E03.9) Active confirmed Problem Pulmonary emphysema (96467969) Pulmonary emphysema, unspecified emphysema type (J43.9) Active confirmed Problem Reactive depression (situational) (31851897) Situational depression (F43.21) Active confirmed Problem Periumbilical abdominal pain (270330158) Periumbilical abdominal pain (R10.33) Active confirmed Problem Osteoporosis (73318356) Osteoporosis (M81.0) Active confirmed Problem Atrial fibrillation (32959772) Atrial fibrillation, unspecified type (I48.91) Active confirmed Problem Reactive depression (18677481) Reactive depression (F32.9) Active confirmed Problem Urinary incontinence (592111431) Urinary incontinence, unspecified type (R32) Active confirmed Problem Atherosclerotic hear t disease of [place] coronary artery without angina pectoris (728224002497694) Atherosclerosis of [place] coronary artery without angina pectoris, unspecified whether [place] or transplanted heart (I25.10) Active confirmed Problem Gastritis and duodenitis (389702112) Gastritis and duodenitis (K29.90) Active confirmed Problem Pure hypercholesterolemia (038344016) Pure hypercholesterolemia (E78.00) Active confirmed Problem Acute arthritis (26050877) Acute arthritis (M19.90) Active confirmed Problem Age-related osteoporosis (918868815) Osteoporosis without current pathological fracture, unspecified osteoporosis type (M81.0) Active confirmed Problem History of placement of stent for coronary artery disease (situation) (115491067) S/P coronary artery stent placement (Z95.5) Active confirmed Problem History of left hip replacement (8068442376939573) History of left hip replacement (Z96.642) Active confirmed Problem Type 2 diabetes mellitus with peripheral angiopathy (237101313) Type 2 diabetes mellitus with diabetic peripheral angiopathy without gangrene, unspecified whether fdc insulin use (E11.51) Active confirmed Problem Fracture malunion (352561175) Closed fracture of trochanter of femur with malunion, unspecified laterality, subsequent encounter (S72.109P) Active confirmed Vital Signs Heart Rate 64 /min 01/06/2025 Blood pressure diastolic 70 mm Hg 01/06/2025 Height 65 in 01/06/2025 Blood pressure systolic 120 mm Hg 01/06/2025 Weight 148.4 lbs 01/06/2025 BMI 24.69 kg/m2 01/06/2025 Encounters Encounter Location Date Provider Diagnosis [facility] [address] [facility] [address] [place] [id number] 02/29/2024 Silvia Son 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 ; Centrilobular emphysema J43.2 ; History of left hip replacement Z96.642 ; Pure hypercholesterolemia E78.0 ; Depression with anxiety F41.8 and Pure hypercholesterolemia E78.00 [facility] [address] [place] [facility] [address] [place], [place] [id number] 03/25/2024 Luz Elena Gomez Dysuria R30.0 [facility] [address] [facility] [address] [place], [place] [id number] 04/26/2024 Anabel Barrientos Encounter for immuni zation Z23 [facility] [address] [place] [facility] [address] [place], [place] [id number] 06/22/2024 Luz Elena Camilody Proteus infection A4 9.8 and Acute UTI N39.0 [facility] [address] [place] [facility] [address] [place], [place] [id number] 08/05/2024 Silvia Son ASCVD (arteriosclero tic cardiovascular disease) I25.10 ; S/P coronary artery stent placement Z95.5 ; Pure hypercholesterolemia E78.00 ; Renal insufficiency N28.9 and Acquired hypothyroidism E03.9 [facility] [address] [place] [facility] [address] [place], [place] [id number] 01/06/2025 Silvia Son Essential hypertensi on I10 ; Osteoporosis M81.0 ; 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 ; Synovial cyst of left popliteal space M71.22 and BMI 24.0-24.9, adult Z68.24 [facility] [address] [place] [facility] [address] [place], [place] [id number] 03/01/2024 Silvia Son [facility] [address] [place], [place] [id number] 03/25/2024 Luz Elena Gomez [facility] [address] [place], [place] [id number] 03/31/2024 Luz Elena Gomez [facility] [address] [place], [place] [id number] 05/04/2024 Luz Elena Gomez [facility] [address] [place], [place] [id number] 07/25/2024 Silvia Son [facility] [address] [place], [place] [id number] 08/08/2024 Silvia Son [facility] [address] [place], [place] [id number] 01/18/2025 Silvia Son Screening for osteop orosis Z13.820 and Osteoporosis M81.0 Assessments Encounter Date Diagnosis (ICD Code) Assessment Notes Treatment Notes Treatment Clinical Notes Section Notes 03/25/2024 Dysuria (ICD-10 - R30.0) Patient has an allergy listed to cefaclor but she was given cefdinir in the [facility] in December for a UTI and tolerated it fine. Will try this again and get a urine culture. 04/26/2024 Encounter for immunization (ICD-10 - Z23) 06/22/2024 Acute UTI (ICD-10 - N39.0) 06/22/2024 Proteus infection (ICD-10 - A49.8) Reviewed culture and it is positive for proteus. He started her on trimethoprim and it is resistant. Will switch to cefdinir and have her keep appt with urology on Thursday. 08/05/2024 ASCVD (arteriosclero tic cardiovascular disease) (ICD-10 - I25.10) 02/29/2024 Centrilobular emphys gray (ICD-10 - J43.2) 02/29/2024 Arteriosclerotic cardiovascular disease (ICD-10 - I25.10) 08/05/2024 S/P coronary artery stent placement (ICD-10 - Z95.5) 01/06/2025 Essential hypertensi on (ICD-10 - I10) 01/18/2025 Screening for osteoporosis (ICD-10 - Z13.820) 01/18/2025 Osteoporosis (ICD-10 - M81.0) 08/05/2024 Pure hypercholesterolemia (ICD-10 - E78.00) 01/06/2025 Osteoporosis (ICD-10 - M81.0) 02/29/2024 History of left hip replacement (ICD-10 - Z96.642) 02/29/2024 Pure hypercholesterolemia (ICD-10 - E78.0) 08/05/2024 Renal insufficiency (ICD-10 - N28.9) 01/06/2025 Arteriosclerotic cardiovascular disease (ICD-10 - I25.10) 01/06/2025 Synovial cyst of lef t popliteal space (ICD-10 - M71.22) 02/29/2024 Depression with anxi ety (ICD-10 - F41.8) 08/05/2024 Acquired hypothyroid ism (ICD-10 - E03.9) 01/06/2025 BMI 24.0-24.9, adult (ICD-10 - Z68.24) 02/29/2024 Pure hypercholesterolemia (ICD-10 - E78.00) Plan Of Treatment Pending Test Test Name Order Date MRI : Knee, left, without contrast 01/06 [facility] Hip and Spine 01/18/2025 P-Comprehensive Metabolic Panel (CMP) Next Appt Details Provider Name:Silvia Cabrera Sravani , 03/09/2025 01:30:00 PM, [address] [facility], [address], [place], [place], [id number], Insurance Providers Payer Name Payer Address Payer Phone Subscriber Number Group Number Insured Name Patient Relationship to Insured Coverage Start Date Coverage End Date [facility] [address] [address] [place] [address] [id number] JONY LEWIS Self - patient is the insured Medications Administered Medication Instructions Date of Administration Dosage Notes Dexamethasone 06/09/2014 1 mL Dexamethasone 06/21/2018 1 mL Medical (General) History Medical History History ICD Code HTN Pulmonary emphysema Hyperliidemia Osteoporesis Covid 19 Vaccine, Moderna, 08/17/20, 1, -[facility] COVID 19 Booster 05/22/2021, [place] Angioplasty and stent, 02/24/23, Dr. Vasquez vines Surgical History Surgery Date(Month/Year) tonsils removed Hysterectomy 1982 Natural 1964 Natural 1968 Breast biopsy, Dr. Roberts 2016 closed Intertrochanteric fra cture of the left hip withclosed reduction & cephalomedullary nailing of left femur 11/07/2020 Hospitalization History Reason Date(Month/Year) [place] recovery Lft hip November 2020 [facility] for repair of eft hiop ; HTN; tachcardia; UTI with enterobacter; respiratory faiure with hypoxia; emphysema; tobacco use disorder 11/06-11/10/2020 Hysterectomy 1982 tonsils above
--- OUTSIDE RECORDS SUMMARY | 2025-02-03 14:09 | XMS_ITS | Clinical Summary ---
Author Organization [facility] Address [address] [place] [address] Care Team Providers Care Wrap Checker Name Role Phone Julio Son MD Primary Care Provider [phone] Allergies Active Allergy Reactions Criticality Noted Date Comments Azithromycin Unknown - Patient st ates they do not know rxn details Low 12/17/2023 Cefaclor Unknown - Patient st ates they do not know rxn details Low 12/17/2023 Ciprofloxacin Unknown - Patient st ates they do not know rxn details Low 12/17/2023 Nitrofurantoin Unknown - Patient st ates they do not know rxn details Low 12/17/2023 Sulfa Drugs Unknown - Patient st ates they do not know rxn details Low 12/17/2023 Medications alendronate (Fosamax) 70 MG tablet Take 1 tablet (70 mg) by mouth every 7 (seven) days. 12/19/2023 Active clopidogrel (Plavix) 75 MG tablet Take 1 tablet (75 mg) by mouth 1 (one) time each day. 12/19/2023 Active hydroCHLOROthia zide 12.5 MG PO tablet Take 1 tablet (12.5 mg) by mouth 1 (one) time each day. 12/19/2023 Active metoprolol succinate XL (Toprol-XL) 25 MG 24 hr tablet Take 1 tablet (25 mg) by mouth 1 (one) time each day. 12/19/2023 Active omeprazole (PriLOSEC) [address] capsule Take 1 capsule (40 mg) by mouth 1 (one) time each day. 12/19/2023 Active rosuvastatin (Crestor) 20 MG tablet Take 1 tablet (20 mg) by mouth every night. 12/19/2023 Active sertraline (Zoloft) 25 MG tablet Take 1 tablet (25 mg) by mouth 1 (one) time each day. 12/19/2023 Active estradiol (Estrace) 0.1 MG/GM vaginal cream Insert 2 g into the vagina 1 (one) time each day. Active mirabegron ER (Myrbetriq) 50 MG tablet Take 1 tablet (50 mg) by mouth 1 (one) time each day. Active trimethoprim (Trimpex) 100 MG tablet Take 1 tablet (100 mg) by mouth 1 (one) time each day. Active Active Problems Problem Noted Date Diagnosed Date TONEY (acute kidney injury) 08/30/2024 Closed fracture of neck of left femur with nonun ion 08/30/2024 Closed intertrochanteric fracture of left femur 08/30/2024 HTN (hypertension) 08/30/2024 Immunizations Immunization Administration Dates Next Due Influenza, High-dose, Split Virus, Trivalent, Injectable, preservative free 04/11/2020,05/11/2019,05/12/2018,2016 Influenza, high-dose, quadrivalent 05/07/2022, TD (adult), 2 Lf tetanus tox oid, preservative free, adsorbed 10/12/1996 Social History Tobacco Use Types Packs/Day Years Used Date Smoking Tobacco: Former Cigarettes Q uit: 2022 Tobacco Cessation:Counseling Given: Not Answered Alcohol Use Standard Drinks/Week Comments Never 0 (1 standard drink = 0.6 oz pur e alcohol) Comments Unknown Sex and Gender Information Value Date Recorded Sex Assigned at Not on file Legal Sex Female 8:55 PM EDT Gender Identity Not on file Sexual Orientation Not on file Last Filed Vital Signs Vital Sign Reading Time Taken Comments Blood Pressure 130/74 09/02/2024 10:03 AM EST Pulse 86 09/02/2024 10:03 AM EST Temperature - - Respiratory Rate 18 09/02/2024 10:03 AM EST Oxygen Saturation 94% 09/02/2024 10:03 AM EST Inhaled Oxygen Concentration - - Weight 67.9 kg (149 lb 9.6 oz) 09/02/2024 10:03 AM EST Height 162.6 cm (5' 4 ) 02/24/2023 9:58 AM EDT Body Mass Index 25.68 02/24/2023 9:58 AM EDT Plan of Treatment Upcoming Encounters Date Type Department Care Team (Late st Contact Info) Description 03/17/2025 9:40 AM EDT Office Visit [facility] [address] [place] [phone] Ambar Posadas, PRIVATE DETECTIVE [address] [facility] [address] [place] [address] Health Maintenance Due Date Last Done Comments [facility]-Bone Density Scan 1941 [facility]-Depression Screening 1941 [facility]-Medicare Annual Wellness (AWV) 1941 [facility]-Infant/Child/Adol SDOH Screenings 1941 [facility]- SDOH Screenings 1959 [facility]-Adult SDOH Screenings 1959 [facility]-Pneumococcal Vaccine: 50+ Years (1 of 1 - PCV) 1991 [facility]-Zoster Vaccines (1 of 2) 1991 [facility]-DTaP,Tdap,and Td Vaccines (1 - Tdap) 10/13/1996 10/12/1996 [facility]-RSV Vaccine: 60+ Years or (1 - 1-dose 75+ series) 2016 [id number] Vaccine ( season) 2024 06/09/2022, 05/22/2021, 09/17/2020, Additional history exists [facility]-Influenza Vaccine (Season Ended) 2025 05/07/2022, 05/03/2021, 04/11/2020, Additional history exists [facility]-Obesity Intervention Completed 09/02/2024 HPV Vaccines Aged Out No longer eligi ble based on patient's age to complete this topic [facility]-HIB Vaccines Aged Out No longer e [...] patient's age to complete this topic Insurance [facility] MEDICARE Care Teams Wrap Checker Relationship Specialty Start Date End Date Julio Son MD [address] [place] [address] PCP - General 08/30/24
== END 2025-02-03 23:59 | disposition home or self-care (01) ==
LOC: RAD 14:04
PROVIDERS: PCP Family Medicine; Visit Provider Family Medicine
DX: S83.282A Other tear of lateral meniscus, current injury, left knee, initial encounter (principal); M25.462 Effusion, left knee; M71.22 Synovial cyst of popliteal space [Baker], left knee; M79.5 Residual foreign body in soft tissue; R93.6 Abnormal findings on diagnostic imaging of limbs; Z96.642 Presence of left artificial hip joint
CPT/HCPCS: 73721

== ENCOUNTER 2025-02-20 13:33 | Outpatient (CLI) | payer MEDICARE, SELFPAY ==
--- OUTSIDE RECORDS SUMMARY | 2024-08-05 06:00 | XMS_ITS ---
Author Organization [facility] Address [address] [place] [phone] Care Team Providers Care Negative Turner Name Role Phone Silvia Son Primary Care Provider [phone] Allergies Allergen (clinical drug ingredient) Drug/Non Drug [...] Normal Performing Lab: Notes/Report: Test performed by [facility], [address] , [place] [address] Juan Carlos Bansal MD, Castings Trimmer CLIA: [id number] WBC 7.1 3.8-11.5 K/uL Red Blood Cell [...] 30 Performing Lab: Notes/Report: Test performed by [facility] [address] [place], [place] [address] [place] , [address], [place] [address] Juan Carlos Bansal MD, Castings Trimmer CLIA: [id number] Sodium 140 135-145 mmol/L Potassium 3.9 3.5-5.3 [...] Normal Performing Lab: Notes/Report: Test performed by [facility] [address] [place] [address] , [address], [place] [address] Juan Carlos Bansal MD, Castings Trimmer CLIA: [id number] TSH 3.36 0.43-5.25 mU/L REASON FOR VISIT [...] 08/05/2024 Encounters Encounter Location Date Provider Diagnosis [facility] [address] [phone] 08/05/2024 Silvia Son ASCVD (arteriosclero tic cardiovascular [...] 5 MONTHS, Reason: Provider Name:Silvia Lassiter er, 03/09/2025 01:30:00 PM, [address], [address], [place], [place], [phone], Progress Notes * JONY LEWIS KDOB:1940 ( 84 yo F)Acc No.[id number]:08/05/2024 Progress Notes Patient: JONY ALVAREZ Provider: Silvia Son M.D. :1940 A ge:84 Y S ex:Female Date:08/05/2024 Address:[address] [place] [address], [place], [id number] Subjective: * Chief Complaints: * 1 . [...] Procedure: t onsils above , Hysterectomy 1982, [facility] for repair of eft hiop ; HTN; tachcardia; UTI with enterobacter; respiratory faiure with hypoxia; emphysema; tobacco use disorder 11/06-11/10/2020, [place] recovery Lft hip November 2020. * Family [...] * Images: Billing Information: * Visit Code: 20383 Office Visit, Est Pt., Level 4. * Procedure Codes: G2211 Complex e/m visit add on. * Electronic signature of Silvia Son MD on 02/20/2025 at 01:44 PM EDT Sign off status: Pending * Provider: Silvia Son M.D. Date: 1 10/06/2023 Generated for Adani xin/Mabel/eTransmitting on: 0 02/20/2025 01:44 PM EDT History and Physical Notes * HPI (History [...]
--- OUTSIDE RECORDS SUMMARY | 2025-01-06 06:45 | XMS_ITS ---
Author Organization [facility] Address [address] [place] [phone] Care Team Providers Care Gold Plater Name Role Phone Silvia Son Primary Care Provider [phone] Allergies Allergen (clinical drug ingredient) Drug/Non Drug [...] Range Notes P-Comprehensive Metabolic Pa yamila (CMP) (Not yet reviewed by provider) Interpretation:bun 42, Cr 1.51, gfr 34 Performing Lab: Notes/Report: Test performed by [employer] [employer] [address] [place] [address] , [place] [address] Juan Carlos Bansal MD, Wire Frame Maker CLIA: [id number] Sodium 138 135-145 mmol/L Potassium 4.1 3.5-5.3 [...] MRI : Knee, left, without co ntrast (Not yet reviewed by provider) Interpretation:Abnormal Performing Lab: Notes/Report: Abnormal REASON FOR VISIT 5 month check, Needs [...] 01/06/2025 Encounters Encounter Location Date Provider Diagnosis [facility] [address], [place] [id number] 01/06/2025 Silvia Son Essential hypertensi on I10 [...] adult (ICD-10 - Z68.24) Plan Of Treatment Pending Test Test Name Order Date MRI : Knee, left, without contrast 01/06 P-Comprehensive Metabolic Panel (CMP) Next Appt Details Follow Up: 2 Months, Reason: Provider Name:Silvia Lassiter er, 03/09/2025 01:30:00 PM, [address] [facility] 36 [facility], [address], [place], [place], [phone], Progress Notes * JONY LEWIS KDOB:1940 ( 84 yo F)Acc No.[id number]:01/06/2025 Progress Notes Patient: JONY ALVRAEZ Provider: Silvia Son M.D. :1940 A ge:84 Y S ex:Female Date:01/06/2025 Address:[address] [place] [address], [place], [id number] Subjective: * Chief Complaints: * 1 . [...] t onsils above , Hysterectomy 1982, [facility] for repair of eft hiop ; HTN; tachcardia; UTI with enterobacter; respiratory faiure with hypoxia; emphysema; tobacco use disorder 11/06-11/10/2020, [place] recovery Lft hip November 2020. * Family [...] popliteal space - M71.22 5 . B SC 24.0-24.9, adult - Z68.24 ? Plan: * [...] by Creatinine 34 L >59 - mL/min/1.73m2 2.?Synovial cyst of left popliteal space?Imaging: MRI : Knee, left, without contrast (Performed Date - 01/31/2025)? Abnormal* Neisha Lee 01/09/2025 10:13 :02 AM EDT > no auth required; CPT code 98708; faxed to [facility] Scheduling * Procedure Codes: G 2211 Complex e/m visit add on, G8950 PREHTN/HTN BP DOC INDCD F/U DOC, G8752 MOST RECENT SYSTOLIC BP < 140MM HG, G8754 MOST RECENT DIASTOLIC BP < 90MM HG, G8420 BMI<30 AND >=22 CALC & DOCU * Follow Up: 2 Months * Images: Billing Information: * Visit Code: 50075 Office Visit, Est Pt., Level 4. * Procedure Codes: G2211 Complex e/m visit add on. G8950 PREHTN/HTN BP DOC INDCD F/U DOC. G8752 MOST RECENT SYSTOLIC BP < 140MM HG. G8754 MOST RECENT DIASTOLIC BP < 90MM HG. G8420 BMI<30 AND >=22 CALC & DOCU. * Electronic signature of Silvia Son MD on 02/20/2025 at 01:43 PM EDT Sign off status: Pending * Provider: Silvia Son M.D. Date: 01/06/2025 Generated for Clair lauren/Mabel/eTransmitting on: 02/20/2025 01:43 PM EDT History and Physical Notes * [...]
--- OUTSIDE RECORDS SUMMARY | 2025-01-18 12:45 | XMS_ITS ---
Author Organization [facility] Address [address] [place] [address] 36 [facility] [address] [place] [phone] Care Team Providers Care Waxer Name Role Phone Silvia Son Primary Care Provider [phone] REASON FOR VISIT due for screening Encounters Encounter Location Date Provider Diagnosis [facility] [address] [place] [address] 36 [facility] [address] [place] [id number] 01/18/2025 Silvia Son Screening for osteoporosis Z13.820 and Osteoporosis M81.0 Assessments Encounter Date Diagnosis (ICD Code) Assessment Notes Treatment Notes Treatment Clinical Notes Section Notes 01/18/2025 Screening for osteoporosis (ICD-10 - Z13.820) 01/18/2025 Osteoporosis (ICD-10 - M81.0) Plan Of Treatment Pending Test Test Name Order Date DEXA Hip and Spine 01/18/2025 Next Appt Details Provider Name:Silvia Lassiter er, 03/09/2025 01:30:00 PM, [address] [facility] 36 [facility], [address], [place], [phone], Progress Notes * JONY LEWIS KDOB:1940 ( 84 yo F)Acc No.[id number]:01/18/2025 Patient: JONY ALVAREZ :1940 A ge:84 Y S ex:Female Address:[address] [place], [address] Subjective: * Chief Complaints: * D ue for screening * Medical History: * Surgical History: * Hospitalization/Major Diagno stic Procedure: * Medications: Objective: * Vitals: * Physical Examination: Assessment: * Assessment: 1. S creening for osteoporosis - Z13.820 2 . O steoporosis - M81.0 ? Plan: * Treatment: 2.?Osteoporosis?Imaging: DEXA Hip and Spine* [facility] * Procedure Codes: * true * Date: Generated for Clair lauren/Mabel/Thaosmitting on: 0 02/20/2025 01:44 PM EDT
--- NOTE | 2025-02-20 13:36 | XR_ITS ---
FINAL REPORT CLINICAL HISTORY: SCREENING COMPARISON: 06/13/2022 FINDINGS: Using L1-4, the bone mineral density of the spine is 1.083 g/cm2, corresponding to T-score of 0.3. Using the left forearm, the bone mineral density of the mid is 0.324 g/cm2, corresponding to a T-score of -5.2. Using the right hip, the bone mineral density of the femoral neck is 0.615 g/cm2, corresponding to a T-score of -2.1. NOTE: T-score: Standard deviation compared with peak bone mass of young adult mean. *Following the recommendations of the International Society of Bone densitometry, classification of hip BMD is based on the lower of two T-scores; total hip or femoral neck. IMPRESSION: Diminished bone mineral density of the left forearm consistent with osteoporosis. Normal bone mineral density of the lumbar spine. Diminished bone mineral density of the right hip, consistent with osteopenia. Reviewed, Interpreted and Dictated by Misbah Gambino MD Transcribed by Tracy Ledesma Authenticated and [facility]
--- OUTSIDE RECORDS SUMMARY | 2025-02-20 13:44 | XMS_ITS | Clinical Summary ---
Author Organization [facility] Address [address] [place] [address] Care Team Providers Care Silver Holloware Assembler Name Role Phone Julio Son MD Primary Care Provider [phone] Allergies Active Allergy Reactions Criticality Noted Date [...] Description 03/17/2025 9:40 AM EDT Office Visit [facility] [address] [place] [phone] Ambar Posadas, JOB ORDER CLERK [address] [facility] [address] [place] [address] Health Maintenance Due Date Last [...] or (1 - 1-dose 75+ series) 2016 [id number] Vaccine ( - season) 2024 06/09/2022, 05/22/2021, 09/17/2020, Additional history exists [facility]-Influenza Vaccine (#1) 04/10/202505/07, 05/03/2021, 04/11/2020, Additional history exists [facility]-Obesity Intervention [...] patient's age to complete this topic Insurance [facility] MEDICARE Care Teams [place] Assembler Relationship Specialty Start Date End Date Julio Son MD [address] [place] [address] PCP - General 08/30/24
--- OUTSIDE RECORDS SUMMARY | 2025-02-20 13:44 | XMS_ITS | Patient Health Record ---
Author Organization [facility] Address [address] [place] [id number] Care Team Providers Care Stone Driller Helper Name Role Phone Silvia Son Primary Care Provider [phone] Anabel Barrientos Unavailable [phone] Luz Elena Gomez Unavailable [phone] Allergies Allergen (clinical drug ingredient) Drug/Non Drug [...] Active Results Component Value Reference Range Notes Urinalysis - Inhouse Reviewed date:03/25/2024 03:58:33 PM Interpretation: Performing Lab: Notes/Report: Color/Clarity yellow/cloudy Leuk 3+ Nitrite pos Urobili 16 Protein 3+ pH 7.0 Blood 2+ Sp. Gr. 1.025 Ketone neg Bili neg Gluc neg P-Culture, Urine Reviewed date:03/31/2024 04:57:42 PM Interpretation: Performing Lab: Notes/Report: Test performed by [facility], [email or web address] [address] [place] [address] , [address], [place] [address] Juan Carlos Bansal MD, Registration Representative CLIA: [id number] Specimen Source Urine - Void Culture, Urine [...] Tobramycin S Trimeth/Sulfa S S=SUSCEPTIBLE I=INTERMEDIATE R=RESISTANT P-CBC With Platelet And Diff erential Reviewed date:08/08/2024 10:08:07 AM Interpretation: Normal Performing Lab: Notes/Report: Test performed by [facility], [address] , [place] [address] Juan Carlos Bansal MD, Registration Representative CLIA: [id number] WBC 7.1 3.8-11.5 K/uL Red Blood Cell [...] 30 Performing Lab: Notes/Report: Test performed by [facility] [address] [place], [place] [address] [place] , [place] [address] Juan Carlos Bansal MD, Registration Representative CLIA: [id number] Sodium 140 135-145 mmol/L Potassium 3.9 3.5-5.3 [...] Normal Performing Lab: Notes/Report: Test performed by [facility] [address] [place] [address] , [address], [place] [address] Juan Carlos Bansal MD, Registration Representative CLIA: [id number] TSH 3.36 0.43-5.25 mU/L P-Comprehensive Metabolic Pa yamila (CMP) (Not yet reviewed by provider) Interpretation:bun 42, Cr 1.51, gfr 34 Performing Lab: Notes/Report: Test performed by [facility] [address] [place] [address] , [address], [place] [address] Juan Carlos Bansal MD, Registration Representative CLIA: [id number] Sodium 138 135-145 mmol/L Potassium 4.1 3.5-5.3 [...] by provider) Interpretation:Abnormal Performing Lab: Notes/Report: Abnormal Mammogram Reviewed date:07/06/2024 09:36:21 AM Interpretation:Negative, annual f/u Performing Lab: Notes/Report: Negative, annual f/u result Negative, annual f/u P-Comprehensive Metabolic Pa yamila (CMP) Reviewed date:03/01/2024 09:09:50 AM Interpretation:bun 34, Cr 1.6, gfr 32 Performing Lab: Notes/Report: Test performed by [facility] [address] [place] [address] , [address], [place] [address] Juan Carlos Bansal MD, Registration Representative CLIA: [id number] Sodium 138 135-145 mmol/L Potassium 3.7 3.5-5.3 [...] Interpretation:Normal Performing Lab: Notes/Report: Test performed by [facility] [address] [place] [address] , [address], [place] [address] Juan Carlos Bansal MD, Registration Representative CLIA: [id number] Cholesterol 185 <200 mg/dL Triglycerides 124 <150 [...] Results: 77 Units: mg/dL % Change: - Medications Medication SIG (Take, Route, Frequency, Duration) Notes Start Date End Date Status Estrace 0.1 MG/GM as directed Vaginal twice a week Active Co Q 10 100 MG as directed Orally Active Rosuvastatin Calcium 20 MG 1 tablet Oral ly Once a day; Duration: 90 days Active Sertraline HCl 25 MG TAKE 1 TABLET BY [facility] ONCE DAILY; Duration: 30 Active oxyBUTYnin Chloride [...] Risk Notes Problem Disorder of cardiovascular system (88375489) ASCVD (429.2) Active confirmed Problem Essential hypertension (99412481) Essential (primary) hypertension (I10) Active confirmed Problem Essential hypertension (37584025) Essential hypertension (I10) Active confirmed Problem Laboratory test result abnormal (009281038) Elevated lipase (R74.8) Active confirmed Problem Duodenal ulcer (33064579) Duodenal ulcer (K26.9) Active confirmed Problem Mixed anxiety and depressive disorder (333306349) Depression with anxiety (F41.8) Active confirmed Problem Bandemia (075309600) Bandemia (D72.825) Active confirmed Problem Pure hypercholesterolemia (563669940) Pure hypercholesterolemia (E78.0) Active confirmed Problem Primary insomnia (3015719) Primary insomnia (F51.01) Active confirmed Problem Old myocardial infarction (2960488) Old myocardial infarction (I25.2) Active confirmed Problem Chronic ischemic heart disease (912298412) Chronic ischemic heart disease, unspecified (I25.9) Active confirmed Problem Centrilobular emphysema (03866492) Centrilobular emphysema (J43.2) Active confirmed Problem Acute exacerbation o f chronic obstructive airways disease (207928686) Chronic obstructive pulmonary disease with (acute) exacerbation (J44.1) Active confirmed Problem Pain of right knee region (finding) (511230385412989) Pain in right knee (M25.561) Active confirmed Problem Pain of knee region (finding) (2879172768) Pain in unspecified knee (M25.569) Active confirmed Problem Degeneration of lumbar intervertebral disc (61071862) Other intervertebral disc degeneration, lumbar region (M51.36) Active confirmed Problem Epigastric pain (80444750) Epigastric pain (R10.13) Active confirmed Problem Old healed fracture of bone (279127227) Personal history of (healed) traumatic fracture (Z87.81) Active confirmed Problem Arteriosclerotic vascular disease (30239241) Arteriosclerotic cardiovascular disease (I25.10) Active confirmed Problem Chronic pain (74837207) Other chronic pain (G89.29) Active confirmed Problem Acquired hypothyroidism (235313297) Acquired hypothyroidism (E03.9) Active confirmed Problem Pulmonary emphysema (47243569) Pulmonary emphysema, unspecified emphysema type (J43.9) Active confirmed Problem Reactive depression (situational) (80190809) Situational depression (F43.21) Active confirmed Problem Periumbilical abdominal pain (958586752) Periumbilical abdominal pain (R10.33) Active confirmed Problem Osteoporosis (12980044) Osteoporosis (M81.0) Active confirmed Problem Atrial fibrillation (92888909) Atrial fibrillation, unspecified type (I48.91) Active confirmed Problem Reactive depression (65783938) Reactive depression (F32.9) Active confirmed Problem Urinary incontinence (228248652) Urinary incontinence, unspecified type (R32) Active confirmed Problem Atherosclerotic hear t disease of [place] coronary artery without angina pectoris (330632784857248) Atherosclerosis of [place] coronary artery without angina pectoris, unspecified whether [place] or transplanted heart (I25.10) Active confirmed Problem Gastritis and duodenitis (127513582) Gastritis and duodenitis (K29.90) Active confirmed Problem Pure hypercholesterolemia (325277389) Pure hypercholesterolemia (E78.00) Active confirmed Problem Acute arthritis (33867854) Acute arthritis (M19.90) Active confirmed Problem Age-related osteoporosis (632828867) Osteoporosis without current pathological fracture, unspecified osteoporosis type (M81.0) Active confirmed Problem History of placement of stent for coronary artery disease (situation) (197756857) S/P coronary artery stent placement (Z95.5) Active confirmed Problem History of left hip replacement (4786524755151498) History of left hip replacement (Z96.642) Active confirmed Problem Type 2 diabetes mellitus with peripheral angiopathy (490824542) Type 2 diabetes mellitus with diabetic peripheral angiopathy without gangrene, unspecified whether residential insulin use (E11.51) Active confirmed Problem Fracture malunion (076847306) Closed fracture of trochanter of femur with malunion, unspecified laterality, subsequent encounter (S72.968P) Active confirmed Vital Signs Heart Rate 64 /min 01/06/2025 Blood pressure diastolic 70 mm Hg 01/06/2025 Height 65 in 01/06/2025 Blood pressure systolic 120 mm Hg 01/06/2025 Weight 148.4 lbs 01/06/2025 BMI 24.69 kg/m2 01/06/2025 Encounters Encounter Location Date Provider Diagnosis [facility] [address] [place] [id number] 02/29/2024 Silvia Son 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 ; Centrilobular emphysema J43.2 ; History of left hip replacement Z96.642 ; Pure hypercholesterolemia E78.0 ; Depression with anxiety F41.8 and Pure hypercholesterolemia E78.00 [facility] [address] [id number] 03/25/2024 Luz Elena Gomez Dysuria R30.[address] [id number] 04/26/2024 Anabel Barrientos Encounter for immuni zation Z23 [facility] [address] [place] [id number] 06/22/2024 Luz Elena Gomez Proteus infection A4 9.8 and Acute UTI N39.0 [facility] [address] [place], [place] [id number] 08/05/2024 Silvia Son ASCVD (arteriosclero tic cardiovascular disease) I25.10 ; S/P coronary artery stent placement Z95.5 ; Pure hypercholesterolemia E78.00 ; Renal insufficiency N28.9 and Acquired hypothyroidism E03.9 [facility] [address] [facility] [address] [place] [id number] 01/06/2025 Silvia Son Essential hypertensi on I10 ; Osteoporosis M81.0 ; 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 ; Synovial cyst of left popliteal space M71.22 and BMI 24.0-24.9, adult Z68.24 [facility] [address] [place], [place] [id number] 03/01/2024 Silvia Son [facility] [address] [place], [place] [id number] 03/25/2024 Luz Elena Gomez [facility] [address] [place], [place] [id number] 03/31/2024 Luz Elena Patricia [facility] [address] [place], [place] [id number] 05/04/2024 Luz Elena Gomez [facility] [address] [place] [id number] 07/25/2024 Silvia Son [facility] [address] [place], [place] [id number] 08/08/2024 Silvia Son [facility] [address] [place], [place] [id number] 01/18/2025 Silvia Son Screening for osteop orosis Z13.820 and Osteoporosis M81.0 [facility] [address] [place], [place] [id number] 02/17/2025 Silvia Son Assessments Encounter Date Diagnosis (ICD Code) Assessment Notes Treatment Notes Treatment Clinical Notes Section Notes 02/29/2024 Centrilobular emphys gray (ICD-10 - J43.2) 02/29/2024 Arteriosclerotic cardiovascular disease (ICD-10 - I25.10) 03/25/2024 Dysuria (ICD-10 - R30.0) Patient has an allergy listed to cefaclor but she was given cefdinir in the [facility] in December for a UTI and tolerated [...] - Z13.820) 01/18/2025 Osteoporosis (ICD-10 - M81.0) 01/06/2025 Osteoporosis (ICD-10 - M81.0) 08/05/2024 Pure hypercholesterolemia (ICD-10 - E78.00) 02/29/2024 History of left hip replacement (ICD-10 - Z96.642) 02/29/2024 Pure hypercholesterolemia (ICD-10 - E78.0) 08/05/2024 Renal insufficiency (ICD-10 - N28.9) 01/06/2025 Arteriosclerotic cardiovascular disease (ICD-10 - I25.10) 08/05/2024 Acquired hypothyroid ism (ICD-10 - E03.9) 02/29/2024 Depression with anxi ety (ICD-10 - F41.8) 01/06/2025 Synovial cyst of lef t popliteal space (ICD-10 - M71.22) 01/06/2025 BMI 24.0-24.9, adult (ICD-10 - Z68.24) 02/29/2024 Pure hypercholesterolemia (ICD-10 - E78.00) Plan Of Treatment Pending Test Test Name Order Date MRI : Knee, left, without contrast 01/06 DEXA Hip and Spine 01/18/2025 P-Comprehensive Metabolic Panel (CMP) Next Appt Details Provider Name:Silvia Lassiter er, 03/09/2025 01:30:00 PM, [address], [address], [place], [place], [id number], Insurance Providers Payer Name Payer Address Payer Phone Subscriber Number Group Number Insured Name Patient Relationship to Insured Coverage Start Date Coverage End Date [facility] [address] [address] [place] [phone] [id number] LEWIS, JONY Self - patient is the insured Medications Administered Medication Instructions Date of Administration Dosage Notes Dexamethasone 06/09/2014 1 mL Dexamethasone 06/21/2018 1 mL Medical (General) History Medical History History ICD Code HTN Pulmonary emphysema Hyperliidemia Osteoporesis Covid 19 Vaccine, Moderna, 08/17/20, 1, [facility] COVID 19 Booster 05/22/2021, Moderna Angioplasty and stent, 02/24/23, Dr. Vasquez vines Surgical History Surgery Date(Month/Year) tonsils removed Hysterectomy 1982 Natural 1964 Natural 1968 Breast biopsy, Dr. Roberts 2016 closed Intertrochanteric fra cture of the left hip withclosed reduction & cephalomedullary nailing of left femur 11/07/2020 Hospitalization History Reason Date(Month/Year) [place] recovery Lft hip November 2020 [facility] for repair of eft hiop ; HTN; tachcardia; UTI with enterobacter; respiratory faiure with hypoxia; emphysema; tobacco use disorder 11/06-11/10/2020 Hysterectomy 1982 tonsils above
== END 2025-02-20 23:59 | disposition home or self-care (01) ==
LOC: RAD 13:34
PROVIDERS: PCP Family Medicine; Visit Provider Family Medicine
DX: M85.851 Other specified disorders of bone density and structure, right thigh (principal); M81.0 Age-related osteoporosis without current pathological fracture
CPT/HCPCS: 77080

== ENCOUNTER 2025-04-14 15:32 | Outpatient (CLI) | payer MEDICARE, SELFPAY ==
--- OUTSIDE RECORDS SUMMARY | 2025-01-06 06:45 | XMS_ITS ---
Author Organization [facility] Address [address] [place] [phone] Care Team Providers Care Lawn Mower Operator Name Role Phone Silvia Son Primary [...] 34 Performing Lab: Notes/Report: Test performed by [employer] [address] [place] [address] , [address], [place] [address] Juan Carlos Bansal MD, Detective Bowling Alley CLIA: [id number] Sodium 138 135-145 mmol/L Potassium 4.1 3.5-5.3 [...] Encounter Location Date Provider Diagnosis [facility] [address] [place] [phone] 01/06/2025 Silvia Son Essential hypertensi on I10 [...] Up: 2 Months, Reason: Provider Name:Silvia Lassiter , 04/14/2025 03:22:00 PM, [address], [address], [place], [place], [phone], Provider Name:Silvia Lassiter , 07/10/2025 01:15:00 PM, [address], [address], [place], [place], [phone], Progress Notes * LEWISJONY Galicia KDOB:1940 ( 84 yo F)Acc No.[id number]:01/06/2025 Progress Notes Patient: JONY ALVAREZ Provider: Silvia Son M.D. :1940 A ge:84 Y S ex:Female Date:01/06/2025 Address:[address] [place] [address], [place], [id number] Subjective: * Chief Complaints: * 1 . [...] Procedure: t onsils above , Hysterectomy 1982, [facility] for repair of eft hiop ; HTN; tachcardia; UTI with enterobacter; respiratory faiure with hypoxia; emphysema; tobacco use disorder 11/06-11/10/2020, [place] recovery Lft hip November 2020. * Family [...] popliteal space - M71.22 5 . B HI 24.0-24.9, adult - Z68.24 ? Plan: * [...] EDT > no auth required; CPT code 35642; faxed to [facility] Scheduling * Procedure Codes: G 2211 Complex e/m visit add on, G8950 PREHTN/HTN BP DOC INDCD F/U DOC, G8752 MOST RECENT SYSTOLIC BP < 140MM HG, G8754 MOST RECENT DIASTOLIC BP < 90MM HG, G8420 BMI<30 AND >=22 CALC & DOCU * Follow Up: 2 Months * Images: Billing Information: * Visit Code: 45033 Office Visit, Est Pt., Level 4. * Procedure Codes: G2211 Complex e/m visit add on. G8950 PREHTN/HTN BP DOC INDCD F/U DOC. G8752 MOST RECENT SYSTOLIC BP < 140MM HG. G8754 MOST RECENT DIASTOLIC BP < 90MM HG. G8420 BMI<30 AND >=22 CALC & DOCU. * Electronic signature of Silvia Son MD on 04/14/2025 at 03:36 PM EDT Sign off status: Pending * Provider: Silvia Son M.D. Date: 01/06/2025 Generated for Clair lauren/Mabel/Thaosmitting on: 0 04/14/2025 03:36 PM EDT History and Physical Notes * [...]
--- OUTSIDE RECORDS SUMMARY | 2025-03-09 09:30 | XMS_ITS ---
Author Organization [facility] Address [address] [place] [phone] Care Team Providers Care Rubber Ball Finisher Name Role Phone Silvia Son Primary Care [...] 44 Performing Lab: Notes/Report: Test performed by [facility], [facility] [facility] , [address], [place] [address] Juan Carlos Bansal MD, Industrial Engineering Intern CLIA: [id number] Sodium 142 135-145 mmol/L Potassium 4.3 3.5-5.3 [...] day; Duration: 90 days Active Vital Signs Blood pressure systolic 114 mm Hg 03/09/20 25 Blood pressure diastolic 70 mm Hg 025 Heart Rate 79 /min 03/09/2025 Height 65 in 03/09/2025 Weight 148.8 lbs 03/09/2025 BMI 24.76 kg/m2 03/09/2025 Encounters Encounter Location Date Provider Diagnosis [facility] [address] [id number] 03/09/2025 Silvia Son ASCVD (arteriosclero tic cardiovascular [...] Up: 4 M, Reason: Provider Name:Silvia Lassiter , 04/14/2025 03:22:00 PM, [address] [place] [address] [address] [facility], [address], [place], [id number], Provider Name:Silvia Lassiter , 07/10/2025 01:15:00 PM, [address] [place] [address], [address], [place], [id number], Progress Notes * JONY LEWIS KDOB:1940 ( 84 yo F)Acc No.[id number]:03/09/2025 Progress Notes Patient: JONY ALVAREZ Provider: Silvia Son M.D. :1940 A ge:84 Y S ex:Female Date:03/09/2025 Address:[address] [place] [address] [place], [id number] Subjective: * Chief Complaints: * 1 . [...] Procedure: t onsils above , Hysterectomy 1982, [facility] for repair of eft hiop ; HTN; tachcardia; UTI with enterobacter; respiratory faiure with hypoxia; emphysema; tobacco use disorder 11/06-11/10/2020, [place] recovery Lft hip November 2020. * Family [...] unspecified type - R32 8 . B [place] 24.0-24.9, adult - Z68.24 Plan: * Treatment: [...] Creatinine 44 L >59 - mL/min/1.73m2 * Derrell Stacey 12:38:39 PM EDT > See phone encounter [...] * Images: Billing Information: * Visit Code: 72962 Office Visit, Est Pt., Level 4. * [...] Pending * Provider: Silvia Son M.D. Date: 03/09/2025 Generated for Clair lauren/Mabel/Thaosmitting on: 0 04/14/2025 [...]
--- OUTSIDE RECORDS SUMMARY | 2025-04-07 06:30 | XMS_ITS ---
[facility] Address [address] [place] [id number] Care Team Providers Care Tour Bus Driver Name Role Phone Silvia Son Primary Care [...] Status Risk Notes Problem Sacroiliac joint pain ([id number]) Sacroiliac joint pain (M53.3) Active confirmed Vital Signs Blood pressure systolic 122 mm Hg 04/07/20 25 Blood pressure diastolic 76 mm Hg 025 Heart Rate 60 /min 04/07/2025 Height 65 in 04/07/2025 Weight 148.6 lbs 04/07/2025 BMI 24.73 kg/m2 04/07/2025 Encounters Encounter Location Date Provider Diagnosis [facility] 1210 [facility] 36 [facility] [address] [place] [id number] 04/07/2025 Silvia Son Sacroiliac joint lynn n M53.3 and Left [...] Next Appt Details Follow Up: as scheduled, [place] son: Provider Name:Silvia castro, 04/14/2025 03:22:00 PM, 1210 [facility] 36 [facility], [facility] [address], [place], [phone], Provider Name:Silvia castro, 07/10/2025 01:15:00 PM, [address] [place] [address] 36 [facility], [facility] [address], [place], [phone], Progress Notes * JONY LEWIS KDOB:1940 ( 84 yo F)Acc No.[id number]:04/07/2025 Progress Notes Patient: Amy BISHOP JONY Ochoa Provider: Silvia Son M.D. :1940 A ge:84 Y S ex:Female Date:04/07/2025 Address:[address], [place], [id number] Subjective: * Chief Complaints: * 1 . Back pain. * HPI: L ower back: The pt is here today with [...] Osteoporesis, Covid 19 Vaccine, Moderna, 08/17/20, 09/17/20, -H, COVID 19 Booster 05/22/2021, Moderna, Angioplasty and stent, 02/24/23, Dr. Roman. * Surgical History: t onsils removed , Hysterectomy 1982, Natural 1964, Natural 1968, Breast biopsy, Dr. Roberts 2016, closed Intertrochanteric fracture of the left hip withclosed reduction & cephalomedullary nailing of left femur 11/07/2020. * Hospitalization/Major Diagno stic Procedure: t onsils above , Hysterectomy 1982, [facility] for repair of eft hiop ; HTN; tachcardia; UTI with enterobacter; respiratory faiure with hypoxia; emphysema; tobacco use disorder 11/06-11/10/2020, [place] recovery Lft hip November 2020. * Family [...] present - M54.50 Plan: * Treatment: * Follow Up: a s scheduled * Images: Lucioing Information: * Visit Code: 65347 Office Visit, Est Pt., Level 3. * Procedure Codes: * Electronic signature of Silvia Son MD on 04/14/2025 at 03:36 PM EDT Sign off status: Pending * Provider: Silvia Son M.D. Date: 0 04/07/2025 Generated for Printi ng/Faxing/eTransmitting on: 0 04/14/2025 03:36 PM EDT History and Physical Notes * Examination Category [...]
--- OUTSIDE RECORDS SUMMARY | 2025-04-14 15:36 | XMS_ITS | Encounter Summary ---
Author Organization Healthcare Address [address] [id number] Care Team Providers Care Supervisor Trust Accounts Name Role Phone Julio Son MD Primary Care Provider [phone] Encounter Details Date Type Department Care Team (Latest Contact Info) Description 03/17/2025 Travel Social History Tobacco Use Types Packs/Day Years Used Date Smoking Tobacco: Former Cigarettes Q uit: 2022 Alcohol Use Standard Drinks/Week Comments Never 0 (1 standard drink = 0.6 oz pur e alcohol) Comments Unknown Sex and Gender Information Value Date Recorded Sex Assigned at Not on file Legal Sex Female 8:55 PM EDT Gender Identity Not on file Sexual Orientation Not on file documented as of this encounter Plan of Treatment Not on file documented as of this encounter Visit Diagnoses Not on filedocumented in this encounter Additional Health Concerns Assessment Noted Time A Body Mass Index follow-up plan has been documented for the patient 09/02/2024 10:36 AM EST documented as of this encounter Care Teams Supervisor Trust Accounts Relationship Specialty Start Date End Date Julio Son MD [address] [place] [address] [place] [id number] PCP - General 08/30/24 documented as of this encounter
--- OUTSIDE RECORDS SUMMARY | 2025-04-14 15:36 | XMS_ITS | Patient Health Record ---
[facility] [address] [facility] [address] [place] [id number] Care Team Providers Care Keg Varnisher Name Role Phone Silvia Son Primary Care Provider [phone] Anabel Barrientos Unavailable [phone] Luz Elena Gomez Unavailable [phone] Allergies Allergen (clinical drug ingredient) Drug/Non Drug [...] Active Results Component Value Reference Range Notes Mammogram Reviewed date:07/06/2024 09:36:21 AM Interpretation:Negative, annual f/u Performing Lab: Notes/Report: Negative, annual f/u result Negative, annual f/u P-CBC With Platelet And Diff erential Reviewed date:08/08/2024 10:08:07 AM Interpretation: Normal Performing Lab: Notes/Report: Test performed by [employer] [employer] [address] [place] [address] , [address], [place] [address] Juan Carlos Bansal MD, [employer] CLIA: [id number] WBC 7.1 3.8-11.5 K/uL Red Blood Cell [...] 30 Performing Lab: Notes/Report: Test performed by [facility] [address] [place] [address] , [address], [place] [address] Juan Carlos Bansal MD, [employer] CLIA: [id number] Sodium 140 135-145 mmol/L Potassium 3.9 3.5-5.3 [...] Normal Performing Lab: Notes/Report: Test performed by [facility] [address] [place] [address] , [place] [address] Juan Carlos Bansal MD, [employer] CLIA: [id number] TSH 3.36 0.43-5.25 mU/L P-Comprehensive Metabolic Pa yamila (CMP) Reviewed date:03/10/2025 08:32:17 AM Interpretation:bun 42, Cr 1.51, gfr 34 Performing Lab: Notes/Report: Test performed by [facility] [address] [place] [address] , [address], [place] [address] Juan Carlos Bansal MD, [employer] CLIA: [id number] Sodium 138 135-145 mmol/L Potassium 4.1 3.5-5.3 [...] Lab: Notes/Report: Abnormal- see 03/09/25 f/u OV DEXA Hip and Spine Reviewed date:03/10/2025 12:38:46 PM Interpretation:osteoporosis forearm, osteopenia hip Performing Lab: Notes/Report: osteoporosis forearm, osteopenia hip P-Basic Metabolic Panel (BMP ) Reviewed date:03/10/2025 12:38:46 PM Interpretation:bun 43, Cr 1.22, gfr 44 Performing Lab: Notes/Report: Test performed by [facility] , [address], [place] [address] Juan Carlos Bansal MD, [employer] CLIA: [id number] Sodium 142 135-145 mmol/L Potassium 4.3 3.5-5.3 mmol/L Chloride 105 97-108 mmol/L CO2 27 20-32 mmol/L Glucose 88 65-99 mg/dL BUN 43 8-23 mg/dL Creatinine 1.22 0.50-1.00 mg/dL Calcium 9.8 8.6-10.4 mg/dL eGFR by Creatinine 44 >59 mL/min/1.73m2 Medications Medication SIG (Take, Route, Frequency, Duration) Notes Start Date End Date Status methylPREDNISolone 4 MG as directed Orally 025 Not-Taking Estrace 0.1 MG/GM as directed Vaginal twice a week Active Rosuvastatin Calcium 20 MG 1 tablet [...] 3 times a day, prn 04/14/2025 Active Clopidogrel Bisulfate 75 MG 1 tablet Ora lly Once a day; Duration: 30 day(s) Active Aspirin 81 MG 1 tablet Orally Once a day; Duration: 30 day(s) Active Diclofenac Sodium 1 % as directed applie d topically 4 times a day Active Sertraline HCl 25 MG TAKE 1 TABLET BY MOUTH ONCE DAILY; Duration: 30 Active Alendronate Sodium 70 MG 1 tab(s) orally once a week; Duration: 28 day(s) Not-Taking Co Q 10 100 MG as directed Orally Active Immunizations Vaccine Route Administration Date Status [...] Problem Status W/U Status Risk Notes Problem Essential hypertension (04867882) Essential (primary) hypertension (I10) Active confirmed Problem Coronary arteriosclerosis (96011542) ASCVD (arteriosclerotic cardiovascular disease) (I25.10) Active confirmed Problem Essential hypertension (87246123) Essential hypertension (I10) Active confirmed Problem Laboratory test result abnormal (382525692) Elevated lipase (R74.8) Active confirmed Problem Duodenal ulcer (29880074) Duodenal ulcer (K26.9) Active confirmed Problem Mixed anxiety and depressive disorder (469051367) Depression with anxiety (F41.8) Active confirmed Problem Bandemia (860974201) Bandemia (D72.825) Active confirmed Problem Pure hypercholesterolemia (494952159) Pure hypercholesterolemia (E78.0) Active confirmed Problem Primary insomnia (6212211) Primary insomnia (F51.01) Active confirmed Problem Old myocardial infarction (2244840) Old myocardial infarction (I25.2) Active confirmed Problem Chronic ischemic heart disease (735799027) Chronic ischemic heart disease, unspecified (I25.9) Active confirmed Problem Centrilobular emphysema (84599235) Centrilobular emphysema (J43.2) Active confirmed Problem Acute exacerbation o f chronic obstructive airways disease (310987463) Chronic obstructive pulmonary disease with (acute) exacerbation (J44.1) Active confirmed Problem Pain of right knee region (finding) (741511004255292) Pain in right knee (M25.561) Active confirmed Problem Pain of knee region (finding) (6928318349) Pain in unspecified knee (M25.569) Active confirmed Problem Degeneration of lumbar intervertebral disc (20028611) Other intervertebral disc degeneration, lumbar region (M51.36) Active confirmed Problem Epigastric pain (18784457) Epigastric pain (R10.13) Active confirmed Problem Old healed fracture of bone (266659299) Personal history of (healed) traumatic fracture (Z87.81) Active confirmed Problem Arteriosclerotic vascular disease (60448018) Arteriosclerotic cardiovascular disease (I25.10) Active confirmed Problem Chronic pain (73606133) Other chronic pain (G89.29) Active confirmed Problem Acquired hypothyroidism (566477362) Acquired hypothyroidism (E03.9) Active confirmed Problem Pulmonary emphysema (32071541) Pulmonary emphysema, unspecified emphysema type (J43.9) Active confirmed Problem Reactive depression (situational) (32403602) Situational depression (F43.21) Active confirmed Problem Periumbilical abdominal pain (715372250) Periumbilical abdominal pain (R10.33) Active confirmed Problem Osteoporosis (75859012) Osteoporosis (M81.0) Active confirmed Problem Atrial fibrillation (65200094) Atrial fibrillation, unspecified type (I48.91) Active confirmed Problem Reactive depression (96192845) Reactive depression (F32.9) Active confirmed Problem Urinary incontinence (674613223) Urinary incontinence, unspecified type (R32) Active confirmed Problem Atherosclerotic hear t disease of [place] coronary artery without angina pectoris (834777852989171) Atherosclerosis of [place] coronary artery without angina pectoris, unspecified whether [place] or transplanted heart (I25.10) Active confirmed Problem Gastritis and duodenitis (820847827) Gastritis and duodenitis (K29.90) Active confirmed Problem Pure hypercholesterolemia (559407307) Pure hypercholesterolemia (E78.00) Active confirmed Problem Acute arthritis (65356425) Acute arthritis (M19.90) Active confirmed Problem Sacroiliac joint lynn n (983845731) Sacroiliac joint pain (M53.3) Active confirmed Problem Age-related osteoporosis (580674288) Osteoporosis without current pathological fracture, unspecified osteoporosis type (M81.0) Active confirmed Problem History of placement of stent for coronary artery disease (situation) (047723248) S/P coronary artery stent placement (Z95.5) Active confirmed Problem History of left hip replacement (2921582181338964) History of left hip replacement (Z96.642) Active confirmed Problem Type 2 diabetes mellitus with peripheral angiopathy (779083712) Type 2 diabetes mellitus with diabetic peripheral angiopathy without gangrene, unspecified whether supervisor intermediates insulin use (E11.51) Active confirmed Problem Fracture malunion (385420247) Closed fracture of trochanter of femur with malunion, unspecified laterality, subsequent encounter (S71.800S) Active confirmed Vital Signs Heart Rate 76 /min 04/14/2025 Blood pressure diastolic 72 mm Hg 04/14/2025 Height 65 in 04/14/2025 Blood pressure systolic 126 mm Hg 04/14/2025 Weight 146.6 lbs 04/14/2025 BMI 24.39 kg/m2 04/14/2025 Encounters Encounter Location Date Provider Diagnosis [facility] [address] [facility] [address] [id number] 04/26/2024 Anabel Barrientos Encounter for immuni zation Z23 [facility] [address], [place] [id number] 06/22/2024 Luz Elena Crowdy Proteus infection A4 9.8 and Acute UTI N39.0 [facility] [address], [place] [id number] 08/05/2024 Silvia Son ASCVD (arteriosclero tic cardiovascular disease) I25.10 ; S/P coronary artery stent placement Z95.5 ; Pure hypercholesterolemia E78.00 ; Renal insufficiency N28.9 and Acquired hypothyroidism E03.9 [facility] [address] [place], [place] [id number] 01/06/2025 Silvia Son Essential hypertensi on I10 ; Osteoporosis M81.0 ; 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 ; Synovial cyst of left popliteal space M71.22 and BMI 24.0-24.9, adult Z68.24 [facility] [address] [place], [place] [id number] 03/09/2025 Silvia Son ASCVD (arteriosclero tic cardiovascular disease) I25.10 ; Pain in right knee M25.561 ; History of left hip replacement Z96.642 ; S/P coronary artery stent placement Z95.5 ; Pure hypercholesterolemia E78.00 ; Renal insufficiency N28.9 ; Urinary incontinence, unspecified type R32 and BMI 24.0-24.9, adult Z68.24 [facility] [address] [place], [place] [id number] 04/07/2025 Silvia Son Sacroiliac joint lynn n M53.3 and Left low back pain, unspecified chronicity, unspecified whether sciatica present M54.50 [facility] [address] [place], [place] [id number] 04/14/2025 Luz Elena Gomez Sacroiliac joint lynn n M53.3 and Left low back pain, unspecified chronicity, unspecified whether sciatica present M54.50 [facility] [address] [place], [place] [id number] 05/04/2024 Luz Elena Crowjigna [facility] [address] [place], [place] [id number] 07/25/2024 Silvia Son [facility] [address] [place], [place] [id number] 08/08/2024 Silvia Son [facility] [address] [place], [place] [id number] 01/18/2025 Silvia Son Screening for osteop orosis Z13.820 and Osteoporosis M81.0 [facility] [address] [place], [place] [id number] 02/17/2025 Silvia Son [facility] [address] [place], [place] [id number] 03/10/2025 Silvia Son [facility] [address] [place], [place] [id number] 04/14/2025 J Rick Huy Assessments Encounter Date Diagnosis (ICD Code) Assessment Notes Treatment Notes Treatment Clinical Notes Section Notes 03/09/2025 ASCVD (arteriosclero tic cardiovascular disease) (ICD-10 - I25.10) 03/09/2025 Pain in right knee (ICD-10 - M25.561) 01/18/2025 Screening for osteoporosis (ICD-10 - Z13.820) 08/05/2024 S/P coronary artery stent placement (ICD-10 - Z95.5) 01/06/2025 Essential hypertensi on (ICD-10 - I10) 04/26/2024 Encounter for immunization (ICD-10 - Z23) 06/22/2024 Acute UTI (ICD-10 - N39.0) 06/22/2024 Proteus infection (ICD-10 - A49.8) Reviewed culture and it is positive for proteus. He started her on trimethoprim and it is resistant. Will switch to cefdinir and have her keep appt with urology on Thursday. 08/05/2024 ASCVD (arteriosclero tic cardiovascular disease) (ICD-10 - I25.10) 04/07/2025 Sacroiliac joint lynn n (ICD-10 - M53.3) 04/07/2025 Left low back pain, unspecified chronicity, unspecified whether sciatica present (ICD-10 - M54.50) 04/14/2025 Sacroiliac joint lynn n (ICD-10 - M53.3) 04/14/2025 Left low back pain, unspecified chronicity, unspecified whether sciatica present (ICD-10 - M54.50) 03/09/2025 History of left hip replacement (ICD-10 - Z96.642) 01/06/2025 Osteoporosis (ICD-10 - M81.0) 01/18/2025 Osteoporosis (ICD-10 - M81.0) 08/05/2024 Pure hypercholesterolemia (ICD-10 - E78.00) 08/05/2024 Renal insufficiency (ICD-10 - N28.9) 01/06/2025 Arteriosclerotic cardiovascular disease (ICD-10 - I25.10) 03/09/2025 S/P coronary artery stent placement (ICD-10 - Z95.5) 03/09/2025 Pure hypercholesterolemia (ICD-10 - E78.00) 08/05/2024 Acquired hypothyroid ism (ICD-10 - E03.9) 01/06/2025 Synovial cyst of lef t popliteal space (ICD-10 - M71.22) 03/09/2025 Renal insufficiency (ICD-10 - N28.9) 01/06/2025 BMI 24.0-24.9, adult (ICD-10 - Z68.24) 03/09/2025 Urinary incontinence , unspecified type (ICD-10 - R32) 03/09/2025 BMI 24.0-24.9, adult (ICD-10 - Z68.24) Plan Of Treatment Pending Test Test Name Order Date X ray : Spine, lumbosacral 04/14/2025 X ray : SI joint, bilateral 04/14/2025 Next Appt Details Provider Name:[facility], 04/14/2025 03:22:00 PM, [address], [place], [place], [id number], Provider Name:[facility], 07/10/2025 01:15:00 PM, [address], [place], [place], [id number], Insurance Providers Payer Name Payer Address Payer Phone Subscriber Number Group Number Insured Name Patient Relationship to Insured Coverage Start Date Coverage End Date [facility] [address] [address] [place] [phone] [id number] JONY LEWIS Self - patient is the insured Medications Administered Medication Instructions Date of Administration Dosage Notes Dexamethasone 06/09/2014 1 mL Dexamethasone 06/21/2018 1 mL Medical (General) History Medical History History ICD Code HTN Pulmonary emphysema Hyperliidemia Osteoporesis Covid 19 Vaccine, Moderna, 08/17/20, 1, -[facility] COVID 19 Booster 05/22/2021, Moderna Angioplasty and stent, 02/24/23, Dr. Vasquez vines Surgical History Surgery Date(Month/Year) tonsils removed Hysterectomy 1983 Natural 1965 Natural 1969 Breast biopsy, Dr. Roberts 2016 closed Intertrochanteric fra cture of the left hip withclosed reduction & cephalomedullary nailing of left femur 11/07/2020 Hospitalization History Reason Date(Month/Year) [facility] recovery Lft hip November 2020 [facility] for repair of eft hiop ; HTN; tachcardia; UTI with enterobacter; respiratory faiure with hypoxia; emphysema; tobacco use disorder 11/06-11/10/2020 Hysterectomy 1983 tonsils above
--- OUTSIDE RECORDS SUMMARY | 2025-04-14 15:36 | XMS_ITS | Clinical Summary ---
Author Organization [facility] Address [address] [place] [address] Care Team Providers Care Director Of Loss Prevention Name Role Phone Juloi Son MD Primary Care Provider [phone] Allergies Active Allergy Reactions Criticality Noted Date [...] of left femur 08/30/2024 HTN (hypertension) 08/30/2024 Encounters Date Type Department Care Team Description 03/17/2025 Travel from Last 3 Months Immunizations Immunization Administration Dates Next Due Influenza, [...] 02/24/2023 9:58 AM EDT Plan of Treatment Health Maintenance Due Date Last Done Comments [facility]-Bone Density Scan 1941 [facility]-Depression Screening 1941 [facility]-Infant/Child/Adol SDOH Screenings 1941 [facility]- SDOH Screenings 1959 [facility]-Adult SDOH Screenings 1959 [facility]-Zoster Vaccines (1 of 2) 1991 [facility]-DTaP,Tdap,and Td Vaccines (1 - Tdap) 10/13/1996 10/12/1996 [facility]-RSV Vaccine: 60+ Years or (1 - 1-dose 75+ series) 2016 PED-[id number]-14 Vaccine ( - season) 2024 06/09/2022, 05/22/2021, 09/17/2020, Additional history exists [facility]-Influenza Vaccine (#1) 04/10/202505/07, 05/03/2021, 04/11/2020, Additional history exists [facility]-Pneumococcal Vaccine: 50+ Years Completed 11/01/2016, 05/17/2014 [facility]-Obesity Intervention Completed 09/02/2024 HPV Vaccines Aged [...] patient's age to complete this topic Insurance [employer] MEDICARE Care Teams Director Of Loss Prevention Relationship Specialty Start Date End Date Julio Son MD [address] [place] [id number] PCP - General 08/30/24
--- NOTE | 2025-04-14 15:53 | XR_ITS ---
PROCEDURE INFORMATION: Exam: XR Lumbosacral Spine Exam date and time: 04/14/2025 3:59 PM Age: 84 years old Clinical indication: Low back pain TECHNIQUE: Imaging protocol: Radiologic exam of the lumbosacral spine. Views: 4 or 5 views. Total images: 3 COMPARISON: CT ABDOMEN PELVIS WO CON 05/19/2024 2:23 PM FINDINGS: Bones/joints: Leftward curvature of the lumbar spine with mild degenerative changes. 3 mm retrolisthesis of L3 on L4 and L5 on S1. No evidence of acute fracture. Postoperative changes of the left hip. Soft tissues: Unremarkable. Vasculature: Moderate atherosclerotic disease. IMPRESSION: 1. Leftward curvature of the lumbar spine with mild degenerative changes. 2. 3 mm retrolisthesis of L3 on L4 and L5 on S1. 3. No evidence of acute fracture.
--- NOTE | 2025-04-14 15:53 | XR_ITS ---
PROCEDURE INFORMATION: Exam: XR Bilateral Sacroiliac Joints Exam date and time: 04/14/2025 3:59 PM Age: 84 years old Clinical indication: Pain; Other: Si joints; Additional info: Sacroillax joint pain TECHNIQUE: Imaging protocol: XR bilateral XR of the sacroiliac joints. Views: 3 or more views. Total images: 3 COMPARISON: CR - XR SACROILIAC JOINT BI MIN 3V 04/14/2025 3:59 PM FINDINGS: Bones/joints: Mild degenerative changes of both SI joints. No evidence of acute fracture. Degenerative changes of the lower lumbar spine. Postoperative changes of the left hip. Soft tissues: Normal. Gastrointestinal tract: Large amount of stool is present throughout the colon. IMPRESSION: 1. Mild degenerative changes of both SI joints. 2. No evidence of acute fracture. 3. Large amount of stool is present throughout the colon.
== END 2025-04-14 23:59 | disposition home or self-care (01) ==
LOC: RAD 15:34
PROVIDERS: PCP Family Medicine; Visit Provider Physician Assistant
DX: M46.1 Sacroiliitis, not elsewhere classified (principal); M47.816 Spondylosis without myelopathy or radiculopathy, lumbar region; M43.16 Spondylolisthesis, lumbar region; R93.3 Abnormal findings on diagnostic imaging of other parts of digestive tract
CPT/HCPCS: 72110; 72202

== ENCOUNTER 2025-05-17 16:19 | Outpatient (CLI) | payer MEDICARE, SELFPAY ==
--- NOTE | 2025-05-17 16:21 | CA_ITS ---
FINAL REPORT CLINICAL HISTORY: Patient with recent falls. One fall 2 weeks ago, the other 3 weeks ago. Both falls have had patient landing on hips and buttocks. Her posterior thighs have extensive bruising. Edema noted in bilateral lower extremities. HTN, HLD, ex smoker. FINDINGS: DUPLEX VENOUS SONOGRAPHY OF THE BILATERAL LOWER EXTREMITIES Multiple transverse and longitudinal scans were performed of the femoropopliteal deep venous systems, with augmentation and compression maneuvers. FINDINGS: Normal phasic flow was noted in the visualized deep venous systems. No intraluminal increased echogenicity is noted to suggest thrombus. There is normal compression and augmentation of the venous structures. No abnormal venous collaterals are seen. A Shah's cyst is noted on the left. IMPRESSION: No evidence of deep venous thrombosis of the bilateral lower extremities. Reviewed, Interpreted and Dictated by Catrina Lino MD Transcribed by Prema Gross Authenticated and [facility]
== END 2025-05-17 23:59 | disposition home or self-care (01) ==
LOC: RT 16:20
PROVIDERS: PCP Family Medicine; Visit Provider Physician Assistant
DX: R60.0 Localized edema (principal); R29.6 Repeated falls; S70.12XA Contusion of left thigh, initial encounter; S70.11XA Contusion of right thigh, initial encounter; I10 Essential (primary) hypertension; E78.5 Hyperlipidemia, unspecified; Z87.891 Personal history of nicotine dependence; W19.XXXA Unspecified fall, initial encounter
CPT/HCPCS: 93970

== ENCOUNTER 2025-06-29 14:31 | Outpatient (CLI) | payer MEDICARE, SELFPAY ==
--- OUTSIDE RECORDS SUMMARY | 2024-08-05 05:00 | XMS_ITS ---
Author Organization [facility] Address [address] [place] [id number] Care Team Providers Care Oracle Applications Analyst Name Role Phone Silvia Son Primary Care Provider Allergies Allergen (clinical drug ingredient) Drug/Non Drug Allergy documented on EMR Reaction Allergy Type Onset Date Status cefaclor Cefaclor rash Drug Allergy Active ciprofloxacin Cipro rash Drug Allergy Act ricarda nitrofurantoin, macrocrystals / nitrofurantoin, monohydrate Macrobid hives Drug Allergy Active azithromycin Zithromax migrain Drug Allergy Acti ve Substance with sulfonamide structure and antibacterial mechanism of action (substance) Sulfa Antibiotics throat closes Drug Allergy Active Results Component Value Reference Range Notes P-CBC With Platelet And Diff erential Reviewed date:08/08/2024 10:08:07 AM Interpretation: Normal Performing Lab: Notes/Report: Test performed by [facility], [address] , [place] [address] Juan Carlos Bansal MD, Client Support Representative CLIA: [id number] WBC 7.1 3.8-11.5 K/uL Red Blood Cell Count (RBC) 4.32 3.60-5.30 M/mm 3 Hemoglobin (Hgb) 12.9 11.5-15.5 gm/dL Hematocrit (HCT) 40.3 35.2-46.4 % MCV 93.3 79.0-99.0 fL MCH 29.9 26.9-35.0 pg MCHC 32.0 30.4-34.8 g/dL RDW 44.9 38.6-53.8 fL Platelet Count 241 137-397 K/cumm Neutrophils Automated 64.1 41.0-77.0 % Lymphocytes Automated 20.8 14.0-48.0 % Monocytes Automated 10.3 4.0-13.0 % Eosinophils Automated 3.8 0.0-8.0 % Basophils Automated 0.7 0.0-1.5 % Immature Granulocyte Automated 0.3 0.0-1.0 % P-Comprehensive Metabolic Pa yamila (CMP) Reviewed date:08/08/2024 10:08:07 AM Interpretation:bun 33, Cr 1.67, gfr 30 Performing Lab: Notes/Report: Test performed by [facility] [address] [place], [place] [address] , [address], [place] [address] Juan Carlos Bansal MD, Client Support Representative CLIA: [id number] Sodium 140 135-145 mmol/L Potassium 3.9 3.5-5.3 mmol/L Chloride 103 97-108 mmol/L CO2 26 22-32 mmol/L Glucose 97 65-99 mg/dL BUN 33 8-23 mg/dL Creatinine 1.67 0.50-1.00 mg/dL Calcium 9.6 8.6-10.4 mg/dL eGFR by Creatinine 30 >59 mL/min/1.73m2 Protein 6.3 6.0-8.3 g/dL Albumin 4.2 3.5-5.3 g/dL Alkaline Phosphatase 84 35-121 IU/L ALT (SGPT) 19 <5-47 IU/L AST (SGOT) 28 <5-40 IU/L Bilirubin, Total 0.5 <0.2-1.2 mg/dL A/G Ratio 2.0 1.1-2.5 P-TSH Reviewed date:08/08/2024 10:08:07 AM Interpretation: Normal Performing Lab: Notes/Report: Test performed by [facility] [address] [place] [address] , [address], [place] [address] Juan Carlos Bansal MD, Client Support Representative CLIA: [id number] TSH 3.36 0.43-5.25 mU/L REASON FOR VISIT 5 mos checkup, Needs labs & bone density screening Medications Medication SIG (Take, Route, Frequency, Duration) Notes Start Date End Date Status oxyBUTYnin Chloride ER 10 MG 1 tablet Or ally Once a day; Duration: 30 day(s) Active Estrace 0.1 MG/GM as directed Vaginal twice a week Active Sertraline HCl 25 MG 1 tab(s) orally onc e a day; Duration: 30 days Active Myrbetriq 50 MG 1 tablet Orally Once a day; Duration: 30 day(s) Active Rosuvastatin Calcium 20 MG TAKE 1 TABLET BY MOUTH ONCE DAILY; Duration: 30 days Active Metoprolol Succinate ER 25 MG 1 tablet O rally Two times a day; Duration: 90 days Active hydroCHLOROthiazide 12.5 MG 1 tablet in the morning Orally Once a day; Duration: 90 days Active Diclofenac Sodium 1 % as directed applie d topically 4 times a day Active Alendronate Sodium 70 MG 1 tab(s) orally once a week; Duration: 28 day(s) Active Trimethoprim 100 MG 1 tablet Orally Once a day; Duration: 10 day(s) Active Co Q 10 100 MG as directed Orally Active Clopidogrel Bisulfate 75 MG 1 tablet Ora lly Once a day; Duration: 30 day(s) Active Aspirin 81 MG 1 tablet Orally Once a day; Duration: 30 day(s) Active Vital Signs Weight 144.6 lbs 08/05/2024 Blood pressure systolic 120 mm Hg 08/05/20 24 Blood pressure diastolic 72 mm Hg 024 Heart Rate 61 /min 08/05/2024 Height 65 in 08/05/2024 BMI 24.06 kg/m2 08/05/2024 Encounters Encounter Location Date Provider Diagnosis [facility] [address] [phone] 08/05/2024 Silvia Son ASCVD (arteriosclero tic cardiovascular disease) I25.10 ; S/P coronary artery stent placement Z95.5 ; Pure hypercholesterolemia E78.00 ; Renal insufficiency N28.9 and Acquired hypothyroidism E03.9 Assessments Encounter Date Diagnosis (ICD Code) Assessment Notes Treatment Notes Treatment Clinical Notes Section Notes 08/05/2024 ASCVD (arteriosclero tic cardiovascular disease) (ICD-10 - I25.10) 08/05/2024 S/P coronary artery stent placement (ICD-10 - Z95.5) 08/05/2024 Pure hypercholesterolemia (ICD-10 - E78.00) 08/05/2024 Renal insufficiency (ICD-10 - N28.9) 08/05/2024 Acquired hypothyroid ism (ICD-10 - E03.9) Plan Of Treatment Next Appt Details Follow Up: 5 MONTHS, Reason: Provider Name:Silvia Lassiter er, 07/10/2025 01:15:00 PM, [address], [address], [place], [place], [id number], Progress Notes * Sonam LEWIS KDOB:1940 ( 85 yo F)Acc No.[id number]:08/05/2024 Progress Notes Patient: Sonam ALVAREZ Provider: Silvia Son M.D. :1940 A ge:84 Y S ex:Female Date:08/05/2024 Address:[address] [place] [address], [place], [id number] Subjective: * Chief Complaints: * 1 . 5 mos checkup. 2. Needs labs & bone density screening. * HPI: C ardiology: The patient is here for a check up on Hypertension and Hyperlipidemia. Pt states she doing good and denies any new concerns. Pt states she had COVID 19 on but is doing much better. Did not receive Paxlovid. Pt is not fasting. Denies : Chest Pain. D enies : Short of Breath. D enies : Dizziness. D enies : Palpitations. * ROS: D ERMATOLOGY: no R carlton. n o H trevor. G ASTROENTEROLOGY: no N ausea. n o V omiting. n o D iarrhea.? U ROLOGY: no D ifficulty urinating. n o B lood in urine. * Medical History: H [place], Pulmonary emphysema, Hyperliidemia, Osteoporesis, Covid 19 Vaccine, Moderna, 08/17/20, 09/17/20, -[facility], COVID 19 Booster 05/22/2021, Moderna, Angioplasty and stent, 02/24/23, Dr. Roman. * Surgical History: t onsils removed , Hysterectomy 1982, Natural 1964, Natural 1968, Breast biopsy, Dr. Armando 2017, closed Intertrochanteric fracture of the left hip withclosed reduction & cephalomedullary nailing of left femur 11/07/2020. * Hospitalization/Major Diagno stic Procedure: t onsils above , Hysterectomy 1982, [facility] for repair of eft hiop ; HTN; tachcardia; UTI with enterobacter; respiratory faiure with hypoxia; emphysema; tobacco use disorder 11/06-11/10/2020, [facility] Lft hip November 2020. * Family History: F ather: . M other: . 1 son(s) , 1 daughter(s) - healthy. . * Social History: C URRENT TOBACCO USE S moking Status: Patient does smoke, packs per day: 1. C affeine: yes, frequency: 5 cups. Exercise: yes, Curves 3 times a week. Marital Status: . Past smoking status: yes, PPD: 1 , years: ,determination:. Recreational drug use: no. Alcohol: No. * Medications: T aking oxyBUTYnin Chloride ER 10 MG Tablet Extended Release 24 Hour 1 tablet Orally Once a day , Taking Estrace 0.1 MG/GM Cream as directed Vaginal twice a week , Taking Myrbetriq 50 MG Tablet Extended Release 24 Hour 1 tablet Orally Once a day , Taking Trimethoprim 100 MG Tablet 1 tablet Orally Once a day , Taking Co Q 10 100 MG Capsule as directed Orally , Taking Clopidogrel Bisulfate 75 MG Tablet 1 tablet Orally Once a day , Taking Aspirin 81 MG Tablet Delayed Release 1 tablet Orally Once a day , Taking Diclofenac Sodium 1 % Gel as directed applied topically 4 times a day , Taking Alendronate Sodium 70 MG Tablet 1 tab(s) orally once a week , Taking Rosuvastatin Calcium 20 MG Tablet TAKE 1 TABLET BY MOUTH ONCE DAILY , Taking Metoprolol Succinate ER 25 MG Tablet Extended Release 24 Hour 1 tablet Orally Two times a day , Taking hydroCHLOROthiazide 12.5 MG Tablet 1 tablet in the morning Orally Once a day , Taking Sertraline HCl 25 MG Tablet 1 tab(s) orally once a day , Discontinued Cefdinir 300 MG Capsule 1 cap(s) Orally Two times a day , Medication List reviewed and reconciled with the patient * Allergies: S ulfa Antibiotics: throat closes, Cefaclor: rash, Macrobid: hives, Cipro: rash, Zithromax: migrain. Objective: * Vitals: W t:144.6, Temp:97.4, BP:120/72, HR:61, Nurse:BELA, Ht: 65, BMI:24.06. * Examination: G eneral Examination: General Appearance: N AD. H EENT: u nremarkable.?Oral cavity: n o lesions, mucosa moist and WNL, no erythema. N ortega: s upple, no lymphadenopathy. C hest: n ormal shape and expansion. H eart: R SR. L ungs: c lear to auscultation. N eurologic Exam: I ntact, gait normal. S kin: n ormal, no rash.?Peripheral pulses: n ormal. E xtremities: t race leg edema, more left than right.? Assessment: * Assessment: 1. A SCVD (arteriosclerotic cardiovascular disease) - I25.10 (Primary) 2 . S /P coronary artery stent placement - Z95.5 3 . P ure hypercholesterolemia - E78.00 4 . R enal insufficiency - N28.9 5 . A cquired hypothyroidism - E03.9 Plan: * Treatment: Value Reference Range B asophils Automated 0.7 0.0-1.5 - % * E osinophils Automated 3.8 0.0-8.0 - % * H ematocrit (HCT) 40.3 35.2-46.4 - % * H emoglobin (Hgb) 12.9 11.5-15.5 - gm/dL * I mmature Granulocyte Automated 0.3 0.0-1.0 - % * L ymphocytes Automated 20.8 14.0-48.0 - % * M CH 29.9 26.9-35.0 - pg * M CHC 32.0 30.4-34.8 - g/dL * M CV 93.3 79.0-99.0 - fL * M onocytes Automated 10.3 4.0-13.0 - % * P latelet Count 241 137-397 - K/cumm * R ed Blood Cell Count (RBC) 4.32 3.60-5.30 - M/ mm3 * R DW 44.9 38.6-53.8 - fL * N eutrophils Automated 64.1 41.0-77.0 - % * W BC 7.1 3.8-11.5 - K/uL * GenovevaRosita 08/08/2024 10:0 8:03 AM >See phone encounter ?LAB: P-Comprehensive Metabolic Panel (CMP) (Collection Date & Time - 08/05/2024 10:18 AM)?bun 33, Cr 1.67, gfr 30* Value Reference Range A /G Ratio 2.0 1.1-2.5 - * A lbumin 4.2 3.5-5.3 - g/dL * A lkaline Phosphatase 84 35-121 - IU/L * A LT (SGPT) 19 <5-47 - IU/L * A ST (SGOT) 28 <5-40 - IU/L * B ilirubin, Total 0.5 <0.2-1.2 - mg/dL * B UN 33 H 8-23 - mg/dL * C alcium 9.6 8.6-10.4 - mg/dL * C hloride 103 97-108 - mmol/L * C O2 26 22-32 - mmol/L * C reatinine 1.67 H 0.50-1.00 - mg/dL * G lucose 97 65-99 - mg/dL * P otassium 3.9 3.5-5.3 - mmol/L * S odium 140 135-145 - mmol/L * P rotein 6.3 6.0-8.3 - g/dL * e GFR by Creatinine 30 L >59 - mL/min/1.73m2 * Rosita Tomas 08/08/2024 10:0 8:03 AM >See phone encounter 2.?Renal insufficiency?LAB: P-CBC With Platelet And Differential (Collection Date & Time - 08/05/2024 10:18 AM)?Normal* Value Reference Range B asophils Automated 0.7 0.0-1.5 - % * E osinophils Automated 3.8 0.0-8.0 - % * H ematocrit (HCT) 40.3 35.2-46.4 - % * H emoglobin (Hgb) 12.9 11.5-15.5 - gm/dL * I mmature Granulocyte Automated 0.3 0.0-1.0 - % * L ymphocytes Automated 20.8 14.0-48.0 - % * M CH 29.9 26.9-35.0 - pg * M CHC 32.0 30.4-34.8 - g/dL * M CV 93.3 79.0-99.0 - fL * M onocytes Automated 10.3 4.0-13.0 - % * P latelet Count 241 137-397 - K/cumm * R ed Blood Cell Count (RBC) 4.32 3.60-5.30 - M/ mm3 * R DW 44.9 38.6-53.8 - fL * N eutrophils Automated 64.1 41.0-77.0 - % * W BC 7.1 3.8-11.5 - K/uL * Rosita Tomas 08/08/2024 10:0 8:03 AM >See phone encounter ?LAB: P-Comprehensive Metabolic Panel (CMP) (Collection Date & Time - 08/05/2024 10:18 AM)?bun 33, Cr 1.67, gfr 30* Value Reference Range A /G Ratio 2.0 1.1-2.5 - * A lbumin 4.2 3.5-5.3 - g/dL * A lkaline Phosphatase 84 35-121 - IU/L * A LT (SGPT) 19 <5-47 - IU/L * A ST (SGOT) 28 <5-40 - IU/L * B ilirubin, Total 0.5 <0.2-1.2 - mg/dL * B UN 33 H 8-23 - mg/dL * C alcium 9.6 8.6-10.4 - mg/dL * C hloride 103 97-108 - mmol/L * C O2 26 22-32 - mmol/L * C reatinine 1.67 H 0.50-1.00 - mg/dL * G lucose 97 65-99 - mg/dL * P otassium 3.9 3.5-5.3 - mmol/L * S odium 140 135-145 - mmol/L * P rotein 6.3 6.0-8.3 - g/dL * e GFR by Creatinine 30 L >59 - mL/min/1.73m2 * Rosita Tomas 08/08/2024 10:0 8:03 AM >See phone encounter 3.?Acquired hypothyroidism?LAB: P-TSH (Collection Date & Time - 08/05/2024 10:18 AM)?Normal* Value Reference Range T SH 3.36 0.43-5.25 - mU/L * Rosita Tomas 08/08/2024 10:0 8:03 AM >See phone encounter * Procedure Codes: G 2211 Complex e/m visit add on * Follow Up: 5 MONTHS * Images: Billing Information: * Visit Code: 01713 Office Visit, Est Pt., Level 4. * Procedure Codes: G2211 Complex e/m visit add on. * Electronic signature of Silvia Son MD on 06/29/2025 at 04:47 PM EST Sign off status: Pending * Provider: Silvia Son M.D. Date: 10/06/2023 Generated for Adani xin/Mabel/eTransmitting on: 08/29/2024 04:47 PM EST History and Physical Notes * HPI (History of Present Illness) Category Sub-Category Detail Notes Category Not es Cardiology Short of Breath Chest Pain Palpitations Dizziness Examination Category Sub-Category Detail Notes Category Not es General Examination HEENT: unremarkable Heart: RSR Lungs: clear to auscultatio n Extremities: trace leg edema, mor e left than right General Appearance: NAD Skin: normal, no rash Neurologic Exam: Intact, gait normal Neck: supple, no lymphaden opathy Oral cavity: no lesions, mucosa m oist and WNL, no erythema Peripheral pulses: normal Chest: normal shape and exp ansion
--- OUTSIDE RECORDS SUMMARY | 2025-01-06 05:45 | XMS_ITS ---
Author Organization [facility] Address [address] [place] [id number] Care Team Providers Care Automobile Engine Assembler Name Role Phone Silvia Son Primary Care [...] Active Results Component Value Reference Range Notes P-Comprehensive Metabolic Pa yamila (CMP) Reviewed date:03/10/2025 08:32:17 AM Interpretation:bun 42, Cr 1.51, gfr 34 Performing Lab: Notes/Report: Test performed by [employer] [address] [place] [address] , [address], [place] [address] Juan Carlos Bansal MD, Pasting Inspector CLIA: [id number] Sodium 138 135-145 mmol/L Potassium 4.1 3.5-5.3 mmol/L Chloride 100 97-108 mmol/L CO2 25 22-32 mmol/L Glucose 88 65-99 mg/dL BUN 42 8-23 mg/dL Creatinine 1.51 0.50-1.00 mg/dL Calcium 10.0 8.6-10.4 mg/dL eGFR by Creatinine 34 >59 mL/min/1.73m2 Protein 6.8 6.0-8.3 g/dL Albumin 4.4 3.5-5.3 g/dL Alkaline Phosphatase 86 35-121 IU/L ALT (SGPT) 18 <5-47 IU/L AST (SGOT) 23 <5-40 IU/L Bilirubin, Total 0.7 <0.2-1.2 mg/dL A/G Ratio 1.8 1.1-2.5 MRI : Knee, left, without co ntrast Reviewed date:03/10/2025 10:30:55 AM Interpretation:Abnormal- see 03/09/25 f/u OV Performing Lab: Notes/Report: Abnormal- see 03/09/25 f/u OV REASON FOR VISIT 5 month check, Needs labs & bone density screening Medications Medication SIG (Take, Route, Frequency, Duration) Notes Start Date End Date Status Rosuvastatin Calcium 20 MG TAKE 1 TABLET BY MOUTH ONCE DAILY; Duration: 30 Active Metoprolol Succinate ER 25 MG 1 tablet O rally Two times a day; Duration: 90 days Active Sertraline HCl 25 MG 1 tab(s) orally onc e a day; Duration: 30 days Active hydroCHLOROthiazide 12.5 MG 1 tablet in the morning Orally Once a day; Duration: 90 days Active Alendronate Sodium 70 MG 1 tab(s) orally once a week; Duration: 28 day(s) Active Co Q 10 100 MG as directed Orally Active Aspirin 81 MG 1 tablet Orally Once a day; Duration: 30 day(s) Active Clopidogrel Bisulfate 75 MG 1 tablet Ora lly Once a day; Duration: 30 day(s) Active Diclofenac Sodium 1 % as directed applie d topically 4 times a day Active Estrace 0.1 MG/GM as directed Vaginal twice a week Active oxyBUTYnin Chloride ER 10 MG 1 tablet Or ally Once a day; Duration: 30 day(s) Active Vital Signs Weight 148.4 lbs 01/06/2025 Blood pressure systolic 120 mm Hg 01/07/20 25 Blood pressure diastolic 70 mm Hg 025 Heart Rate 64 /min 01/06/2025 Height 65 in 01/06/2025 BMI 24.69 kg/m2 01/06/2025 Encounters Encounter Location Date Provider Diagnosis [facility] [address] [place] [id number] 01/06/2025 Silvia Son Essential hypertensi on I10 ; Osteoporosis M81.0 ; 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 ; Synovial cyst of left popliteal space M71.22 and BMI 24.0-24.9, adult Z68.24 Assessments Encounter Date Diagnosis (ICD Code) Assessment Notes Treatment Notes Treatment Clinical Notes Section Notes 01/06/2025 Essential hypertension (ICD-10 - I10) 01/06/2025 Osteoporosis (ICD-10 - M81.0) 01/06/2025 Arteriosclerotic cardiovascular disease (ICD-10 - I25.10) 01/06/2025 Synovial cyst of left popliteal space (ICD-10 - M71.22) 01/06/2025 BMI 24.0-24.9, adult (ICD-10 - Z68.24) Plan Of Treatment Next Appt Details Follow Up: 2 Months, Reason: Provider Name:Silvia Lassiter er, 07/10/2025 01:15:00 PM, [address] [facility] 36 [facility], [address], [place], [place], [phone], Progress Notes * Sonam LEWIS KDOB:1940 ( 85 yo F)Acc No.[id number]:01/06/2025 Progress Notes Patient: Sonam ALVAREZ Provider: Silvia Son M.D. :1940 A ge:84 Y S ex:Female Date:01/06/2025 Address:[address] [place] [id number] Subjective: * Chief Complaints: * 1 . 5 month check. 2. Needs labs & bone density screening. * HPI: C ardiology: The pt is here for a check up on Hypertension and Diabetes. Pt states has had left knee pain all this week. Pt rate the pain a 5/10 with flexion. Pt denies any known injury. Pt is not fasting. Denies : Chest [...] Natural 1964, Natural 1968, Breast biopsy, Dr. Roberts 2016, closed Intertrochanteric fracture of the left hip withclosed reduction & cephalomedullary nailing of left femur 11/07/2020. * Hospitalization/Major Diagno stic Procedure: t onsils above , Hysterectomy 1982, [facility] for repair of eft hiop ; HTN; tachcardia; UTI with enterobacter; respiratory faiure with hypoxia; emphysema; tobacco use disorder 11/06-11/10/2020, [place] recovery Lft hip November 2020. * Family [...] directed Vaginal twice a week , Taking Co Q 10 100 MG [...] tab(s) orally once a week , Taking Metoprolol Succinate ER 25 MG Tablet Extended Release 24 Hour 1 tablet Orally Two times a day , Taking hydroCHLOROthiazide 12.5 MG Tablet 1 tablet in the morning Orally Once a day , Taking Sertraline HCl 25 MG Tablet 1 tab(s) orally once a day , Taking Rosuvastatin Calcium 20 MG Tablet TAKE 1 TABLET BY MOUTH ONCE DAILY , Discontinued Myrbetriq 50 MG Tablet Extended Release 24 Hour 1 tablet Orally Once a day , Discontinued Trimethoprim 100 MG Tablet 1 tablet Orally Once a day , Medication List reviewed and reconciled with the patient * Allergies: S ulfa Antibiotics: throat closes, Cefaclor: rash, Macrobid: hives, Cipro: rash, Zithromax: migrain. Objective: * Vitals: W t: 148.4, Temp: 97.6, BP: 120/70, HR: 64, Nurse: BELA, Ht: 65, BMI:24.69. * Examination: G eneral Examination: General Appearance: N AD. H EENT: u nremarkable.?Oral cavity: n o lesions, mucosa moist and WNL, no erythema. N ortega: s upple, no lymphadenopathy. C hest: n ormal shape and expansion. H eart: R SR. L ungs: c lear to auscultation. N eurologic Exam: I ntact, gait good. S kin: n ormal, no rash.?Peripheral pulses: n ormal. E xtremities: m inimal leg edema, tenderness of posterior knee, suggestive of Shah's cyst. Assessment: * Assessment: 1. E ssential hypertension - I10 2 . O steoporosis - M81.0 3 . A rteriosclerotic cardiovascular disease - I25.10 4 . S ynovial cyst of left popliteal space - M71.22 5 . B RI 24.0-24.9, adult - Z68.24 ? Plan: * Treatment: Value Reference Range A /G Ratio 1.8 1.1-2.5 - * A lbumin 4.4 3.5-5.3 - g/dL * A lkaline Phosphatase 86 35-121 - IU/L * A LT (SGPT) 18 <5-47 - IU/L * A ST (SGOT) 23 <5-40 - IU/L * B ilirubin, Total 0.7 <0.2-1.2 - mg/dL * B UN 42 H 8-23 - mg/dL * C alcium 10.0 8.6-10.4 - mg/dL * C hloride 100 97-108 - mmol/L * C O2 25 22-32 - mmol/L * C reatinine 1.51 H 0.50-1.00 - mg/dL * G lucose 88 65-99 - mg/dL * P otassium 4.1 3.5-5.3 - mmol/L * S odium 138 135-145 - mmol/L * P rotein 6.8 6.0-8.3 - g/dL * e GFR by Creatinine 34 L >59 - mL/min/1.73m2 * see 03/10/25 lab results 2.?Synovial cyst of left popliteal space?Imaging: MRI : Knee, left, without contrast (Performed Date - 01/31/2025)? Abnormal- see 03/09/25 f/u OV* Neisha Lee 01/09/2025 10:13 :02 AM EDT > no auth required; CPT code 51827; faxed to [facility] Scheduling * Procedure Codes: G 2211 Complex e/m visit add on, G8950 PREHTN/HTN BP DOC INDCD F/U DOC, G8752 MOST RECENT SYSTOLIC BP < 140MM HG, G8754 MOST RECENT DIASTOLIC BP < 90MM HG, G8420 BMI<30 AND >=22 CALC & DOCU * Follow Up: 2 Months * Images: Billing Information: * Visit Code: 63516 Office Visit, Est Pt., Level 4. * Procedure Codes: G2211 Complex e/m visit add on. G8950 PREHTN/HTN BP DOC INDCD F/U DOC. G8752 MOST RECENT SYSTOLIC BP < 140MM HG. G8754 MOST RECENT DIASTOLIC BP < 90MM HG. G8420 BMI<30 AND >=22 CALC & DOCU. * Electronic signature of Silvia Son MD on 06/29/2025 at 04:47 PM EST Sign off status: Pending * Provider: Silvia Son M.D. Date: 0 01/06/2025 Generated for Adani ng/Eneg/eTransmitting on: 1 08/29/2024 04:47 PM EST History and Physical Notes * HPI (History of Present Illness) Category Sub-Category Detail Notes Category Not es Cardiology Short of Breath Chest Pain Palpitations Dizziness Examination Category Sub-Category Detail Notes Category Not es General Examination HEENT: unremarkable Heart: RSR Lungs: clear to auscultatio n Extremities: minimal leg edema, t enderness of posterior knee, suggestive of Shah's cyst General Appearance: NAD Skin: normal, no rash Neurologic Exam: Intact, gait good Neck: supple, no lymphaden opathy Oral cavity: no lesions, mucosa m oist and WNL, no erythema Peripheral pulses: normal Chest: normal shape and exp ansion
--- OUTSIDE RECORDS SUMMARY | 2025-03-09 08:30 | XMS_ITS ---
Author Organization [facility] Address [address] [place] [phone] Care Team Providers Care Dress Marker Name Role Phone Silvia Son Primary Care [...] Active Results Component Value Reference Range Notes P-Basic Metabolic Panel (BMP ) Reviewed date:03/10/2025 12:38:46 PM Interpretation:bun 43, Cr 1.22, gfr 44 Performing Lab: Notes/Report: Test performed by [facility], [facility] , [address], [place] [address] Juan Carlos Bansal MD, Senior Sustainability Consultant CLIA: [id number] Sodium 142 135-145 mmol/L Potassium 4.3 3.5-5.3 mmol/L Chloride 105 97-108 mmol/L CO2 27 20-32 mmol/L Glucose 88 65-99 mg/dL BUN 43 8-23 mg/dL Creatinine 1.22 0.50-1.00 mg/dL Calcium 9.8 8.6-10.4 mg/dL eGFR by Creatinine 44 >59 mL/min/1.73m2 REASON FOR VISIT 2 month check Medications Medication SIG (Take, Route, Frequency, Duration) Notes Start Date End Date Status Metoprolol Succinate ER 25 MG 1 tablet O rally Two times a day; Duration: 90 days Active Sertraline HCl 25 MG TAKE 1 TABLET BY MOUTH ONCE DAILY; Duration: 30 Active Aspirin 81 MG 1 tablet Orally Once a day; Duration: 30 day(s) Active Diclofenac Sodium 1 % as directed applie d topically 4 times a day Active hydroCHLOROthiazide 12.5 MG TAKE 1 TABLE T BY MOUTH EVERY MORNING; Duration: 90 Active Co Q 10 100 MG as directed Orally Active Clopidogrel Bisulfate 75 MG 1 tablet Ora lly Once a day; Duration: 30 day(s) Active Mirabegron ER 25 MG 1 tablet Orally Once a day; Duration: 30 days 03/09/2025 Active Estrace 0.1 MG/GM as directed Vaginal twice a week Active Alendronate Sodium 70 MG 1 tab(s) orally once a week; Duration: 28 day(s) Not-Taking Rosuvastatin Calcium 20 MG 1 tablet Oral ly Once a day; Duration: 90 days Active Vital Signs Weight 148.8 lbs 03/09/2025 Blood pressure systolic 114 mm Hg 03/09/20 25 Blood pressure diastolic 70 mm Hg 025 Heart Rate 79 /min 03/09/2025 Height 65 in 03/09/2025 BMI 24.76 kg/m2 03/09/2025 Encounters Encounter Location Date Provider Diagnosis [facility] [address] [id number] 03/09/2025 Silvia Son ASCVD (arteriosclero tic cardiovascular disease) I25.10 ; Pain in right knee M25.561 ; History of left hip replacement Z96.642 ; S/P coronary artery stent placement Z95.5 ; Pure hypercholesterolemia E78.00 ; Renal insufficiency N28.9 ; Urinary incontinence, unspecified type R32 and BMI 24.0-24.9, adult Z68.24 Assessments Encounter Date Diagnosis (ICD Code) Assessment Notes Treatment Notes Treatment Clinical Notes Section Notes 03/09/2025 ASCVD (arteriosclero tic cardiovascular disease) (ICD-10 - I25.10) 03/09/2025 Pain in right knee (ICD-10 - M25.561) 03/09/2025 History of left hip replacement (ICD-10 - Z96.642) 03/09/2025 S/P coronary artery stent placement (ICD-10 - Z95.5) 03/09/2025 Pure hypercholesterolemia (ICD-10 - E78.00) 03/09/2025 Renal insufficiency (ICD-10 - N28.9) 03/09/2025 Urinary incontinence , unspecified type (ICD-10 - R32) 03/09/2025 BMI 24.0-24.9, adult (ICD-10 - Z68.24) Plan Of Treatment Medication Medication Name Sig Start Date Stop Date Notes Mirabegron ER 25 MG 1 tablet Orally Once a day; Duration: 30 days 03/09/2025 Next Appt Details Follow Up: 4 M, Reason: Provider Name:Silvia Lassiter er, 07/10/2025 01:15:00 PM, [address] [facility] [address] [facility], [address] , [place], [place], [id number], Progress Notes * Sonam LEWIS KDOB:1940 ( 85 yo F)Acc No.[id number]:03/09/2025 Progress Notes Patient: Sonam ALVAREZ Provider: Silvia Son M.D. :1940 A ge:84 Y S ex:Female Date:03/09/2025 Address:[address] [place] [address] [facility] [id number] Subjective: * Chief Complaints: * 1 . 2 month check. * HPI: C ardiology: The pt is hare for a check up on Hypertension. Pt states she is doing good and denies any new concerns. Pt states her left knee pain is doing better. Pt states she stopped the Alendronate. Pt stataes she would get upset stomach when she took it and she is taking OTC calcium with Vitamin D. SHE DID TAKE A COURSE OF EVENITY. Denies : Chest Pain. D enies : [...] Procedure: t onsils above , Hysterectomy 1982, [facility] for repair of eft hiop ; HTN; tachcardia; UTI with enterobacter; respiratory faiure with hypoxia; emphysema; tobacco use disorder 11/06-11/10/2020, [place] recovery Lft hip November 2020. * Family [...] no. Alcohol: No. * Medications: T aking Estrace 0.1 MG/GM Cream as directed Vaginal [...] topically 4 times a day , Taking Metoprolol Succinate ER 25 MG Tablet Extended Release 24 Hour 1 tablet Orally Two times a day , Taking Sertraline HCl 25 MG Tablet TAKE 1 TABLET BY MOUTH ONCE DAILY , Taking hydroCHLOROthiazide 12.5 MG Tablet TAKE 1 TABLET BY MOUTH EVERY MORNING , Taking Rosuvastatin Calcium 20 MG Tablet 1 tablet Orally Once a day , Not-Taking Alendronate Sodium 70 MG Tablet 1 tab(s) orally once a week , Medication List reviewed and reconciled with the patient * Allergies: S ulfa Antibiotics: throat closes, Cefaclor: rash, Macrobid: hives, Cipro: rash, Zithromax: migrain. Objective: * Vitals: W t: 148.8, Temp: 97.8, BP: 114/70, HR: 79, Nurse: BELA, Ht: 65, BMI:24.76. * Examination: G eneral Examination: General Appearance: [...] of Shah's cyst. Assessment: * Assessment: 1. A SCVD (arteriosclerotic cardiovascular disease) - I25.10 (Primary) 2 . P ain in right knee - M25.561 3 . H istory of left hip replacement - Z96.642? 4. S /P coronary artery stent placement - Z95.5 5 . P ure hypercholesterolemia - E78.00 6 . R enal insufficiency - N28.9 7 .?Urinary incontinence, unspecified type - R32 8 . B [place] 24.0-24.9, adult - Z68.24 Plan: * Treatment: Value Reference Range B UN 43 H 8-23 - mg/dL * C alcium 9.8 8.6-10.4 - mg/dL * C hloride 105 97-108 - mmol/L * C O2 27 20-32 - mmol/L * C reatinine 1.22 H 0.50-1.00 - mg/dL * G lucose 88 65-99 - mg/dL * P otassium 4.3 3.5-5.3 - mmol/L * S odium 142 135-145 - mmol/L * e GFR by Creatinine 44 L >59 - mL/min/1.73m2 * Kaitlyn Dove 5 12:38:39 PM EDT > See phone encounter 2.?Urinary incontinence, unspecified type? Start Mirabegron ER Tablet Extended Release 24 Hour, 25 MG, 1 tablet, Orally, Once a day, 30 days, 30, Refills 2.?? * Procedure Codes: G 2211 Complex e/m visit add on, G8420 BMI<30 AND >=22 CALC & DOCU, G8783 BP SCR PRFRM RCMDD DEFIND SCR INTVL, G8752 MOST RECENT SYSTOLIC BP < 140MM HG, G8754 MOST RECENT DIASTOLIC BP < 90MM HG, G8399 PT W/DXA DOCUMENT OR ORDER * Preventive Medicine: Screening / Special Tests: B one mineral Density , osteopenia, osteoporosis. * Follow Up: 4 M * Images: Billing Information: * Visit Code: 59981 Office Visit, Est Pt., Level 4. * Procedure Codes: G2211 Complex e/m visit add on. G8420 BMI<30 AND >=22 CALC & DOCU. G8783 BP SCR PRFRM RCMDD DEFIND SCR INTVL. G8752 MOST RECENT SYSTOLIC BP < 140MM HG. G8754 MOST RECENT DIASTOLIC BP < 90MM HG. G8399 PT W/DXA DOCUMENT OR ORDER. * Electronic signature of Silvia Son MD on 06/29/2025 at 04:47 PM EST Sign off status: Pending * Provider: Silvia Son M.D. Date: 0 03/09/2025 Generated for Clair lauren/Mabel/eTvioletsmitting on: 08/29/2024 04:47 PM EST History and [...]
--- OUTSIDE RECORDS SUMMARY | 2025-04-07 05:30 | XMS_ITS ---
[facility] Address [address] [place] [id number] Care Team Providers Care Film Recordist Name Role Phone Silvia Son Primary Care Provider [phone] Allergies Allergen (clinical drug ingredient) Drug/Non Drug [...] closes Drug Allergy Active REASON FOR VISIT back pain Medications Medication SIG (Take, Route, Frequency, Duration) Notes Start Date End Date Status Metoprolol Succinate ER 25 MG 1 tablet O rally Two times a day; Duration: 90 days Active Alendronate Sodium 70 MG 1 tab(s) orally once a week; Duration: 28 day(s) Not-Taking Mirabegron ER 25 MG 1 tablet Orally Once a day; Duration: 30 days 03/09/2025 Active hydroCHLOROthiazide 12.5 MG TAKE 1 TABLE T BY MOUTH EVERY MORNING; Duration: 90 days Active methylPREDNISolone 4 MG as directed Orally 025 Active Clopidogrel Bisulfate 75 MG 1 tablet Ora lly Once a day; Duration: 30 day(s) Active Aspirin 81 MG 1 tablet Orally Once a day; Duration: 30 day(s) Active Rosuvastatin Calcium 20 MG 1 tablet Oral ly Once a day; Duration: 90 days Active Diclofenac Sodium 1 % as directed applie d topically 4 times a day Active Sertraline HCl 25 MG TAKE 1 TABLET BY MOUTH ONCE DAILY; Duration: 30 Active Estrace 0.1 MG/GM as directed Vaginal twice a week Active Co Q 10 100 MG as directed Orally Active Problems Problem Type SNOMED Code ICD Code Onset Dates Problem Status W/U Status Risk Notes Problem Sacroiliac joint pain (583753642) Sacroiliac joint pain (M53.3) Active confirmed Vital Signs Weight 148.6 lbs 04/07/2025 Blood pressure systolic 122 mm Hg 04/07/20 25 Blood pressure diastolic 76 mm Hg 025 Heart Rate 60 /min 04/07/2025 Height 65 in 04/07/2025 BMI 24.73 kg/m2 04/07/2025 Encounters Encounter Location Date Provider Diagnosis [facility] [address] [facility] 36 [facility] [address] [place] [id number] 04/07/2025 Silvia oSn Sacroiliac joint lynn n M53.3 and Left low back pain, unspecified chronicity, unspecified whether sciatica present M54.50 Assessments Encounter Date Diagnosis (ICD Code) Assessment Notes Treatment Notes Treatment Clinical Notes Section Notes 04/07/2025 Sacroiliac joint pain (ICD-10 - M53.3) 04/07/2025 Left low back pain, unspecified chronicity, unspecified whether sciatica present (ICD-10 - M54.50) Plan Of Treatment Medication Medication Name Sig Start Date Stop Date Notes methylPREDNISolone 4 MG as directed Orally 04/07/2025 Next Appt Details Follow Up: as scheduled, [place] son: Provider Name:Silvia Lassiter er, 07/10/2025 01:15:00 PM, [address] [facility] 36 [facility], [address], [place], [id number], Progress Notes * Sonam LEWIS KDOB:1940 ( 85 yo F)Acc No.[id number]:04/07/2025 Progress Notes Patient: Sonam ALVAREZ Provider: Silvia Son M.D. :1940 A ge:84 Y S ex:Female Date:04/07/2025 Address:[address] [place] [address] [place], [place], [id number] Subjective: * Chief Complaints: * 1 . Back pain. * HPI: Zoila tello back: The pt is here today with c/o lower back pain on the left side. Pt states the pain is worse with walking. Pt denies any know injury. Pt states this started on Thursday and is described as a sharp pain and not getting any better with heat and massage. * ROS: D ERMATOLOGY: no R carlton. [...] Procedure: t onsils above , Hysterectomy 1982, [facility] for repair of eft hiop ; HTN; tachcardia; UTI with enterobacter; respiratory faiure with hypoxia; emphysema; tobacco use disorder 11/06-11/10/2020, [place] recovery Lft hip November 2020. * Family [...] topically 4 times a day , Taking Sertraline HCl 25 MG Tablet TAKE 1 TABLET BY MOUTH ONCE DAILY , Taking Rosuvastatin Calcium 20 MG Tablet 1 tablet Orally Once a day , Taking Mirabegron ER 25 MG Tablet Extended Release 24 Hour 1 tablet Orally Once a day , Taking hydroCHLOROthiazide 12.5 MG Tablet TAKE 1 TABLET BY MOUTH EVERY MORNING , Taking Metoprolol Succinate ER 25 MG Tablet Extended Release 24 Hour 1 tablet Orally Two times a day , Not-Taking Alendronate Sodium 70 MG Tablet 1 tab(s) orally once a week , Medication List reviewed and reconciled with the patient * Allergies: S ulfa Antibiotics: throat closes, Cefaclor: rash, Macrobid: hives, Cipro: rash, Zithromax: migrain. Objective: * Vitals: W t: 148.6, Temp: 97.8, BP: 122/76, HR: 60, Nurse: BELA, Ht: 65, BMI:24.73. * Examination: G eneral Examination: General Appearance: N AD. H EENT: u nremarkable.?Oral cavity: n o lesions, mucosa moist and WNL, no erythema. N ortega: s upple, no lymphadenopathy. C hest: n ormal shape and expansion. H eart: R SR. L ungs: c lear to auscultation. N eurologic Exam: I ntact, gait good. S kin: n ormal, no rash.?Peripheral pulses: n ormal. B ack: t javier SI joint on the left. E xtremities:?no leg edema. Assessment: * Assessment: 1. S acroiliac joint pain - M53.3 (Primary) 2 . L eft low back pain, unspecified chronicity, unspecified whether sciatica present - M54.50 Plan: * Treatment: * Procedure Codes: G 2211 Complex e/m visit add on * Follow Up: a s scheduled * Images: Billing Information: * Visit Code: 92870 Office Visit, Est Pt., Level 3. * Procedure Codes: G2211 Complex e/m visit add on. * Electronic signature of Silvia Son MD on 06/29/2025 at 04:47 PM EST Sign off status: Pending * Provider: Silvia Son M.D. Date: 0 04/07/2025 Generated for Clair lauren/Mabel/eTransmitting on: 08/29/2024 04:47 PM EST History and Physical Notes * Examination Category Sub-Category Detail Notes Category Not es General Examination HEENT: unremarkable Heart: RSR Lungs: clear to auscultatio n Extremities: no leg edema General Appearance: NAD Skin: normal, no rash Neurologic Exam: Intact, gait good Neck: supple, no lymphaden opathy Oral cavity: no lesions, mucosa m oist and WNL, no erythema Peripheral pulses: normal Back: tender SI joint on t he left Chest: normal shape and exp ansion
--- OUTSIDE RECORDS SUMMARY | 2025-04-14 09:30 | XMS_ITS ---
Author Organization [facility] Address [address] [place] [id number] Care Team Providers Care Blender Operator Name Role Phone Silvia Son Primary Care Provider Luz Elena Gomez [phone] Allergies Allergen (clinical drug ingredient) Drug/Non Drug [...] Active Results Component Value Reference Range Notes X ray : Spine, lumbosacral Reviewed date:04/17/2025 05:52:28 PM Interpretation: Performing Lab: Notes/Report: X ray : SI joint, bilateral Reviewed date:04/17/2025 05:52:28 PM Interpretation: Performing Lab: Notes/Report: REASON FOR VISIT back pain Medications Medication SIG (Take, Route, Frequency, Duration) Notes Start Date End Date Status methylPREDNISolone 4 MG as directed Orally 025 Not-Taking hydroCHLOROthiazide 12.5 MG TAKE 1 TABLE T BY MOUTH EVERY MORNING; Duration: 90 days Active Metoprolol Succinate ER 25 MG 1 tablet O rally Two times a day; Duration: 90 days Active Methocarbamol 500 MG 1 tab Orally 3 times a day, prn 04/14/2025 Active Alendronate Sodium 70 MG 1 tab(s) orally once a week; Duration: 28 day(s) Not-Taking Rosuvastatin Calcium 20 MG 1 tablet Oral ly Once a day; Duration: 90 days Active Mirabegron ER 25 MG 1 tablet Orally Once a day; Duration: 30 days 03/09/2025 Active Aspirin 81 MG 1 tablet Orally Once a day; Duration: 30 day(s) Active Diclofenac Sodium 1 % as directed applie d topically 4 times a day Active Sertraline HCl 25 MG TAKE 1 TABLET BY MOUTH ONCE DAILY; Duration: 30 Active Estrace 0.1 MG/GM as directed Vaginal twice a week Active Clopidogrel Bisulfate 75 MG 1 tablet Ora lly Once a day; Duration: 30 day(s) Active Co Q 10 100 MG as directed Orally Active Vital Signs Weight 146.6 lbs 04/14/2025 Blood pressure systolic 126 mm Hg 04/14/20 25 Blood pressure diastolic 72 mm Hg 025 Heart Rate 76 /min 04/14/2025 Height 65 in 04/14/2025 BMI 24.39 kg/m2 04/14/2025 Encounters Encounter Location Date Provider Diagnosis [facility] 1210 [facility] 36 [facility] [address] [place] [id number] 04/14/2025 Luz Elena Gomez Sacroiliac joint lynn n M53.3 and Left low back pain, unspecified chronicity, unspecified whether sciatica present M54.50 Assessments Encounter Date Diagnosis (ICD Code) Assessment Notes Treatment Notes Treatment Clinical Notes Section Notes 04/14/2025 Sacroiliac joint pain (ICD-10 - M53.3) 04/14/2025 Left low back pain, unspecified chronicity, unspecified whether sciatica present (ICD-10 - M54.50) Plan Of Treatment Medication Medication Name Sig Start Date Stop Date Notes Methocarbamol 500 MG 1 tab Orally 3 times a day, prn 04/14 Next Appt Details Follow Up: via phone to repo rt test results, Reason: Provider Name:Silvia Lassiter er, 07/10/2025 01:15:00 PM, [address] [facility] 36 [facility], [address], [place], [phone], Progress Notes * Sonam LEWIS KDOB:1940 ( 85 yo F)Acc No.[id number]:04/14/2025 Progress Notes Patient: Sonam ALVAREZ Provider: DARLEEN Todd :1940 A ge:84 Y S ex:Female Date:04/14/2025 Address:[address], [place], [id number] Pcp:Silvia Son Subjective: * Chief Complaints: * 1 . Back pain. * HPI: Zoila tello back: 84 year old female presents with c/o Low Back Pain P t sts her lower left side of her back has been hurting for about a week. Pt sts she was here last week seeing Dr. Son and he gave her a prednisone pack and sts she has yet to be able to get any type of relief. * ROS: D ERMATOLOGY: no R carlton. [...] Procedure: t onsils above , Hysterectomy 1982, [facility] for repair of eft hiop ; HTN; tachcardia; UTI with enterobacter; respiratory faiure with hypoxia; emphysema; tobacco use disorder 11/06-11/10/2020, [place] recovery Lft hip November 2020. * Family [...] Orally Two times a day , Not-Taking methylPREDNISolone 4 MG Tablet Therapy Pack as directed Orally , Not-Taking Alendronate Sodium 70 MG Tablet 1 tab(s) orally once a week , Medication List reviewed and reconciled with the patient * Allergies: S ulfa Antibiotics: throat closes, Cefaclor: rash, Macrobid: hives, Cipro: rash, Zithromax: migrain. Objective: * Vitals: W t: 146.6, Temp: 97.7, BP: 126/72, HR: 76, Nurse: [facility], Ht: 65, BMI:24.39. * Examination: G eneral Examination: General Appearance: N AD. C hest: n ormal shape and expansion. H eart: R SR. L ungs: c lear to auscultation. N eurologic Exam: I ntact, gait good. S kin: n ormal, no rash. P eripheral pulses: n ormal. B ack: tender SI joint on the left, lumbar paraspinal spasm present on the left, decreased ROM of spine, normal SLR and figure 4 test. E xtremities: n o leg edema. Assessment: * Assessment: 1. S acroiliac joint pain - M53.3 (Primary) 2 . L eft low back pain, unspecified chronicity, unspecified whether sciatica present - M54.50 Plan: * Treatment: 2.?Left low back pain, unspecified chronicity, unspecified whether sciatica present?Imaging: X ray : Spine, lumbosacral (Performed Date - 04/14/2025)* Heather Jose 04/17/2025 05:5 2:21 PM EDT > See phone encounter * Procedure Codes: G 2211 Complex e/m visit add on * Follow Up: v ia phone to report test results * Images: Billing Information: * Visit Code: 10977 Office Visit, Est Pt., Level 3. * Procedure Codes: G2211 Complex e/m visit add on. * Electronic signature of DARLEEN Fraser on 06/29/2025 at 04:47 PM EST Sign off status: Pending * Provider: DARLEEN Todd Date: 0 04/14/2025 Generated for Adani xin/Mabel/eTransmitting on: 1 08/29/2024 04:47 PM EST History and Physical Notes * HPI (History of Present Illness) Category Sub-Category Detail Notes Category Not es Lower back Low Back Pain Pt sts her lower left side of her back has been hurting for about a week. Pt sts she was here last week seeing Dr. Son and he gave her a prednisone pack and sts she has yet to be able to get any type of relief Examination Category Sub-Category Detail Notes Category Not es General Examination Heart: RSR Lungs: clear to auscultatio n Extremities: no leg edema General Appearance: NAD Skin: normal, no rash Neurologic Exam: Intact, gait good Peripheral pulses: normal Back: tender SI joint on t he left, lumbar paraspinal spasm present on the left, decreased ROM of spine, normal SLR and figure 4 test Chest: normal shape and exp ansion
--- OUTSIDE RECORDS SUMMARY | 2025-05-17 10:00 | XMS_ITS ---
Author Organization [facility] Address [address] [place] [id number] Care Team Providers Care Burnisher And Bumper Name Role Phone Silvia Son Primary Care Provider Luz Elena Gomez [phone] Allergies Allergen (clinical drug ingredient) Drug/Non Drug [...] Active Results Component Value Reference Range Notes venous doppler ultrasound le g, lower left Reviewed date:05/19/2025 01:07:39 PM Interpretation:Negative for DVT Performing Lab: Notes/Report: Negative for DVT venous doppler ultrasound le g, lower left Reviewed date:05/19/2025 01:07:39 PM Interpretation:Negative for DVT Performing Lab: Notes/Report: Negative for DVT venous doppler ultrasound le g, lower right Reviewed date:05/19/2025 01:07:58 PM Interpretation:Negative for DVT Performing Lab: Notes/Report: Negative for DVT REASON FOR VISIT couple of falls, ankles are swollen Medications Medication SIG (Take, Route, Frequency, Duration) Notes Start Date End Date Status Methocarbamol 500 MG 1 tab Orally 3 time s a day, prn 04/14/2025 Active HYDROcodone-Acetaminophen 5- 325 MG 1 tablet as needed Orally as needed; Duration: 30 days 04/27/2025 Active Sertraline HCl 25 MG 1 tablet Orally Onc e a day; Duration: 30 days Active Rosuvastatin Calcium 20 MG 1 tablet Oral ly Once a day; Duration: 90 days Active Diclofenac Sodium 1 % as directed applie d topically 4 times a day Active Metoprolol Succinate ER 25 MG 1 tablet O rally Two times a day; Duration: 90 days Active hydroCHLOROthiazide 12.5 MG TAKE 1 TABLE T BY MOUTH EVERY MORNING; Duration: 90 days Active Mirabegron ER 25 [...] as directed Vaginal twice a week Active Immunizations Vaccine Route Administration Date Status Comme nts Fluzone High Dose (65yr and older) IM Intramuscular 05/17/2025 Administered Vital Signs Weight 156.4 lbs 05/17/2025 Blood pressure systolic 128 mm Hg 05/17/20 25 Blood pressure diastolic 70 mm Hg 025 Heart Rate 78 /min 05/17/2025 Height 65 in 05/17/2025 BMI 26.02 kg/m2 05/17/2025 Encounters Encounter Location Date Provider Diagnosis [facility] [address] [id number] 05/17/2025 Luz Elena Gomez Lower extremity odette a R60.0 ; Traumatic hematoma T14.8XXA ; Encounter for immunization Z23 and BMI 26.0-26.9,adult Z68.26 Assessments Encounter Date Diagnosis (ICD Code) Assessment Notes Treatment Notes Treatment Clinical Notes Section Notes 05/17/2025 Lower extremity edema (ICD-10 - R60.0) Will wrap legs with ANUM wraps and elevate. Will get a doppler to make sure there are not clots after her falls. This is likely due to reabsorption of the blood from the very large hematomas in the upper thighs. 05/17/2025 Traumatic hematoma (ICD-10 - T14.8XXA) 05/17/2025 Encounter for immunization (ICD-10 - Z23) 05/17/2025 BMI 26.0-26.9,adult (ICD-10 - Z68.26) Plan Of Treatment Treatment Notes Assessment Notes Lower extremity edema Will wrap legs wit h ANUM wraps and elevate. Will get a doppler to make sure there are not clots after her falls. This is likely due to reabsorption of the blood from the very large hematomas in the upper thighs. Pending Test Test Name Order Date Venous Doppler ultrasound leg, left thig h 05/17/2025 Venous Doppler ultrasound leg, right thi gh 05/17/2025 Next Appt Details Follow Up: via phone to repo rt test results, Reason: Provider Name:Silvia Lassiter er, 07/10/2025 01:15:00 PM, [address], [address], [place], [place], [id number], Progress Notes * Sonam LEWIS KDOB:1940 ( 85 yo F)Acc No.[id number]:05/17/2025 Progress Notes Patient: Sonam ALVAREZ Provider: DARLEEN Todd :1940 A ge:85 Y S ex:Female Date:05/17/2025 Address:[address] [place] [address], [place], [id number] Pcp:Silvia Son Subjective: * Chief Complaints: * 1 . Couple of falls, ankles are swollen. * HPI: A nkle/Foot: 85 year old female presents with c/o Swelling P t states her legs and feet are swollen, and she states she had a few falls in the past 3 weeks. * ROS: D ERMATOLOGY: no R carlton. n o H trevor. G ASTROENTEROLOGY: no N ausea. n o V omiting. n o D iarrhea.? U ROLOGY: no B lood in urine. n o F requent urination. ? * Medical History: H [place], Pulmonary emphysema, Hyperliidemia, Osteoporesis, Covid 19 Vaccine, Moderna, 08/17/20, 09/17/20, -[facility], COVID 19 Booster 05/22/2021, Moderna, Angioplasty and stent, 7/18/23, Dr. Roman. * Surgical History: t onsils removed , Hysterectomy 1982, Natural 1965, Natural 1968, Breast biopsy, Dr. Roberts 2016, closed Intertrochanteric fracture of the left hip withclosed reduction & cephalomedullary nailing of left femur 11/07/2020. * Hospitalization/Major Diagno stic Procedure: t onsils above , Hysterectomy 1982, [facility] for repair of eft hiop ; HTN; tachcardia; UTI with enterobacter; respiratory faiure with hypoxia; emphysema; tobacco use disorder 11/06-11/10/2020, [place] recovery Lft hip November 2020. * Family [...] topically 4 times a day , Taking Rosuvastatin Calcium 20 [...] Orally Two times a day , Taking Methocarbamol 500 MG Tablet 1 tab Orally 3 times a day, prn , Taking Sertraline HCl 25 MG Tablet 1 tablet Orally Once a day , Taking HYDROcodone-Acetaminophen 5-325 MG Tablet 1 tablet as needed Orally as needed , Discontinued methylPREDNISolone 4 MG Tablet Therapy Pack as directed Orally , Discontinued Alendronate Sodium 70 MG Tablet 1 tab(s) orally once a week , Medication List reviewed and reconciled with the patient * Allergies: S ulfa Antibiotics: throat closes, Cefaclor: rash, Macrobid: hives, Cipro: rash, Zithromax: migrain. Objective: * Vitals: W t: 156.4, Temp: 97.1, BP: 128/70, HR: 78, Nurse: pe, Ht: 65, BMI:26.02. * Examination: G eneral Examination: General Appearance: N AD. H EENT: u nremarkable.?Oral cavity: n o lesions, mucosa moist and WNL, no erythema. N ortega: s upple, no lymphadenopathy. C hest: n ormal shape and expansion. H eart: R SR. L ungs: c lear to auscultation. A bdomen: b owel sounds present, soft and nontender. N eurologic Exam: I ntact, gait normal. S kin: L arge hematomas on the bilateral buttocks and upper thighs from falls. P eripheral pulses: n ormal (2+) bilaterally. B ack: n o vertebral tenderness. E xtremities: 2 + edema on the left and 1+ edema on the right LE. ? Assessment: * Assessment: 1. L ower extremity edema - R60.0 (Primary) 2 . T raumatic hematoma - T14.8XXA 3 . E ncounter for immunization - Z23 4 . B NC 26.0-26.9,adult - Z68.26 Plan: * Treatment: ?Imaging: Venous Doppler ultrasound leg, right thigh* Neisha Lee 05/17/2025 03:4 8:15 PM EDT > faxed to [facility] Scheduling ?Imaging: venous doppler ultrasound leg, lower left (Performed Date - 05/17/2025)?Negative for DVT* Neisha Lee 05/17/2025 03:4 8:47 PM EDT > faxed to [facility] 05/19/2025 01:07:32 PM EDT > Pt notified ?Imaging: venous doppler ultrasound leg, lower right (Performed Date - 05/17/2025)?Negative for DVT* Neisha Lee 05/17/2025 03:4 8:31 PM EDT > [facility]ed to [facility] 05/19/2025 01:07:51 PM EDT > Pt notified Notes: Will wrap legs with ANUM wraps and elevate. Will get a doppler to make sure there are not clots after her falls. This is likely due to reabsorption of the blood from the very large hematomas inthe upper thighs. ?? * Immunizations: Fluzone High Dose (65yr and older) : 0.5 mL (Route: Intramuscular) given by CHRIS Guidry , Hide Washer on Left Deltoid (Encounter for immunization) * Procedure Codes: G 2211 Complex e/m visit add on, G8420 BMI<30 AND >=22 CALC & DOCU, G8783 BP SCR PRFRM RCMDD DEFIND SCR INTVL, G8752 MOST RECENT SYSTOLIC BP < 140MM HG, G8754 MOST RECENT DIASTOLIC BP < 90MM HG, 3074F SYST BP LT 130 MM HG, 3078F DIAST BP < 80 MM HG * Follow Up: v ia phone to report test results * Images: Billing Information: * Visit Code: 95073 Office Visit, Est Pt., Level 4. * Procedure Codes: G2211 Complex e/m visit add on. G8420 BMI<30 AND >=22 CALC & DOCU. G8783 BP SCR PRFRM RCMDD DEFIND SCR INTVL. G8752 MOST RECENT SYSTOLIC BP < 140MM HG. G8754 MOST RECENT DIASTOLIC BP < 90MM HG. 3074F SYST BP LT 130 MM HG. 3078F DIAST BP < 80 MM HG. * Electronic signature of DARLEEN Fraser on 06/29/2025 at 04:48 PM EST Sign off status: Pending * Provider: DARLEEN Todd Date: Generated for Clair lauren/Mabel/Eugeneitting on: 08/29/2024 04:48 PM EST History and Physical Notes * HPI (History of Present Illness) Category Sub-Category Detail Notes Category Not es Ankle/Foot Swelling Pt states her le gs and feet are swollen, and she states she had a few falls in the past 3 weeks Examination Category Sub-Category Detail Notes Category Not es General Examination HEENT: unremarkable Heart: RSR Lungs: clear to auscultatio n Abdomen: bowel sounds present , soft and nontender Extremities: 2+ edema on the left and 1+ edema on the right LE General Appearance: NAD Skin: Large hematomas on t he bilateral buttocks and upper thighs from falls Neurologic Exam: Intact, gait normal Neck: supple, no lymphaden opathy Oral cavity: no lesions, mucosa m oist and WNL, no erythema Peripheral pulses: normal (2+) bilatera lly Back: no vertebral tendern ess Chest: normal shape and exp ansion
--- OUTSIDE RECORDS SUMMARY | 2025-05-25 08:15 | XMS_ITS ---
Author Organization [facility] Address [address] [place] [id number] Care Team Providers Care Premium Note Interest Calculator Clerk Name Role Phone Silvia Son Primary Care Provider Luz Elena Gomez [phone] Allergies Allergen (clinical drug ingredient) Drug/Non Drug [...] Notes P-Basic Metabolic Panel (BMP ) Reviewed date:05/31/2025 09:42:02 AM Interpretation:BUN 38, Creat 1.31, eGFR 40 Performing Lab: Notes/Report: Test performed by [facility] [address] [place] [address] , [address], [place] [address] Juan Carlos Bansal MD, Train Reservation Clerk CLIA: [id number] Sodium 140 135-145 mmol/L Potassium 4.1 3.5-5.3 mmol/L Chloride 100 97-108 mmol/L CO2 29 20-32 mmol/L Glucose 94 65-99 mg/dL BUN 38 8-23 mg/dL Creatinine 1.31 0.50-1.00 mg/dL Calcium 10.1 8.6-10.4 mg/dL eGFR by Creatinine 40 >59 mL/min/1.73m2 REASON FOR VISIT 1 week f/u Medications Medication SIG (Take, Route, Frequency, Duration) Notes Start Date End Date Status Diclofenac Sodium 1 % as directed applie d topically 4 times a day Active Aspirin 81 MG 1 tablet Orally Once a day; Duration: 30 day(s) Active Rosuvastatin Calcium 20 MG 1 tablet Oral ly Once a day; Duration: 90 days Active Clopidogrel Bisulfate 75 MG 1 tablet Ora lly Once a day; Duration: 30 day(s) Active Co Q 10 100 MG as directed Orally Active Methocarbamol 500 MG 1 tab Orally 3 time s a day, prn 04/14/2025 Active Metoprolol Succinate ER 25 MG 1 tablet O rally Two times a day; Duration: 90 days Active Estrace 0.1 MG/GM as directed Vaginal twice a week Active HYDROcodone-Acetaminophen 5- 325 MG 1 tablet as needed Orally as needed; Duration: 30 days 04/27/2025 Active Sertraline HCl 25 MG 1 tablet Orally Onc e a day; Duration: 30 days Active hydroCHLOROthiazide 12.5 MG TAKE 1 TABLE T BY MOUTH EVERY MORNING; Duration: 90 days Active Mirabegron ER 25 MG 1 tablet Orally Once a day; Duration: 30 days 03/09/2025 Active Vital Signs Weight 149.0 lbs 05/25/2025 Blood pressure systolic 140 mm Hg 05/25/20 25 Blood pressure diastolic 72 mm Hg 025 Heart Rate 71 /min 05/25/2025 Height 65 in 05/25/2025 BMI 24.79 kg/m2 05/25/2025 Encounters Encounter Location Date Provider Diagnosis [facility] [address] [facility] [address] [place], [place] [phone] 05/25/2025 Luz Elena Gomez Lower extremity odette a R60.0 and Traumatic hematoma T14.8XXA Assessments Encounter Date Diagnosis (ICD Code) Assessment Notes Treatment Notes Treatment Clinical Notes Section Notes 05/25/2025 Lower extremity edema (ICD-10 - R60.0) Swelling has improved. Will keep wrapping the left leg and will recheck labs. 05/25/2025 Traumatic hematoma (ICD-10 - T14.8XXA) Plan Of Treatment Treatment Notes Assessment Notes Lower extremity edema Swelling has impro nerissa. Will keep wrapping the left leg and will recheck labs. Next Appt Details Follow Up: 2 Weeks, Reason: Provider Name:Silvia Lassiter er, 07/10/2025 01:15:00 PM, [address], [address], [place], [phone], Progress Notes * Sonam LEWIS KDOB:1940 ( 85 yo F)Acc No.[id number]:05/25/2025 Patient: Sonam ALVAREZ Provider: DARLEEN Todd :1940 A ge:85 Y S ex:Female Date:05/25/2025 Address:[address] [place] [address], [place], [id number] Pcp:Silvia Son Subjective: * Chief Complaints: * 1 . 1 week f/u. * HPI: A nkle/Foot: 85 year old female presents with c/o Swelling P t here for f/u on legs swelling. Pt states today is the first day without wrapping them. Pt states they are better than last week. * ROS: D ERMATOLOGY: no R carlton. [...] Procedure: t onsils above , Hysterectomy 1982, [facility] for repair of eft hiop ; HTN; tachcardia; UTI with enterobacter; respiratory faiure with hypoxia; emphysema; tobacco use disorder 11/06-11/10/2020, [place] recovery Lft hip November 2020. * Family [...] tablet as needed Orally as needed , Medication List reviewed and reconciled with the patient * Allergies: S ulfa Antibiotics: throat closes, Cefaclor: rash, Macrobid: hives, Cipro: rash, Zithromax: migrain. Objective: * Vitals: W t: 149.0, Temp: 97.6, BP: 140/72, HR: 71, Nurse: pe, Ht: 65, BMI:24.79. * Examination: G eneral Examination: General Appearance: [...] Exam: I ntact, gait normal. S kin: h ematoma on left buttock from previous fall. P eripheral pulses: n ormal (2+) bilaterally. E xtremities: 1 + edema on the left leg and trace edema on the right, normal ROM, nontender on exam. Assessment: * Assessment: 1. L ower extremity edema - R60.0 (Primary) 2 . T raumatic hematoma - T14.8XXA Plan: * Treatment: Value Reference Range B UN 38 H 8-23 - mg/dL * C alcium 10.1 8.6-10.4 - mg/dL * C hloride 100 97-108 - mmol/L * C O2 29 20-32 - mmol/L * C reatinine 1.31 H 0.50-1.00 - mg/dL * G lucose 94 65-99 - mg/dL * P otassium 4.1 3.5-5.3 - mmol/L * S odium 140 135-145 - mmol/L * e GFR by Creatinine 40 L >59 - mL/min/1.73m2 * Luz Elena Gomez 05/25/2025 02:15:26 PM EDT >room 7 Heather Jose 05/31/2025 09:41:53 AM EDT > See phone encounter Notes: Swelling has improved. Will keep wrapping the left leg and will recheck labs.?? * Procedure Codes: G 2211 Complex e/m visit add on * Follow Up: 2 Weeks * Images: Billing Information: * Visit Code: 21406 Office Visit, Est Pt., Level 4. * Procedure Codes: G2211 Complex e/m visit add on. * Electronic signature of DARLEEN Fraser on 06/29/2025 at 04:48 PM EST Sign off status: Pending * Provider: DARLEEN Todd Date: Generated for Clair lauren/Mabel/eTransmitting on: 08/29/2024 04:48 PM EST History and Physical Notes * HPI (History of Present Illness) Category Sub-Category Detail Notes Category Not es Ankle/Foot Swelling Pt here for f/u on legs swelling. Pt states today is the first day without wrapping them. Pt states they are better than last week Examination Category Sub-Category Detail Notes Category Not es General Examination HEENT: unremarkable Heart: RSR Lungs: clear to auscultatio n Abdomen: bowel sounds present , soft and nontender Extremities: 1+ edema on the left leg and trace edema on the right, normal ROM, nontender on exam General Appearance: NAD Skin: hematoma on left but tock from previous fall Neurologic Exam: Intact, gait normal Neck: supple, no lymphaden opathy Oral cavity: no lesions, mucosa m oist and WNL, no erythema Peripheral pulses: normal (2+) bilatera lly Chest: normal shape and exp ansion
--- OUTSIDE RECORDS SUMMARY | 2025-06-08 08:30 | XMS_ITS ---
Author Organization [facility] Address [address] [place] [phone] Care Team Providers Care Roustabout Head Name Role Phone Silvia Son Primary Care Provider [phone] Luz Elena Gomez [phone] Allergies Allergen (clinical drug ingredient) Drug/Non Drug [...] Notes P-Basic Metabolic Panel (BMP ) Reviewed date:06/09/2025 03:20:57 PM Interpretation:BUN 34, Creat 1.54, eGFR 33 Performing Lab: Notes/Report: Test performed by [facility] [address] [place] [address] , [address], [place] [address] Juan Carlos Bansal MD, Night Manager CLIA: [id number] Sodium 144 135-145 mmol/L Potassium 3.8 3.5-5.3 mmol/L Chloride 105 97-108 mmol/L CO2 30 20-32 mmol/L Glucose 95 65-99 mg/dL BUN 34 8-23 mg/dL Creatinine 1.54 0.50-1.00 mg/dL Calcium 9.9 8.6-10.4 mg/dL eGFR by Creatinine 33 >59 mL/min/1.73m2 REASON FOR VISIT 2 weeks Medications Medication SIG (Take, Route, Frequency, Duration) Notes Start Date End Date Status Metoprolol Succinate ER 25 MG 1 tablet O rally Two times a day; Duration: 90 days Active hydroCHLOROthiazide 12.5 MG TAKE 1 TABLE T BY MOUTH EVERY MORNING; Duration: 90 days Active HYDROcodone-Acetaminophen 5- 325 MG 1 tablet as needed Orally as needed; Duration: 30 days 04/27/2025 Active Sertraline HCl 25 MG 1 tablet Orally Onc e a day; Duration: 30 days Active Methocarbamol 500 MG 1 tab Orally 3 time s a day, prn 04/14/2025 Active Diclofenac Sodium 1 % as directed applie d topically 4 times a day Active Mirabegron ER 25 MG 1 tablet Orally Once a day; Duration: 30 days 03/09/2025 Active Rosuvastatin Calcium 20 MG 1 tablet Oral ly Once a day; Duration: 90 days Active Aspirin 81 MG 1 tablet Orally Once a day; Duration: 30 day(s) Active Clopidogrel Bisulfate 75 MG 1 tablet Ora lly Once a day; Duration: 30 day(s) Active Co Q 10 100 MG as directed Orally Active Estrace 0.1 MG/GM as directed Vaginal twice a week Active Vital Signs Weight 151 lbs 06/08/2025 Blood pressure systolic 130 mm Hg 06/08/20 25 Blood pressure diastolic 70 mm Hg 025 Heart Rate 79 /min 06/08/2025 Height 65 in 06/08/2025 BMI 25.12 kg/m2 06/08/2025 Encounters Encounter Location Date Provider Diagnosis [facility] [address] [place] [phone] 06/08/2025 Luz Elena Patricia Lower extremity odette a R60.0 and Traumatic hematoma T14.8XXA Assessments Encounter Date Diagnosis (ICD Code) Assessment Notes Treatment Notes Treatment Clinical Notes Section Notes 06/08/2025 Lower extremity edema (ICD-10 - R60.0) Swelling has improved. Will get compression stockings. She cannot stay on the increased dose of HCTZ due to renal function. Will recheck renal function today. 06/08/2025 Traumatic hematoma (ICD-10 - T14.8XXA) Plan Of Treatment Treatment Notes Assessment Notes Lower extremity edema Swelling has impro nerissa. Will get compression stockings. She cannot stay on the increased dose of HCTZ due to renal function. Will recheck renal function today. Next Appt Details Follow Up: via phone to repo rt test results, Reason: Provider Name:Silvia Lassiter er, 07/10/2025 01:15:00 PM, [address], [address], [place], [place], [id number], Progress Notes * Sonam LEWIS KDOB:1940 ( 85 yo F)Acc No.[id number]:06/08/2025 Progress Notes Patient: Sonam ALVAREZ Provider: DARLEEN Todd :1940 A ge:85 Y S ex:Female Date:06/08/2025 Address:[address] [place] [address], [facility], [id number] Pcp:Silvia Son Subjective: * Chief Complaints: * 1 . 2 weeks. * HPI: D ermatology: 85 year old female presents with c/o Swelling P t here to f/u on leg swelling. S yunier she has decreased the diuretic dose, her legs have been more swollen.. * ROS: D ERMATOLOGY: no R carlton. [...] Procedure: t onsils above , Hysterectomy 1982, [facility] for repair of eft hiop ; HTN; tachcardia; UTI with enterobacter; respiratory faiure with hypoxia; emphysema; tobacco use disorder 11/06-11/10/2020, [place] recovery Lft hip November 2020. * Family [...] Zithromax: migrain. Objective: * Vitals: W t: 151, Temp: 98.1, BP: 130/70, HR: 79, Nurse: pe, Ht: 65, BMI:25.12. * Examination: G eneral Examination: General Appearance: N AD. H EENT: u nremarkable.?Oral cavity: n o lesions, mucosa moist and WNL, no erythema. N ortega: s upple, no lymphadenopathy. C hest: n ormal shape and expansion. H eart: R SR. L ungs: c lear to auscultation. S kin: h ematoma on left buttock from previous fall. P eripheral pulses: n ormal (2+) bilaterally. E xtremities: 1 + edema on the left leg and trace edema on the right, normal ROM, nontender on exam. Assessment: * Assessment: 1. L ower extremity edema - R60.0 (Primary) 2 . T raumatic hematoma - T14.8XXA Plan: * Treatment: Value Reference Range B UN 34 H 8-23 - mg/dL * C alcium 9.9 8.6-10.4 - mg/dL * C hloride 105 97-108 - mmol/L * C O2 30 20-32 - mmol/L * C reatinine 1.54 H 0.50-1.00 - mg/dL * G lucose 95 65-99 - mg/dL * P otassium 3.8 3.5-5.3 - mmol/L * S odium 144 135-145 - mmol/L * e GFR by Creatinine 33 L >59 - mL/min/1.73m2 * Luz Elena Gomez 06/08/2025 02:23:52 PM EDT >room 7CLuz Elena padgett 06/09/2025 03:20:51 PM EDT >see TE Notes: Swelling has improved. Will get compression stockings. She cannot stay on the increased doseof HCTZ due to renal function. Will recheck renal function today.?? * Procedure Codes: G 2211 Complex e/m visit add on, G8783 BP SCR PRFRM RCMDD DEFIND SCR INTVL, G8752 MOST RECENT SYSTOLIC BP < 140MM HG, G8754 MOST RECENT DIASTOLIC BP < 90MM HG, 3075F SYST BP GE 130 - 139MM HG, 3078F DIAST BP < 80 MM HG * Follow Up: v ia phone to report test results * Images: Billing Information: * Visit Code: 79831 Office Visit, Est Pt., Level 3. * Procedure Codes: G2211 Complex e/m visit add on. G8783 BP SCR PRFRM RCMDD DEFIND SCR INTVL. G8752 MOST RECENT SYSTOLIC BP < 140MM HG. G8754 MOST RECENT DIASTOLIC BP < 90MM HG. 3075F SYST BP GE 130 - 139MM HG. 3078F DIAST BP < 80 MM HG. * Electronic signature of DARLEEN Fraser on 06/29/2025 at 04:47 PM EST Sign off status: Pending * Provider: DARLEEN Todd Date: Generated for Printi ng/Fanadyag/eTransmitting on: 08/29/2024 04:47 PM EST History and Physical Notes * HPI (History of Present Illness) Category Sub-Category Detail Notes Category Not es Dermatology Swelling Pt here to f/u o n leg swelling. Since she has decreased the diuretic dose, her legs have been more swollen. Examination Category Sub-Category Detail Notes Category Not es General Examination HEENT: unremarkable Heart: RSR Lungs: clear to auscultatio n Extremities: 1+ edema on the left leg and trace edema on the right, normal ROM, nontender on exam General Appearance: NAD Skin: hematoma on left but tock from previous fall Neck: supple, no lymphaden opathy Oral cavity: no lesions, mucosa m oist and WNL, no erythema Peripheral pulses: normal (2+) bilatera lly Chest: normal shape and exp ansion
--- NOTE | 2025-06-29 14:30 | CA_ITS ---
APPROVED REPORT EXAM: Comprehensive 2D, Doppler, and color-flow Echocardiogram Condenser Tube Tender: Chapis Aguilar RT(R) Ht: 5 ft 2 in Wt: 150lbs BSA: 1.69 BP: 117/43 mmHg Indications: edema, Abn EKG, CAD 2D Dimensions LA Volume 41.40 mL LA Volume Index 24.50 mL/m2 (M/F) 16-34 EF AP4 73.40 % GL Strain -21.4 % M-Mode Dimensions RVDd 2.54 cm (0.9-2.6) LA Diam 3.20 cm (1.9-4.0) LVDd 4.18 cm (3.5-5.7) LVDs 3.18 cm (3.5-5.7) IVSd 0.70 cm (0.6-1.1) PWd 0.64 cm (0.6-1.1) EF (Teich) 48.10% FS 23.90% EDV (Teich) 77.70 mL ESV (Teich) 40.30 mL LV Diastology E Decel Time 197 (160-240 msec) E/A Ratio 1.1 Aortic Valve BRYANNA Index 1.39 cm2/m2 AoV Peak Jordin. 143.0 (50-130 cm/s) AO Peak GR. 8.20 mmHg AO Mean GR. 4.10 (<5 mmHg) AO VTI 32.4 (18-25 cm) BRYANNA (VTI) 2.41 (2.5-4.5 cm2) Mitral Valve MV E Max Jordin. 132.0 (40-130 cm/s) MV A Velocity 123.0 (40-130 cm/s) E/A Ratio 1.08 MV PHT 58.0 ms Tricuspid Valve TR P. Velocity 271.00 cm/s Left Ventricle The left ventricle is normal size. Left ventricular systolic function is normal. The left ventricular ejection fraction is within the normal range. There is increased left ventricular wall thickness. There is normal LV segmental wall motion. The left ventricular diastolic function is indeterminate. LVEF is 60%. Right Ventricle The right ventricle is mildly dilated. The right ventricular systolic function is normal. Atria Left atrium is moderately dilated. Right atrium is moderately dilated. There is no color Doppler evidence of interatrial shunt. Aortic Valve The aortic valve is mildly thickened. There is no hemodynamically significant aortic valvular stenosis. Trace aortic regurgitation is present. Mitral Valve Moderate mitral annular calcification is present. The mitral valve is moderately thickened. Mild mitral stenosis is present. Mean MV gradient 5 mmHg (HR 65 bpm). MVA by PHT method is 1.5 cm2. Mild mitral regurgitation is present. Tricuspid Valve The tricuspid valve leaflets are thin and pliable. Mild tricuspid regurgitation. RVSP is 25-30 mmHg. Pulmonic Valve The pulmonary valve is grossly normal in structure. Trace pulmonic valve regurgitation is present. Great Vessels The aortic root is normal in size. IVC is normal in size and collapses >50% with inspiration. Pericardium There is no pericardial effusion. Other Information Study Quality: Fair Conclusion Normal biventricular systolic function. Mild RV dilation. Biatrial dilation. Moderate MAC. Thickened MV leaflets. Mild MS (mean MV gradient 5 mmHg (HR 65 bpm). MVA by PHT method is 1.5 cm2). Mild MR, mild TR. Electronically signed by : Francisca Rowland MD 07/09/2025 13:53:35
--- OUTSIDE RECORDS SUMMARY | 2025-06-29 16:47 | XMS_ITS | Patient Health Record ---
Author Organization [facility] Address [address] [place] [id number] Care Team Providers Care Cardiac Cath Lab Radiology Technologist Name Role Phone Silvia Son Primary Care Provider Patricia Luz Elena Hernandez [phone] Allergies Allergen (clinical drug ingredient) Drug/Non Drug [...] 40 Performing Lab: Notes/Report: Test performed by [facility] [address] [place] [address] , [address], [place] [address] Juan Carlos Bansal MD, Release Manager CLIA: [id number] Sodium 140 135-145 mmol/L Potassium 4.1 3.5-5.3 mmol/L Chloride 100 97-108 mmol/L CO2 29 20-32 mmol/L Glucose 94 65-99 mg/dL BUN 38 8-23 mg/dL Creatinine 1.31 0.50-1.00 mg/dL Calcium 10.1 8.6-10.4 mg/dL eGFR by Creatinine 40 >59 mL/min/1.73m2 P-CBC With Platelet And Diff erential Reviewed date:08/08/2024 10:08:07 AM Interpretation: Normal Performing Lab: Notes/Report: Test performed by [facility] [address] [place] [address] , [address], [place] [address] Juan Carlos Bansal MD, Release Manager CLIA: [id number] WBC 7.1 3.8-11.5 K/uL Red Blood Cell [...] 30 Performing Lab: Notes/Report: Test performed by [facility] [address] [place] [address] , [address], [place] [address] Juan Carlos Bansal MD, Release Manager CLIA: [id number] Sodium 140 135-145 mmol/L Potassium 3.9 3.5-5.3 [...] Normal Performing Lab: Notes/Report: Test performed by [facility] [address] , [address], [place] [address] Juan Carlos Bansal MD, Release Manager CLIA: [id number] TSH 3.36 0.43-5.25 mU/L P-Comprehensive Metabolic Pa yamila (CMP) Reviewed date:03/10/2025 08:32:17 AM Interpretation:bun 42, Cr 1.51, gfr 34 Performing Lab: Notes/Report: Test performed by [facility] [address] [place] [address] , [address], [place] [address] Juan Carlos Bansal MD, Release Manager CLIA: [id number] Sodium 138 135-145 mmol/L Potassium 4.1 3.5-5.3 [...] Lab: Notes/Report: Abnormal- see 03/09/25 f/u OV X ray : Spine, lumbosacral Reviewed date:04/17/2025 05:52:28 PM Interpretation: Performing Lab: Notes/Report: X ray : SI joint, bilateral Reviewed date:04/17/2025 05:52:28 PM Interpretation: Performing Lab: Notes/Report: P-Basic Metabolic Panel (BMP ) Reviewed date:03/10/2025 12:38:46 PM Interpretation:bun 43, Cr 1.22, gfr 44 Performing Lab: Notes/Report: Test performed by [facility] [address] [place] [address] , [address], [place] [address] Juan Carlos Bansal MD, Release Manager CLIA: [id number] Sodium 142 135-145 mmol/L Potassium 4.3 3.5-5.3 mmol/L Chloride 105 97-108 mmol/L CO2 27 20-32 mmol/L Glucose 88 65-99 mg/dL BUN 43 8-23 mg/dL Creatinine 1.22 0.50-1.00 mg/dL Calcium 9.8 8.6-10.4 mg/dL eGFR by Creatinine 44 >59 mL/min/1.73m2 venous doppler ultrasound le g, lower left Reviewed date:05/19/2025 01:07:39 PM Interpretation:Negative for DVT Performing Lab: Notes/Report: Negative for DVT venous doppler ultrasound le g, lower left Reviewed date:05/19/2025 01:07:39 PM Interpretation:Negative for DVT Performing Lab: Notes/Report: Negative for DVT venous doppler ultrasound le g, lower right Reviewed date:05/19/2025 01:07:58 PM Interpretation:Negative for DVT Performing Lab: Notes/Report: Negative for DVT P-Basic Metabolic Panel (BMP ) Reviewed date:06/09/2025 03:20:57 PM Interpretation:BUN 34, Creat 1.54, eGFR 33 Performing Lab: Notes/Report: Test performed by [facility] [address] [place] [address] , [address], [place] [address] Juan Carlos Bansal MD, Release Manager CLIA: [id number] Sodium 144 135-145 mmol/L Potassium 3.8 3.5-5.3 mmol/L Chloride 105 97-108 mmol/L CO2 30 20-32 mmol/L Glucose 95 65-99 mg/dL BUN 34 8-23 mg/dL Creatinine 1.54 0.50-1.00 mg/dL Calcium 9.9 8.6-10.4 mg/dL eGFR by Creatinine 33 >59 mL/min/1.73m2 DEXA Hip and Spine Reviewed date:03/10/2025 12:38:46 PM Interpretation:osteoporosis forearm, osteopenia hip Performing Lab: Notes/Report: osteoporosis forearm, osteopenia hip Medications Medication SIG (Take, Route, Frequency, Duration) Notes Start Date End Date Status Diclofenac Sodium 1 % as directed applie d topically 4 times a day Active metOLazone 2.5 MG 1 tablet Orally nubia y; Duration: 30 days 06/09/2025 Active Metoprolol Succinate ER 25 MG 1 tablet Orally Two times a day; Duration: 90 days Active Mirabegron ER 25 MG 1 tablet Orally Once a day; Duration: 30 days 03/09/2025 Active Rosuvastatin Calcium 20 MG 1 tablet Oral ly Once a day; Duration: 90 days Active Co Q 10 100 MG as directed Orally Active Estrace 0.1 MG/GM as directed Vaginal twice a week Active HYDROcodone-Acetaminophen 5-325 MG 1 tablet as needed Orally as needed; Duration: 30 days 04/27/2025 Active Sertraline HCl 25 MG 1 tablet Orally Onc e a day; Duration: 30 days Active Methocarbamol 500 MG 1 tab Orally 3 time s a day, prn 04/14/2025 Active Aspirin 81 MG 1 tablet Orally Once a day; Duration: 30 day(s) Active Clopidogrel Bisulfate 75 MG 1 tablet Ora lly Once a day; Duration: 30 day(s) Active Immunizations Vaccine Route Administration Date Status [...] (65yr and older) IM Intramuscular 04/26/2024 Administered Fluzone High Dose (65yr and older) IM Intramuscular 05/17/2025 Administered DT, 7 YEARS OR OLDER Unknown 10/12/1996 Administered COVID 19 Moderna Unknown 08/17/2020 Administered COVID 19 Moderna Unknown 09/17/2020 Administered COVID 19 Moderna Unknown 05/22/2021 Administered Problems Problem Type SNOMED Code ICD Code Onset Dates Problem Status W/U Status Risk Notes Problem Essential hypertension (40233880) Essential (primary) hypertension (I10) Active confirmed Problem Coronary arteriosclerosis (04901794) ASCVD (arteriosclerotic cardiovascular disease) (I25.10) Active confirmed Problem Essential hypertension (87345527) Essential hypertension (I10) Active confirmed Problem Laboratory test result abnormal (494870822) Elevated lipase (R74.8) Active confirmed Problem Duodenal ulcer (94756904) Duodenal ulcer (K26.9) Active confirmed Problem Mixed anxiety and depressive disorder (172231806) Depression with anxiety (F41.8) Active confirmed Problem Bandemia (309805922) Bandemia (D72.825) Active confirmed Problem Pure hypercholesterolemia (592298642) Pure hypercholesterolemia (E78.0) Active confirmed Problem Primary insomnia (7141361) Primary insomnia (F51.01) Active confirmed Problem Old myocardial infarction (7122850) Old myocardial infarction (I25.2) Active confirmed Problem Chronic ischemic heart disease (717759980) Chronic ischemic heart disease, unspecified (I25.9) Active confirmed Problem Centrilobular emphysema (14412630) Centrilobular emphysema (J43.2) Active confirmed Problem Acute exacerbation o f chronic obstructive airways disease (590404007) Chronic obstructive pulmonary disease with (acute) exacerbation (J44.1) Active confirmed Problem Pain of right knee region (finding) (934694046080515) Pain in right knee (M25.561) Active confirmed Problem Pain of knee region (finding) (7259322776) Pain in unspecified knee (M25.569) Active confirmed Problem Degeneration of lumbar intervertebral disc (50014991) Other intervertebral disc degeneration, lumbar region (M51.36) Active confirmed Problem Epigastric pain (09301565) Epigastric pain (R10.13) Active confirmed Problem Old healed fracture of bone (188117879) Personal history of (healed) traumatic fracture (Z87.81) Active confirmed Problem Arteriosclerotic vascular disease (21132526) Arteriosclerotic cardiovascular disease (I25.10) Active confirmed Problem Chronic pain (16165974) Other chronic pain (G89.29) Active confirmed Problem Acquired hypothyroidism (302011241) Acquired hypothyroidism (E03.9) Active confirmed Problem Pulmonary emphysema (60301364) Pulmonary emphysema, unspecified emphysema type (J43.9) Active confirmed Problem Reactive depression (situational) (57294747) Situational depression (F43.21) Active confirmed Problem Periumbilical abdominal pain (582471557) Periumbilical abdominal pain (R10.33) Active confirmed Problem Osteoporosis (52117010) Osteoporosis (M81.0) Active confirmed Problem Atrial fibrillation (04334218) Atrial fibrillation, unspecified type (I48.91) Active confirmed Problem Reactive depression (54337932) Reactive depression (F32.9) Active confirmed Problem Urinary incontinence (271157227) Urinary incontinence, unspecified type (R32) Active confirmed Problem Atherosclerotic hear t disease of kake coronary artery without angina pectoris (861242578505588) Atherosclerosis of kake coronary artery without angina pectoris, unspecified whether kake or transplanted heart (I25.10) Active confirmed Problem Gastritis and duodenitis (614874970) Gastritis and duodenitis (K29.90) Active confirmed Problem Pure hypercholesterolemia (352171002) Pure hypercholesterolemia (E78.00) Active confirmed Problem Acute arthritis (91782769) Acute arthritis (M19.90) Active confirmed Problem Sacroiliac joint lynn n (342806094) Sacroiliac joint pain (M53.3) Active confirmed Problem Age-related osteoporosis (807180263) Osteoporosis without current pathological fracture, unspecified osteoporosis type (M81.0) Active confirmed Problem History of placement of stent for coronary artery disease (situation) (517621967) S/P coronary artery stent placement (Z95.5) Active confirmed Problem History of left hip replacement (5319535588807626) History of left hip replacement (Z96.642) Active confirmed Problem Type 2 diabetes mellitus with peripheral angiopathy (189154513) Type 2 diabetes mellitus with diabetic peripheral angiopathy without gangrene, unspecified whether intermediate insulin use (E11.51) Active confirmed Problem Fracture malunion (139604715) Closed fracture of trochanter of femur with malunion, unspecified laterality, subsequent encounter (S72.109P) Active confirmed Problem Lumbar arthritis (disorder) (687752751) Arthritis, 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) Active confirmed Problem Arthritis of sacroiliac joint (disorder) (6650141626) SI joint arthritis (M46.1) Active confirmed Vital Signs Heart Rate 79 /min 06/08/2025 Blood pressure diastolic 70 mm Hg 06/08/2025 Height 65 in 06/08/2025 Blood pressure systolic 130 mm Hg 06/08/2025 Weight 151 lbs 06/08/2025 BMI 25.12 kg/m2 06/08/2025 Encounters Encounter Location Date Provider Diagnosis [facility] [address] [facility] [address] [id number] 08/05/2024 Silvia Son ASCVD (arteriosclero tic cardiovascular disease) I25.10 ; S/P coronary artery stent placement Z95.5 ; Pure hypercholesterolemia E78.00 ; Renal insufficiency N28.9 and Acquired hypothyroidism E03.9 [facility] [address] [facility] [address] [id number] 01/06/2025 Silvia Son Essential hypertensi on I10 ; Osteoporosis M81.0 ; 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 ; Synovial cyst of left popliteal space M71.22 and BMI 24.0-24.9, adult Z68.24 [facility] [address] [facility] [address] [id number] 03/09/2025 Silvia Son ASCVD (arteriosclero tic cardiovascular disease) I25.10 ; Pain in right knee M25.561 ; History of left hip replacement Z96.642 ; S/P coronary artery stent placement Z95.5 ; Pure hypercholesterolemia E78.00 ; Renal insufficiency N28.9 ; Urinary incontinence, unspecified type R32 and BMI 24.0-24.9, adult Z68.24 [facility] [address] [place] [id number] 04/07/2025 Silvia Son Sacroiliac joint lynn n M53.3 and Left low back pain, unspecified chronicity, unspecified whether sciatica present M54.50 [facility] [address] [place] [id number] 04/14/2025 Luz Elena Crowdy Sacroiliac joint lynn n M53.3 and Left low back pain, unspecified chronicity, unspecified whether sciatica present M54.50 [facility] [address] [place] [id number] 05/17/2025 Luz Elena Crowdy Lower extremity odette a R60.0 ; Traumatic hematoma T14.8XXA ; Encounter for immunization Z23 and BMI 26.0-26.9,adult Z68.26 [facility] [address] [place] [id number] 05/25/2025 Luz Elena Crowdy Lower extremity odette a R60.0 and Traumatic hematoma T14.8XXA [facility] [address] [place] [id number] 06/08/2025 Luz Elena Crowdy Lower extremity odette a R60.0 and Traumatic hematoma T14.8XXA [facility] [address] [place], [place] [id number] 07/25/2024 iSlvia Son [facility] [address] [place] [id number] 08/08/2024 Silvia Son [facility] [address] [place], [place] [id number] 01/18/2025 Silvia Son Screening for osteop orosis Z13.820 and Osteoporosis M81.0 [facility] [address] [place], [place] [id number] 02/17/2025 Silvia Son [facility] [address] [place], [place] [id number] 03/10/2025 Silvia Son [facility] [address] [place] [id number] 04/14/2025 Silvia Son [facility] [address] [place], [place] [id number] 04/17/2025 Luz Elena Crowdy [facility] [address] [place], [place] [id number] 04/26/2025 Silvia Son Lumbar back pain M54 .50 [facility] [address] [place] [id number] 05/31/2025 Luz Elena Crowdy [facility] [address] [place] [id number] 06/09/2025 Luz Elena Crowdy [facility] [address] [place] [id number] 06/27/2025 Silvia Son Assessments Encounter Date Diagnosis (ICD Code) Assessment Notes Treatment Notes Treatment Clinical Notes Section Notes 03/09/2025 ASCVD (arteriosclero tic cardiovascular disease) (ICD-10 - I25.10) 03/09/2025 Pain in right knee (ICD-10 - M25.561) 01/18/2025 Screening for osteoporosis (ICD-10 - Z13.820) 08/05/2024 S/P coronary artery stent placement (ICD-10 - Z95.5) 01/06/2025 Essential hypertensi on (ICD-10 - I10) 08/05/2024 ASCVD (arteriosclero tic cardiovascular disease) (ICD-10 - I25.10) 04/07/2025 Sacroiliac joint lynn n (ICD-10 - M53.3) 04/07/2025 Left low back pain, unspecified chronicity, unspecified whether sciatica present (ICD-10 - M54.50) 04/14/2025 Sacroiliac joint lynn n (ICD-10 - M53.3) 04/26/2025 Lumbar back pain (ICD-10 - M54.50) 05/17/2025 Lower extremity odette a (ICD-10 - R60.0) Will wrap legs with ANUM wraps and elevate. Will get a doppler to make sure there are not clots after her falls. This is likely due to reabsorption of the blood from the very large hematomas in the upper thighs. 05/17/2025 Traumatic hematoma (ICD-10 - T14.8XXA) 05/25/2025 Lower extremity odette a (ICD-10 - R60.0) Swelling has improved. Will keep wrapping the left leg and will recheck labs. 06/08/2025 Lower extremity odette a (ICD-10 - R60.0) Swelling has improved. Will get compression stockings. She cannot stay on the increased dose of HCTZ due to renal function. Will recheck renal function today. 06/08/2025 Traumatic hematoma (ICD-10 - T14.8XXA) 05/17/2025 Encounter for immunization (ICD-10 - Z23) 05/25/2025 Traumatic hematoma (ICD-10 - T14.8XXA) 04/14/2025 Left low back pain, unspecified chronicity, unspecified whether sciatica present (ICD-10 - M54.50) 03/09/2025 History of left hip replacement (ICD-10 - Z96.642) 01/06/2025 Osteoporosis (ICD-10 - M81.0) 01/18/2025 Osteoporosis (ICD-10 - M81.0) 08/05/2024 Pure hypercholesterolemia (ICD-10 - E78.00) 08/05/2024 Renal insufficiency (ICD-10 - N28.9) 01/06/2025 Arteriosclerotic cardiovascular disease (ICD-10 - I25.10) 03/09/2025 S/P coronary artery stent placement (ICD-10 - Z95.5) 05/17/2025 BMI 26.0-26.9,adult (ICD-10 - Z68.26) 03/09/2025 Pure hypercholesterolemia (ICD-10 - E78.00) 08/05/2024 Acquired hypothyroid ism (ICD-10 - E03.9) 01/06/2025 Synovial cyst of lef t popliteal space (ICD-10 - M71.22) 03/09/2025 Renal insufficiency (ICD-10 - N28.9) 01/06/2025 BMI 24.0-24.9, adult (ICD-10 - Z68.24) 03/09/2025 Urinary incontinence , unspecified type (ICD-10 - R32) 03/09/2025 BMI 24.0-24.9, adult (ICD-10 - Z68.24) Plan Of Treatment Pending Test Test Name Order Date Mammogram 06/27/2025 Venous Doppler ultrasound leg, left thig h 05/17/2025 Venous Doppler ultrasound leg, right thi gh 05/17/2025 Next Appt Details Provider Name:Silvia Lassiter er, 07/10/2025 01:15:00 PM, [address], [place], [place], [id number], Insurance Providers Payer Name Payer Address Payer Phone Subscriber Number Group Number Insured Name Patient Relationship to Insured Coverage Start Date Coverage End Date [facility] [address] [address] [place] [phone] [id number] Sonam Berg Self - patient is the insured Medications Administered Medication Instructions Date of Administration Dosage Notes Dexamethasone 06/09/2014 1 mL Dexamethasone 06/21/2018 1 mL Medical (General) History Medical History History ICD Code HTN Pulmonary emphysema Hyperliidemia Osteoporesis Covid 19 Vaccine, Moderna, 08/17/20, 1, -[facility] COVID 19 Booster 05/22/2021, Moderna Angioplasty and stent, 02/24/23, Dr. Vasquez vines Surgical History Surgery Date(Month/Year) tonsils removed Hysterectomy 1982 Natural 1965 Natural 1968 Breast biopsy, Dr. Roberts 2016 closed Intertrochanteric fra cture of the left hip withclosed reduction & cephalomedullary nailing of left femur 11/07/2020 Hospitalization History Reason Date(Month/Year) [place] recovery Lft hip November 2020 [facility] for repair of eft hiop ; HTN; tachcardia; UTI with enterobacter; respiratory faiure with hypoxia; emphysema; tobacco use disorder 11/06-11/10/2020 Hysterectomy 1983 tonsils above
--- OUTSIDE RECORDS SUMMARY | 2025-06-29 16:48 | XMS_ITS | Clinical Summary ---
Author Organization [facility] Address [address] [place] [address] Care Team Providers Care Yard Labor Supervisor Name Role Phone Julio Son MD Primary Care Provider [phone] Allergies Active Allergy Reactions Criticality Noted Date [...] Active Problems Problem Noted Date Diagnosed Date Closed fracture of neck of left femur with nonun ion 08/30/2024 Closed intertrochanteric fracture of left femur 08/30/2024 HTN (hypertension) 08/30/2024 Resolved Problems Problem Noted Date Diagnosed Date Resolved Date TONEY (acute kidney injury) 08/30/2024 Immunizations Immunization Administration Dates Next Due [...] [facility]-Bone Density Scan 1941 [facility]-Depression Screening 1941 [facility]-/Child/Adol SDOH Screenings 1941 [facility]- SDOH Screenings 1959 [facility]-Adult SDOH Screenings 1959 [facility]-Zoster Vaccines (1 of 2) 1991 [facility]-DTaP,Tdap,and Td Vaccines (1 - Tdap) 10/13/1996 10/12/1996 [facility]-RSV Vaccine: 60+ Years or (1 - 1-dose 75+ series) 2016 [id number] Vaccine (5 - 2024- season) 2025 06/09/2022, 05/22/2021, 09/17/2020, Additional history exists [facility]-Influenza Vaccine (#1) 04/10/202505/07, 05/03/2021, 04/11/2020, Additional history exists [facility]-Pneumococcal Vaccine: 50+ Years Completed 11/01/2016, 05/17/2014 HPV Vaccines Aged Out No longer eligi [...] patient's age to complete this topic Insurance [facility] MEDIC[facility] Care Teams Yard Labor Supervisor Relationship Specialty Start Date End Date Julio Son MD [address] [place] [id number] PCP - General 08/30/24
== END 2025-06-29 23:59 | disposition home or self-care (01) ==
LOC: RT 14:32
PROVIDERS: PCP Family Medicine; Visit Provider Physician Assistant
DX: I08.1 Rheumatic disorders of both mitral and tricuspid valves (principal); I25.10 Atherosclerotic heart disease of native coronary artery without angina pectoris; R60.1 Generalized edema; R94.31 Abnormal electrocardiogram [ECG] [EKG]
CPT/HCPCS: 93306